=== PATIENT | female | born 1975 | race Caucasian/White ===

== ENCOUNTER 2024-09-08 06:50 | Day surgery (SDC) | payer MEDICARE, MEDICAID, SELFPAY ==
[2024-08-31 09:52] VITALS: BMI 28.6
[2024-08-31 10:37] LABS: % Basophils 0.9 % (0-2); % Eosinophils 16.9 % (0-6); % Immature Granulocytes 0.2 % (0-0.5); % Lymphocytes 24.1 % (20.5-51.1); % Neutrophils 52.9 % (42.2-75.2); Absolute Eosinophils 0.8 10^3/uL (0-0.7); Absolute Lymphocytes 1.1 10^3/uL (1.2-3.4); Absolute Monocytes 0.2 10^3/uL (0.1-0.6); Absolute Neutrophils 2.4 10^3/uL (1.4-6.5); Hemoglobin 10.2 g/dL (12.0-16.0); Mean Corpuscular Hgb 31.4 pg (27.0-31.0); Mean Corpuscular Volume 92.3 fL (81.0-99.0); Mean Platelet Volume 12.4 fL (7.4-10.4); Nucleated Red Blood Cells % 0 %; Platelet Count 168 10^3/uL (130-400); Red Blood Cell Count 3.25 10^6/uL (4.20-5.40); Red Cell Dist. Width 11.9 % (11.5-14.5); White Blood Cell Count 4.6 10^3/uL (4.8-10.8)
[2024-08-31 11:23] LABS: Blood Urea Nitrogen 45 mg/dl (7-17); Calcium 9.9 mg/dl (8.4-10.2); Carbon Dioxide 22 mmol/L (22-30); Chloride 108 mmol/L (98-107); Estimated Creatinine Clearance 49 ml/min; Glucose 85 mg/dl (70-99); Potassium 4.7 mmol/L (3.5-5.1); Sodium 141 mmol/L (135-145); eGFR 55.84
--- NOTE | 2024-09-05 10:21 | PTCARENOTE ---
Lorena in Dr. Conklin's office made aware of BUN 45, Cr 1.2, GFR 55.84.
[2024-09-08] VITALS (9 sets, daily range): BP systolic 96–126; BP diastolic 56–84; BMI 28.6
--- NOTE | 2024-09-08 21:57 | W.IMMPOSTOP ---
Surgical Immed Post Op Note
-
Primary Surgeon: Gwendolyn Conklin,
Assisting Surgeon: none
Pre-op Diagnosis: Abnormal uterine bleeding, echogenic focus on ultrasound
Post-op Diagnosis: same,endometrial polyp
Procedure Performed: diagnostic hysteroscopy D&C polypectomy, pap smear collection
Anesthesia Type: general Dr. Mc
Specimen / Cultures: 1. endocervical curettings 2. endometrial curettings and polyp
Estimated Blood Loss: 5 ml
Complications: none
Operative Findings: Uterus approx 10 cm with endometrial polyp noted. Bilateral tubal ostia seen.
Counts correct times 2.
Stable to recovery.
== END 2024-09-08 18:04 | disposition home or self-care (01) ==
LOC: SDS 06:50
PROVIDERS: ATTENDING PHYSICIAN Obstetrics & Gynecology; FAMILY PHYSICIAN Family Medicine
DX: N84.0 Polyp of corpus uteri (principal); N92.0 Excessive and frequent menstruation with regular cycle; Z12.4 Encounter for screening for malignant neoplasm of cervix
CPT/HCPCS: 58558; 88305; 36415; 80048; 85025; 86850; 86900; 86901; G0123

== ENCOUNTER 2024-12-25 21:15 | Inpatient (IN) | payer MEDICARE, MEDICAID, SELFPAY ==
[2024-12-25] VITALS (8 sets, daily range): BP systolic 89–113; BP diastolic 60–77; BMI 12.8
--- NOTE | 2024-12-25 14:14 | ED.GENMED ---
ED Provider Triage
<Oziel Pinto PA-C - Last Filed: 12/25/24 14:15>
-
Patient seen by provider in Triage?: Seen in Triage
Attestation: A medical screening examination has been initiated by a qualified medical provider. Based on the assessment performed at this time, it has been determined that an emergent medical condition may exist and the patient has been informed
that further medical evaluation and possible additional diagnostic testing may be needed.
HPI: 49-year-old female nonverbal wheelchair-bound with history of spina bifida who sees the spina bifida clinic at [facility] presents with parents who state the patient is not herself. She has a vesicostomy and parents have noted significant
amount of blood in the bag. She typically acts like this when she has a UTI. She is currently on Augmentin for the past 4 days. They feel that she is in pain. They are concerned about anemia and ongoing UTI or kidney malfunction. She has 1
kidney
Started workup at triage with urinalysis and basic labs
GENERAL: Alert , in no apparent distress
EYE: No visual abnormalities.
NECK: Trachea midline
ENT: No visible abnormalities.
LUNGS: No acute respiratory distress
NEUROLOGICAL: Alert and oriented
SKIN: Skin intact. No visible changes.
MUSCULOSKELETAL: Moving extremities normally
PSYCH: Normal and appropriate interaction.
This is a medical evaluation conducted in person to initiate diagnostic evaluation and provide initial therapeutics. Please see further documentation by the treating clinician.
History of Present Illness
<Oziel Pinto PA-C - Last Filed: 12/25/24 14:15>
General
Chief Complaint: Abnormal Lab Value
Time Seen by Provider: 12/25/24 15:03
<Lupillo Ortega MD - Last Filed: 12/25/24 21:08>
General
Source: patient
Exam Limitations: none
Nursing documentation reviewed up to this point in time: agreed with
History of Present Illness
History of Present Illness:
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
of lethargy and hematuria. Parents report that hematuria started about a week and a half ago and over the past week or so has been associated with increased lethargy, decreased appetite. Unfortunately patient is nonverbal at baseline cannot
communicate but parents have noted that she seems more uncomfortable than usual particularly when mother has to catheterize her for urine patient appears to jerk her leg and seems uncomfortable. According to family they were prescribed Augmentin 4
days ago given hematuria and lethargy but symptoms have not improved and thus presented to the ER today. They have not noticed any cough or respiratory symptoms. No vomiting or diarrhea noted. Mother does note that there was a similar
presentation related to a severe kidney infection in the past.
Past History
<Oziel Pinto PA-C - Last Filed: 12/25/24 14:15>
Past History
ED Past Medical History: Other (spina bifida)
ED Past Surgical History: Urological and Other (MACHINE MILKER shunt)
Social History
Tobacco: Non-smoker
Alcohol: None
Living: with family
Review of Systems
<Lupillo Ortega MD - Last Filed: 12/25/24 21:08>
Review of Systems
Unable to obtain full review of systems at this time due to: non-verbal
All Other Systems: Not applicable
Phy Exam
<Lupillo Ortega MD - Last Filed: 12/25/24 21:08>
Physical Exam
Physical Exam:
General: Laying in bed eyes open, chronically ill-appearing but not in acute distress
Head: Normocephalic, atraumatic
Eyes: Conjunctiva normal, sclera anicteric
Throat: Airway intact, handling secretions
Neck: Trachea midline, supple without meningismus
Lungs: Clear to auscultation bilaterally, no wheezing, rales, rhonchi
Heart: Tachycardia with regular rhythm, no murmurs, gallops, or rubs
Abd: Soft, non distended, no masses appreciated, does not necessarily appear uncomfortable with abdominal palpation
Extremities: Warm and well-perfused
Scores
<Lupillo Ortega MD - Last Filed: 12/25/24 21:08>
Heart Failure Risk
Heart Failure Risk Score: Not Applicable
Heart Score for Chest Pain Patients
STEMI patient?: Not applicable
Withdrawal Assessment of Alcohol
Withdrawal Assessment Completed?: Not applicable
Sepsis
<Lupillo Ortega MD - Last Filed: 12/25/24 21:08>
Sepsis Screening
Sepsis Assessment: Sepsis
Sepsis Screen
Sepsis Screen: Sepsis
Date: 12/25/24
Time: 21:07
Course
<Oziel Pinto PA-C - Last Filed: 12/25/24 14:15>
Orders/Labs/Results
Orders:
Orders
12/25/24 15:17
0.9% Sodium Chloride 1000 ml [Nss] 1,000 ml IV BOLUS
12/25/24 15:30
CT Abd/pel Without Iv Or Oral Urgent
Comment: h/o spina bifida, single kidney with CKD
Reason For Exam: abd pain, fever, hypotension
12/25/24 16:09
COVID-19 Antigen Urgent
Source: Nasal Swab
Urinalysis Reflex To Culture Urgent
Date Specimen was Collected: 12/25/24
Time Specimen was Collected: 16:07
Urine Microscopic Reflex Cult Urgent
Urine Culture Urgent
EMILY Source: U
Specimen Description:
Date Specimen was Collected: 12/25/24
Time Specimen was Collected: 16:07
12/25/24 16:35
Blood Culture Q30M
EMILY Source: Blood/Venous
Specimen Description:
12/25/24 17:09
Complete Blood Count/With Diff Urgent
Comprehensive Metabolic Panel Urgent
Creatine Phosphokinase Urgent
Lactate Level [Lactic Acid] Urgent
Lipase Urgent
Blood Culture Q30M
EMILY Source: Blood/Venous
Specimen Description:
12/25/24 17:10
CR Chest Portable - 1 View Urgent
Comment:
Reason For Exam: weakness/lethergy; also eval shunt
Reason Study Needs to be Portable: Unable to Transport
12/25/24 17:11
CT Head W/o Iv Contrast Urgent
Comment:
Reason For Exam: lethergy, h/o MACHINE MILKER shunt
12/25/24 19:35
Piperacillin/Tazo 3.375 Gram [Zosyn] 3.375 gram in 50 ml IV NOW
12/25/24 19:38
Electrocardiogram (*1) Urgent
Reason for Study: PreOp
EKG- Treatment ONCE
12/25/24 19:40
Dextrose 50%-Water [Dextrose 50% Syringe] 25 grams IV NOW STA
Insulin Human Regular [Novolin R] 5 units IV NOW STA
12/25/24 20:05
0.9% Sodium Chloride 500 ml [Nss] 500 ml IV BOLUS
12/25/24 20:11
UROLOGY CONSULT Urgent
Consulting Provider: Bennie Rosales
Was physician already notified: Yes
12/25/24 20:12
NEPHROLOGY CONSULT Urgent
Consulting Provider: Cain Duncan V.
Was physician already notified: Yes
12/25/24 20:14
Sodium Zirconium Cyclosilicate [Lokelma] 10 gram PO NOW STA
12/25/24 20:43
Admit/Transfer Patient As Directed
Co-Sign Provider:
Level of Care: Inpatient admission
Assign to:: Telemetry
Physician / Group: hospitalist
Diagnosis: renal failure
Reason for Telemetry: Other
Other Reason for Telemetry: hyperkalemia
Date to Stop Telemetry: 12/27/24
Time to Stop Telemetry: 11:00
Reason for Hospitalization: renal failure
Expected length of stay greater than two midnights?: Yes
ELOS- Estimated Length of Stay in days: 2
I certify the patient meets the requirements for IP care: Yes
PRN Pain Medication Management As Directed
May give lesser potent ordered pain med per pt: Yes
preference::
Protocol:: Medication orders for pain may be administered in a
manner that supports deferring to patient preference
when the pt is:
- Requesting an ordered lesser potent pain medication.
Least to most potent pain medications are defined
as: acetaminophen < NSAID < tramadol < opioids
(morphine, oxycodone, hydromorphone).
- Requesting a lesser dose of the same medication IF
ORDERED.
- Requesting a less intrusive route of administration
if both routes are prescribed by the provider (PO <
IV).
12/25/24 20:44
Code Status As Directed
Resuscitation Status: Full Code
12/25/24 20:57
BMP [Basic Metabolic Panel] Stat
12/25/24 21:05
Méndez Placement- Treatment ONCE
Reason for insertion: Acute Kidney Injury
12/27/24 11:00
DC Protocol for Telemetry ONCE
Abnormal Lab Results
12/25/24 12/25/24 12/25/24
16:09 17:09 20:01
RBC 3.40 L 10^6/uL
(4.20-5.40)
Hgb 10.4 L g/dL
(12.0-16.0)
Hct 34.6 L %
(37.0-47.0)
MCV 101.8 H fL
(81.0-99.0)
MCHC 30.1 L g/dL
(33.0-37.0)
MPV 12.6 H fL
(7.4-10.4)
Absolute Lymphs (auto) 1.1 L 10^3/uL
(1.2-3.4)
Absolute Monos (auto) 0.7 H 10^3/uL
(0.1-0.6)
Absolute Eos (auto) 0.8 H 10^3/uL
(0-0.7)
Immature Gran % 0.6 H %
(0-0.5)
Lymphocytes % 16.2 L %
(20.5-51.1)
Monocytes % 9.6 H %
(1.7-9.3)
Eosinophils % 11.8 H %
(0-6)
Sodium 154 H mmol/L
(135-145)
Potassium 6.3 H* mmol/L
(3.5-5.1)
Chloride 112 H mmol/L
(98-107)
BUN 111 H* mg/dl
(7-17)
Creatinine 2.7 H mg/dL
(0.6-1.0)
Glucose 115 H mg/dl
(70-99)
Creatine Kinase < 20 L U/L
(30-135)
Total Protein 8.6 H g/dl
(6.3-8.2)
Lipase 450 H U/L
(23-300)
Ur Occult Blood Reflex 4+ A
(Negative)
Leukocyte Esterase Rfl 3+ A
(Negative)
Urine WBC (Reflex) >100 A /HPF
(0-5)
Urine Albumin (Reflex) 4+ A
(Neg - Trace)
POC Glucose 123 H mg/dl
(70-99)
12/25/24 17:09
Vital Signs
Initial and Last Documented VS:
Initial Vital Signs
Temp Pulse Resp BP Pulse Ox
36.4 C 122 18 89/68 98
12/25/24 14:13 12/25/24 14:13 12/25/24 14:13 12/25/24 14:13 12/25/24 14:13
Last Documented Vital Signs
Temp Pulse Resp BP Pulse Ox
37.3 C 110 24 98/72 99
12/25/24 16:00 12/25/24 20:45 12/25/24 20:45 12/25/24 20:00 12/25/24 20:00
<Lupillo Ortega MD - Last Filed: 12/25/24 21:08>
Orders/Labs/Results
Orders:
Orders
12/25/24 15:17
0.9% Sodium Chloride 1000 ml [Nss] 1,000 ml IV BOLUS
12/25/24 15:30
CT Abd/pel Without Iv Or Oral Urgent
Comment: h/o spina bifida, single kidney with CKD
Reason For Exam: abd pain, fever, hypotension
12/25/24 16:09
COVID-19 Antigen Urgent
Source: Nasal Swab
Urinalysis Reflex To Culture Urgent
Date Specimen was Collected: 12/25/24
Time Specimen was Collected: 16:07
Urine Microscopic Reflex Cult Urgent
Urine Culture Urgent
EMILY Source: U
Specimen Description:
Date Specimen was Collected: 12/25/24
Time Specimen was Collected: 16:07
12/25/24 16:35
Blood Culture Q30M
EMILY Source: Blood/Venous
Specimen Description:
12/25/24 17:09
Complete Blood Count/With Diff Urgent
Comprehensive Metabolic Panel Urgent
Creatine Phosphokinase Urgent
Lactate Level [Lactic Acid] Urgent
Lipase Urgent
Blood Culture Q30M
EMILY Source: Blood/Venous
Specimen Description:
12/25/24 17:10
CR Chest Portable - 1 View Urgent
Comment:
Reason For Exam: weakness/lethergy; also eval shunt
Reason Study Needs to be Portable: Unable to Transport
12/25/24 17:11
CT Head W/o Iv Contrast Urgent
Comment:
Reason For Exam: lethergy, h/o MACHINE MILKER shunt
12/25/24 19:35
Piperacillin/Tazo 3.375 Gram [Zosyn] 3.375 gram in 50 ml IV NOW
12/25/24 19:38
Electrocardiogram (*1) Urgent
Reason for Study: PreOp
EKG- Treatment ONCE
12/25/24 19:40
Dextrose 50%-Water [Dextrose 50% Syringe] 25 grams IV NOW STA
Insulin Human Regular [Novolin R] 5 units IV NOW STA
12/25/24 20:05
0.9% Sodium Chloride 500 ml [Nss] 500 ml IV BOLUS
12/25/24 20:11
UROLOGY CONSULT Urgent
Consulting Provider: Bennie Rosales
Was physician already notified: Yes
12/25/24 20:12
NEPHROLOGY CONSULT Urgent
Consulting Provider: Cain Duncan V.
Was physician already notified: Yes
12/25/24 20:14
Sodium Zirconium Cyclosilicate [Lokelma] 10 gram PO NOW STA
12/25/24 20:43
Admit/Transfer Patient As Directed
Co-Sign Provider:
Level of Care: Inpatient admission
Assign to:: Telemetry
Physician / Group: hospitalist
Diagnosis: renal failure
Reason for Telemetry: Other
Other Reason for Telemetry: hyperkalemia
Date to Stop Telemetry: 12/27/24
Time to Stop Telemetry: 11:00
Reason for Hospitalization: renal failure
Expected length of stay greater than two midnights?: Yes
ELOS- Estimated Length of Stay in days: 2
I certify the patient meets the requirements for IP care: Yes
PRN Pain Medication Management As Directed
May give lesser potent ordered pain med per pt: Yes
preference::
Protocol:: Medication orders for pain may be administered in a
manner that supports deferring to patient preference
when the pt is:
- Requesting an ordered lesser potent pain medication.
Least to most potent pain medications are defined
as: acetaminophen < NSAID < tramadol < opioids
(morphine, oxycodone, hydromorphone).
- Requesting a lesser dose of the same medication IF
ORDERED.
- Requesting a less intrusive route of administration
if both routes are prescribed by the provider (PO <
IV).
12/25/24 20:44
Code Status As Directed
Resuscitation Status: Full Code
12/25/24 20:57
BMP [Basic Metabolic Panel] Stat
12/25/24 21:05
Méndez Placement- Treatment ONCE
Reason for insertion: Acute Kidney Injury
12/27/24 11:00
DC Protocol for Telemetry ONCE
Abnormal Lab Results
12/25/24 12/25/24 12/25/24
16:09 17:09 20:01
RBC 3.40 L 10^6/uL
(4.20-5.40)
Hgb 10.4 L g/dL
(12.0-16.0)
Hct 34.6 L %
(37.0-47.0)
MCV 101.8 H fL
(81.0-99.0)
MCHC 30.1 L g/dL
(33.0-37.0)
MPV 12.6 H fL
(7.4-10.4)
Absolute Lymphs (auto) 1.1 L 10^3/uL
(1.2-3.4)
Absolute Monos (auto) 0.7 H 10^3/uL
(0.1-0.6)
Absolute Eos (auto) 0.8 H 10^3/uL
(0-0.7)
Immature Gran % 0.6 H %
(0-0.5)
Lymphocytes % 16.2 L %
(20.5-51.1)
Monocytes % 9.6 H %
(1.7-9.3)
Eosinophils % 11.8 H %
(0-6)
Sodium 154 H mmol/L
(135-145)
Potassium 6.3 H* mmol/L
(3.5-5.1)
Chloride 112 H mmol/L
(98-107)
BUN 111 H* mg/dl
(7-17)
Creatinine 2.7 H mg/dL
(0.6-1.0)
Glucose 115 H mg/dl
(70-99)
Creatine Kinase < 20 L U/L
(30-135)
Total Protein 8.6 H g/dl
(6.3-8.2)
Lipase 450 H U/L
(23-300)
Ur Occult Blood Reflex 4+ A
(Negative)
Leukocyte Esterase Rfl 3+ A
(Negative)
Urine WBC (Reflex) >100 A /HPF
(0-5)
Urine Albumin (Reflex) 4+ A
(Neg - Trace)
POC Glucose 123 H mg/dl
(70-99)
12/25/24 17:09
Vital Signs
Initial and Last Documented VS:
Initial Vital Signs
Temp Pulse Resp BP Pulse Ox
36.4 C 122 18 89/68 98
12/25/24 14:13 12/25/24 14:13 12/25/24 14:13 12/25/24 14:13 12/25/24 14:13
Last Documented Vital Signs
Temp Pulse Resp BP Pulse Ox
37.3 C 110 24 98/72 99
12/25/24 16:00 12/25/24 20:45 12/25/24 20:45 12/25/24 20:00 12/25/24 20:00
<Lupillo Ortega MD - Last Filed: 12/25/24 21:08>
MDM/Problems Addressed
Differential Diagnosis Includes:
Infection including UTI, pneumonia, intra-abdominal infection, viral syndrome; dehydration/electrolyte derangement, anemia
MDM/Problems Addressed:
49-year-old female chronically ill with spina bifida presents to the ER for increased lethargy and hematuria; she has had 4 days of Augmentin for possible UTI. She is hypotensive 89/68, tachycardic, normal respiratory rate, normal pulse ox, no
fever. Plan to place an IV check labs including a CBC, CMP, lactate, blood cultures, urinalysis. Swab for COVID and flu. Check chest x-ray. Check CT abdomen pelvis. Will check shunt series. Monitor closely reassess after the above.
Labs reviewed: CBC shows no leukocytosis, marginal anemia. CMP shows acute kidney failure with a creatinine of 2.7 from a baseline of 1.2 in August, hyperkalemia with a potassium of 6.3. Urinalysis has numerous RBCs; there are WBCs unclear if
this is due to significant bout of hematuria or truly represents infection. Bacteria unable to count due to number of WBCs/RBCs. Will cover with antibiotics for possible infection. Reviewed CT head no acute pathology noted. CT abdomen pelvis
shows significant hydronephrosis question nonobstructive stone in the distal ureter. With concern for obstructive stone and hydronephrosis and acute renal failure case was discussed with urology for assessment. Plan possible for OR for stent.
Discussed with nephrology regarding hyperkalemia and renal failure�will temporize with insulin and dextrose for now.
Discussed with radiologist regarding CT abdomen pelvis results�while there is moderate hydronephrosis distal calcification adjacent to the ureter appears to actually represent phlebolith rather than obstructive stone. Discussed with urology
possible that the hydronephrosis is related to neurogenic bladder and is chronic rather than acute; furthermore with her hypotension and hyperkalemia anesthesia would be unsafe in this case regardless. While she may require percutaneous nephrostomy
if renal function not improving and she has persistent hydronephrosis for now will plan to continue with fluids, admit to the hospital service. Case discussed with hospitalist. Parents at bedside updated in real-time.
<Lupillo Ortega MD - Last Filed: 12/25/24 21:08>
*Critical Care Note
Total Time (30-74mins, 75-104mins- exclusive of procedures): 35
comment:
Critical care statement: A total of 35 minutes of critical care time was provided for this patient. This includes management of unstable vital signs, evaluation of the patient at bedside, frequent reassessment, discussion with
consultants/hospitalist, and review of pertinent medical records. This time was separate from time utilized to perform any aforementioned documented procedures
<Lupillo Ortega MD - Last Filed: 12/25/24 21:08>
Patient Management
Discussion with other providers: Hospitalist (Discussed with hospitalist), Business Intelligence Director (Discussed with urologist, discussed with leather roller) and Radiologist (Discussed with radiologist)
Escalation/DeEscalation of care consider admission/obs:
Admission indicated
ED Attending Note
<Oziel Pinto PA-C - Last Filed: 12/25/24 14:15>
-
Portions of this chart may have been created with voice recognition software.� Occasional wrong word or��sound alike� substitutions may have occurred due to the inherent limitations of voice recognition software.
Discharge Plan
Departure
Patient Disposition: Admit
Date of Disposition: 12/25/24
Time of Disposition: 20:06
Admit to doctor: Niall
Presentation/result/management discussed w/ accepting MD/DO: Hospitalist
Discharge Problem:
Hydronephrosis, Renal failure, UTI (urinary tract infection), Hyperkalemia
Prescriptions:
No Action
polyethylene glycol 3350 17 GRAMS powder in packet
1 dose PO DAILY
Patient Comments:
family does not know dose
Referrals:
UNKNOWN - PT DOES,NOT KNOW [Unknown Provider] -
Interventions
Interventions:
*Risk Screen - Suicide Last Done: 12/25/24 14:19
*General Assessment Last Done: 12/25/24 14:13
*Neglect/Abuse Screening Last Done: 12/25/24 14:13
ED- Fall Risk Assessment Last Done: 12/25/24 16:27
Discharge Date and Time
Print Language: NIUEAN
[2024-12-25 16:20] LABS: Urine Albumin 4+ (Neg - Trace); Urine Bilirubin Negative (Negative); Urine Character Cloudy (Clear); Urine Color Yellow; Urine Glucose Negative (Negative); Urine Ketone Negative (Negative); Urine Leukocyte 3+ (Negative); Urine Nitrite Negative (Negative); Urine Occult Blood 4+ (Negative); Urine Specific Gravity 1.015 (<1.030); Urine Urobilinogen Negative (Neg - 1+); Urine pH 6.5 (5.0-9.0)
[2024-12-25 16:32] LABS: Urine White Cell >100 /HPF (0-5)
[2024-12-25] MEDS: NSS 1000 IV (16:43)
[2024-12-25 16:46] LABS: COVID-19 Antigen Negative (Negative)
[2024-12-25 17:23] LABS: % Basophils 0.7 % (0-2); % Eosinophils 11.8 % (0-6); % Immature Granulocytes 0.6 % (0-0.5); % Lymphocytes 16.2 % (20.5-51.1); % Monocytes 9.6 % (1.7-9.3); % Neutrophils 61.1 % (42.2-75.2); Absolute Basophils 0.1 10^3/uL (0-0.2); Absolute Eosinophils 0.8 10^3/uL (0-0.7); Absolute Lymphocytes 1.1 10^3/uL (1.2-3.4); Absolute Monocytes 0.7 10^3/uL (0.1-0.6); Absolute Neutrophils 4.2 10^3/uL (1.4-6.5); Hematocrit 34.6 % (37.0-47.0); Hemoglobin 10.4 g/dL (12.0-16.0); Mean Corp Hgb Conc. 30.1 g/dL (33.0-37.0); Mean Corpuscular Hgb 30.6 pg (27.0-31.0); Mean Corpuscular Volume 101.8 fL (81.0-99.0); Mean Platelet Volume 12.6 fL (7.4-10.4); Nucleated Red Blood Cells % 0 %; Platelet Count 238 10^3/uL (130-400); Red Cell Dist. Width 12.9 % (11.5-14.5); White Blood Cell Count 6.9 10^3/uL (4.8-10.8)
[2024-12-25 17:29] LABS: Lactic Acid 1.8 mmol/L (0.7-2.0)
[2024-12-25 17:51] LABS: ALT (SGPT) 27 U/L (0-35); AST (SGOT) 31 U/L (14-36); Albumin 4.5 g/dl (3.5-5.0); Alkaline Phosphatase 109 U/L (38-126); Blood Urea Nitrogen 111 mg/dl (7-17); Calcium 9.2 mg/dl (8.4-10.2); Carbon Dioxide 29 mmol/L (22-30); Chloride 112 mmol/L (98-107); Creatine Phosphokinase < 20 U/L (30-135); Glucose 115 mg/dl (70-99); Lipase 450 U/L (23-300); Potassium 6.3 mmol/L (3.5-5.1); Sodium 154 mmol/L (135-145); Total Bilirubin 0.7 mg/dl (0.2-1.3); Total Protein 8.6 g/dl (6.3-8.2)
[2024-12-25] MEDS: DEXTROSE 50% SYRINGE 25 GRAMS IV (19:55)
[2024-12-25] MEDS: NOVOLIN R 5 UNITS IV (19:58)
[2024-12-25 20:02] LABS: Glucose - Point of Care 123 mg/dl (70-99)
[2024-12-25] MEDS: ZOSYN 50 IV (20:10)
--- NOTE | 2024-12-25 20:26 | HPS.HSE ---
Family Physician
-
Family Physician: Shannon Perez
Chief Complaint
-
Acute kidney injury
History of Present Illness
This is a 49-year-old with past medical history significant for spina bifida severe developmental delay, status post left nephrectomy with solitary right kidney, status post REMANUFACTURING TECHNICIAN shunt at 8 months old without any revisions, status post bilateral
mastectomy, no history of breast cancer, she has a cutaneous vesicostomy placed in 1993 who presents to the emergency department with MARLENE on labs.
Per family the patient has had hematuria for approximately 2 weeks now. She had a UA which was not particularly positive and was treated empirically with oral antibiotics. Despite the antibiotic she did continue to have hematuria. Initially there
was mild improvement but hematuria returned. She has had no fevers at home. She is increasing weakness. She has had decreased p.o. intake. Besides the antibiotic she is not on any medications other than laxatives.
No diarrhea nausea or vomiting noted. No respiratory symptoms.
In the emergency department the patient was afebrile with a temp of 99.2 she was at 90% on room air. Follow-up blood pressure was 98/70 and pulse was 103. CBC was essentially unremarkable with a baseline hemoglobin of 10.4 normal WBCs and
platelets. Electrolytes notable for a sodium of 154 potassium of 6.3 bicarb of 29, BUN and creatinine were elevated at 111 and 2.7.
UA is positive for blood, leukocyte Estrace.
CT of the head is unremarkable. CT AP shows a right hydronephrosis with numerous small stones in the bladder and additional nonobstructing stones in the kidney.
Medical History
Past Medical History
Past Medical History: Reports Other (Spina bifida)
Additional Past Medical History:
Severe intellectual developmental delay
Solitary kidney
Past Surgical History: Reports Other
Additional Past Surgical History:
Status post nephrectomy
Status post REMANUFACTURING TECHNICIAN shunt
Status post meningocele repair
Status post cutaneous vesicostomy
Status post bilateral mastectomy
Status post hematoma removal
Social History
Unable to obtain full social history at this time due to: Dementia
Family History
Family History: Not pertinent
Allergies / Home Medications
Allergies reflects when Allergies were last updated in [facility].
Home Medications with original date entered in [facility]
Allergy/Medication List:
Allergies
Allergy/AdvReac Type Severity Reaction Status Date / Time
latex Allergy Unknown Verified 12/25/24 16:02
Home Medications
polyethylene glycol 3350 17 gram oral powder packet 1 dose PO DAILY 04/06/12
Review of Systems
-
Unable to obtain full review of systems at this time due to: Dementia
Physical Exam
Vital Signs
Vital Signs
Temp Pulse Resp BP Pulse Ox
99.2 F 103 24 98/70 97
12/25/24 16:00 12/25/24 19:15 12/25/24 19:15 12/25/24 18:31 12/25/24 17:00
Physical Exam
General: No Appears in Distress
HEENT: NormoCephalic, Anicteric, Moist mucous membranes and Atraumatic
Respiratory: Clear
Cardiac: S1/S2 and Regular Rhythm
Breast: Deferred by me
GI: Soft, Non Tender, Non Distended and Ostomy (vesicostomy with trace bloody urine)
Rectal: Deferred by Provider
Genito-urinary: Bloody Urine
Musculoskeletal: No Clubbing and No Cyanosis
Skin: Warm
Neuro: Awake and Alert
Hematologic/Lymphatic: No Lymphadenopathy
Psych: Calm
Laboratory Results
-
12/25/24 17:09
Laboratory Results
Lactic Acid 1.8 mmol/L (0.7-2.0) 12/25/24 17:09
Total Bilirubin 0.7 mg/dl (0.2-1.3) 12/25/24 17:09
AST 31 U/L (14-36) 12/25/24 17:09
ALT 27 U/L (0-35) 12/25/24 17:09
Alkaline Phosphatase 109 U/L (38-126) 12/25/24 17:09
Lipase 450 U/L (23-300) H 12/25/24 17:09
Lipase Cancelled 12/25/24 17:09
Data Reviewed
-
CT Scan: Report Reviewed by me
Medical Tests (Nuc Med, Echo, EKG etc): Image Personally Visualized and interpreted
Lab Data: Labs Reviewed by me
Old Records: Reviewed
Impression/Plan
-
IMPRESSION:
49 F with IDD, spina bifida and solitary kidney presenting with hematuria, MARLENE and found to have hydronephrosis in the right ureter/kidney. No obvious urolithiasis but small stones in bladder and non-obstructing stones in Kidney. Possibly
extrinsic compression. MARLENE with hyperkalemia to 6.3 w/o acute ECG changes. Cr 2.7 and BUN 111.
PLAN:
1. Hyperkalemia - Likely secondary to MARLENE. No acute ECG changes
- admit to telemetry
- Insulin/dextrose in ED, repeat K in 2 hours
- will give lokelma 10 x 1
- IV hydration.
- low k diet
2. Hypernatremia - Patient with Na of 154 and likely with decreased free water intake.
- 1.1 L free water deficit.
- correct with NS and 1/2 NS
- give 1/2 NS at 50 ml/hr
- give NS at 100 ml due to hypovolemia and marlene
- repeat labs in 4 hours
3. MARLENE - dehydration and obstruction
- obstruction management below
- IV fluids for now
- renal dose medications
4. Hydronephrosis -- urology consulted, no obstructing stone. Suspect blood due to hemorrhagic cystitis from infection. Suspect patient has elevated bladder pressures due to chronic reflux in patient with spina bifida. Also high risk of
anesthesia tonight giving elevated potassium, MARLENE and borderline low pressures.
-Placement of urinary cath via the vesicostomy for decompression
- monitor MARLENE and consider repeat imaging
- if not improving, IR for perc neph, provided labs are stabilized
5. Hematuria - stones and possible superimposed infection, u/a positive
- IV abx for now
- urine cultures pending.
DVT PPX - hep s/q starting tomorrow
Code status - full code
[2024-12-25] MEDS: NSS 500 IV (21:00)
[2024-12-25] MEDS: LOKELMA 10 GRAM PO (21:08)
--- NOTE | 2024-12-25 21:22 | W.PN.URO.CBU ---
Today's Communication / Plan
-
irrigate q shift to ramon 150cc nss
Assessment / Plan
-
probable urosepsis with solitary rt kidney and hydro For now await cxs ansd place 16 fr ramno in abd stoma irrigate q shift but if no relief may need jj stent or perc tube
Diagnosis
-
Date of Service: December 25, 2024
-
Patient Diagnosis:urosepsis rt hydro and MARLENE in pt with solitary kidney and high pressure neurogenic bladder s/p Mitrofanoff nipple and open urethra no stone fver chills loss appetite x week
Post Op Day:
Subjective
-
non vrerbal but ill appearing to parents
Objective
-
Vital Signs
Temp Pulse Resp BP Pulse Ox
99.2 F 110 24 98/72 99
12/25/24 16:00 12/25/24 20:45 12/25/24 20:45 12/25/24 20:00 12/25/24 20:00
Laboratory Results
12/25/24 17:09
Review of Systems
-
Constitutional: Fever, Night Sweats and Chills
: Flank Pain and Bleeding
Physical Exam
-
General - well developed, well nourished, no acute distress
Chest - clear bilaterally
Abdomen - soft, non-tender, positive bowel sounds, no CVAT, no incisional pain or distention
Genitalia - normal
Rectal - normal
Skin - warm & dry with no rash
N
Care Review
Data Reviewed
Discussed with: Hospitalist, Nursing and Family
CT Scan: Image Pers Reviewed
[2024-12-25 21:23] LABS: Blood Urea Nitrogen 99 mg/dl (7-17); Calcium 8.1 mg/dl (8.4-10.2); Carbon Dioxide 25 mmol/L (22-30); Chloride 116 mmol/L (98-107); Glucose 287 mg/dl (70-99); Potassium 4.6 mmol/L (3.5-5.1); Sodium 151 mmol/L (135-145); eGFR 26.98
[2024-12-26] MEDS: D5/0.45%NACL 1000 IV ×2 (00:28→12:55)
[2024-12-26 03:43] VITALS: BP 93/66
--- NOTE | 2024-12-26 03:45 | PTCARENOTE ---
Received pt from ED into room 2125 around 2314. Pt nonverbal, bedbound. Mom at bedside, answered all admission questions. VSS. D5/0.45% NS @ 75ml/hr initiated into R AC. STEAMER BLOCKER at bedside to insert Méndez into vesicostomy site. Placed and irrigated per
order by STEAMER BLOCKER. Pt and mother resting comfortably, no complaints at this time.
[2024-12-26] MEDS: ZOSYN 50 IV ×3 (04:02→20:05)
[2024-12-26 05:12] VITALS: BMI 12.8
[2024-12-26 07:05] VITALS: BP 98/64
[2024-12-26 07:19] LABS: Hematocrit 25.3 % (37.0-47.0); Hemoglobin 7.8 g/dL (12.0-16.0); Mean Corp Hgb Conc. 30.8 g/dL (33.0-37.0); Mean Corpuscular Hgb 30.6 pg (27.0-31.0); Mean Corpuscular Volume 99.2 fL (81.0-99.0); Mean Platelet Volume 12.3 fL (7.4-10.4); Platelet Count 173 10^3/uL (130-400); Red Blood Cell Count 2.55 10^6/uL (4.20-5.40); Red Cell Dist. Width 12.7 % (11.5-14.5); White Blood Cell Count 4.6 10^3/uL (4.8-10.8)
[2024-12-26 07:32] LABS: Blood Urea Nitrogen 81 mg/dl (7-17); Calcium 7.8 mg/dl (8.4-10.2); Carbon Dioxide 24 mmol/L (22-30); Chloride 118 mmol/L (98-107); Estimated Creatinine Clearance 16 ml/min; Glucose 109 mg/dl (70-99); Magnesium 4.1 mg/dl (1.6-2.3); Potassium 4.4 mmol/L (3.5-5.1); Sodium 152 mmol/L (135-145); eGFR 30.25
--- NOTE | 2024-12-26 08:28 | W.PN.HOSP.TC ---
Today's Communication/Plan
-
IV fluids
Recheck CBC
Continue antibiotics
Await cultures
Assessment / Plan
Assessment / Plan
Gen-awake, alert, NAD, nonverbal
HEENT-NC, AT, anicteric, clear oral mm
Neck-supple
CV-reg, no M, +S1/S2
Lungs-clear B/L
Abd-soft, NT, ND
Ext-no edema
Musculoskeletal-no cyanosis, clubbing
Skin-warm and dry
MARLENE -likely multifactorial etiology including volume depletion, dehydration, pyelonephritis, hydronephrosis with possible obstruction, etc. Creatinine improved to 2.0. Baseline appears to be 1.2 or less. Nephrology consulted.
Sepsis due to right-sided pyelonephritis -presumed diagnosis. Afebrile but does have hypothermia, leukopenia. Abnormal urinalysis. Continue empiric antibiotics, await cultures. Currently on IV Zosyn.
Relative hypotension noted. Has received 2.5 L of IV fluid so far.
Mild right hydronephrosis/moderate hydroureter -noted on CT. Tiny bladder stones, cannot rule out recent obstruction. I spoke with urology service, suspicion is that her spina bifida is causing urine reflux and contributing to hydronephrosis. In
addition, suspect pyelonephritis and infection as contributing factors. No plans for cystoscopy currently given high risk for anesthesia in the setting of hypotension. In addition her renal function is improving. Other option is percutaneous
nephrostomy tube but can hold off for now given improvement. Discussed with Dr. Rosales.
Acute on chronic anemia -presumably acute blood loss anemia due to hematuria. In addition I suspect a component of hemodilution due to IV fluid administration. Hemoglobin 7.8 this morning, will recheck. Transfuse if hemoglobin at 7 or less.
Consent obtained by mother. Last time she was transfused was approximately 2011 according to mother. Has been on chronic iron therapy prior to admission.
Hypernatremia -due to dehydration. Continue relative hypotonic IV fluids. Sodium 152 this morning.
Hyperkalemia -resolved.
Solitary right kidney
Chronic constipation -moderate fecal impaction noted on CT. Resume bowel regimen.
History of nephrolithiasis -nonobstructing right renal stones noted on CT. Absent left kidney.
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
Spina bifida -hx RETAIL PRODUCT DEMO SPECIALIST shunt. Followed by [facility]. Last visit was 2 weeks ago as per family.
Full code
Mother updated at the bedside.
Anticipated Discharge: > 48 hours
Subjective/Interval History
-
Date of Service: December 26, 2024
Patient seen and examined. Mother at the bedside. Patient nonverbal.
Objective Data
-
Labs:
Laboratory Results
12/25/24 12/26/24 12/26/24
20:57 06:33 08:10
WBC 4.6 L Pending
Hgb 7.8 L D Pending
Hct 25.3 L Pending
Plt Count 173 D Pending
Sodium 151 H 152 H
Potassium 4.6 D 4.4
Chloride 116 H 118 H
Carbon Dioxide 25 24
BUN 99 H 81 H
Creatinine 2.2 H 2.0 H
Glucose 287 H 109 H
Calcium 8.1 L 7.8 L
Vital Signs:
Vital Signs
Temp Pulse Resp BP Pulse Ox
96.4 F L 92 17 98/64 99
12/26/24 07:05 12/26/24 07:05 12/26/24 07:05 12/26/24 07:05 12/26/24 07:05
I&O
12/25/24 12/26/24 12/27/24
06:59 06:59 06:59
Intake Total 575 / 575
Output Total 125 / 125
Balance 450 / 450
Review of Systems
-
Unable to obtain full review of systems at this time due to: Patient Non-verbal
[2024-12-26] MEDS: MIRALAX 17 GRAMS PO (09:09)
[2024-12-26 09:34] LABS: % Basophils 0.6 % (0-2); % Eosinophils 22.7 % (0-6); % Immature Granulocytes 0.8 % (0-0.5); % Lymphocytes 16.7 % (20.5-51.1); % Monocytes 11.5 % (1.7-9.3); % Neutrophils 47.7 % (42.2-75.2); Absolute Eosinophils 1.2 10^3/uL (0-0.7); Absolute Lymphocytes 0.9 10^3/uL (1.2-3.4); Absolute Monocytes 0.6 10^3/uL (0.1-0.6); Absolute Neutrophils 2.5 10^3/uL (1.4-6.5); Hematocrit 27.2 % (37.0-47.0); Hemoglobin 8.1 g/dL (12.0-16.0); Mean Corp Hgb Conc. 29.8 g/dL (33.0-37.0); Mean Corpuscular Hgb 30.3 pg (27.0-31.0); Mean Corpuscular Volume 101.9 fL (81.0-99.0); Mean Platelet Volume 12.2 fL (7.4-10.4); Nucleated Red Blood Cells % 0 %; Platelet Count 175 10^3/uL (130-400); Red Blood Cell Count 2.67 10^6/uL (4.20-5.40); Red Cell Dist. Width 12.7 % (11.5-14.5); White Blood Cell Count 5.3 10^3/uL (4.8-10.8)
--- NOTE | 2024-12-26 10:50 | W.CON.NEPH ---
Consultation
-
Date/Time Consultation Requested: 12/26/2024 7:00 AM
Date/Time Consultation Performed: 12/26/2024 11:00AM
Requesting Provider: Dr. Velez
Performing Provider: Dr. Duncan
Reason for Consultation: Acute kidney injury
Medical History
-
Chief Complaint: MARLENE
History of Present Illness:
This is a 49-year-old with past medical history significant for spina bifida severe developmental delay, status post left nephrectomy with solitary right kidney, status post ANODIZE MACHINE OPERATOR shunt at 8 months old without any revisions, status post bilateral
mastectomy. She has a cutaneous vesicostomy placed in 1993 who presents to the emergency department with MARLENE on labs. On presentation to the hospital she was hypernatremic with a serum sodium level in excess of 150 with associated hyperkalemia
(6.3) and acute renal failure BUN (111) with a creatinine of 2.7 off of her baseline of 0.9 (02/28/22). On presentation to the hospital the patient was also hypotensive and had been noting hematuria over the past 2 weeks despite being treated
empirically with oral antibiotic therapy.CT AP shows a right hydronephrosis of solitary kidney with numerous small stones in the bladder and additional nonobstructing stones in the kidney. Urology was consulted and a Ramon catheter was placed.
Nephrology was consulted for acute renal failure and hyperkalemia in the setting of obstructive uropathy.
Past Medical History
Status post nephrectomy do to urinary reflux
Status post ANODIZE MACHINE OPERATOR shunt for hydrocephalus
Status post meningocele repair
Status post Severe intellectual developmental delay
Solitary kidney with vesicostomy
Status post bilateral mastectomy due to large breast size (no CA)
Status post hematoma removal
Severe intellectual developmental delay
Solitary kidney
Spina bifida with profound kyphoscoliosis
Neurogenic bladder
Social History
Tobacco: Non-Smoker
Alcohol: None
Drug: None
Family History
Family History: Not Pertinent
Allergies / Home Medications
Allergy/AdvReac Type Severity Reaction Status Date / Time
latex Allergy Unknown Verified 12/25/24 16:02
�Medication �Instructions �Recorded �Confirmed �Type
polyethylene glycol 3350 17 gram 1 dose PO DAILY Gastrointestinal 04/06/12 09/08/24 History
oral powder packet Issue
Review of Systems
-
Unable to obtain full review of systems at this time due to: Other (severe cognitive dysfunction)
History Source: Family
All other systems: Negative unless noted
Constitutional: Fatigue
: Other (Macroscopic hematuria/neurogenic bladder, has ramon via cutaneous vesicostomy)
Musculoskeletal: Other (Spina bifida with kyphoscoliosis)
Neurological: Other (Baseline profound cognitive dysfunction)
Physical Exam
Vital Signs
Vital Signs
Temp Pulse Resp BP Pulse Ox
96.4 F L 92 17 98/64 99
12/26/24 07:05 12/26/24 07:05 12/26/24 07:05 12/26/24 07:05 12/26/24 07:05
Lab Results
12/26/24 09:25
12/26/24 06:33
WBC 5.3 10^3/uL (4.8-10.8) 12/26/24 09:25
RBC 2.67 10^6/uL (4.20-5.40) L 12/26/24 09:25
Hgb 8.1 g/dL (12.0-16.0) L 12/26/24 09:25
Hct 27.2 % (37.0-47.0) L 12/26/24 09:25
Plt Count 175 10^3/uL (130-400) 12/26/24 09:25
Sodium 152 mmol/L (135-145) H 12/26/24 06:33
Potassium 4.4 mmol/L (3.5-5.1) 12/26/24 06:33
Chloride 118 mmol/L (98-107) H 12/26/24 06:33
Carbon Dioxide 24 mmol/L (22-30) 12/26/24 06:33
BUN 81 mg/dl (7-17) H 12/26/24 06:33
Creatinine 2.0 mg/dL (0.6-1.0) H 12/26/24 06:33
eGFR 30.25 12/26/24 06:33
Glucose 109 mg/dl (70-99) H 12/26/24 06:33
Calcium 7.8 mg/dl (8.4-10.2) L 12/26/24 06:33
Albumin 4.5 g/dl (3.5-5.0) 12/25/24 17:09
Physical Exam
General: Chronically ill-appearing, contracted, nonverbal
HEENT: PERRL, EOMI, Anicteric, Conjunctivae Clear, Ear/Nose Intact, Oropharynx Clear/Moist, Dentition Intact, Facial Symmetry, Neck Supple, Neck: Trachea Midline, No JVD and No Thyromegaly, no Bruits
Respiratory: Clear to auscultation bilaterally with normal lung exersion
Cardiac: S1/S2 and Regular Rate/Rhythm
Breast: Deferred by me
Abdomen: Soft, Nontender, Nondistended, Normal Bowel Sounds and No Hepatosplenomegaly
Rectal: Deferred by Provider
Genito-urinary: No Costovertebral Tenderness:ramon via cutaneous vesicostomy
Extremities: No Clubbing, No Cyanosis and No Edema
Skin: No Rash or open lesions
Neuromuscular: Spina bifida with kyphoscoliosis contracted fore limbs
Hematologic/Lymphatic: No Cervical Lymphadenopathy, No Submandibular Lymphadenopathy and No Supraclavicular Lymphadenopathy
Psych: Withdrawn, does not speak baseline does not follow commands
Vascular: plus 1 pedal and radial pulses
Data Reviewed
-
Radiology: Image Personally Visualized and interpreted (Chest x-ray personally reviewed no evidence of congestive heart failure or pneumonic process) and Report Reviewed by me (CT of abdomen and pelvis reviewed)
Labs: Labs Reviewed by me (BMP CBC urinalysis)
Old Records: Reviewed (Reviewed previous creatinine of 1.2 from date 08/31/2024)
Assessment/Plan
-
Impression:
MARLENE
Hypernatremia
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
Hyperkalemia
UTI/pyelonephritis
Solitary right kidney with possible pyelonephritis and noted mild right hydronephrosis with moderate hydroureter/urosepsis
Nephrolithiasis
Spina bifida/history of ANODIZE MACHINE OPERATOR shunt
Neurogenic bladder
Cognitive dysfunction
Anemia
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
Plan:
MARLENE:
-Likely multifactorial which could include obstruction of solitary right kidney versus sepsis in setting of pyelonephritis with associated hemodynamic instability
-Need to support blood pressure and maintain MAP greater than 65
-Urology decided not to pursue cystoscopy due to hemodynamic instability
-Cutaneous vesicostomy with Ramon catheter and urine output of approximate 200cc overnight
-I am still not convinced that patient is not obstructed and may require percutaneous nephrostomy tube if urine output and/or acute renal failure does not improve over next 24 hours
-No acute indication for dialysis at this time
-I will provide half-normal saline for both blood pressure support and hypernatremia
-Empiric antibiotics including Zosyn, renally dosed
[2024-12-26 11:43] VITALS: BP 94/61
--- NOTE | 2024-12-26 14:27 | W.PN.URO.CBU ---
Today's Communication / Plan
-
continue present care
Assessment / Plan
-
probable urosepsis with solitary rt kidney and hydro For now await cxs ansd place 16 fr ramon in abd stoma irrigate q shift but if no relief may need jj stent or perc tube Staboilozing with foly and iv fluids still low bp
Diagnosis
-
Date of Service: December 26, 2024
-
Patient Diagnosis:
Post Op Day:
Patient Diagnosis:urosepsis rt hydro and MARLENE in pt with solitary kidney and high pressure neurogenic bladder s/p Mitrofanoff nipple and open urethra no stone but fver chills loss appetite x week
Post Op Day:
Subjective
-
nonverbal pt vcare pressurization mechanic states more responsive today
Objective
-
Vital Signs
Temp Pulse Resp BP Pulse Ox
97.0 F 78 17 94/61 100
12/26/24 11:45 12/26/24 11:43 12/26/24 11:43 12/26/24 11:43 12/26/24 11:43
Intake and Output
12/25/24 12/26/24 12/27/24
06:59 06:59 06:59
Intake Total 575 / 575
Output Total 125 / 125
Balance 450 / 450
Intake:
IV fluids (Total) 525 / 525
IV piggybacks 50 / 50
Output:
Urostomy output 125 / 125
Laboratory Results
12/26/24 09:25
12/26/24 06:33
Review of Systems
-
Unable to obtain full review of systems at this time due to: Patient Non-verbal
Physical Exam
-
General - well developed, well nourished, no acute distress
Chest - clear bilaterally
Abdomen - soft, non-tender, positive bowel sounds, no CVAT, no incisional pain or distention
Genitalia - normal
Rectal - normal
Skin - warm & dry with no rash
Neuro - AOx3, no motor deficits
Extremities - no clubbing, no cyanosis, no edema
Incision - clean, dry
Dressing - clean, dry, intact
Care Review
Data Reviewed
Discussed with: Internal Medicine and Family
CT Scan: Image Pers Reviewed
--- NOTE | 2024-12-26 15:22 | CM ---
Patient seen at bedside with mom Tammie. IA obtained by mom
Dx: renal failure
PMH: Spina Bifida (Pt of [facility]), severe developmental delay, left nephrectomy with solitary right kidney, status post BACTERIOLOGIST FOOD shunt at 8 months old without any revisions, status post bilateral mastectomy, no history of breast
cancer, she has a cutaneous vesicostomy placed in 1993.
Lives with parents in 2 story home, 1st floor set up, ramp to enter home
PLOF: bedbound
DME: wheelchair, pulmonary vest, shower chair, catheter supplies ([employer])
receives care 5hrs a day by her sister through the [facility]
Denies HH
PCP: Dr. Perez
Pharmacy: [address]
PLAN: CM to follow hospitalization progress, anticipate home health with family support
[2024-12-26 15:39] VITALS: BP 95/66
--- NOTE | 2024-12-26 18:18 | PTCARENOTE ---
Patient with Hbg 7.8 this morning. Repeat labs showed Hbg to be 8.1. Family at bedside asked throughout the shift when patient would be 'receiving blood'. Family was informed that blood was not ordered for the patient. Father of the patient was
noted to be agitated after hearing this and stated ' not good, that's not what my was told'. Family was told again by this nurse that blood was not ordered and that Hbg results were higher than communication studies professor results. Family was fixated on Hbg
numbers and patient getting blood. Information was repeated throughout shift, family noted to be frustrated and forgetful regarding information provided. Pt had no s/s of bleeding. Méndez draining yellow urine, no BM this shift, Miralax given.
Continues on IVF. Call grissom within reach.
[2024-12-26 19:51] VITALS: BP 101/66
[2024-12-26 23:38] VITALS: BP 90/59
[2024-12-27] MEDS: D5/0.45%NACL 1000 IV (02:56)
[2024-12-27 03:40] VITALS: BP 90/58
[2024-12-27] MEDS: ZOSYN 50 IV ×2 (03:46→11:24)
[2024-12-27 08:00] VITALS: BP 99/66
[2024-12-27 08:01] LABS: % Basophils 0.6 % (0-2); % Eosinophils 20.4 % (0-6); % Immature Granulocytes 0.6 % (0-0.5); % Lymphocytes 19.1 % (20.5-51.1); % Monocytes 8.4 % (1.7-9.3); % Neutrophils 50.9 % (42.2-75.2); Absolute Eosinophils 1.5 10^3/uL (0-0.7); Absolute Lymphocytes 1.4 10^3/uL (1.2-3.4); Absolute Monocytes 0.6 10^3/uL (0.1-0.6); Absolute Neutrophils 3.7 10^3/uL (1.4-6.5); Hematocrit 24.3 % (37.0-47.0); Hemoglobin 7.7 g/dL (12.0-16.0); Mean Corp Hgb Conc. 31.7 g/dL (33.0-37.0); Mean Corpuscular Hgb 30.9 pg (27.0-31.0); Mean Corpuscular Volume 97.6 fL (81.0-99.0); Nucleated Red Blood Cells % 0 %; Red Blood Cell Count 2.49 10^6/uL (4.20-5.40); Red Cell Dist. Width 12.6 % (11.5-14.5); White Blood Cell Count 7.2 10^3/uL (4.8-10.8)
--- NOTE | 2024-12-27 08:50 | PN.CDI ---
CDI
- -
CDI:
Physician Documentation Request
Admit Date: 12/25/24 21:15
Dear Doctor Agustin,
Please review the following and provide your response in the progress notes.
Clinical Indicators:
Stage Set Designer, 12/26
#...assessment due to BMI 12.7 (underweight)
#Current BW: (12/26) 65 lbs 6.4 oz BMI: 12.8 (underweight).
Please provide an associated diagnosis related to the BMI, such as:
BMI, 12.7, underweight
Other (please specify)
BMI < or = to 19
Underweight
Weight Loss
Cachectic
Anorexia
Use of terms such as suspected, likely, concern for, or probable (associated with a specific diagnosis that is being evaluated, monitored, or treated as if it exists) are acceptable and can be coded in the inpatient setting, when documented at the
time of discharge.
Thank you,
Hoa Schwartz RN BSN CCDS
CDI Specialist
please contact via tiger text
Please use your independent medical judgment in providing your response.
[2024-12-27] MEDS: MIRALAX 17 GRAMS PO (09:00)
--- NOTE | 2024-12-27 09:33 | W.PN.HOSP.TC ---
Addendum entered and electronically signed by Jose Velez DO 12/27/24 13:40:
MARLENE much improved, hypernatremia resolved.
Ok for discharge today with ramon. Discussed with Urology and Nephrology.
She has an appointment with urology at [facility] this Wednesday, 12/29.
Will need renal US and BMP to be done on Friday 12/29.
Rx for Levofloxacin sent to her pharmacy.
Above discussed with mother on the phone. All questions answered.
Addendum entered and electronically signed by Jose Velez DO 12/27/24 12:13:
BMI, 12.7, underweight
Original Note:
Today's Communication/Plan
-
Follow-up BMP
Assessment / Plan
Assessment / Plan
Gen-awake, alert, NAD, nonverbal
HEENT-NC, AT, anicteric, clear oral mm
Neck-supple
CV-reg, no M, +S1/S2
Lungs-clear B/L
Abd-soft, NT, ND
Ext-no edema
Musculoskeletal-no cyanosis, clubbing
Skin-warm and dry
MARLENE -likely multifactorial etiology including volume depletion, dehydration, pyelonephritis, hydronephrosis with possible obstruction, etc. Creatinine improved to 2.0 yesterday, pending for today. Baseline appears to be 1.2 or less. Nephrology
following.
Sepsis due to right-sided pyelonephritis -presumed diagnosis. Afebrile but does have hypothermia, leukopenia. Abnormal urinalysis. Cultures are negative likely due to antibiotic exposure prior to admission. Currently on IV Zosyn.
Would stop further IV fluids if electrolytes and renal function improved. Blood pressure relatively stable.
Mild right hydronephrosis/moderate hydroureter -noted on CT. Tiny bladder stones, cannot rule out recent obstruction. I spoke with urology service, suspicion is that her spina bifida is causing urine reflux and contributing to hydronephrosis. In
addition, suspect pyelonephritis and infection as contributing factors. No plans for cystoscopy currently given high risk for anesthesia in the setting of hypotension. In addition her renal function is improving. Other option is percutaneous
nephrostomy tube but can hold off for now given improvement. Discussed with Dr. Rosales.
Mother states that she recently had a renal ultrasound in the past 6 months, family to obtain report for us. Unclear if she had a CT scan.
Acute on chronic anemia -presumably acute blood loss anemia due to hematuria. In addition I suspect a component of hemodilution due to IV fluid administration. Hemoglobin relatively stable at 7.7 this morning. Transfuse if hemoglobin at 7 or
less. Consent obtained by mother. Last time she was transfused was approximately 2011 according to mother. Has been on chronic iron therapy prior to admission.
Hypernatremia -due to dehydration. Currently on D5 and a half normal saline IVF. Labs for today pending.
Hyperkalemia -resolved.
Solitary right kidney
Chronic constipation -moderate fecal impaction noted on CT. Resume bowel regimen. Bowel movement this morning noted.
History of nephrolithiasis -nonobstructing right renal stones noted on CT. Absent left kidney.
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
Spina bifida -hx CHIEF TECHNOLOGY OFFICER shunt. Followed by [facility]. Last visit was 2 weeks ago as per family.
Full code
Dispo -hopefully can discharge over the next 24 hours if stable. Awaiting labs.
Mother updated at the bedside.
Anticipated Discharge: Within 24 hours
Subjective/Interval History
-
Date of Service: December 27, 2024
Patient seen and examined. Nonverbal. Looks comfortable. Mother at the bedside.
Objective Data
-
Labs:
Laboratory Results
12/27/24 12/27/24
06:00 06:40
WBC 7.2
Hgb 7.7 L
Hct 24.3 L
Plt Count
Sodium Pending
Potassium Pending
Chloride Pending
Carbon Dioxide Pending
BUN Pending
Creatinine Pending
Glucose Pending
Calcium Pending
Vital Signs:
Vital Signs
Temp Pulse Resp BP Pulse Ox
98.7 F 92 16 99/66 100
12/27/24 08:00 12/27/24 08:00 12/27/24 08:00 12/27/24 08:00 12/27/24 08:00
I&O
12/26/24 12/27/24 12/28/24
06:59 06:59 06:59
Intake Total 575 / 575 1900 / 1900
Output Total 125 / 125 825 / 825
Balance 450 / 450 1075 / 1075
Review of Systems
-
Unable to obtain full review of systems at this time due to: Patient Non-verbal
--- NOTE | 2024-12-27 09:56 | W.PN.NEPH.PH ---
Today's Communication / Plan
-
adjust IVF based on labs
Assessment/Plan
-
Impression:
MARLENE
Hypernatremia
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
Hyperkalemia
UTI/pyelonephritis
Solitary right kidney with possible pyelonephritis and noted mild right hydronephrosis with moderate hydroureter/urosepsis
Nephrolithiasis
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
Neurogenic bladder
Cognitive dysfunction
Anemia
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
Plan:
MARLENE:
-Likely multifactorial which could include obstruction of solitary right kidney versus sepsis in setting of pyelonephritis with associated hemodynamic instability
-Need to support blood pressure and maintain MAP greater than 65
-Urology decided not to pursue cystoscopy due to hemodynamic instability, awaiting old records -US or CT reports in last 6m
-Cutaneous vesicostomy with Méndez catheter and urine output of approximate 825cc -improving
-I am still not convinced that patient is not obstructed and may require percutaneous nephrostomy tube if urine output and/or acute renal failure does not improve over next 24 hours, await labs- follows
-No acute indication for dialysis at this time and do not think is HD candidate-spoke with mom at bedside
coint half-normal saline for both blood pressure support and hypernatremia-once labs results likely titrate rate as needed
-Empiric antibiotics including Zosyn, renally dosed
d/w mom at bedside
-
-
Date of Service: December 27, 2024
CC / HPI / ROS
-
Chief Complaint:
MARLENE, hypernatremia
History of Present Illness:
no labs today
hb low 7.7, BP remain soft
no fever
Review of Systems:
per mom she is more awake and had drank 4 ounces of ensure
pt is non verbal baseline
Labs
-
Labs:
WBC 7.2 10^3/uL (4.8-10.8) 12/27/24 06:40
RBC 2.49 10^6/uL (4.20-5.40) L 12/27/24 06:40
Hgb 7.7 g/dL (12.0-16.0) L 12/27/24 06:40
Hct 24.3 % (37.0-47.0) L 12/27/24 06:40
Plt Count 10^3/uL (130-400) 12/27/24 06:40
eGFR 30.25 12/26/24 06:33
Albumin 4.5 g/dl (3.5-5.0) 12/25/24 17:09
Physical Exam
-
Vital Signs:
Vital Signs
Temp Pulse Resp BP Pulse Ox
98.7 F 92 16 99/66 100
12/27/24 08:00 12/27/24 08:00 12/27/24 08:00 12/27/24 08:00 12/27/24 09:00
Cardiovascular:: Regular rate and rhythm
Respiratory:: Bilateral: CTA
Lung Excursion:: Normal
Abdomen:: Nontender and Soft
Extremity Edema:: None: Bilateral:
Méndez Catheter: No
[2024-12-27 11:28] VITALS: BP 109/72
[2024-12-27 12:20] LABS: Blood Urea Nitrogen 48 mg/dl (7-17); Calcium 7.8 mg/dl (8.4-10.2); Carbon Dioxide 20 mmol/L (22-30); Chloride 115 mmol/L (98-107); Estimated Creatinine Clearance 23 ml/min; Glucose 107 mg/dl (70-99); Potassium 3.9 mmol/L (3.5-5.1); Sodium 145 mmol/L (135-145); eGFR 46.41
[2024-12-27] MEDS: DIFLUCAN 150 MG PO (12:22)
--- NOTE | 2024-12-27 12:42 | W.PN.URO.CBU ---
Today's Communication / Plan
-
ready for d/c but may nbenefot with renal u/s keep ramon
Assessment / Plan
-
probable urosepsis with solitary rt kidney creatinine down with ramon suggest renal u/s to see if hydro gone this can be done as outptioent
Diagnosis
-
Date of Service: December 27, 2024
-
Patient Diagnosis:
Post Op Day:
Patient Diagnosis:
Post Op Day:
Patient Diagnosis:urosepsis rt hydro and MARLENE in pt with solitary kidney and high pressure neurogenic bladder s/p Mitrofanoff nipple and open urethra no stone but fver chills loss appetite x week
Post Op Day:
Subjective
-
feeling better
Objective
-
Vital Signs
Temp Pulse Resp BP Pulse Ox
97.3 F 96 16 109/72 98
12/27/24 11:28 12/27/24 11:28 12/27/24 11:28 12/27/24 11:28 12/27/24 11:28
Intake and Output
12/26/24 12/27/24 12/28/24
06:59 06:59 06:59
Intake Total 575 / 575 1900 / 1900
Output Total 125 / 125 825 / 825
Balance 450 / 450 1075 / 1075
Intake:
IV fluids (Total) 525 / 525 1800 / 1800
IV piggybacks 50 / 50 100 / 100
Output:
Urine, Ramon 825 / 825
Urostomy output 125 / 125
Laboratory Results
12/27/24 06:40
12/27/24 10:54
Review of Systems
-
Unable to obtain full review of systems at this time due to: Patient Non-verbal
Physical Exam
-
General - well developed, well nourished, no acute distress
Chest - clear bilaterally
Abdomen - soft, non-tender, positive bowel sounds, no CVAT, no incisional pain or distention
Genitalia - normal
Rectal - normal
Skin - warm & dry with no rash
Neuro - AOx3, no motor deficits
Extremities - no clubbing, no cyanosis, no edema
Care Review
Data Reviewed
Discussed with: Hospitalist, Nursing and Family
[2024-12-27] MEDS: LOTRIMIN 1% CREAM 1 APPLIC TOPICAL (13:13)
--- NOTE | 2024-12-27 13:37 | W.DS.TRANS ---
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
-
Discharge Instructions:
Discharge Diagnosis/Procedures Acute kidney injury, sepsis, pyelonephritis,
anemia
Diet Other diet
Additional Diets pureed
Activity As tolerated,With assistance
Driving Restrictions No driving
Bathing Restrictions None
Blood Work BMP in 2 days
Instructions:
Stand-Alone Forms:
Changes to Home Medications: No
Discharge Medications:
DC Medications w/original date entered in [facility]
polyethylene glycol 3350 17 gram oral powder packet 1 dose PO DAILY Gastrointestinal Issue 04/06/12
levofloxacin 250 mg/10 mL oral solution 750 mg (30 mL) PO Q2D #100 mL 12/27/24
Home Medication Changes
Pending Results: No
--- NOTE | 2024-12-27 13:50 | CM ---
Patient seen at bedside with mom, dad, Sister Sabina
IMM explained & signed. In chart
Patient to be discharged today-family cares for patient
offered VN declines VN - Mom states they will be following up at [facility]
PLAN: home with care from family, no needs
family to transport
[2024-12-27 15:24] VITALS: BP 94/58
--- NOTE | 2024-12-27 15:58 | PTCARENOTE ---
Patient discharged home, transported by parents. This RN removed patient's IVs and tele pack, reviewed discharge instructions with patient's parents who verbalized understanding. Printed copies of patient's labs, BP trends, and tests given to
parents. Parents dressed patient and gathered belongings in room, wheeled patient down in home wheelchair, refused staff escort.
== END 2024-12-27 17:24 | disposition home or self-care (01) | DRG 872 ==
LOC: 2 NORTH 21:15
PROVIDERS: Physician Assistant; ADMITTING PHYSICIAN Internal Medicine; ATTENDING PHYSICIAN Hospitalist; CONSULT PHYSICIAN Specialist; EMERGENCY PHYSICIAN Emergency Medicine; FAMILY PHYSICIAN Family Medicine
DX: A41.9 Sepsis, unspecified organism (principal); N17.9 Acute kidney failure, unspecified; N13.6 Pyonephrosis; E87.0 Hyperosmolality and hypernatremia; D62 Acute posthemorrhagic anemia; Z68.1 Body mass index [BMI] 19.9 or less, adult; F72 Severe intellectual disabilities; N18.4 Chronic kidney disease, stage 4 (severe); E87.5 Hyperkalemia; N31.9 Neuromuscular dysfunction of bladder, unspecified; N21.0 Calculus in bladder; M41.9 Scoliosis, unspecified; K21.9 Gastro-esophageal reflux disease without esophagitis; D63.1 Anemia in chronic kidney disease; E86.0 Dehydration; E86.1 Hypovolemia; R68.0 Hypothermia, not associated with low environmental temperature; R63.6 Underweight; R31.0 Gross hematuria; Q05.9 Spina bifida, unspecified; Z11.52 Encounter for screening for COVID-19; Z99.3 Dependence on wheelchair; Z98.2 Presence of cerebrospinal fluid drainage device; Z91.040 Latex allergy status; Z90.5 Acquired absence of kidney; Z90.13 Acquired absence of bilateral breasts and nipples; Z93.51 Cutaneous-vesicostomy status
CPT/HCPCS: 70450; 71045; 74176; 80048; 80053; 81003; 81015; 82550; 82962; 83605; 83690; 83735; 85025; 85027; 87040; 87086; 87811; 93005; 96365; 96375; 99291

== ENCOUNTER 2025-04-29 23:46 | Emergency (ER) | payer MEDICARE, MEDICAID, SELFPAY ==
[2025-04-29 23:50] VITALS: BP 114/86
--- NOTE | 2025-04-30 00:28 | ED.GENMED ---
History of Present Illness
<LAURA Lainez - Last Filed: 04/30/25 03:28>
General
Chief Complaint: Breathing Problem
Source: family
Time Seen by Provider: 04/30/25 00:08
History of Present Illness
History of Present Illness:
This is a non verbal 50 y/o F with a PMH of spina bifida, significant cognitive impairment, zenkers diverticulum who presents with parents for coughing x few hours. Mom reports she was feeding the patient ensure and noticed she began coughing,
turning blue and was in significant distress. Home pulse ox showed sats at 84%. Denies LOC. Denies CPR. They hit the patient on her back in an attempt to dislodge any food and repositioned the patient. That seemed to help. Pulse ox showed sats up to
89 - 90% but mom reports baseline being 97%. Since then, patient has been coughing/gurgling. Mom reports patient seeming better since being in ED. A similar episode occured last week but it resolved. Since last weeks episode, patient has been waking
up with 'puddle of drool' on her. Parents deny fevers/chills, wheezing, vomiting, diarrhea, syncope.
Past History
<LAURA Lainez - Last Filed: 04/30/25 03:28>
Past History
ED Past Medical History: Other (spina bifida)
ED Past Surgical History: Urological and Other (KNOCK UP ASSEMBLER shunt)
Social History
Tobacco: Non-smoker
Alcohol: None
Living: with family
Review of Systems
<LAURA Lainez - Last Filed: 04/30/25 03:28>
Review of Systems
Unable to obtain full review of systems at this time due to: non-verbal
Other source history: family
Constitutional: Reports no symptoms
EENT: Reports no symptoms
Respiratory: Reports cough
ABD/GI: Reports no symptoms
Phy Exam
<LAURA Lainez - Last Filed: 04/30/25 03:28>
General Physical Exam
General Presentation: well appearing
General Skin: warm and dry
General Habitus: cachetic and failure to thrive
General Mental: usual mental status
Cardiovascular Exam
Cardiovascular Exam: tachycardia
Pulmonary Exam
Pulmonary Exam: no respiratory distress
Cough: productive cough
Breath Sounds: Crackles: right upper and right lower
Gastrointestinal Exam
Gastrointestinal Exam: non tender
Scores
<LAURA Lainez - Last Filed: 04/30/25 03:28>
Heart Failure Risk
Heart Failure Risk Score: Not Applicable
Course
<LAURA Lainez - Last Filed: 04/30/25 03:28>
Orders/Labs/Results
Orders:
Orders
04/30/25 00:37
Test Result ONCE
04/30/25 00:38
CR Chest - 2 Views Urgent
Comment:
Reason For Exam: cough
04/30/25 01:10
Basic Metabolic Panel Urgent
Complete Blood Count/With Diff Urgent
Hep Liver [Gubmy-Jpgy-Dawntdp] Urgent
Lactic Acid Urgent
Lipase Urgent
Potassium Urgent
Troponin I Urgent
Blood Culture Q30M
EMILY Source: Blood/Venous
Specimen Description:
04/30/25 02:39
Amoxicillin/Clavulanate Potass [Augmentin 250 mg/5 ml] 875 mg PO NOW STA
Abnormal Lab Results
04/30/25
01:10
RBC 2.95 L 10^6/uL
(4.20-5.40)
Hgb 9.7 L g/dL
(12.0-16.0)
Hct 30.3 L %
(37.0-47.0)
MCV 102.7 H fL
(81.0-99.0)
MCH 32.9 H pg
(27.0-31.0)
MCHC 32.0 L g/dL
(33.0-37.0)
MPV 12.3 H fL
(7.4-10.4)
Absolute Neuts (auto) 7.0 H 10^3/uL
(1.4-6.5)
Absolute Lymphs (auto) 0.9 L 10^3/uL
(1.2-3.4)
Neutrophils % 79.2 H %
(42.2-75.2)
Lymphocytes % 9.8 L %
(20.5-51.1)
Sodium 150 H mmol/L
(135-145)
Chloride 116 H mmol/L
(98-107)
BUN 69 H mg/dl
(7-17)
Creatinine 1.6 H mg/dL
(0.6-1.0)
Glucose 151 H mg/dl
(70-99)
04/30/25 01:10
04/30/25 01:10
Vital Signs
Initial and Last Documented VS:
Initial Vital Signs
Pulse Resp BP Pulse Ox
118 26 114/86 93
04/29/25 23:50 04/29/25 23:50 04/29/25 23:50 04/29/25 23:50
Last Documented Vital Signs
Pulse Resp BP Pulse Ox
118 26 114/86 95
04/29/25 23:50 04/29/25 23:50 04/29/25 23:50 04/30/25 03:00
Suhalt;Sher Jacobs, DO - Last Filed: 04/30/25 03:02>
Orders/Labs/Results
Orders:
Orders
04/30/25 00:37
Test Result ONCE
04/30/25 00:38
CR Chest - 2 Views Urgent
Comment:
Reason For Exam: cough
04/30/25 01:10
Basic Metabolic Panel Urgent
Complete Blood Count/With Diff Urgent
Hep Liver [Ertmp-Ljjf-Vjxicce] Urgent
Lactic Acid Urgent
Lipase Urgent
Potassium Urgent
Troponin I Urgent
Blood Culture Q30M
EMILY Source: Blood/Venous
Specimen Description:
04/30/25 02:39
Amoxicillin/Clavulanate Potass [Augmentin 250 mg/5 ml] 875 mg PO NOW STA
Abnormal Lab Results
04/30/25
01:10
RBC 2.95 L 10^6/uL
(4.20-5.40)
Hgb 9.7 L g/dL
(12.0-16.0)
Hct 30.3 L %
(37.0-47.0)
MCV 102.7 H fL
(81.0-99.0)
MCH 32.9 H pg
(27.0-31.0)
MCHC 32.0 L g/dL
(33.0-37.0)
MPV 12.3 H fL
(7.4-10.4)
Absolute Neuts (auto) 7.0 H 10^3/uL
(1.4-6.5)
Absolute Lymphs (auto) 0.9 L 10^3/uL
(1.2-3.4)
Neutrophils % 79.2 H %
(42.2-75.2)
Lymphocytes % 9.8 L %
(20.5-51.1)
Sodium 150 H mmol/L
(135-145)
Chloride 116 H mmol/L
(98-107)
BUN 69 H mg/dl
(7-17)
Creatinine 1.6 H mg/dL
(0.6-1.0)
Glucose 151 H mg/dl
(70-99)
04/30/25 01:10
04/30/25 01:10
Vital Signs
Initial and Last Documented VS:
Initial Vital Signs
Pulse Resp BP Pulse Ox
118 26 114/86 93
04/29/25 23:50 04/29/25 23:50 04/29/25 23:50 04/29/25 23:50
Last Documented Vital Signs
Pulse Resp BP Pulse Ox
118 26 114/86 95
04/29/25 23:50 04/29/25 23:50 04/29/25 23:50 04/30/25 03:00
<LAURA Lainez - Last Filed: 04/30/25 03:28>
MDM/Problems Addressed
Differential Diagnosis Includes:
Include but not limited to: pneumonia vs. foreign body vs. asthma vs. GERD vs. CHF
MDM/Problems Addressed:
This is a non verbal 50 y/o F with a PMH of spina bifida, significant cognitive impairment, zenkers diverticulum who presents with parents for coughing x few hours after possible aspiration event. Patient mildly tachycardic and coughing on exam.
Crackles heard in RUL and RLL. No leukocytosis noted. CXR revealing possible consolidation in RLL which is consistent for early signs of aspiration pneumonia. Parents have opted for outpatient therapy. Will treat with course of abx.
<Sher Jacobs DO - Last Filed: 04/30/25 03:02>
*Critical Care Note
Total Time (30-74mins, 75-104mins- exclusive of procedures): Not Applicable
ED Attending Note
<LAURA Lainez - Last Filed: 04/30/25 03:28>
-
Portions of this chart may have been created with voice recognition software.� Occasional wrong word or��sound alike� substitutions may have occurred due to the inherent limitations of voice recognition software.
<Sher Jacobs, - Last Filed: 04/30/25 03:02>
ED Attending Note
Patient seen and examined by attending physician: Yes
I performed the substantive portion of visit, reviewed & personally made and approve the management plan that is documented in note by myself or DEJA.: Yes
ED Attending Note:
Note: Patient was seen in conjunction with the PA stated. I have reviewed and agree with her history and treatment plan.
CHIEF COMPLAINT(S)
Cough and difficulty managing secretions.
HISTORY OF PRESENT ILLNESS
The patient is a 50-year-old female with a history of chronic medical issues, who presents with a cough and difficulty managing oral secretions. Earlier in the week, while drinking, she produced a new sound. After coughing, the sound temporarily
resolved. This evening, while consuming a nutritional drink, she became clammy, her face appeared pathak, with red nose, and she was both cool to touch yet felt hot. A home pulse oximeter reading dropped as low as 81%. This prompted a decision to
present for evaluation after addressing the fluctuations for about an hour and a half. No fever or chills have been noted. However, her mornings have recently included a foamy phlegm puddle, soaking her shirt more than usual. She typically drools,
but not to this extent. She has experienced a significant change in facial color and engagement, initially not responding but appearing more normal after arrival at the medical facility.
CHRONIC MEDICAL CONDITIONS SIGNIFICANTLY AFFECTING CARE
The patient has a history of anemia, kidney removal, and vesicostomy placement.
PHYSICAL EXAM
- Skin: Warm and dry.
- Heart: Regular rate and rhythm.
- Lungs: Coarse breath sounds, particularly on the right side.
- Pupils: Equal, round, and reactive to light.
- Neurological: Appears to have chronic disability, but moves all four extremities.
- No edema, no rash noted.
- Contractures present.
PLAN
Blood work and urine analysis will be performed. A chest X-ray will be conducted to evaluate for potential aspiration pneumonia and other respiratory concerns.
DIFFERENTIAL DIAGNOSIS
The differential diagnosis includes, in no particular order and is not limited to:
1. Aspiration pneumonia
2. Chronic obstructive pulmonary disease exacerbation
3. Congestive heart failure
4. Bronchitis
5. Pulmonary edema
6. Acute respiratory distress syndrome
7. Foreign body aspiration
8. Community-acquired pneumonia
9. Acute bronchospasm
10. Upper respiratory infection
CARE-UPDATE
04/30/25 - 01:24
The hemoglobin level has increased to 9.7, showing improvement from the previously recorded 7.7 on December 27, 2024. Current white blood cell count is 8.8.
CARE-UPDATE
04/30/25 - 02:35
Aspiration noted on chest x-ray; initiating Augmentin in oral suspension due to difficulty swallowing pills. Parents opted for home care and will monitor for any changes, agreeing to return to the emergency department if condition worsens.
Disposition:
DIAGNOSIS
- Aspiration pneumonia (ICD-10: J69.0).
SUMMARY OF ENCOUNTER
The 50-year-old female patient, with a history of chronic medical issues including spina bifida, arrived at the emergency department with symptoms of dyspnea and difficulty managing secretions. The patient had experienced a sudden decrease in oxygen
saturation (81%) at home and notable changes in facial coloration, prompting her parents to bring her in for evaluation. A chest x-ray revealed early signs of aspiration pneumonia. Due to difficulties in swallowing pills, she was initiated on
Augmentin in oral suspension. Her parents, experienced in managing her care, opted for outpatient therapy.
DISPOSITION
Discharge
ASSESSMENT
The patient presents with aspiration pneumonia, as evidenced by the chest x-ray findings and her clinical presentation of cough, increased drooling, and dyspnea.
PLAN
Blood work and urine analysis, along with a chest x-ray, were conducted to confirm a diagnosis of aspiration pneumonia. The patient was started on Augmentin in oral suspension due to her difficulty swallowing pills. Her parents were instructed on
monitoring her condition at home and to return if her condition worsens.
INDEPENDENT INTERPRETATION OF TESTS
- My independent interpretation of the chest x-ray indicates early signs of aspiration pneumonia.
FOLLOW-UP INSTRUCTIONS
Patient to engage in outpatient therapy with a follow-up if symptoms worsen, as agreed by her family.
MEDICATION RECONCILIATION
- Started on Augmentin oral suspension for treatment of aspiration pneumonia.
MEDICAL DECISION MAKING
Number and Complexity of Problems Addressed:
The patient presented with significant acute concern for respiratory distress, compounded by chronic issues including a history of spina bifida. The differential diagnoses considered were thorough, and the decision was made to treat for aspiration
pneumonia based on x-ray results.
Data:
Initial evaluations included blood work, urine analysis, and a chest x-ray to identify the cause of the acute symptoms. The definitive findings on the chest x-ray were central to deciding the treatment approach.
Risk:
The decision to manage the patients care on an outpatient basis was influenced by her parents competence in providing care at home and willingness to monitor for any changes.
Discharge Plan
Departure
Patient Disposition: Home (Routine Discharge)
Date of Disposition: 04/30/25
Time of Disposition: 02:57
Patient with high blood pressure during this ER visit?: No
Discharge Problem:
Aspiration pneumonia, Hypernatremia, Spina bifida
Instructions: Shortness of Breath (Dyspnea) (DC), Aspiration pneumonia - Discharge instructions
Prescriptions:
New
amoxicillin-pot clavulanate 400-57 mg/5 mL suspension for reconstitution
10 ml PO BID 10 Days Qty: 200 0RF
No Action
polyethylene glycol 3350 17 GRAMS powder in packet
1 dose PO DAILY
Patient Comments:
family does not know dose
levofloxacin 250 mg/10 mL solution
750 mg PO Q2D Qty: 100 0RF
Referrals:
[facility] [Outside]
UNKNOWN - PT DOES,NOT KNOW [Family Provider]
Activity Restrictions/Additional Instructions:
Thank You for choosing [facility].
It was a pleasure meeting you and taking part in your care. We hope for your continued healing and wellness.
Please read discharge instructions in their entirety. However, they are for general education and may not describe your exact diagnosis at discharge. Information on your ER visit and medical conditions were discussed with you along with appropriate
follow up information...
If indicated, please take your medications as instructed and indicated on discharge paperwork.
Please schedule a follow up appointment as directed. Call to schedule an appointment
Please return to the emergency department with ANY change in, persisting, or worsening of symptoms. If any of your symptoms do not improve, or persist, or become more severe within 6-12 hours, please return to the emergency department for further
care.
Please return to the emergency department if you develop a headache, neck pain/stiffness, fever greater than 100.4F, chest pain, shortness of breath, persistent nausea, vomiting, slurred speech, difficulty walking, numbness/tingling, weakness, signs
of infection or any other symptoms that are worrisome to you.
If you have any questions or concerns please do not hesitate to call the Hospital at or E-mail me directly at [email or web address]
Interventions
Interventions:
*Risk Screen - Suicide Last Done: 04/29/25 23:50
*General Assessment Last Done: 04/30/25 00:40
*Neglect/Abuse Screening Last Done: 04/29/25 23:50
*ED- Fall Risk Assessment Last Done: 04/30/25 00:40
*ED COVID-19 Vaccine History Last Done: 04/30/25 00:40
*Nursing Disposition Last Done: 04/30/25 03:14
ED- Cardiac Assessment Last Done: 04/30/25 00:40
ED- Pulmonary Assessment Last Done: 04/30/25 00:40
Discharge Date and Time
Discharge Date/Time: 04/30/25 03:17
Print Language: OCCITAN
[2025-04-30 01:20] LABS: % Basophils 0.2 % (0-2); % Eosinophils 4.3 % (0-6); % Immature Granulocytes 0.5 % (0-0.5); % Lymphocytes 9.8 % (20.5-51.1); % Neutrophils 79.2 % (42.2-75.2); Absolute Eosinophils 0.4 10^3/uL (0-0.7); Absolute Lymphocytes 0.9 10^3/uL (1.2-3.4); Absolute Monocytes 0.5 10^3/uL (0.1-0.6); Hematocrit 30.3 % (37.0-47.0); Hemoglobin 9.7 g/dL (12.0-16.0); Mean Corpuscular Hgb 32.9 pg (27.0-31.0); Mean Corpuscular Volume 102.7 fL (81.0-99.0); Mean Platelet Volume 12.3 fL (7.4-10.4); Nucleated Red Blood Cells % 0 %; Platelet Count 175 10^3/uL (130-400); Red Blood Cell Count 2.95 10^6/uL (4.20-5.40); Red Cell Dist. Width 13.9 % (11.5-14.5); White Blood Cell Count 8.8 10^3/uL (4.8-10.8)
[2025-04-30 01:37] LABS: Blood Urea Nitrogen 69 mg/dl (7-17); Carbon Dioxide 28 mmol/L (22-30); Chloride 116 mmol/L (98-107); Glucose 151 mg/dl (70-99); Lactic Acid 1.4 mmol/L (0.7-2.0); Lipase 274 U/L (23-300); Sodium 150 mmol/L (135-145); eGFR 39.29
[2025-04-30 02:06] LABS: ALT (SGPT) 18 U/L (0-35); AST (SGOT) 26 U/L (14-36); Alkaline Phosphatase 69 U/L (38-126); Direct Bilirubin 0.2 mg/dl (0.0-0.4); Potassium 4.9 mmol/L (3.5-5.1); Total Bilirubin 0.4 mg/dl (0.2-1.3); Total Protein 7.4 g/dl (6.3-8.2)
[2025-04-30] MEDS: AUGMENTIN 250 MG/5 ML 875 MG PO (02:50)
== END 2025-04-30 03:17 | disposition home or self-care (01) ==
LOC: EMR 23:46
PROVIDERS: EMERGENCY PHYSICIAN Student in an Organized Health Care Education/Training Program
DX: J69.0 Pneumonitis due to inhalation of food and vomit (principal); E87.0 Hyperosmolality and hypernatremia; Q05.9 Spina bifida, unspecified; R64 Cachexia; R00.0 Tachycardia, unspecified; R13.10 Dysphagia, unspecified; Z98.2 Presence of cerebrospinal fluid drainage device; Z91.040 Latex allergy status
CPT/HCPCS: 99283; 71046; 80048; 80076; 83605; 83690; 84132; 85025; 87040

== ENCOUNTER 2025-05-18 10:22 | Inpatient (IN) | payer MEDICARE, MEDICAID, SELFPAY ==
[2025-05-18] VITALS (16 sets, daily range): BP systolic 96–125; BP diastolic 73–91; BMI 12.7
[2025-05-18 04:15] LABS: Hematocrit 25.9 % (37.0-47.0); Hemoglobin 8.3 g/dL (12.0-16.0); Mean Corp Hgb Conc. 32.0 g/dL (33.0-37.0); Mean Corpuscular Volume 101.2 fL (81.0-99.0); Nucleated Red Blood Cells % 0 %; Platelet Count 302 10^3/uL (130-400); Red Cell Dist. Width 13.6 % (11.5-14.5)
[2025-05-18 05:30] LABS: ALT (SGPT) 49 U/L (0-35); AST (SGOT) 40 U/L (14-36); Albumin 3.0 g/dl (3.5-5.0); Alkaline Phosphatase 88 U/L (38-126); Blood Urea Nitrogen 54 mg/dl (7-17); Calcium 9.0 mg/dl (8.4-10.2); Carbon Dioxide 25 mmol/L (22-30); Chloride 112 mmol/L (98-107); Glucose 98 mg/dl (70-99); Magnesium 2.9 mg/dl (1.6-2.3); Potassium 4.6 mmol/L (3.5-5.1); Sodium 142 mmol/L (135-145); Total Protein 5.9 g/dl (6.3-8.2); eGFR 50.41
[2025-05-18] MEDS: DUONEB 3 ML INH ×3 (05:38→15:19)
[2025-05-18] MEDS: NSS 500 IV (06:39)
--- NOTE | 2025-05-18 06:58 | ED.GENMED ---
History of Present Illness
General
Chief Complaint: Breathing Problem
Source: family
Time Seen by Provider: 05/18/25 03:51
History of Present Illness
History of Present Illness:
Note:
CHIEF COMPLAINT(S)
Difficulty breathing and recent hospitalization for aspiration pneumonia.
HISTORY OF PRESENT ILLNESS
The patient is a 50-year-old female who recently presented with difficulty breathing. She was admitted to [facility] for aspiration pneumonia and experienced partial lung collapse due to atelectasis. During her hospitalization, she was
intubated for approximately two days and subsequently received a feeding tube due to difficulty achieving nutritional targets. At her previous admission, her oxygen saturation levels dropped significantly, which prompted the need for urgent care.
Her mucus production has increased, causing further distress as her levels drop with exertion; at home, she uses a suction machine as needed without a nebulizer. Despite providing adequate nutrition through the feeding tube, an increase in caloric
intake causes her discomfort. The patient has a history of unretrievable kidney loss, along with a ventriculoperitoneal shunt in place due to previous issues related to spina bifida. She has been a frequent visitor to [facility] for care
related to her chronic conditions.
ADDITIONAL HISTORY OBTAINED FROM SOURCES OTHER THAN THE PATIENT
According to the patients family, she has been experiencing increased mucus production, which is not typical for her. The family noted that her oxygen levels decreased from 95% to the low 80s and further down to 63% during a recent episode of
breathing difficulty.
SOCIAL DETERMINANTS AFFECTING HEALTH
The family is experiencing challenges in managing the patients extensive care needs at home, including nutrition management via the feeding tube and frequent healthcare visits.
PHYSICAL EXAM
- General: The patient is awake, alert, but non-verbal and of small stature.
- Respiratory: Breath sounds diminished at the bases; otherwise clear.
- Cardiovascular: Regular rhythm, tachycardic at a rate of 115 beats per minute.
- Gastrointestinal: Presence of a feeding tube in the left upper abdomen. The abdomen is soft and non-distended.
- Neurological: Body characteristics consistent with spina bifida, no lower extremity weakness or limb abnormalities noted.
PROBLEM LIST
Acute:
- Aspiration pneumonia with atelectasis.
- Increased mucus production with potential for mucus plugging.
Chronic:
- Spina bifida with ventriculoperitoneal shunt.
- Nutritional challenges due to feeding tube reliance.
- Unretrievable loss of a kidney.
- Tachycardia.
PLAN
1. Obtain a chest X-ray to evaluate for potential bronchial mucus plugging or signs of atelectasis.
2. Review previous hospital records and laboratory results.
3. Monitor oxygen saturation levels and adjust care as needed.
4. Consider further laboratory investigations to assess baseline health status.
5. Continue nutritional support and gradual goal adjustment in collaboration with dietary specialists.
DIFFERENTIAL DIAGNOSIS
The Differential Diagnosis includes, in no particular order and is not limited to:
1. Atelectasis
2. Aspiration Pneumonia
3. Mucus Plugging
4. Respiratory Infection
5. Heart Failure
6. Pulmonary Embolism
7. Bronchitis
8. Chronic Obstructive Pulmonary Disease (COPD)
9. Acute Respiratory Distress Syndrome (ARDS)
10. Esophageal Spasm or Dysfunction
Disposition:
SUMMARY OF ENCOUNTER
The patient is a 50-year-old female with a history of spina bifida, recently hospitalized for aspiration pneumonia, now presenting with difficulty breathing and hypoxia. In the emergency department, she was found to be tachycardic, tachypneic, and
slightly hypoxic. Her white blood cell count was normal. Initial suspicion included a potential mucus plug due to increased mucus production, further evidenced by a temporary improvement in symptoms after suctioning. The differential included
pulmonary embolism; however, due to her single kidney and a creatinine level of 1.3, the decision was made to hold off on IV contrast. A D-Dimer was ordered, and given her persistent hypoxia, the decision was made to admit her for further evaluation
and potential pulmonology consultation.
DISPOSITION
The patient was admitted for further evaluation and management of hypoxia and difficulty breathing.
ASSESSMENT
Differential diagnosis includes potential mucus plugging and pulmonary embolism, considering the patients presentation and risk factors.
ADDITIONAL TESTING AND IMAGING CONSIDERED
Consideration for imaging to rule out pulmonary embolism was made, but due to renal function concerns, the IV contrast was deferred temporarily.
MEDICAL DECISION MAKING
1. Number & Complexity of Problems: Chronic conditions affecting care include spina bifida and single kidney. Potential for mucus plugging with differential diagnosis considerations for pulmonary embolism.
2. Data Reviewed:
- Category 1: Reviewed white blood cell count (normal). D-Dimer was ordered.
3. Risk: Consideration of admission was made due to the complexity and risk associated with the patients hypoxia and difficulty breathing. Outpatient management was deemed inappropriate due to the severity of symptoms and need for further evaluation.
PATHOLOGIES TO CONSIDER
- Pulmonary embolism (hypoxia + potential risk factors)
- Mucus plugging (increased mucus production + hypoxia)
Past History
Past History
ED Past Medical History: Other (spina bifida)
ED Past Surgical History: Urological and Other (DEPUTY SHERIFF GENERALIST shunt)
Social History
Tobacco: Non-smoker
Alcohol: None
Living: with family
Phy Exam
Physical Exam
Physical Exam:
.
Scores
Heart Failure Risk
Heart Failure Risk Score: Not Applicable
Sepsis
Sepsis Screening
Sepsis Assessment: Sepsis Ruled Out
Sepsis Screen
Sepsis Screen: Sepsis Ruled Out
Date: 05/18/25
Time: 07:03
Course
Orders/Labs/Results
Orders:
Orders
05/18/25 03:52
CR Chest Portable - 1 View Urgent
Comment:
Reason For Exam: sob
Reason Study Needs to be Portable: Patient Unstable
05/18/25 04:03
Complete Blood Count/With Diff Urgent
05/18/25 04:49
Comprehensive Metabolic Panel Urgent
Comment: REDRAW
Magnesium Urgent
05/18/25 05:35
Ipratropium/Albuterol Sulfate [Duoneb] 3 ml INH R NOW STA
05/18/25 06:32
0.9% Sodium Chloride 500 ml [Nss] 500 ml IV BOLUS
Ipratropium/Albuterol Sulfate [Duoneb] 3 ml INH R NOW STA
05/18/25 06:37
D-Dimer Urgent
Abnormal Lab Results
05/18/25 05/18/25
04:03 04:49
RBC 2.56 L 10^6/uL
(4.20-5.40)
Hgb 8.3 L g/dL
(12.0-16.0)
Hct 25.9 L %
(37.0-47.0)
MCV 101.2 H fL
(81.0-99.0)
MCH 32.4 H pg
(27.0-31.0)
MCHC 32.0 L g/dL
(33.0-37.0)
MPV 10.5 H fL
(7.4-10.4)
Absolute Neuts (auto) 6.7 H 10^3/uL
(1.4-6.5)
Absolute Lymphs (auto) 1.0 L 10^3/uL
(1.2-3.4)
Absolute Eos (auto) 1.1 H 10^3/uL
(0-0.7)
Lymphocytes % 10.2 L %
(20.5-51.1)
Eosinophils % 11.2 H %
(0-6)
Chloride 112 H mmol/L
(98-107)
BUN 54 H mg/dl
(7-17)
Creatinine 1.3 H mg/dL
(0.6-1.0)
Magnesium 2.9 H mg/dl
(1.6-2.3)
AST 40 H U/L
(14-36)
ALT 49 H U/L
(0-35)
Total Protein 5.9 L g/dl
(6.3-8.2)
Albumin 3.0 L g/dl
(3.5-5.0)
05/18/25 04:03
05/18/25 04:49
Vital Signs
Initial and Last Documented VS:
Initial Vital Signs
Temp Pulse Resp BP Pulse Ox
98.1 F 120 30 106/90 84
05/18/25 03:43 05/18/25 03:43 05/18/25 03:43 05/18/25 03:43 05/18/25 03:43
Last Documented Vital Signs
Temp Pulse Resp BP Pulse Ox
98.3 F 114 26 113/81 93
05/18/25 05:00 05/18/25 05:45 05/18/25 05:45 05/18/25 06:00 05/18/25 06:58
*Pulse Oximetry
SaO2: 93
Nasal Cannula flow liters per minute: 1
Oxygen Mode of Delivery: Room air
Patient hypoxic: yes
*Driver Recruiter Interpretation
Rate: tachycardiac
Interpretation: abnormal
Rhythm: sinus
*Critical Care Note
Total Time (30-74mins, 75-104mins- exclusive of procedures): 30 minutes
ED Attending Note
-
Portions of this chart may have been created with voice recognition software.� Occasional wrong word or��sound alike� substitutions may have occurred due to the inherent limitations of voice recognition software.
Discharge Plan
Departure
Patient Disposition: Admit
Date of Disposition: 05/18/25
Time of Disposition: 07:02
Admit to: Telemetry
Presentation/result/management discussed w/ accepting MD/DO: Hospitalist
Discharge Problem:
Hypoxia
Prescriptions:
No Action
polyethylene glycol 3350 17 GRAMS powder in packet
1 dose PO DAILY
Patient Comments:
family does not know dose
levofloxacin 250 mg/10 mL solution
750 mg PO Q2D Qty: 100 0RF
amoxicillin-pot clavulanate 400-57 mg/5 mL suspension for reconstitution
10 ml PO BID 10 Days Qty: 200 0RF
Referrals:
Shannon Perez DO [Family Provider, Family Practice]
Interventions
Interventions:
*Risk Screen - Suicide Last Done: 05/18/25 03:43
*General Assessment Last Done: 05/18/25 04:27
*Neglect/Abuse Screening Last Done: 05/18/25 04:27
*ED- Fall Risk Assessment Last Done: 05/18/25 04:27
*ED COVID-19 Vaccine History Last Done: 05/18/25 04:27
ED- Cardiac Assessment Last Done: 05/18/25 04:27
ED- Pulmonary Assessment Last Done: 05/18/25 06:03
Discharge Date and Time
Print Language: CHADIAN
[2025-05-18 07:18] LABS: D-Dimer 3.26 ug/mlFEU (0.00-0.50)
--- NOTE | 2025-05-18 10:04 | HPS.HSE ---
Family Physician
-
Family Physician: Shannon Perez
Chief Complaint
-
hypoxemia
History of Present Illness
50-year-old female with extensive past medical history is presenting from home with hypoxemia. Of note patient was recently discharged from [facility] where patient was admitted for aspiration pneumonia/mucous plugging status post
intubation and mechanical ventilation status post extubation. Patient was treated with IV antibiotics. Patient with severe dysphagia and underwent PEG tube placement. Family has been managing patient with tube feeding at home. At baseline
patient does not use oxygenation. After discharge patient was found to have severely low oxygen level at home. Per mother at bedside patient was severely hypoxic with saturation in low 60s. No fevers or chills. Mother does self-catheterization x
2. States of black stools as patient is on iron supplementation. Family state patient has history of mucous plugging leading to severe hypoxemia. Follows at [facility] outpatient at spina bifida clinic. Per family patient has
baseline sinus tachycardia. Per family during hospitalization at [facility] patient was on DVT prophylaxis with heparin every 12 hours.
Medical History
Past Medical History
Past Medical History: Reports Other
Additional Past Medical History:
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
Solitary right kidney
Nephrolithiasis
Spina bifida/history of CATALYST UNIT OPERATOR shunt
Neurogenic bladder
Cognitive dysfunction
Nonverbal
Dysphagia status post PEG tube placement
Anemia
Chronic constipation
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
Past Surgical History: Reports Other
Additional Past Surgical History:
Status post nephrectomy
Status post CATALYST UNIT OPERATOR shunt
Status post meningocele repair
Status post cutaneous vesicostomy
Status post bilateral mastectomy
Status post hematoma removal
Social History
Unable to obtain full social history at this time due to: Patient Non-verbal
Family History
Family History: Not pertinent
Allergies / Home Medications
Allergies reflects when Allergies were last updated in [employer].
Home Medications with original date entered in [employer]
Allergy/Medication List:
Allergies
Allergy/AdvReac Type Severity Reaction Status Date / Time
latex Allergy Unknown Verified 05/18/25 03:43
Home Medications
bisacodyl 10 mg rectal suppository (Dulcolax (bisacodyl)) 10 mg NM ONCE PRN constipation 05/18/25
ferrous sulfate 220 mg (44 mg iron)/5 mL oral elixir 220 mg feeding tube BID 05/18/25
lansoprazole 30 mg feeding tube DAILY 05/18/25
polyethylene glycol 3350 17 gram oral powder packet (Miralax) 17 g feeding tube DAILY@1400 05/18/25
Review of Systems
-
History Source: Family
A 12 point ROS was completed and negative except as noted: Yes
Physical Exam
Vital Signs
Vital Signs
Temp Pulse Resp BP Pulse Ox
98.3 F 129 35 107/76 93
05/18/25 05:00 05/18/25 09:15 05/18/25 09:15 05/18/25 09:00 05/18/25 09:15
Physical Exam
General: No Apparent Distress, Appears Chronically Ill and Other (non-verbal and of small stature)
HEENT: Anicteric, Moist mucous membranes and Oxygen
Respiratory: Decreased Breath Sounds
Cardiac: S1/S2, Regular Rhythm and Tachycardia
Breast: Deferred by me
GI: Soft, Non Tender, Non Distended and Peg Tube
Rectal: Deferred by Provider
Musculoskeletal: No Clubbing, No Cyanosis and No Edema
Skin: Warm
Neuro: Awake
Psych: Calm
Laboratory Results
-
05/18/25 04:03
05/18/25 04:49
Laboratory Results
Total Bilirubin 0.3 mg/dl (0.2-1.3) 05/18/25 04:49
AST 40 U/L (14-36) H 05/18/25 04:49
ALT 49 U/L (0-35) H 05/18/25 04:49
Alkaline Phosphatase 88 U/L (38-126) 05/18/25 04:49
Data Reviewed
-
Lab Data: Labs Reviewed by me and Discussed with Family
Old Records: Reviewed
Impression/Plan
-
#Acute hypoxic respiratory failure (tachypnea, tachycardia) likely secondary to pneumonia versus atelectasis versus recurrent mucous plugging
Chest x-ray noted
Wean oxygen as tolerated
Currently on nasal cannula
Start patient on bronchodilators
May require chest PT
D-dimer noted but could be from recent infection
If worsening of hypoxemia may need to consider CT chest plus or minus pulmonary embolism study
Pulmonary consultation
#CKD stage IIIb
#Solitary right kidney
Start patient on IV fluid resuscitation
#Mild transaminitis
Unclear etiology
Continue to trend
If persistent uptrend then check abdominal ultrasound
Not on any medication currently that should explain it
#Chronic constipation
Resume bowel regimen.
#History of nephrolithiasis
nonobstructing right renal stones noted on CT. Absent left kidney.
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
#Spina bifida -hx CATALYST UNIT OPERATOR shunt.
#Dysphagia s/p PEG tube
Followed by [facility].
Catheterization twice daily
Dietary eval for tube feeding recs
#Chronic anemia
Cont with iron supplementation
Full code
DVT ppx-hep sc
Discussed with patient and family at bedside in details
I spent a total of 80 minutes with the patient or on the floor. More than 50% of this time involved counseling and coordination of care.
--- NOTE | 2025-05-18 10:46 | CM ---
Addendum entered by Ruba Cheatham 05/18/25 11:34:
Pt goes to [facility] for spina bifida care
Original Note:
CM reviewed chart and met with parents and sister bedside in ED
Lives with parents, 2 story home, has ramps, first floor BR/BA
Wheelchair bound, dependent in ADLs and personal care, sister is caregiver
Pt recently had PEG tube placed and vesicostomy for urine, mother caths
Pt has wheelchair, bath chair, suction, nebulizer, chest percussion vest, cath supplies, tube feed supplies.
Family does not remember the name of supplier for PEG tube and ostomy supplies.
Parents states they were never given meds/scripts for nebulizer machine
Pt currently on 2L NC, does not have oxygen at home.
Hx VN in past, unsure of agency
PCP: Shannon Claire
Pharmacy: [address]
Discharge plan: Home pending outcome of medical evaluation, watch for needs.
--- NOTE | 2025-05-18 12:13 | PTCARENOTE ---
Admitted to 3351 IMU monitors placed, ST on tele 120s 99% on 4L NC 112/87 RR 25. Oral care completed on arrival. Attends changed by mom- had small amt greenish black dark stool. PEG tube clamped site has crusted secretions pink- will clean up and
redress. NPO - IVF / IV antibx as ordered.
[2025-05-18 12:38] LABS: COVID-19 Antigen Negative (Negative)
[2025-05-18] MEDS: NSS 1000 IV (12:59)
[2025-05-18] MEDS: DUONEB INH (14:19)
[2025-05-18] MEDS: ZOSYN 50 IV ×2 (17:07→21:32)
--- NOTE | 2025-05-18 17:47 | PTCARENOTE ---
Mother and sister present and perform all care turning and changing. Mom straight caths her bid and has own kits- order obtained. Pt had dk black green stool earlier- mom declined Miralax at that time also request decreasing dose - does not give
her full packets - d/w provider- dose adjusted. IVF antibx infusing. pt more alert this pm. Remains tachycardic/ tachypneic- however does not appear distressed.
--- NOTE | 2025-05-18 18:16 | CON.PUL ---
Consultation
Consultation Request
Date/Time Consultation Requested: 05/18/2025
Date/Time Consultation Performed: 05/18/2025
Medical History
-
Chief Complaint: Hypoxia
History of Present Illness:
50-year-old female with extensive past medical history including Spina bifida, presented from home with low O2 saturations.
Patient was recently discharged from where patient was admitted for aspiration pneumonia/mucous plugging status post intubation and mechanical ventilation status post extubation. Patient was treated with IV antibiotics.
Also known h/o severe dysphagia, s/p PEG placement in 2024. After discharge patient was found to have severely low oxygen level at home. Per mother at bedside patient was severely hypoxic with saturation in low 60s. No fevers or chills. NO
reported cough, congestion or report of chest pain. Pulmonary consult was requested for further input.
Medical History
Past Medical History
Past Medical History: Reports Other
Additional Past Medical History:
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
Solitary right kidney
Nephrolithiasis
Spina bifida/history of VISUAL ARTS TEACHER shunt
Neurogenic bladder
Cognitive dysfunction
Nonverbal
Dysphagia status post PEG tube placement
Anemia
Chronic constipation
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
Past Surgical History: Reports Other
Additional Past Surgical History:
Status post nephrectomy
Status post VISUAL ARTS TEACHER shunt
Status post meningocele repair
Status post cutaneous vesicostomy
Status post bilateral mastectomy
Status post hematoma removal
Social History
Unable to obtain full social history at this time due to: Patient Non-verbal
Family History
Family History: Not pertinent
Allergies / Home Medications
Allergies
Allergy/AdvReac Type Severity Reaction Status Date / Time
latex Allergy Unknown Verified 05/18/25 03:43
Home Medications
�Medication �Instructions �Recorded �Confirmed �Last Taken �Type
bisacodyl 10 mg rectal suppository 10 mg HI ONCE PRN constipation 05/18/25 05/18/25 05/17/25 History
(Dulcolax (bisacodyl))
ferrous sulfate 220 mg (44 mg 220 mg feeding tube BID 05/18/25 05/18/25 05/17/25 History
iron)/5 mL oral elixir
lansoprazole 30 mg feeding tube DAILY 05/18/25 05/18/25 05/17/25 History
polyethylene glycol 3350 17 gram 17 g feeding tube DAILY@1400 05/18/25 05/18/25 05/17/25 History
oral powder packet (Miralax)
Review of Systems
-
Unable to Obtain full review of systems at this time due to: Acuity
Vitals / Labs / Diagnostic Testing
Vital Signs
Temp Pulse Resp BP Pulse Ox
98.0 F 124 26 117/80 97
05/18/25 15:10 05/18/25 17:45 05/18/25 17:45 05/18/25 16:00 05/18/25 17:45
Lab Data
05/18/25 04:03
05/18/25 04:49
Diagnostic Testing:
Physical Exam
-
HEENT: Normocephalic
Cardiovascular: S1/S2
Respiratory: Clear and Non-Labored Respirations
GI: Soft and Non Distended
Neurology: Awake and Alert
Assessment
-
#1. LLL pneumonia vs atelectasis/mucous plugging with poor cough
- Continue scheduled DuoNeb, start hypertonic saline nebulized twice a day
- Initiate vest therapy twice a day after hypertonic saline nebulization to promote airway clearance
- Switch to sport bed with percussion therapy every shift. Add guaifenesin 200 mg 4 times daily via feeding tube
- Follow-up chest x-ray in a.m.
- Patient is afebrile, has normal WBC count and not bringing up any purulent expectoration. Follow-up procalcitonin in a.m., if negative can discontinue antibiotics
- Continue Zosyn for now, patient not able to produce sputum sample
- Keep head end of the bed elevated
- Supplemental O2 as needed
#2. Acute hypoxic respiratory failure
- Due to #1. Suspect volume loss due to poor airway clearance more than active infection
- Patient has very poor cough and resultant poor airway clearance.
- Recent hospitalization with intubation and mechanical ventilation at [place], about 2 weeks ago, reportedly due to mucous plug
- Air way clearance measures as above
- Likely will need cough assist after discharge
#3. H/o Severe dysphagia, high aspiration risk
- S/sp recent PEG placement
- NPO, continue tune feeding
- Keep head end of bed raised
Other medical diagnoses:
- CKD stage IIIb
- Solitary right kidney
- Chronic constipation
- History of nephrolithiasis
- H/o Spina bifida -hx VISUAL ARTS TEACHER shunt.
DVT prophylaxis with s.c. Heparin
Data:
CHEST X Ray 04/2025: Very limited study. Questionable opacity within the left lung base which could represent pneumonia in the appropriate clinical context. No significant pleural effusi
[2025-05-18] MEDS: FERROUS SULFATE ORAL LIQUID 220 MG TUBE (19:40)
[2025-05-18] MEDS: ROBITUSSIN 200 MG TUBE ×2 (19:42→21:32)
[2025-05-18] MEDS: HEPARIN 5000 UNITS SC (19:42)
[2025-05-18] MEDS: ANTIFUNGAL CLEAR 1 APPLIC TOPICAL (19:49)
[2025-05-18] MEDS: ATROVENT NEBULES 0.5 MG INH (19:51)
[2025-05-18] MEDS: SODIUM CHLORIDE 3% FOR INHALATION 1 VIAL INH (19:51)
[2025-05-18] MEDS: VENTOLIN NEBULES 1.25 MG INH (19:51)
--- NOTE | 2025-05-18 20:50 | PTCARENOTE ---
Pt remains tachycardic, tachypneic, but does not appear in distress. Pt tolerating meds through PEG tube. Mother and sister at bedside. Mother performs hygiene care, as well as turning and repositioning, and straight cath BID. Call grissom within
reach, family educated on use. Frequent rounding in place. Care ongoing.
[2025-05-19] VITALS (15 sets, daily range): BP systolic 88–116; BP diastolic 62–89; BMI 14.5
[2025-05-19] MEDS: NSS 1000 IV (00:50)
[2025-05-19] MEDS: ZOSYN 50 IV ×4 (03:58→21:36)
[2025-05-19 04:29] LABS: Hematocrit 23.1 % (37.0-47.0); Hemoglobin 7.3 g/dL (12.0-16.0); Mean Corp Hgb Conc. 31.6 g/dL (33.0-37.0); Mean Corpuscular Volume 104.5 fL (81.0-99.0); Nucleated Red Blood Cells % 0 %; Platelet Count 250 10^3/uL (130-400); Red Cell Dist. Width 13.4 % (11.5-14.5)
[2025-05-19 05:00] LABS: Procalcitonin 0.30 ng/ml (0.0-0.25)
[2025-05-19 05:05] LABS: ALT (SGPT) 37 U/L (0-35); AST (SGOT) 34 U/L (14-36); Albumin 2.8 g/dl (3.5-5.0); Alkaline Phosphatase 69 U/L (38-126); Blood Urea Nitrogen 41 mg/dl (7-17); Calcium 8.6 mg/dl (8.4-10.2); Carbon Dioxide 21 mmol/L (22-30); Chloride 118 mmol/L (98-107); Estimated Creatinine Clearance 24 ml/min; Glucose 83 mg/dl (70-99); Magnesium 2.6 mg/dl (1.6-2.3); Potassium 4.9 mmol/L (3.5-5.1); Sodium 145 mmol/L (135-145); Total Protein 5.7 g/dl (6.3-8.2); eGFR 50.41
[2025-05-19] MEDS: SODIUM CHLORIDE 3% FOR INHALATION 1 VIAL INH ×2 (08:41→20:12)
[2025-05-19] MEDS: ATROVENT NEBULES 0.5 MG INH ×3 (08:41→20:11)
[2025-05-19] MEDS: VENTOLIN NEBULES 1.25 MG INH (08:41)
[2025-05-19] MEDS: FERROUS SULFATE ORAL LIQUID 220 MG TUBE ×2 (08:49→21:33)
[2025-05-19] MEDS: HEPARIN 5000 UNITS SC ×2 (08:49→20:16)
[2025-05-19] MEDS: ROBITUSSIN 200 MG TUBE ×4 (08:49→22:00)
[2025-05-19] MEDS: ANTIFUNGAL CLEAR 1 APPLIC TOPICAL ×2 (08:50→21:32)
[2025-05-19] MEDS: TYLENOL ORAL SOLUTION 650 MG TUBE (11:18)
--- NOTE | 2025-05-19 11:35 | PTCARENOTE ---
Assumed care of pt this am after report. Mom assisted at bedside and pt changed for large incontinence and then st cathed for 50ml Clear yellow urine. Pt is tachycardic and post neb treatment pt is restless and heart rate to 140s, RR 30s. Pulse ox
is in high 97% range on room air. Oxygen at 1 L initially but pt trashing head around to try and dislodge it. Continuous pulse ox intact. Heart rate in 130s BP is 114/64. Axillary temp assessed 98.9. Pt's Mom, Dad and sister at bedside and assisting
in positioning pt to preferred positions. EKG completed, Dr. Tomlinson updated and continued IMU level of care provided.
--- NOTE | 2025-05-19 13:34 | W.PN.HOSP.TC ---
Today's Communication/Plan
-
IV antibiotics. Start tube feedings
Assessment / Plan
Assessment / Plan
Physical Exam:
General: No Apparent Distress, Appears Chronically Ill and Other (non-verbal and of small stature)
HEENT: Anicteric, Moist mucous membranes and Oxygen
Respiratory: Decreased Breath Sounds
Cardiac: S1/S2, Regular Rhythm and Tachycardia
Breast: Deferred by me
GI: Soft, Non Tender, Non Distended and Peg Tube
Rectal: Deferred by Provider
Musculoskeletal: No Clubbing, No Cyanosis and No Edema
Skin: Warm
Neuro: Awake
Psych: Calm
A/P:
#Acute hypoxic respiratory failure (tachypnea, tachycardia) likely secondary to pneumonia versus atelectasis versus recurrent mucous plugging
Chest x-ray noted and follow-up chest x-ray similar
Wean oxygen as tolerated
Currently on nasal cannula
Start patient on bronchodilators
Started on chest PT and hypertonic saline nebulizer as well
D-dimer noted but could be from recent infection
Pulmonary consultation appreciated
Discussed with mother at bedside today at length
Discussed with RN at bedside
Aspiration pneumonia
- Procalcitonin borderline elevated and chest x-ray with left lower density.
- Continue current IV antibiotic (I would favor continued treatment)
Sinus tachycardia
- Likely multifactorial in the setting of pneumonia, beta agonist stimulation, current hospitalization
- Twelve-lead EKG
- Continue groundwater monitoring technician
- No need to treat specifically but rather treat multifactorial etiology
Dysphagia
- Will restart feeding tube in hospital and reevaluate
#CKD stage IIIb
#Solitary right kidney
Start patient on IV fluid resuscitation
#Mild transaminitis
Unclear etiology
Continue to trend
If persistent uptrend then check abdominal ultrasound
Not on any medication currently that should explain it
#Chronic constipation
Resume bowel regimen.
#History of nephrolithiasis
nonobstructing right renal stones noted on CT. Absent left kidney.
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
#Dysphagia s/p PEG tube
Followed by .
Catheterization twice daily
Dietary eval for tube feeding recs
#Chronic anemia
Cont with iron supplementation
Full code
DVT ppx-hep sc
Discussed with patient and family at bedside in details
I spent a total of 50 minutes with the patient or on the floor. More than 50% of this time involved counseling and coordination of care.
Anticipated Discharge: 24 - 48 hours
Subjective/Interval History
-
Date of Service: May 19, 2025
Patient was without oxygen and by the time of my evaluation but had to be placed back later on. Afebrile
Objective Data
-
Labs:
Laboratory Results
05/19/25
04:08
WBC 6.6
Hgb 7.3 L
Hct 23.1 L
Plt Count 250
Sodium 145
Potassium 4.9
Chloride 118 H
Carbon Dioxide 21 L
BUN 41 H
Creatinine 1.3 H
Glucose 83
Calcium 8.6
Total Bilirubin 0.4
AST 34
ALT 37 H
Alkaline Phosphatase 69
Vital Signs:
Vital Signs
Temp Pulse Resp BP Pulse Ox
98.9 F 142 19 114/64 97
05/19/25 11:07 05/19/25 11:03 05/19/25 11:03 05/19/25 11:03 05/19/25 11:03
I&O
05/18/25 05/19/25 05/20/25
06:59 06:59 06:59
Intake Total 380 / 380
Output Total 50 / 50
Balance 380 / 380 -50 / -50
[2025-05-19] MEDS: PREVACID 30 MG TUBE (13:59)
[2025-05-19] MEDS: VENTOLIN NEBULES INH (14:20)
--- NOTE | 2025-05-19 16:22 | W.PN.PUL3 ---
Today's Communication / Plan
-
Pulmonary toilet with nebulized 3% + Atrovent
Vest therapy + support
Hold off on albuterol for now given significant tachycardia
Prescription to be written for Xopenex
Elevate HOB >30-45�
Repeat CXR in 4-6 weeks to assess for resolution of LLL pneumonia
Pulmonary service will continue to follow along
Assessment
-
#1. LLL pneumonia vs atelectasis/mucous plugging with poor cough
- Continue scheduled atrovent + hypertonic saline nebulized twice a day; hold off on additional albuterol given she becomes tachycardic into the 140s
- I will write a prescription for Xopenex for the patient's mother to bring in so that we can use this to see if she can tolerate this better
- Cotninue vest therapy twice a day after hypertonic saline nebulization to promote airway clearance
- Continue sport bed with percussion therapy every shift. Add guaifenesin 200 mg 4 times daily via feeding tube
- She will need repeat CXR in 4-6 weeks to assess for resolution of her LLL PNA
- Patient is afebrile, has normal WBC count and not bringing up any purulent expectoration. Procalcitonin slightly elevated at 0.3, although her Cr is also elevated at 1.3 (unclear baseline)
- Continue Zosyn for now, patient not able to produce sputum sample
- Keep head end of the bed elevated
- Supplemental O2 and wean down as tolerated; she will need home O2 assessment prior to discharge
#2. Acute hypoxic respiratory failure
- Due to #1. Suspect volume loss due to poor airway clearance more than active infection
- Patient has very poor cough and resultant poor airway clearance.
- Recent hospitalization with intubation and mechanical ventilation at [place], about 2 weeks ago, reportedly due to mucous plug (which involved the right lung as per the mother)
- Air way clearance measures as above
- Likely will need cough assist after discharge
#3. H/o Severe dysphagia, high aspiration risk
- S/p recent PEG placement
- NPO, continue tune feeding
- Keep head of bed raised
Other medical diagnoses:
- CKD stage IIIb
- Solitary right kidney
- Chronic constipation
- History of nephrolithiasis
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
DVT prophylaxis with s.c. Heparin
Pulmonary service will continue to follow along.
Data:
CHEST X Ray 04/2025: Very limited study. Questionable opacity within the left lung base which could represent pneumonia in the appropriate clinical context. No significant pleural effusi
Total time spent today was 37 minutes for this encounter. Time includes reviewing laboratory test/imaging results, reviewing pertinent medical records, obtaining and reviewing medical history, performing an appropriate exam, ordering medications,
tests and procedures. Time also includes documentation of this encounter, coordinating patient care and communicating with other healthcare professionals. Total time does not include separately billed tests performed on this date of service.
Subjective Data
-
Date of Service:
Date of Service: May 19, 2025
Chief Complaint: Pulmonary Follow Up and Pneumonia Follow Up
Subjective:
Patient seen and evaluated this morning (late note entry). Currently on 3 L/min nasal cannula saturating 96%. Continues to have a poor cough. She becomes very tachycardic when she receives nebulized albuterol. Family members at bedside including
the mother, Tammie, and the sister, Sabina. All questions were answered.
Review of Systems
General: Other (Unobtainable given patient's clinical status (nonverbal/spina bifida))
Objective Data
Data Reviewed
Vital Signs / I&O / Oxygen:
Vital Signs
Temp Pulse Resp BP Pulse Ox
97.6 F 108 22 110/77 98
05/19/25 07:36 05/19/25 08:50 05/19/25 08:50 05/19/25 08:00 05/19/25 08:50
Intake and Output
05/18/25 05/19/25 05/20/25
06:59 06:59 06:59
Intake Total 380 / 380
Output Total 50 / 50
Balance 380 / 380 -50 / -50
SaO2 98
Nasal Cannula flow liters per 1
minute
Physical Exam
General: Respiratory Distress (negative), Comfortable, Chills (negative) and Sweats (negative)
HEENT: Normocephalic and Anicteric
Cardiovascular: S1-S2 and Peripheral Edema (negative)
Respiratory: Wheeze (negative), Rhonchi (negative), Non-Labored Respirations and Other (Coarse breath sounds heard bilaterally)
GI: Soft, Non Distended, Non Tender and Normal Bowel Sounds
Neurology: Awake and Tremors (negative)
Skin: Warm, Dry, Cyanosis (negative) and Jaundice (negative)
Labs/Micro/Reports
Lab Data
05/19/25 04:08
05/19/25 04:08
--- NOTE | 2025-05-19 19:29 | PTCARENOTE ---
Tube feed started at 1430 today after reviewing plan of care with pt's mom. Mom reports they were to do 5 bolus feeds at home but were only able to fit 3 feeds in per day. Mom agreeable to try continuous feed at this time, but there is concern for
positioning and rest as pt does throw self forward when in HOB 30 degrees. Pt family at bedside and will call staff if needed. Pt more comfortable this afternoon, no thrashing in bed, heart rate <120 and RR 20s Pt on 3L NC and pulse ox >95%
--- NOTE | 2025-05-19 20:45 | PTCARENOTE ---
Pt received from eloisa MARTÍNEZ. Pt with hx of spina bifida, Pt is nonverbal. appears to be relaxed in the bed, opens eyes to verbal stimuli. mom is at bedside. pt currently wearing 4L NC 02, tolerating wearing the 02. HR is 110-115. TF 1.5 rate for
osmolite TF at 20 ml/hr & 20 ml water flush. Pt tolerating feeds at this time. HOB at 30 degrees. Assessment as documented. safe environment maintained.
[2025-05-20] VITALS (11 sets, daily range): BP systolic 90–131; BP diastolic 53–92
[2025-05-20] MEDS: ZOSYN 50 IV ×4 (04:27→22:40)
[2025-05-20 05:08] LABS: Hematocrit 23.3 % (37.0-47.0); Hemoglobin 7.4 g/dL (12.0-16.0); Mean Corp Hgb Conc. 31.8 g/dL (33.0-37.0); Mean Corpuscular Volume 103.6 fL (81.0-99.0); Nucleated Red Blood Cells % 0 %; Platelet Count 261 10^3/uL (130-400); Red Cell Dist. Width 13.3 % (11.5-14.5)
[2025-05-20 05:38] LABS: ALT (SGPT) 42 U/L (0-35); AST (SGOT) 37 U/L (14-36); Albumin 2.9 g/dl (3.5-5.0); Alkaline Phosphatase 73 U/L (38-126); Blood Urea Nitrogen 36 mg/dl (7-17); Calcium 8.6 mg/dl (8.4-10.2); Carbon Dioxide 22 mmol/L (22-30); Chloride 117 mmol/L (98-107); Estimated Creatinine Clearance 25 ml/min; Glucose 99 mg/dl (70-99); Iron 59 ug/dl (37-170); Potassium 4.9 mmol/L (3.5-5.1); Sodium 145 mmol/L (135-145); Total Protein 5.7 g/dl (6.3-8.2); eGFR 46.12
[2025-05-20 05:47] LABS: Total Iron Binding Capacity 238 ug/dl (265-497)
[2025-05-20 06:14] LABS: Ferritin 28.0 ng/ml (6.24-137)
[2025-05-20 06:46] LABS: Folate > 20.0 ng/ml (2.76-20); Vitamin B12 > 1000 pg/ml (239-931)
[2025-05-20] MEDS: ATROVENT NEBULES 0.5 MG INH ×3 (07:58→19:33)
[2025-05-20] MEDS: SODIUM CHLORIDE 3% FOR INHALATION 1 VIAL INH ×3 (07:58→19:33)
[2025-05-20] MEDS: HEPARIN 5000 UNITS SC ×2 (08:25→21:37)
[2025-05-20] MEDS: FERROUS SULFATE ORAL LIQUID 220 MG TUBE ×2 (08:25→21:37)
[2025-05-20] MEDS: ANTIFUNGAL CLEAR 1 APPLIC TOPICAL ×2 (08:26→21:42)
[2025-05-20] MEDS: ROBITUSSIN 200 MG TUBE ×4 (08:26→21:37)
[2025-05-20] MEDS: PREVACID 30 MG TUBE (08:27)
--- NOTE | 2025-05-20 08:49 | W.PN.HOSP.TC ---
Today's Communication/Plan
-
IV antibiotics. Tube feedings.
Assessment / Plan
Assessment / Plan
Physical Exam:
General: No Apparent Distress, Appears Chronically Ill and Other (non-verbal and of small stature)
HEENT: Anicteric, Moist mucous membranes and Oxygen
Respiratory: Decreased Breath Sounds, coarse breath sounds heard on both bases more pronounced on the left base
Cardiac: S1/S2, Regular Rhythm and Tachycardia
Breast: Deferred by me
GI: Soft, Non Tender, Non Distended and Peg Tube
Rectal: Deferred by Provider
Musculoskeletal: No Clubbing, No Cyanosis and No Edema
Skin: Warm
Neuro: Awake
Psych: Calm
A/P:
#Acute hypoxic respiratory failure (tachypnea, tachycardia) likely secondary to pneumonia versus atelectasis versus recurrent mucous plugging
Chest x-ray noted and follow-up chest x-ray similar with left lower lobe density consistent with pneumonia
Wean oxygen as tolerated
Currently on nasal cannula
Start patient on bronchodilators
Started on chest PT and hypertonic saline nebulizer and vest therapy as well
D-dimer noted but could be from recent infection
Pulmonary consultation appreciated
Discussed with mother at bedside yesterday and today at length. I also discussed with father at bedside today.
Discussed with RN at bedside today
Aspiration pneumonia
- Procalcitonin borderline elevated and chest x-ray with left lower density.
- Continue current IV antibiotic (I would favor continued treatment)
Sinus tachycardia
- Likely multifactorial in the setting of pneumonia, beta agonist stimulation, current hospitalization
- Twelve-lead EKG reviewed
- Continue panel monitor
- No need to treat specifically but rather treat multifactorial etiology
- Planning on switching to Xopenex by pulmonary recommendations (family looking into another pharmacy)
Dysphagia
- Continue feeding tube in hospital and reevaluate
- Continue head of bed elevated while on feedings
#CKD stage IIIb
#Solitary right kidney
Continue on IV fluid resuscitation
Mild worsening of kidney function but continue to monitor for now
#Mild transaminitis
Unclear etiology
Continue to trend
If persistent uptrend then check abdominal ultrasound
Not on any medication currently that should explain it
We will check ultrasound of right upper quadrant in a.m. and hepatitis panel
# anemia
There is a component of iron deficiency and anemia of chronic disease
Will start her on IV iron
B12 and folate okay
#Chronic constipation
Resume bowel regimen.
#History of nephrolithiasis
nonobstructing right renal stones noted on CT. Absent left kidney.
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
#Dysphagia s/p PEG tube
Followed by [facility].
Catheterization twice daily
Dietary eval for tube feeding recs
#Chronic anemia
Cont with iron supplementation
Full code
DVT ppx-hep sc
Discussed with patient and family at bedside in details
I spent a total of 50 minutes with the patient or on the floor. More than 50% of this time involved counseling and coordination of care.
Anticipated Discharge: 24 - 48 hours
Subjective/Interval History
-
Date of Service: May 20, 2025
Patient is more alert today and looks better overall. She is tolerating diet without increased residuals. She is still tachycardic although slightly less. Afebrile
Objective Data
-
Labs:
Laboratory Results
05/20/25
04:42
WBC 5.5
Hgb 7.4 L
Hct 23.3 L
Plt Count 261
Sodium 145
Potassium 4.9
Chloride 117 H
Carbon Dioxide 22
BUN 36 H
Creatinine 1.4 H
Glucose 99
Calcium 8.6
Total Bilirubin 0.3
AST 37 H
ALT 42 H
Alkaline Phosphatase 73
Vital Signs:
Vital Signs
Temp Pulse Resp BP Pulse Ox
97.8 F 114 18 103/77 100
05/20/25 08:22 05/20/25 08:07 05/20/25 08:07 05/20/25 06:00 05/20/25 08:07
I&O
05/19/25 05/20/25 05/21/25
06:59 06:59 06:59
Intake Total 380 / 380 390 / 390
Output Total 155 / 155
Balance 380 / 380 235 / 235
--- NOTE | 2025-05-20 14:28 | W.PN.PUL3 ---
Today's Communication / Plan
-
Pulmonary toilet with nebulized 3% + Atrovent
Start xopenex (mother brought in script for us to use)
Vest therapy + support
Elevate HOB >30-45�
Repeat CXR in 4-6 weeks to assess for resolution of LLL pneumonia
Pulmonary service will continue to follow along
Assessment
-
#1. LLL pneumonia vs atelectasis/mucous plugging with poor cough
- Continue scheduled atrovent + hypertonic saline nebulized twice a day; changed nebulized albuterol to Xopenex (script written for her and mother brought this in); she was becoming tachycardic into the 140s with low dose albuterol
- Continue vest therapy twice a day after hypertonic saline nebulization to promote airway clearance
- Continue sport bed with percussion therapy every shift. Continue guaifenesin 200 mg 4 times daily via feeding tube
- She will need repeat CXR in 4-6 weeks to assess for resolution of her LLL PNA
- Patient is afebrile, has normal WBC count and not bringing up any purulent expectoration. Procalcitonin slightly elevated at 0.3, although her Cr is also elevated at 1.3-1.4 (unclear baseline)
- Continue Zosyn for now, patient not able to produce sputum sample
- Keep head end of the bed elevated
- Supplemental O2 and wean down as tolerated; she will need home O2 assessment prior to discharge
#2. Acute hypoxic respiratory failure
- Due to #1. Suspect volume loss due to poor airway clearance more than active infection
- Patient has very poor cough and resultant poor airway clearance.
- Recent hospitalization with intubation and mechanical ventilation at [place], about 2 weeks ago, reportedly due to mucous plug (which involved the right lung as per the mother)
- Airway clearance measures as above
- Likely will need cough assist after discharge
#3. H/o Severe dysphagia, high aspiration risk
- S/p recent PEG placement
- NPO, continue tune feeding
- Keep head of bed raised
Other medical diagnoses:
- CKD stage IIIb
- Solitary right kidney
- Chronic constipation
- History of nephrolithiasis
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
DVT prophylaxis with s.c. Heparin
Pulmonary service will continue to follow along.
Data:
CHEST X Ray 04/2025: Very limited study. Questionable opacity within the left lung base which could represent pneumonia in the appropriate clinical context. No significant pleural effusi
Total time spent today was 42 minutes for this encounter. Time includes reviewing laboratory test/imaging results, reviewing pertinent medical records, obtaining and reviewing medical history, performing an appropriate exam, ordering medications,
tests and procedures. Time also includes documentation of this encounter, coordinating patient care and communicating with other healthcare professionals. Total time does not include separately billed tests performed on this date of service.
Subjective Data
-
Date of Service:
Date of Service: May 20, 2025
Chief Complaint: Pulmonary Follow Up and Pneumonia Follow Up
Subjective:
Patient was seen and evaluated this morning (late note entry). Currently on room air breathing comfortably. Patient's mother is at bedside. No acute events reported overnight.
Review of Systems
General: Other (Unobtainable as patient is nonverbal)
Objective Data
Data Reviewed
Vital Signs / I&O / Oxygen:
Vital Signs
Temp Pulse Resp BP Pulse Ox
97.8 F 114 18 103/77 100
05/20/25 08:22 05/20/25 08:07 05/20/25 08:07 05/20/25 06:00 05/20/25 08:07
Intake and Output
05/19/25 05/20/25 05/21/25
06:59 06:59 06:59
Intake Total 380 / 380 390 / 390
Output Total 155 / 155
Balance 380 / 380 235 / 235
SaO2 100
Nasal Cannula flow liters per 1.5
minute
Physical Exam
General: Respiratory Distress (negative), Comfortable, Chills (negative) and Sweats (negative)
HEENT: Normocephalic and Anicteric
Cardiovascular: S1-S2 and Peripheral Edema (negative)
Respiratory: Wheeze (negative), Rhonchi (negative), Non-Labored Respirations and Other (Coarse breath sounds heard bilaterally)
GI: Soft, Non Distended, Non Tender and Normal Bowel Sounds
Neurology: Awake, Tremors (negative) and Other (Contracted limbs; kyphosis)
Skin: Warm, Dry, Cyanosis (negative) and Jaundice (negative)
Labs/Micro/Reports
Lab Data
05/20/25 04:42
05/20/25 04:42
[2025-05-20] MEDS: FERRLECIT 110 MG IV (14:32)
[2025-05-20] MEDS: NON-FORMULARY ITEM 1 VIAL NEB ×2 (14:58→19:32)
--- NOTE | 2025-05-20 19:00 | PTCARENOTE ---
VS from [id number] captured by this RN. Pt was under the care of prior shift RN during this time period, unable to verify accuracy.
--- NOTE | 2025-05-20 19:13 | PTCARENOTE ---
Awake/alert non verbal, contracted -Mom caring for her all day - assisted with bathing etc.. Transferred into sport bed today and provided percussion- RT to take over. Tolerating tube feed at goal, min residuals. Educated family on erik valve
and helpful pointers. Vesicostomy tube with clear urine noted - mom straight caths bid. Large BM today. Xopenex sent for bar code and given to RT.
--- NOTE | 2025-05-20 21:30 | PTCARENOTE ---
Report received from previous shift RN [id number]. Pt in bed with several family members at bedside. Pt is at her baseline mentation, per family. Pt's eyes are open, will oc track, no commands followed, nonverbal. Pt is contracted. Pt is tachypneic (RR
high 20-low 30's bpm), lung sounds are decreased throughout, oc cough, pox 95-97% on room air. Telemetry rhythm reveals ST, HR 110-120's, trace anasarca noted, +1-2 nonpitting edema noted LUE, palpable peripheral pulses present. +BS, abdomen
soft/flat. PEG tube in place with TF per MD order. Pt is incont bowel and bladder and has a vesicostomy that pt's mother straight caths BID. Skin intact. R FA int flushed and patent, capped. Pt in lateral rotation sport bed with percussion ordered
Q4H. RT in room at 1999 and performed vest therapy, pt's family declined percussion via sport bed at 1999.
Safe environment maintained, will monitor closely.
[2025-05-21] VITALS (12 sets, daily range): BP systolic 95–125; BP diastolic 60–94
[2025-05-21] MEDS: ZOSYN 50 IV ×4 (04:41→21:47)
[2025-05-21 05:42] LABS: Hematocrit 25.0 % (37.0-47.0); Hemoglobin 8.1 g/dL (12.0-16.0); Mean Corp Hgb Conc. 32.4 g/dL (33.0-37.0); Mean Corpuscular Volume 99.6 fL (81.0-99.0); Nucleated Red Blood Cells % 0 %; Platelet Count 266 10^3/uL (130-400); Red Cell Dist. Width 13.2 % (11.5-14.5)
[2025-05-21 05:51] LABS: INR 1.01; PT 13.7 Sec (11.4-14.6)
[2025-05-21 06:07] LABS: ALT (SGPT) 42 U/L (0-35); AST (SGOT) 37 U/L (14-36); Albumin 2.9 g/dl (3.5-5.0); Alkaline Phosphatase 75 U/L (38-126); Blood Urea Nitrogen 30 mg/dl (7-17); Calcium 8.8 mg/dl (8.4-10.2); Carbon Dioxide 19 mmol/L (22-30); Chloride 115 mmol/L (98-107); Estimated Creatinine Clearance 25 ml/min; Glucose 113 mg/dl (70-99); Potassium 4.9 mmol/L (3.5-5.1); Sodium 141 mmol/L (135-145); Total Protein 5.8 g/dl (6.3-8.2); eGFR 46.12
--- NOTE | 2025-05-21 06:26 | PTCARENOTE ---
Sport bed percussion performed ~0500. Pt's mother has been repositioning pt in bed Q2H throughout shift. No change in assessment.
--- NOTE | 2025-05-21 07:37 | W.PN.PUL3 ---
Today's Communication / Plan
-
Continue airway clearance measures
Currently on room air, likely will not require home oxygen
However, not sure how effective this will be given weak cough
Aspiration precautions
Consider stopping antibiotics after 5 days
Pulmonary follow-up instructions left in chart
We will sign off. Please call with questions
Assessment
-
#1. LLL pneumonia vs atelectasis/mucous plugging with poor cough
- Continue scheduled atrovent + hypertonic saline nebulized twice a day; changed nebulized albuterol to Xopenex (script written for her and mother brought this in); she was becoming tachycardic into the 140s with low dose albuterol
- Continue vest therapy twice a day after hypertonic saline nebulization to promote airway clearance. Not sure how helpful this will be as mother states patient does not cough posttreatment
- Continue sport bed with percussion therapy every shift. Continue guaifenesin 200 mg 4 times daily via feeding tube
- She will need repeat CXR in 4-6 weeks to assess for resolution of her LLL PNA
- Patient is afebrile, has normal WBC count and not bringing up any purulent expectoration. Procalcitonin slightly elevated at 0.3, although her Cr is also elevated at 1.3-1.4 (unclear baseline)
- Continue Zosyn for now, patient not able to produce sputum sample. Would consider short course, 5 to 7 days
- Keep head end of the bed elevated
- Supplemental O2 and wean down as tolerated; presently on room air
#2. Acute hypoxic respiratory failure
- Due to #1. Suspect volume loss due to poor airway clearance more than active infection
- Patient has very poor cough and resultant poor airway clearance.
- Recent hospitalization with intubation and mechanical ventilation at [place], about 2 weeks ago, reportedly due to mucous plug (which involved the right lung as per the mother)
- Airway clearance measures as above
- Likely will need cough assist after discharge, however unclear how beneficial this will be as mother states patient does not have good cough
#3. H/o Severe dysphagia, high aspiration risk
- S/p recent PEG placement
- NPO, continue tube feeding
- Keep head of bed raised. Discussed aspiration precautions
Other medical diagnoses:
- CKD stage IIIb
- Solitary right kidney
- Chronic constipation
- History of nephrolithiasis
- H/o Spina bifida -hx QUAD STAYER shunt.
DVT prophylaxis with s.c. Heparin
We will sign off. Please call with questions
Data:
CHEST X Ray 04/2025: Very limited study. Questionable opacity within the left lung base which could represent pneumonia in the appropriate clinical context. No significant pleural effusi
Total time spent today was 42 minutes for this encounter. Time includes reviewing laboratory test/imaging results, reviewing pertinent medical records, obtaining and reviewing medical history, performing an appropriate exam, ordering medications,
tests and procedures. Time also includes documentation of this encounter, coordinating patient care and communicating with other healthcare professionals. Total time does not include separately billed tests performed on this date of service.
Subjective Data
-
Date of Service:
Date of Service: May 21, 2025
Chief Complaint: Pulmonary Follow Up and Pneumonia Follow Up
Subjective:
Patient nonverbal but does turn head to verbal stimulation. Appears comfortable on room air. Mother at bedside. Patient does have occasional cough but this is random
Objective Data
Data Reviewed
Vital Signs / I&O / Oxygen:
Vital Signs
Temp Pulse Resp BP Pulse Ox
97.3 F 101 26 113/83 100
05/21/25 04:11 05/21/25 06:00 05/21/25 06:00 05/21/25 06:00 05/21/25 06:00
Intake and Output
05/20/25 05/21/25 05/22/25
06:59 06:59 06:59
Intake Total 390 / 390 1680 / 1680
Output Total 155 / 155 85 / 85
Balance 235 / 235 1595 / 1595
SaO2 100
Nasal Cannula flow liters per 1.5
minute
Physical Exam
General: Comfortable
HEENT: Normocephalic and Anicteric
Cardiovascular: S1-S2, Regular Rhythm, Murmur (n) and Peripheral Edema (negative, significant contractures)
Respiratory: Wheeze (negative), Crackles (n), Rhonchi (negative), Non-Labored Respirations and Other (Poor inspiratory effort)
GI: Soft, Non Distended, Non Tender, Normal Bowel Sounds and Feeding Tube
Neurology: Awake, Alert (Eyes open but does not follow commands) and Other (Contracted limbs; kyphosis)
Skin: Cyanosis (negative), Jaundice (negative) and Rash (n)
Labs/Micro/Reports
Lab Data
05/21/25 05:32
05/21/25 05:32
Laboratory Results
05/21/25
05:32
PT 13.7
INR 1.01
[2025-05-21] MEDS: NON-FORMULARY ITEM 1 VIAL NEB ×3 (08:15→19:15)
[2025-05-21] MEDS: ATROVENT NEBULES 0.5 MG INH ×3 (08:16→19:15)
[2025-05-21] MEDS: SODIUM CHLORIDE 3% FOR INHALATION 1 VIAL INH ×3 (08:16→19:15)
[2025-05-21] MEDS: FERROUS SULFATE ORAL LIQUID 220 MG TUBE ×2 (09:45→21:44)
[2025-05-21] MEDS: HEPARIN 5000 UNITS SC ×2 (09:46→20:40)
[2025-05-21] MEDS: PREVACID 30 MG TUBE (09:46)
[2025-05-21] MEDS: ANTIFUNGAL CLEAR 1 APPLIC TOPICAL ×2 (09:46→21:44)
[2025-05-21] MEDS: ROBITUSSIN 200 MG TUBE ×4 (09:46→21:47)
[2025-05-21] MEDS: FLUSH (NSS) 1 FLUSH IV ×2 (09:48→16:45)
--- NOTE | 2025-05-21 09:56 | PTCARENOTE ---
Put TF on hold for US of abdomen.
--- NOTE | 2025-05-21 12:34 | W.PN.HOSP.TC ---
Today's Communication/Plan
-
IV antibiotics. Discharge planning
Assessment / Plan
Assessment / Plan
Physical Exam:
General: No Apparent Distress, Appears Chronically Ill and Other (non-verbal and of small stature)
HEENT: Anicteric, Moist mucous membranes and Oxygen
Respiratory: Decreased Breath Sounds, coarse breath sounds heard on both bases more pronounced on the left base
Cardiac: S1/S2, Regular Rhythm and Tachycardia
Breast: Deferred by me
GI: Soft, Non Tender, Non Distended and Peg Tube
Rectal: Deferred by Provider
Musculoskeletal: No Clubbing, No Cyanosis and No Edema
Skin: Warm
Neuro: Awake
Psych: Calm
A/P:
#Acute hypoxic respiratory failure (tachypnea, tachycardia) likely secondary to pneumonia versus atelectasis versus recurrent mucous plugging
Chest x-ray noted and follow-up chest x-ray similar with left lower lobe density consistent with pneumonia
Wean oxygen as tolerated
Currently on nasal cannula
Start patient on bronchodilators
Started on chest PT and hypertonic saline nebulizer and vest therapy as well
D-dimer noted but could be from recent infection
Pulmonary consultation appreciated
Discussed with mother and father at bedside today.
Family would like to have oxygen upon discharge but not sure if she would be able to-will arrange for home oxygen assessment and will get also pulmonary input
Aspiration pneumonia
- Procalcitonin borderline elevated and chest x-ray with left lower density.
- Continue current IV antibiotic (I would favor continued treatment) and will switch to oral/through PEG over the next 24 hours
Sinus tachycardia
- Likely multifactorial in the setting of pneumonia, beta agonist stimulation, current hospitalization
- Twelve-lead EKG reviewed
- Continue pvc monitor
- No need to treat specifically but rather treat multifactorial etiology
- Planning on switching to Xopenex by pulmonary recommendations (family looking into another pharmacy)
Dysphagia
- Continue feeding tube in hospital and reevaluate
- Continue head of bed elevated while on feedings
#CKD stage IIIb
#Solitary right kidney
Father brought old medical records and labs and her kidney function is about her baseline.
No need for ultrasound of the kidneys
Stop IV fluid
#Mild transaminitis
Father brought old medical records and labs and her liver function test is about her baseline.
No need to monitor anymore
No need for ultrasound of the liver
# anemia
There is a component of iron deficiency and anemia of chronic disease
Will continue her on IV iron
B12 and folate okay
Father brought old medical records and labs and her hemoglobin test is about her baseline.
#Chronic constipation
Resume bowel regimen.
#History of nephrolithiasis
nonobstructing right renal stones noted on CT. Absent left kidney.
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
#Spina bifida -hx RESEARCH CHIEF ENGINEER shunt.
#Dysphagia s/p PEG tube
Followed by [facility].
Catheterization twice daily
Dietary eval for tube feeding recs
#Chronic anemia
Cont with iron supplementation
Full code
DVT ppx-hep sc
Discussed with patient and family at bedside in details
Time spent 35 minutes
Anticipated Discharge: Within 24 hours
Subjective/Interval History
-
Date of Service: May 21, 2025
Patient improving overall. Afebrile
Objective Data
-
Labs:
Laboratory Results
05/21/25
05:32
WBC 6.1
Hgb 8.1 L
Hct 25.0 L
Plt Count 266
PT 13.7
INR 1.01
Sodium 141
Potassium 4.9
Chloride 115 H
Carbon Dioxide 19 L
BUN 30 H
Creatinine 1.4 H
Glucose 113 H
Calcium 8.8
Total Bilirubin 0.4
AST 37 H
ALT 42 H
Alkaline Phosphatase 75
Vital Signs:
Vital Signs
Temp Pulse Resp BP Pulse Ox
97.8 F 116 18 113/83 97
05/21/25 07:20 05/21/25 08:21 05/21/25 08:21 05/21/25 06:00 05/21/25 08:21
I&O
05/20/25 05/21/25 05/22/25
06:59 06:59 06:59
Intake Total 390 / 390 1680 / 1680
Output Total 155 / 155 85 / 85
Balance 235 / 235 1595 / 1595
--- NOTE | 2025-05-21 13:21 | RESPNOTE ---
Patient cannot walk currently
--- NOTE | 2025-05-21 16:30 | PTCARENOTE ---
Patient nonverbal. Parents in room at bedside, very involved with her care. Tolerating TF, at goal. Patient INC of urine and bowel. VS stable. Patient complete in care. Turned and repositioned Q2H. ST on monitor, HR low 100's to 110's. VS
stable,afebrile. Will monitor.
[2025-05-21] MEDS: FERRLECIT IV (16:44)
--- NOTE | 2025-05-21 16:52 | CM ---
Patient with Hx spina bifida, RESEARCH AFFILIATE shunt, PEG tube feeds with Dx Acute hypoxic respiratory failure, Aspiration pneumonia. Room air. Home O2 Assessment done. Receiving IV Abx, IV Iron. Tube feedings. Per nurse; non-verbal, contracted, bedrest.
Met with patient and her parents;
mother/father confirm that they are aware of probable discharge tomorrow. IMM completed.
Offered VN and parents declined.
The patient sleeps in a recliner and parents confirm they do not want hospital bed.
Parents confirm patient has a new nebulizer provided by [facility] but no nebulizer meds were ordered, and are asking if MD will provide script for the meds---> message to Dr Tomlinson.
Father requested home O2 test and is aware of outcome/no need for home O2.
Patient has her w/c in hospital room, and parents will provide transport home tomorrow in their vehicle.
Plan home tomorrow with family.
[2025-05-21 18:43] LABS: Hepatitis B Surface Antigen Negative (Negative)
[2025-05-21 19:00] LABS: Hepatitis C Antibody Negative (Negative)
--- NOTE | 2025-05-21 23:55 | PTCARENOTE ---
Report received from eloisa MARTÍNEZ . Pt has hx of spina bifida and is nonverbal at baseline, opeing eyes to verbal stimuli and tracks. nsr on monitor, HR 95bpm. peg present, receiving Tube feeds, osmolite 1.2 @ 40 ml/hr and 20 ml water
flush.tolerating. HOB at 30 degrees. new tf bag and tubing hung. hs oral care preformed. Assessment as documented. safe environment maintained.
[2025-05-22] VITALS (7 sets, daily range): BP systolic 90–105; BP diastolic 60–79
[2025-05-22] MEDS: ZOSYN 50 IV (04:46)
[2025-05-22] MEDS: NON-FORMULARY ITEM 1 VIAL NEB (08:39)
[2025-05-22] MEDS: ATROVENT NEBULES 0.5 MG INH (08:40)
[2025-05-22] MEDS: SODIUM CHLORIDE 3% FOR INHALATION 1 VIAL INH (08:40)
--- NOTE | 2025-05-22 08:53 | W.PN.HOSP.TC ---
Addendum entered and electronically signed by Giorgi Tomlinson MD 05/22/25 12:28:
Sepsis, POA
Underweight
Original Note:
Today's Communication/Plan
-
Discharge planning today
Assessment / Plan
Assessment / Plan
Physical Exam:
General: No Apparent Distress, Appears Chronically Ill and Other (non-verbal and of small stature)
HEENT: Anicteric, Moist mucous membranes and Oxygen
Respiratory: Decreased Breath Sounds, coarse breath sounds heard on both bases more pronounced on the left base
Cardiac: S1/S2, Regular Rhythm and Tachycardia
Breast: Deferred by me
GI: Soft, Non Tender, Non Distended and Peg Tube
Rectal: Deferred by Provider
Musculoskeletal: No Clubbing, No Cyanosis and No Edema
Skin: Warm
Neuro: Awake
Psych: Calm
A/P:
#Acute hypoxic respiratory failure (tachypnea, tachycardia) likely secondary to pneumonia versus atelectasis versus recurrent mucous plugging
Chest x-ray noted and follow-up chest x-ray similar with left lower lobe density consistent with pneumonia
Remains off oxygen
Continue patient on bronchodilators
Continue on chest PT and hypertonic saline nebulizer and vest therapy as well
Pulmonary consultation appreciated
Discussed with mother and father at bedside today.
Plan to discharge today
Aspiration pneumonia
- Switch IV antibiotics to through PEG
Sinus tachycardia
-Improved
- Likely multifactorial in the setting of pneumonia, beta agonist stimulation, current hospitalization
- Twelve-lead EKG reviewed
- Continue cardiac sonographer
- No need to treat specifically but rather treat multifactorial etiology
- Planning on switching to Xopenex by pulmonary recommendations (family looking into another pharmacy)
Dysphagia
- Continue feeding tube in hospital and reevaluate
- Continue head of bed elevated while on feedings
#CKD stage IIIb
#Solitary right kidney
Father brought old medical records and labs and her kidney function is about her baseline. Remains stable and can recheck as outpatient
No need for ultrasound of the kidneys
Stop IV fluid
#Mild transaminitis
Father brought old medical records and labs and her liver function test is about her baseline. Remains stable and can recheck as outpatient
No need to monitor anymore
No need for ultrasound of the liver
# anemia
There is a component of iron deficiency and anemia of chronic disease
Will continue her on IV iron
B12 and folate okay
Father brought old medical records and labs and her hemoglobin test is about her baseline. Remains stable and can recheck as outpatient
#Chronic constipation
Resume bowel regimen.
#History of nephrolithiasis
nonobstructing right renal stones noted on CT. Absent left kidney.
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
#Spina bifida -hx CIGARETTE EXAMINER shunt.
#Dysphagia s/p PEG tube
Followed by [facility].
Catheterization twice daily
Dietary eval for tube feeding recs
#Chronic anemia
Cont with iron supplementation
Full code
DVT ppx-hep sc
Discussed with patient and family at bedside in details
Anticipated Discharge: Today
Subjective/Interval History
-
Date of Service: May 22, 2025
No new complaints or events.
Objective Data
-
Vital Signs:
Vital Signs
Temp Pulse Resp BP Pulse Ox
98.1 F 111 18 90/60 98
05/22/25 07:52 05/22/25 08:43 05/22/25 08:43 05/22/25 04:00 05/22/25 08:43
I&O
05/21/25 05/22/25 05/23/25
06:59 06:59 06:59
Intake Total 1680 / 1680 720 / 720
Output Total 85 / 85 50 / 50
Balance 1595 / 1595 670 / 670
[2025-05-22] MEDS: HEPARIN 5000 UNITS SC (09:13)
[2025-05-22] MEDS: ROBITUSSIN 200 MG TUBE (09:13)
[2025-05-22] MEDS: PREVACID 30 MG TUBE (09:13)
[2025-05-22] MEDS: FERROUS SULFATE ORAL LIQUID 220 MG TUBE (09:13)
[2025-05-22] MEDS: ANTIFUNGAL CLEAR 1 APPLIC TOPICAL (09:14)
[2025-05-22] MEDS: AUGMENTIN 250 MG/5 ML 500 MG TUBE (10:44)
--- NOTE | 2025-05-22 10:57 | PN.CDI ---
CDI
- -
CDI:
Physician Documentation Request
Admit Date: 05/18/25 10:22
Dear Doctor Bushra,
Patient admitted for pneumonia.
Selected Entries
05/18/25
03:43 05/18/25
04:30 05/18/25
06:30
Pulse 120 118 125
05/18/25
03:43 05/18/25
06:15 05/18/25
08:00
Resp Rate 30 36 42
Please clarify which of the following most accurately describes the status of the patient's infection:
Sepsis, POA
- Systemic manifestations of infection, with 2 or more SIRS criteria which include:
- Fever >100.9 degrees F or hypothermia < 96.8 degrees F
- Leukocytosis - WBC > 12,000 or leukopenia - WBC < 4,000 or > 10% bands
- Tachycardia > 90 beats per minute
- Tachypnea - RR > 20 breaths per minute or PaCO2 , 32mmHg
Source: Merck Manual 2013
- Indicate the known or suspected organism
- Indicate the known or suspected underlying infection, such as UTI, pneumonia or cellulitis
- Indicate if a suspected bacterial infection of unknown source
- Indicate if associated with an implanted device such as a F/C, PICC line, orthopedic hardware, etc.
Localized Infection Only, Without Systemic Illness
- indicate the site/source, such as UTI, pneumonia etc.
Other
Use of terms such as suspected, likely, concern for, or probable (associated with a specific diagnosis that is being evaluated, monitored, or treated as if it exists) are acceptable and can be coded in the inpatient setting, when documented at the
time of discharge.
Thank you,
Zohreh Yoo RN, BSN
CDI Specialist
Available via [place] text
Please use your independent medical judgment in providing your response.
--- NOTE | 2025-05-22 11:17 | PN.CDI ---
CDI
- -
CDI:
Physician Documentation Request
Admit Date: 05/18/25 10:22
Dear Doctor Bushra,
Patient admitted for pneumonia.
05/21 Hospitalist PN: 'Appears Chronically Ill and Other (non-verbal and of small stature)'
Please review the following and provide your response in the progress notes.
Clinical Indicators:
Height: 4' 11'
Weight: 71 lbs
BMI: 14.5
If possible, please provide an associated diagnosis related to the abnormal BMI, such as:
Cachectic
Underweight
BMI is not significant
Other
BMI < or = to 19.9
Underweight
Weight Loss
Cachectic
Anorexia
Use of terms such as suspected, likely, concern for, or probable (associated with a specific diagnosis that is being evaluated, monitored, or treated as if it exists) are acceptable and can be coded in the inpatient setting, when documented at the
time of discharge.
Thank you,
Zohreh Yoo RN, BSN
CDI Specialist
Available via [place] text
Please use your independent medical judgment in providing your response.
--- NOTE | 2025-05-22 11:28 | W.DCSUMMARY ---
Discharge Summary
Discharge Data
Date of Admission: 05/18/25
Date of Discharge: 05/22/25
Total time spent discharging patient (in min): 35
-
Pending Results: No
Hospital Course
Patient 50 years old female with history of spina bifida, CKD, anemia, solitary right kidney, history of COTTAGE SUPERVISOR shunt, cognitive dysfunction, nonverbal, dysphagia status post PEG placement, chronic superior dislocation of right hip, nephrolithiasis,
neurogenic bladder, chronic constipation, came into the hospital with acute hypoxic respiratory failure. Patient had a recent hospitalization at [facility] with mechanical ventilation. She came in with severe low oxygen levels at home.
Patient was found to have left lower lobe aspiration pneumonia and issues with increased secretions and mucous plugging. Pulmonary consulted. She was treated with bronchodilators, IV antibiotics, chest physiotherapy. Patient had some sinus
tachycardia but she improved after bronchodilators switched from albuterol to Xopenex and continued on Atrovent. Patient improved overall throughout this hospital stay. We restarted her tube feedings and she did not have any problems while
hospitalized. We recommended to continue elevation of head of bed more than 30 to 45 degrees while receiving feeding. Pulmonary cleared her for discharge and signed off day prior. She will have a follow-up chest x-ray in 4 to 6 weeks and
follow-up with pulmonary as outpatient. Patient has remained hemodynamically stable and afebrile and oxygenating well on room air. She will be discharged in relatively stable condition today.
Discharge duration: 35 minutes
Discharge Plan
-
Patient Disposition: Home with Home Care
Discharge Diagnosis/Procedures: Acute hypoxic respiratory failure. Sepsis due to aspiration pneumonia. Sinus tachycardia. Underweight. Dysphagia. Anemia. Chronic kidney disease stage III. Elevated liver function tests.
Diet: Other diet
Additional Diets: Continue feeding tube diet as prior to admission.
Activity: As tolerated
Blood Work: Please PCP to order CBC, CMP within 1 to 2 weeks.
Referrals:
Adama Vega MD [Active, Pulmonary Medicine] - in one to two months
Referral Note: 1-2 mo
cxr in 2 mo
Shannon Perez DO [Family Provider, [facility]] - in less than 1 week
Prescriptions:
New
amoxicillin-pot clavulanate 250-62.5 mg/5 mL Suspension For Reconstitution
10 ml feeding tube Q12 5 Days Qty: 100 0RF
ipratropium bromide 0.02 % Solution
0.5 mg inhalation R TID 14 Days Qty: 105 0RF
lansoprazole [Prevacid SoluTab] 30 mg tablet,disintegrat, delay rel
30 mg feeding tube DAILY Qty: 30 0RF
Levalbuterol 0.
1 vial continuous nebulization R TID 14 Days Qty: 0 0RF
Continued
polyethylene glycol 3350 [Miralax] 17 gram Powder In Packet
17 g feeding tube DAILY@1400
bisacodyl [Dulcolax (bisacodyl)] 10 mg Suppository
10 mg SD ONCE PRN (Reason: constipation)
ferrous sulfate 220 mg (44 mg iron)/5 mL Elixir
220 mg feeding tube BID
Discontinued
lansoprazole liquid
30 mg feeding tube DAILY
Patient Comments:
05/18/2025, pt. got this med. specially compounded for her at [facility] per family. Filled [address] strength [address] [facility].
Discharge Orders:
Discharge Patient (As Directed); Ordered 05/22/25
Ordered By: Giorgi Tomlinson
Discharge Date and Time
Discharge Date/Time: 05/22/25 13:31
Print Language: BULGARIAN
--- NOTE | 2025-05-22 12:34 | RESPNOTE ---
remainder [place] [facility] [place].
== END 2025-05-22 13:31 | disposition home or self-care (01) | DRG 871 ==
LOC: IMU 10:22
PROVIDERS: ADMITTING PHYSICIAN Hospitalist; ATTENDING PHYSICIAN Hospitalist; CONSULT PHYSICIAN Internal Medicine; EMERGENCY PHYSICIAN Emergency Medicine; FAMILY PHYSICIAN Family Medicine
DX: A41.9 Sepsis, unspecified organism (principal); J18.9 Pneumonia, unspecified organism; J96.01 Acute respiratory failure with hypoxia; J69.0 Pneumonitis due to inhalation of food and vomit; T17.890A Other foreign object in other parts of respiratory tract causing asphyxiation, initial encounter; Z68.1 Body mass index [BMI] 19.9 or less, adult; R63.6 Underweight; N18.32 Chronic kidney disease, stage 3b; D63.1 Anemia in chronic kidney disease; R13.10 Dysphagia, unspecified; Z93.1 Gastrostomy status; Z98.2 Presence of cerebrospinal fluid drainage device; K59.09 Other constipation; Z87.442 Personal history of urinary calculi; N31.9 Neuromuscular dysfunction of bladder, unspecified; Z90.5 Acquired absence of kidney; Z90.13 Acquired absence of bilateral breasts and nipples; Z91.040 Latex allergy status; Z11.52 Encounter for screening for COVID-19
CPT/HCPCS: 71045; 80053; 82248; 82607; 82728; 82746; 83540; 83550; 83735; 84145; 85025; 85379; 85610; 86705; 86706; 86709; 86803; 87340; 87811; 93005; 93971; 94640; 94669; 96360; 99291; J2916

== ENCOUNTER 2025-06-26 21:39 | Inpatient (IN) | payer MEDICARE, MEDICAID, SELFPAY ==
[2025-06-26] VITALS (7 sets, daily range): BP systolic 91–124; BP diastolic 65–80; BMI 15.1
[2025-06-26 17:19] LABS: Hematocrit 29.6 % (37.0-47.0); Hemoglobin 10.2 g/dL (12.0-16.0); Mean Corp Hgb Conc. 34.5 g/dL (33.0-37.0); Mean Corpuscular Volume 90.5 fL (81.0-99.0); Nucleated Red Blood Cells % 0 %; Platelet Count 450 10^3/uL (130-400); Red Cell Dist. Width 11.6 % (11.5-14.5)
[2025-06-26 18:25] LABS: Urine Character Cloudy (Clear)
[2025-06-26 18:33] LABS: ALT (SGPT) 15 U/L (0-35); AST (SGOT) 22 U/L (14-36); Albumin 3.3 g/dl (3.5-5.0); Alkaline Phosphatase 80 U/L (38-126); Blood Urea Nitrogen 58 mg/dl (7-17); Calcium 8.9 mg/dl (8.4-10.2); Carbon Dioxide 28 mmol/L (22-30); Chloride 95 mmol/L (98-107); Glucose 104 mg/dl (70-99); Potassium 4.1 mmol/L (3.5-5.1); Sodium 132 mmol/L (135-145); Total Protein 6.5 g/dl (6.3-8.2); eGFR 36.53
[2025-06-26 18:33] LABS: Urine Red Blood Cell 0-2 /HPF (0-2); Urine Squamous Cell 0-2 /LPF (Few); Urine White Cell 90-100 /HPF (0-5)
[2025-06-26] MEDS: TYLENOL/FEVERALL 325 MG RECTAL (18:49)
--- NOTE | 2025-06-26 19:43 | ED.GENMED ---
History of Present Illness
General
Chief Complaint: Abdominal Symptoms
Source: family (Parents)
Exam Limitations: none
Time Seen by Provider: 06/26/25 16:41
Nursing documentation reviewed up to this point in time: agreed with
History of Present Illness
History of Present Illness:
Patient to ED for eval of abdominal pain and distention. She has a historyof spina bifida, severe cognative imparement. Parents are primary caregivers. SHe had a feeding tube placed at [facility] this past srping for feeding issues, zenker
diverticulum. Parents feel that she has not tolerated the feedings very well. They report chronic loose stools - told by their GI that this was due to be expected. They feel that her abd. becmoes distended, hot and uncomfortable after feedings.
For the past few days abdominal distention has remained. Parents also report low grade temp. Brought to ED for eval
Past History
Past History
ED Past Medical History: Other (spina bifida)
ED Past Surgical History: Urological and Other (UNDERWRITER SOLICITATION DIRECTOR shunt)
Social History
Tobacco: Non-smoker
Alcohol: None
Living: with family
Review of Systems
Review of Systems
Allergies reviewed?: Yes
All Other Systems: ROS reviewed and negative except as documented in HPI and ROS
Constitutional: Reports fever (low grade temp 100.2)
EENT: Reports no symptoms
Respiratory: Reports no symptoms
Cardiac: Reports no symptoms
ABD/GI: Reports abdominal pain and diarrhea
: Reports no symptoms
Musculoskeletal: Reports no symptoms
Skin: Reports no symptoms
Neurological: Reports no symptoms
Psychiatric: Reports no symptoms
Phy Exam
General Physical Exam
General Presentation: mild distress
General age: appears older than age
General Skin: warm and dry
General Habitus: normal
General Mental: alert
Cardiovascular Exam
Cardiovascular Exam: tachycardia
Pulmonary Exam
Pulmonary Exam: chest non tender and decreased breath sounds
Gastrointestinal Exam
Gastrointestinal Exam: normal bowel sounds and distended
Palpation: generalized: Mild tenderness
Musculoskeletal Exam
Musculoskeletal Exam: neuro vasc intact
Skin Exam
Skin Exam: normal color, warm/dry and no rash
Psychiatric Exam
Psychiatric Exam: normal mood/affect
Course
Orders/Labs/Results
Orders:
Orders
06/26/25 16:59
CT Abd/pel Without Iv Or Oral Urgent
Comment:
Reason For Exam: diffuse pain, bloating
06/26/25 17:15
Complete Blood Count/With Diff Urgent
06/26/25 18:06
Comprehensive Metabolic Panel Urgent
Ferritin Urgent
Comment: ADD ON
Iron Urgent
Serum Osmolality Urgent
Comment: ADD ON
Total Iron Binding Urgent
Vitamin B12 Urgent
Comment: ADD ON
06/26/25 18:09
CR Chest Single View Urgent
Reason For Exam: cough
06/26/25 18:14
Osmolality, Random Urine Urgent
Date Specimen was Collected: 06/26/25
Time Specimen was Collected: 18:12
Comment: ADD ON
Urinalysis Reflex To Culture Urgent
Date Specimen was Collected: 06/26/25
Time Specimen was Collected: 18:12
Urine Microscopic Reflex Cult Urgent
Urine Sodium Urgent
Date Specimen was Collected: 06/26/25
Time Specimen was Collected: 18:12
Comment: ADD ON
Urine Culture Urgent
EMILY Source: U
Specimen Description:
Date Specimen was Collected: 06/26/25
Time Specimen was Collected: 18:12
06/26/25 18:40
Acetaminophen [Tylenol/Feverall] 650 mg .ROUTE .STK-MED ONE
06/26/25 18:44
Acetaminophen [Tylenol/Feverall] 325 mg RECTAL NOW STA
06/26/25 19:38
Azithromycin 500 mg/250 ml [Zithromax Infusion] 500 mg in 250 ml IV NOW
CefTRIAXone [Rocephin] 1,000 mg IV NOW STA
06/26/25 20:18
0.9% Sodium Chloride 500 ml [Nss] 500 ml IV BOLUS
06/26/25 20:24
Sterile Water [Sterile Water For Injection] 10 ml .ROUTE .STK-MED ONE
06/26/25 20:[address] Non Medication Order As Directed
Physician Order: please complete the med rec. thanks
06/26/25 20:46
Add On- LAB Routine
Tests Added?: iron,tibc,ferritin,b12
06/26/25 20:49
Add On- LAB Routine
Tests Added?: serum osm
Add On- LAB Routine
Tests Added?: urine osm,urine sodium
06/26/25 21:10
Admit/Transfer Patient As Directed
Co-Sign Provider:
Level of Care: Inpatient admission
Assign to:: Medical/Surgical
Physician / Group: Hospitalist
Diagnosis: Ascites, UTI
Reason for Hospitalization: Ascites, UTI
Expected length of stay greater than two midnights?: Yes
ELOS- Estimated Length of Stay in days: 2
I certify the patient meets the requirements for IP care: Yes
PRN Pain Medication Management As Directed
May give lesser potent ordered pain med per pt: Yes
preference::
Protocol:: Medication orders for pain may be administered in a
manner that supports deferring to patient preference
when the pt is:
- Requesting an ordered lesser potent pain medication.
Least to most potent pain medications are defined
as: acetaminophen < NSAID < tramadol < opioids
(morphine, oxycodone, hydromorphone).
- Requesting a lesser dose of the same medication IF
ORDERED.
- Requesting a less intrusive route of administration
if both routes are prescribed by the provider (PO <
IV).
06/26/25 21:13
Code Status As Directed
Resuscitation Status: Full Code
Abnormal Lab Results
06/26/25 06/26/25 06/26/25
17:15 18:06 18:14
RBC 3.27 L 10^6/uL
(4.20-5.40)
Hgb 10.2 L g/dL
(12.0-16.0)
Hct 29.6 L %
(37.0-47.0)
MCH 31.2 H pg
(27.0-31.0)
Plt Count 450 H 10^3/uL
(130-400)
MPV 10.7 H fL
(7.4-10.4)
Absolute Lymphs (auto) 0.9 L 10^3/uL
(1.2-3.4)
Absolute Monos (auto) 1.0 H 10^3/uL
(0.1-0.6)
Lymphocytes % 11.0 L %
(20.5-51.1)
Monocytes % 11.8 H %
(1.7-9.3)
Sodium 132 L mmol/L
(135-145)
Chloride 95 L mmol/L
(98-107)
BUN 58 H mg/dl
(7-17)
Creatinine 1.7 H mg/dL
(0.6-1.0)
Glucose 104 H mg/dl
(70-99)
Iron 29 L ug/dl
(37-170)
TIBC 261 L ug/dl
(265-497)
% Saturation 11 L %
(20-50)
Albumin 3.3 L g/dl
(3.5-5.0)
Ur Occult Blood Reflex 4+ A
(Negative)
Leukocyte Esterase Rfl 3+ A
(Negative)
Urine WBC (Reflex) 90-100 A /HPF
(0-5)
Urine Bacteria (Reflex) Many A
(Negative)
Urine Sodium 29 L mmol/L
(30-90)
Urine Albumin (Reflex) 2+ A
(Neg - Trace)
06/26/25 17:15
06/26/25 18:06
Vital Signs
Initial and Last Documented VS:
Initial Vital Signs
Pulse Resp BP Pulse Ox
131 18 109/80 96
06/26/25 14:37 06/26/25 14:37 06/26/25 14:37 06/26/25 14:37
Last Documented Vital Signs
Temp Pulse Resp BP Pulse Ox
98.5 F 109 20 99/75 98
06/26/25 20:30 06/26/25 21:30 06/26/25 21:15 06/26/25 21:00 06/26/25 21:30
*Radiology
Radiology exam reviewed: radiology read reviewed
*Pulse Oximetry
SaO2: 96
Oxygen Mode of Delivery: Room air
Patient hypoxic: no
*Critical Care Note
Total Time (30-74mins, 75-104mins- exclusive of procedures): Not Applicable
Update Note
Update Note:
Patient to ED for eval of abdominal pain, abdominal distention. Temp 100.2 in ED, rectal tyelenol given. Labs reveiwed. WBC normal. CMP stable. UA concerning for UTI although mother reports that she consistently has bacteria in urine. CT
report reviewed: moderate - large amt of abdominal ascites (new). Moderated left pleural effusion with atelectasis (small pleural effusion noted in April). Diffuse bladder wall thickening possibly representing cystitis. Discussed case with
[facility]. Will admit to hospitalist for new ascitis, progressing left pleural effusion, UTI. Parents are agreeable to plan.
ED Attending Note
-
Portions of this chart may have been created with voice recognition software.� Occasional wrong word or��sound alike� substitutions may have occurred due to the inherent limitations of voice recognition software.
Discharge Plan
Departure
Patient Disposition: Admit
Date of Disposition: 06/26/25
Time of Disposition: 19:57
Presentation/result/management discussed w/ accepting MD/DO: Hospitalist
Patient with high blood pressure during this ER visit?: No
Condition: Fair
Discharge Problem:
Ascites, UTI (urinary tract infection), Pleural effusion
Interventions
Interventions:
*Risk Screen - Suicide Last Done: 06/26/25 14:37
*General Assessment Last Done: 06/26/25 14:37
*Neglect/Abuse Screening Last Done: 06/26/25 14:37
*ED COVID-19 Vaccine History Last Done: 06/26/25 18:22
HQ-Mnxxqe-Mjytotbitr Assessment Last Done: 06/26/25 17:50
[2025-06-26] MEDS: NSS 500 IV (20:35)
[2025-06-26] MEDS: ROCEPHIN 1000 MG IV (20:36)
--- NOTE | 2025-06-26 20:39 | HPS.HSE ---
Addendum entered and electronically signed by Ady Carlson MD 06/26/25 21:24:
I saw and examined the patient.
The CLINICAL RESEARCH SPEC or PA's note was reviewed and I agree with the note.
Comment: See my documentation for changes
50-year-old female with abdominal pain and distention patient has a history of spina bifida and cognitive impairment. She had a PEG tube placed at [place] for feeding and also Zenker's diverticulum. She has not tolerated feedings really well since
then. She has chronic diarrhea abdomen is more distended now. Also had low-grade fevers
Chest [id number], loculated left pleural effusion with adjacent left basilar opacity likely atelectasis however pneumonia could appear similar.
CT abdomen pelvis-moderate/large volume ascites. Moderate left pleural effusion with associated passive atelectasis. PEG tube in the stomach. Diffuse urinary bladder wall thickening which extends to the umbilicus may represent cystitis.
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
Patient is awake not able to communicate
Cardiovascular system S1-S2 appreciated
Chest decreased breath sounds bilateral bases
Abdomen slightly distended
Vesicostomy noted with mild purulence around
Mild anasarca in the legs
# Ascites-unclear reason. Will have IR do paracentesis tomorrow with fluid studies including cytology
Also has pleural effusion
Check echo
Blood pressure borderline
May need Lasix tomorrow
Stop IV fluids
# Abnormal urinalysis-treat as UTI
Likely catheter associated UTI secondary to catheterizations
Ceftriaxone to be continued while waiting for cultures
Neurogenic bladder-patient has a cutaneous vesicostomy (1983) and catheterized twice a day by mom
# Pleural effusion with possible pneumonia versus atelectasis
Aspiration precautions
Treat with ceftriaxone
If pleural effusion does not get better may need thoracentesis
# Hyponatremia-likely part of total fluid overload. Follow with Lasix.
Check serum and urine osmolality and urine sodium
# Dysphagia with recent PEG tube placement at [facility] 05/15/2025
# Chronic anemia- check iron studies
# MARLENE on CKD stage III
Solitary right kidney, left nephrectomy for vesicoureteral reflux
# Spina bifida, hydrocephalus with CLAM DREDGE BOAT CAPTAIN shunt , history of meningocele repair
# History of intubation April 2025 at [facility]
# History of nephrolithiasis
# Bilateral hip dysplasia
# History of bilateral mastectomy for Macromastia
# Nodular appearance of the uterus possibly secondary to fibroids-outpatient [employer] follow-up should be recommended at discharge
# Developmental delay/cognitive impairment/nonverbal state
# History of Zenker's diverticulum
# Underweight
# Ambulatory boyzbvcvcgf-nunoqvmhxb-htjmy/bedridden-history of decubitus ulcer healed 2011
# Hypoalbuminemia
# DVT prophylaxis-TEDDY
# CODE STATUS-full code. One of the parents will be with the patient all the time and they would like to make a decision according to the situation
Most of patient's care and doctors are at [facility] where there is a clinic for patients with spina bifida
Discussed with both parents at bedside
Time spent over 75 min
Part of this note was created using voice recognition system. Occasional wrong word or��sound alike� substitutions may have inadvertently occurred due to the inherent limitations of voice recognition software. If noted kindly bring it to my
attention for correction.
Original Note:
Family Physician
-
Family Physician: Shannon Perez
Chief Complaint
-
abdominal distention
History of Present Illness
50 year old with PMH for spina bifida, severe developmental delay, recurrent pneumonia, chronic iron deficiency anemia presented to us with abdominal pain and distention for past few days. SHe had a feeding tube placed at [place] 6 weeks ago for
zenker diverticulum an aspiration. Parents feel that she has not tolerated the feedings very well. They report chronic loose stools - told by their GI that this was due to be expected. They feel that her abdomen is distended, hot and uncomfortable
for past few days. she is having wet burping. Parents also report low grade temp. Brought to ED for eval.
ceftriaxone and zithro in ER. admitting for further management.
Medical History
Past Medical History
Past Medical History: Reports Other
Additional Past Medical History:
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
Solitary right kidney
Nephrolithiasis
Spina bifida/history of CLAM DREDGE BOAT CAPTAIN shunt
Neurogenic bladder
Cognitive dysfunction
Nonverbal
Dysphagia status post PEG tube placement
Anemia
Chronic constipation
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
Past Surgical History: Reports Other
Additional Past Surgical History:
Status post nephrectomy
Status post CLAM DREDGE BOAT CAPTAIN shunt
Status post meningocele repair
Status post cutaneous vesicostomy
Status post bilateral mastectomy
Status post hematoma removal
Social History
Tobacco: Non-smoker
Alcohol: None
Drug: None
Living: With Family
Family History
Family History: Not pertinent
Allergies / Home Medications
Allergies reflects when Allergies were last updated in [facility].
Home Medications with original date entered in [facility]
Allergy/Medication List:
Allergies
Allergy/AdvReac Type Severity Reaction Status Date / Time
iron dextran complex Allergy Severe hypotension Verified 06/26/25 20:45
latex Allergy Unknown Verified 06/26/25 20:45
potassium chloride Allergy Unknown Verified 06/26/25 20:45
Home Medications
ferrous sulfate 220 mg (44 mg iron)/5 mL oral elixir 220 mg feeding tube BID Supplement 05/18/25
polyethylene glycol 3350 17 gram oral powder packet (Miralax) 17 g feeding tube DAILY@1400 Gastrointestinal Issue 05/18/25
lansoprazole 30 mg delayed release,disintegrating tablet (Prevacid SoluTab) 30 mg feeding tube DAILY #30 tabs 05/22/25
Levalbuterol 0.63 Mg/3 Ml (3 Ml) 1 vial continuous nebulization R TID PRN shortness of breath 06/26/25
ipratropium bromide 0.02 % solution for inhalation 0.5 mg inhalation R TID PRN shortness of breath 06/26/25
simethicone 20 mg/0.3 mL oral syringe (ORAL USE) mg feeding tube BID 06/26/25
Review of Systems
-
Constitutional: Reports No Symptoms
EENT: Reports No Symptoms
Respiratory: Reports No Symptoms
Cardiac: Reports No Symptoms
Abdomen/GI: Reports Abdominal Pain and Other (distention)
: Reports No Symptoms
Musculoskeletal: Reports No Symptoms
Skin: Reports No Symptoms
Neurological: Reports No Symptoms
Endocrine: Reports No Symptoms
Hematologic/Lymphatic: Reports No Symptoms
Psych: Reports No Symptoms
Physical Exam
Vital Signs
Vital Signs
Temp Pulse Resp BP Pulse Ox
98.5 F 112 26 92/73 98
06/26/25 20:30 06/26/25 20:30 06/26/25 20:30 06/26/25 20:30 06/26/25 20:30
Physical Exam
General: Well Developed, Well Nourished and No Apparent Distress
HEENT: NormoCephalic, Moist mucous membranes and Atraumatic
Respiratory: Clear
Cardiac: S1/S2 and Regular Rhythm; No Murmur or Rub
GI: Soft, Non Tender, Normal Bowel Sounds and Distended; No Organomegaly
Rectal: Deferred by Provider
Musculoskeletal: No Clubbing, No Cyanosis and Other (generalized edema)
Skin: No Rash
Neuro: AO x 3 and Nonfocal/grossly intact
Psych: Calm
Laboratory Results
-
06/26/25 17:15
06/26/25 18:06
Laboratory Results
Total Bilirubin 0.4 mg/dl (0.2-1.3) 06/26/25 18:06
AST 22 U/L (14-36) 06/26/25 18:06
ALT 15 U/L (0-35) 06/26/25 18:06
Alkaline Phosphatase 80 U/L (38-126) 06/26/25 18:06
Data Reviewed
-
Diagnostic Radiology: Report Reviewed by me
CT Scan: Report Reviewed by me
Lab Data: Labs Reviewed by me
Impression/Plan
-
# Ascites/moderate left pleural effusion
- IR consulted for apparent thoracentesis
- Chest x-ray with impression There is a moderate, loculated left pleural effusion with adjacent left basilar opacity, likely atelectasis however pneumonia could appear similar.
- CT abdomen pelvis with impression Moderate/large volume ascites. Moderate left pleural effusion with associated passive atelectasis.Percutaneous gastrostomy tube with tip terminating in the stomach.There is diffuse urinary bladder wall thickening
which extends to the umbilicus. Findings may represent cystitis. Consider correlation with urinalysis. 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
to uterine fibroids. Consider further evaluation with dedicated pelvic ultrasound.
-ECHO in am
# Urinary tract infection
-iv ceftriaxone continued
# Anemia of chronic disease
- Hemoglobin stable at 10.2, no active bleeding
- Continue to monitor
-iron panel pending
# MARLENE on CKD stage IIIb/ hyponatremia likely from fluid overload
-solitary right kidney
-Sodium 132, creatinine 1.7
- Continue to monitor
#Sinus tachycardia
#Dysphagia/TF dependant
-[facility] [employer]ers[employer] HN-3 feeds/per day
-dietary consulted
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
#Spina bifida -hx CLAM DREDGE BOAT CAPTAIN shunt.
#Catheterization twice daily
Full code
DVT ppx-hep sc
[2025-06-26] MEDS: ZITHROMAX INFUSION 250 IV (20:47)
--- NOTE | 2025-06-26 21:15 | EDRN ---
Per admitting hospitalist Dr Carlson verbal order, pts infusion of 500ml NSS IVFs STOPPED at this time. Total NSS IVF Volume infused - 150ml
[2025-06-26 21:25] LABS: Iron 29 ug/dl (37-170)
[2025-06-26 21:35] LABS: Total Iron Binding Capacity 261 ug/dl (265-497)
[2025-06-26 23:27] LABS: Ferritin 69.6 ng/ml (6.24-137)
--- NOTE | 2025-06-26 23:41 | PTCARENOTE ---
2245: Patient arrived into room 3341 w/ PET HANDLER. Pt is Med-surg status. Patient is nonverbal, does not follow commands. Incont of loose BM. Parents at bedside, assisting with care. CHG and incont bridget care provided. Barrier cream applied generously.
NPO w/ aspiration precautions. Abd appears bloated. Oral care done. Mom is staying overnight with patient. Call grissom within reach.
[2025-06-26 23:42] LABS: Vitamin B12 > 1000 pg/ml (239-931)
[2025-06-27] VITALS (7 sets, daily range): BP systolic 102–124; BP diastolic 72–91; BMI 15.1
--- NOTE | 2025-06-27 09:34 | PTCARENOTE ---
Patient to and from IR. Pt's mother accompanied her down IR and were updated by IR following paracentesis.
[2025-06-27] MEDS: MYLICON DROPS 20 MG TUBE ×2 (09:47→19:49)
[2025-06-27] MEDS: FERROUS SULFATE ORAL LIQUID 220 MG TUBE ×2 (09:48→19:48)
[2025-06-27] MEDS: PREVACID 30 MG TUBE (09:48)
[2025-06-27] MEDS: HEPARIN 2500 UNITS SC ×2 (09:48→19:48)
[2025-06-27 10:29] LABS: Hematocrit 30.1 % (37.0-47.0); Hemoglobin 10.2 g/dL (12.0-16.0); Mean Corp Hgb Conc. 33.9 g/dL (33.0-37.0); Mean Corpuscular Volume 92.6 fL (81.0-99.0); Platelet Count 416 10^3/uL (130-400); Red Cell Dist. Width 11.6 % (11.5-14.5)
[2025-06-27 10:58] LABS: Blood Urea Nitrogen 54 mg/dl (7-17); Calcium 9.0 mg/dl (8.4-10.2); Carbon Dioxide 28 mmol/L (22-30); Chloride 97 mmol/L (98-107); Estimated Creatinine Clearance 21 ml/min; Glucose 87 mg/dl (70-99); LDH 159 U/L (120-246); Magnesium 3.1 mg/dl (1.6-2.3); Potassium 4.1 mmol/L (3.5-5.1); Sodium 136 mmol/L (135-145); Total Protein 6.4 g/dl (6.3-8.2); eGFR 36.53
[2025-06-27 11:02] LABS: TSH 2.97 uIU/ml (0.47-4.68)
[2025-06-27 11:57] LABS: Body Fluid Second Tech SS
--- NOTE | 2025-06-27 12:56 | PTCARENOTE ---
Patient's mother performed patient's mouth care and partial bath.
--- NOTE | 2025-06-27 14:54 | W.PN.HOSP.TC ---
Addendum entered and electronically signed by Vaibhav Perez DO 06/27/25 16:33:
ERROR: Please ignore the addendum below. It is in regards to a different patient.
Addendum entered and electronically signed by Vaibhav Perez DO 06/27/25 15:01:
CDI: CKD 2, severe protein calorie malnutrition
Addendum: Prior to discharge patient developed slight dizziness and nausea, SBP near 90 mmHg. Has been on CLD due to aspiration risk, not taking in much. Will provide 250 mL IV fluid bolus, judiciously with severe HFrEF history, and reassess blood
pressure. If BP and symptoms improved will still plan to discharge with daughter transferring patient to ED at [facility] for OMF intervention
Original Note:
Today's Communication/Plan
-
IR tube check
Follow-up echo
Liver ultrasound
IV ceftriaxone for UTI
Assessment / Plan
Assessment / Plan
#Ascites
-Question for PEG tube malfunction and leakage; cannot rule out cardiogenic, cirrhotic, lymphatic causes
-Presented with abdomen distention that started following PEG tube placement at [place]
-Family states she has not tolerated feedings well since then, noted distention shortly after starting
-Underwent paracentesis today, SAAG 1.2 though no signs of cirrhotic morphology on CT scan
-Ascites protein 4.3 not consistent with portal hypertensive cause; noted to have chylous appearance
-Fluid studies do have elevated PMN, no fevers or tenderness, cirrhosis unlikely; hold off on antibiotics
-Echocardiogram ordered admission, follow-up results for signs of heart failure
-Will discuss PEG tube check, for signs of malfunction, with interventional radiology
-Order RUQ US to reassess for fluid reaccumulation, reevaluate liver morphology
-Follow-up cytology from ascitic fluid
-Monitor abdomen exams
#Moderate loculated left pleural effusion
-Unclear etiology, likely related to process causing ascites, as above
-Chest x-ray showed moderate-sized effusion with loculation and underlying atelectasis
-Currently stable from respiratory status, on room air with SpO2 mid to high 90s
-Continue to monitor clinically, consider dose of Lasix if respiratory status worsens
-Will consider IR thoracentesis
#Urinary tract infection
#Neurogenic bladder s/p vesicostomy
-Abnormal UA, CT showing signs of cystitis; difficult to ascertain history due to mental status
-Was started on IV ceftriaxone empirically after urine culture; remains afebrile without leukocytosis
-Continue antibiotics and follow cultures, trend CBC and temperature curve
#Spina bifida
#Cognitive impairment
#Chronic dysphagia s/p PEG tube
-Recent procedures at [facility]
-Concerns of PEG tube malfunction causing ascites
#CKD stage IV
-Creatinine baseline near 1.3-1.7, GFR in 30s with creatinine clearance in the 20s
-Unclear etiology, possibly obstructive with spina bifida, neurogenic bladder and chronic straight catheterizing
-Was on IV fluids upon arrival which were stopped with concerns for hypervolemia
-Continue to trend BMP, avoid nephrotoxins
Diet: Tube feeds with vital 1.2 AF, goal rate to 35 mL/h
DVT prophylaxis: SQ heparin every 12 hours
CODE STATUS: Full code
Anticipated Discharge: > 48 hours
Subjective/Interval History
-
Date of Service: June 27, 2025
Seen and examined at the bedside. No acute events reported overnight. AFVSS this morning.
Underwent paracentesis with fluid studies showing SAAG 1.2, chylous appearance. Mother and sister at bedside, states they first noticed abdomen distention shortly after PEG tube was placed in [place]. States that abdomen following her paracentesis
looks more normal though still not baseline prior to PEG tube
ROS limited due to patient's cognitive impairment
Objective Data
-
Labs:
Laboratory Results
06/27/25
09:55
WBC 7.9
Hgb 10.2 L
Hct 30.1 L
Plt Count 416 H
Sodium 136
Potassium 4.1
Chloride 97 L
Carbon Dioxide 28
BUN 54 H
Creatinine 1.7 H
Glucose 87
Calcium 9.0
Vital Signs:
Vital Signs
Temp Pulse Resp BP Pulse Ox
98.1 F 121 16 102/72 98
06/27/25 11:30 06/27/25 09:20 06/27/25 09:20 06/27/25 09:20 06/27/25 08:43
Review of Systems
-
Unable to obtain full review of systems at this time due to: Patient Non-verbal
Physical Exam
-
General: No Apparent Distress, Appears Chronically Ill and Cachectic
HEENT: Normocephalic, Atraumatic, Moist Mucous Membranes, Anicteric and PERRLA
Respiratory: Non Labored Respirations and Decreased Breath Sounds (Left base); Negative Wheezes, Rales, Rhonchi or Accessory Resp Muscle Use
Cardiac: Regular Rhythm and S1/S2; Negative Murmur, Rub or Gallop
GI: Soft, Nontender, Nondistended, Normal Bowel Sounds, Peg Tube and Other (Vesicostomy)
Musculoskeletal: No Clubbing, No Cyanosis and No Edema
Skin: Warm and Dry; Negative Rash
Neuro: Awake, Alert and Other (No focal deficits, chronic contracture); Negative Oriented or Tremors
Psych: Calm
Data Reviewed
-
Labs: Labs Reviewed by me, Discussed with Physician (Interventional radiologist) and Discussed with Patient
[2025-06-27] MEDS: MIRALAX TUBE (15:00)
[2025-06-27] MEDS: STERILE WATER FOR INJECTION 10 ML IV (19:48)
[2025-06-27] MEDS: ROCEPHIN 1000 MG IV (19:48)
--- NOTE | 2025-06-27 22:14 | PTCARENOTE ---
called report to RN on . Transferred patient with all belongings.
[2025-06-28 07:00] VITALS: BP 108/71
[2025-06-28 07:27] LABS: Hematocrit 26.8 % (37.0-47.0); Hemoglobin 9.1 g/dL (12.0-16.0); Mean Corp Hgb Conc. 34.0 g/dL (33.0-37.0); Mean Corpuscular Volume 91.8 fL (81.0-99.0); Nucleated Red Blood Cells % 0 %; Platelet Count 392 10^3/uL (130-400); Red Cell Dist. Width 11.8 % (11.5-14.5)
[2025-06-28 07:47] LABS: ALT (SGPT) 11 U/L (0-35); AST (SGOT) 15 U/L (14-36); Albumin 2.8 g/dl (3.5-5.0); Alkaline Phosphatase 74 U/L (38-126); Blood Urea Nitrogen 51 mg/dl (7-17); Calcium 9.0 mg/dl (8.4-10.2); Carbon Dioxide 30 mmol/L (22-30); Chloride 97 mmol/L (98-107); Estimated Creatinine Clearance 24 ml/min; Glucose 125 mg/dl (70-99); Potassium 3.6 mmol/L (3.5-5.1); Sodium 134 mmol/L (135-145); Total Protein 5.8 g/dl (6.3-8.2); eGFR 42.45
[2025-06-28] MEDS: HEPARIN 2500 UNITS SC ×2 (09:15→20:48)
[2025-06-28] MEDS: MYLICON DROPS 20 MG TUBE ×2 (09:16→20:51)
[2025-06-28] MEDS: FERROUS SULFATE ORAL LIQUID 220 MG TUBE ×2 (09:16→20:43)
[2025-06-28] MEDS: PREVACID 30 MG TUBE (09:16)
--- NOTE | 2025-06-28 11:29 | CM ---
CM following re' discharge planning.
Reviewed pt's chart, met with pt. Pt's parents and pt's sister who is pt's caregiver at bedside.
Pt is a 50 year old female, admitted with primary dx of abdominal distention
Pt lives with parents, 2 story home, has ramps, first floor BR/BA Pt is wheelchair bound, dependent in ADLs and personal care, sister is a paid caregiver, 6 hours M-F. Pt has PEG tube placed and vesicostomy for urine, mother caths
Pt has wheelchair, bath chair, suction, nebulizer, chest percussion vest, cath supplies, tube feed supplies.
PEG tube supplies by [facility] and ostomy supplies. Pt's father stated he has been experiencing challenges getting someone to talk from [facility] and pt still does not have feeding tube pump. CM spoke to [employer] main office career representative
Tiago and he confirmed he will get back to pt';s father to address issues.
PCP: Shannon Claire
Pharmacy: [address]
Discharge plan: Home with resumptions of caregiver services and family support. Family to transport at discharge.
CM will follow with discharge plan updates as hospitalization progresses.
--- NOTE | 2025-06-28 13:23 | W.PN.HOSP.TC ---
Today's Communication/Plan
-
IR consult for diagnostic thoracentesis
Plan for PEG tube check
GI consult
Consideration of liver biopsy
Assessment / Plan
Assessment / Plan
#Ascites
-Main diagnoses include liver cirrhosis versus lymphatic/PEG malfunction; less likely cardiac
-Paracentesis here with SAAG 1.2, CT caudate lobe enlargement and umbilical vein recanalization consistent with cirrhosis
-Ascites protein 4.3 not consistent with portal hypertensive cause; PMN significantly elevated though no fevers
-PMN percentage >250 on paracentesis, currently on ceftriaxone as below for UTI which would cover SBP as well
-Echocardiogram without signs of heart failure, US with Doppler without signs of portal thrombi or Budd-Chiari
-Had hepatitis panel that was unremarkable, showed hep B surface antigen positivity correlating with immunity
-Will discuss PEG tube check, for signs of malfunction or leakage, with radiology
-Follow-up cytology and cultures from ascitic fluid
-Monitor abdomen exams and perform paracentesis as needed
-GI consult for consideration of liver biopsy
#Moderate loculated left pleural effusion
-Unclear etiology, likely related to process causing ascites, possibly hepatic hydrothorax
-Chest x-ray showed moderate-sized effusion with loculation and underlying atelectasis
-Currently stable from respiratory status, on room air with SpO2 mid to high 90s
-Continue to monitor clinically, consider dose of Lasix if respiratory status worsens
-Consult IR for diagnostic thoracentesis, fluid studies ordered as is serum LDH and protein
#Urinary tract infection
#Neurogenic bladder s/p vesicostomy
-Abnormal UA, CT showing signs of cystitis; difficult to ascertain history due to mental status
-Was started on IV ceftriaxone empirically after urine culture; remains afebrile without leukocytosis
-Continue antibiotics and follow cultures, trend CBC and temperature curve
#Spina bifida
#Cognitive impairment
#Chronic dysphagia s/p PEG tube
-Recent procedures at [facility] [place]
-Concerns of PEG tube malfunction causing ascites
#CKD stage IV
-Creatinine baseline near 1.3-1.7, GFR in 30s with creatinine clearance in the 20s
-Unclear etiology, possibly obstructive with spina bifida, neurogenic bladder and chronic straight catheterizing
-Was on IV fluids upon arrival which were stopped with concerns for hypervolemia
-Continue to trend BMP, avoid nephrotoxins
Diet: Tube feeds with vital 1.2 AF, goal rate to 35 mL/h
DVT prophylaxis: SQ heparin every 12 hours
CODE STATUS: Full code
Anticipated Discharge: > 48 hours
Subjective/Interval History
-
Date of Service: June 28, 2025
Seen and examined at the bedside. No acute events reported overnight. AFVSS this morning
Repeat abdomen US this morning without signs of liver cirrhosis, showed moderate ascites. TTE yesterday with out signs of heart failure
ROS limited by patient's baseline mental status
Objective Data
-
Labs:
Laboratory Results
06/28/25
07:03
WBC 6.2
Hgb 9.1 L
Hct 26.8 L
Plt Count 392
Sodium 134 L
Potassium 3.6
Chloride 97 L
Carbon Dioxide 30
BUN 51 H
Creatinine 1.5 H
Glucose 125 H
Calcium 9.0
Total Bilirubin 0.3
AST 15
ALT 11
Alkaline Phosphatase 74
Vital Signs:
Vital Signs
Temp Pulse Resp BP Pulse Ox
97.8 F 116 16 108/71 97
06/28/25 07:00 06/28/25 07:00 06/28/25 07:00 06/28/25 07:00 06/28/25 07:00
I&O
06/27/25 06/28/25 06/29/25
06:59 06:59 06:59
Intake Total 250 / 250
Output Total 80 / 80
Balance 170 / 170
Review of Systems
-
Unable to obtain full review of systems at this time due to: Patient Non-verbal
Physical Exam
-
General: Well Developed, No Apparent Distress and Comfortable
HEENT: Normocephalic, Atraumatic, Moist Mucous Membranes and Anicteric
Respiratory: Clear to Auscultation and Non Labored Respirations; Negative Accessory Resp Muscle Use
Cardiac: Regular Rhythm and S1/S2; Negative Murmur, Rub or Gallop
GI: Soft, Nontender, Nondistended and Normal Bowel Sounds
Musculoskeletal: No Clubbing, No Cyanosis and No Edema; Negative Normal Gait & Station
Skin: Warm and Dry; Negative Rash
Neuro: Awake, Alert, Nonfocal/Grossly Intact, Central Nerve's Intact and Other (Chronic contracture and deficits); Negative Oriented
Psych: Calm
Data Reviewed
-
Labs: Labs Reviewed by me, Discussed with Physician (IR) and Discussed with Patient
[2025-06-28 13:54] LABS: LDH 113 U/L (120-246)
[2025-06-28] MEDS: MIRALAX 17 GRAMS TUBE (14:13)
[2025-06-28 15:00] VITALS: BP 112/7
[2025-06-28] MEDS: ROCEPHIN 1000 MG IV (20:44)
[2025-06-28] MEDS: STERILE WATER FOR INJECTION 10 ML IV (20:44)
[2025-06-28 23:00] VITALS: BP 95/65
[2025-06-29 07:00] VITALS: BP 102/66
[2025-06-29 07:30] LABS: Hematocrit 29.0 % (37.0-47.0); Hemoglobin 9.6 g/dL (12.0-16.0); Mean Corp Hgb Conc. 33.1 g/dL (33.0-37.0); Mean Corpuscular Volume 91.8 fL (81.0-99.0); Nucleated Red Blood Cells % 0.3 %; Platelet Count 422 10^3/uL (130-400); Red Cell Dist. Width 11.7 % (11.5-14.5)
[2025-06-29] MEDS: HEPARIN 2500 UNITS SC ×2 (07:51→21:13)
[2025-06-29] MEDS: MYLICON DROPS 20 MG TUBE ×2 (07:51→21:16)
[2025-06-29] MEDS: PREVACID 30 MG TUBE (07:51)
[2025-06-29] MEDS: FERROUS SULFATE ORAL LIQUID 220 MG TUBE (07:52)
[2025-06-29 07:54] LABS: ALT (SGPT) < 10 U/L (0-35); AST (SGOT) 14 U/L (14-36); Albumin 2.9 g/dl (3.5-5.0); Alkaline Phosphatase 85 U/L (38-126); Blood Urea Nitrogen 54 mg/dl (7-17); Calcium 8.8 mg/dl (8.4-10.2); Carbon Dioxide 32 mmol/L (22-30); Chloride 96 mmol/L (98-107); Estimated Creatinine Clearance 24 ml/min; Glucose 117 mg/dl (70-99); LDH 111 U/L (120-246); Potassium 3.7 mmol/L (3.5-5.1); Sodium 133 mmol/L (135-145); Total Protein 5.9 g/dl (6.3-8.2); eGFR 42.45
--- NOTE | 2025-06-29 11:50 | W.PN.HOSP.TC ---
Addendum entered and electronically signed by Vaibhav Perez DO 06/29/25 15:49:
CDI: Functional quadriplegia, CAUTI is a valid diagnosis
Original Note:
Today's Communication/Plan
-
Follow-up x-ray series and fluoroscopic PEG study
Neurosurgery consulted
Change TF to Peptamen at family request
Serial abdomen exams
PEG tube education
Assessment / Plan
Assessment / Plan
#Ascites
-Main diagnoses include PEG tube malfunction, SOLAR ENERGY SALES SPECIALIST shunt malfunction, improper PEG feeds; less likely cardiac or cirrhotic
-Paracentesis here with SAAG 1.2, spoke with GI and low concerns for cirrhosis based off of liver morphology
-Echocardiogram without signs of heart failure, US with Doppler without signs of portal thrombi or Budd-Chiari
-Had hepatitis panel that was unremarkable, showed hep B surface antigen positivity correlating with immunity
-Patient's family states they did not receive education for PEG tube after it was placed, she frequently would lie flat
-Ordered PEG tube with fluoroscopic study to assess for leakage
-Ordered SOLAR ENERGY SALES SPECIALIST shunt series to assess for dysfunction/misplacement
-Follow-up cytology and cultures from ascitic fluid
-Monitor abdomen exams and perform paracentesis as needed
-Neurosurgery consult
-Obtain records from [place]
#Moderate loculated left pleural effusion
-Unclear etiology, likely related to process causing ascites, possibly hepatic hydrothorax
-Chest x-ray showed moderate-sized effusion with loculation and underlying atelectasis
-Currently stable from respiratory status, on room air with SpO2 mid to high 90s
-IR consulted, performed US without enough fluid for thoracentesis
-Continue to monitor respiratory status
#Urinary tract infection
#Neurogenic bladder s/p vesicostomy
-Abnormal UA, CT showing signs of cystitis; difficult to ascertain history due to mental status
-Was started on IV ceftriaxone empirically after urine culture; remains afebrile without leukocytosis
-Continue antibiotics and follow cultures, trend CBC and temperature curve
#Spina bifida C/B hydrocephalus s/p SOLAR ENERGY SALES SPECIALIST shunt
#Cognitive impairment
#Chronic dysphagia s/p PEG tube
-Recent procedures at [facility]ina bif[facility]
-Concerns of PEG tube malfunction causing ascites versus misaligned SOLAR ENERGY SALES SPECIALIST shunt
#CKD stage IV
-Creatinine baseline near 1.3-1.7, GFR in 30s with creatinine clearance in the 20s
-Unclear etiology, possibly obstructive with spina bifida, neurogenic bladder and chronic straight catheterizing
-Was on IV fluids upon arrival which were stopped with concerns for hypervolemia
-Continue to trend BMP, avoid nephrotoxins
Diet: Peptamen 1.5 via PEG at current rate
DVT prophylaxis: SQ heparin every 12 hours
CODE STATUS: Full code
Anticipated Discharge: 24 - 48 hours
Subjective/Interval History
-
Date of Service: June 29, 2025
Seen and examined at the bedside. No acute events reported overnight. AFVSS this morning
Labs stable. Pending SOLAR ENERGY SALES SPECIALIST shunt radiographic series and PEG tube fluoroscopic study
ROS limited by mental status
Objective Data
-
Labs:
Laboratory Results
06/29/25
07:03
WBC 7.3
Hgb 9.6 L
Hct 29.0 L
Plt Count 422 H
Sodium 133 L
Potassium 3.7
Chloride 96 L
Carbon Dioxide 32 H
BUN 54 H
Creatinine 1.5 H
Glucose 117 H
Calcium 8.8
Total Bilirubin 0.2
AST 14
ALT < 10
Alkaline Phosphatase 85
Vital Signs:
Vital Signs
Temp Pulse Resp BP Pulse Ox
99.7 F 123 16 102/66 98
06/29/25 07:00 06/29/25 07:00 06/29/25 07:00 06/29/25 07:00 06/29/25 07:00
I&O
06/28/25 06/29/25 06/30/25
06:59 06:59 06:59
Intake Total 250 / 250 720 / 720
Output Total 80 / 80
Balance 170 / 170 720 / 720
Review of Systems
-
Unable to obtain full review of systems at this time due to: Patient Non-verbal
Physical Exam
-
General: No Apparent Distress, Appears Chronically Ill and Cachectic
HEENT: Normocephalic, Atraumatic, Moist Mucous Membranes and Anicteric
Respiratory: Clear to Auscultation and Non Labored Respirations; Negative Accessory Resp Muscle Use
Cardiac: Regular Rhythm and S1/S2; Negative Murmur, Rub or Gallop
GI: Soft, Nontender, Nondistended and Normal Bowel Sounds
Musculoskeletal: No Clubbing, No Cyanosis and No Edema
Skin: Warm and Dry; Negative Rash
Neuro: Awake, Alert and Other (Chronic contracture neurologic deficits; no obvious new FND); Negative Oriented
Psych: Calm
Data Reviewed
-
Diagnostic Radiology: Report Reviewed by me and Discussed with Physician (Neurosurgery)
Labs: Labs Reviewed by me and Discussed with Patient
Old Records: Requested
--- NOTE | 2025-06-29 13:05 | CM ---
CM following re' discharge planning.
Reviewed pt's chart, met with pt. Pt's mother at bedside.
Pt lives with parents, 2 story home, has ramps, first floor BR/BA Pt is wheelchair bound, dependent in ADLs and personal care, sister is a paid caregiver, 6 hours M-F. Pt has PEG tube placed and vesicostomy for urine, mother caths
Pt has wheelchair, bath chair, suction, nebulizer, chest percussion vest, cath supplies, tube feed supplies.
PEG tube supplies by [employer] and ostomy supplies.
Pt's mother stated ta [employer] liability claims representative spoke to pt's father and feeding pump is delivered to pt's home.
Discharge plan: Home with resumptions of caregiver services and family support. Family to transport at discharge.
CM will follow with discharge plan updates as hospitalization progresses.
[2025-06-29] MEDS: MIRALAX TUBE (13:13)
--- NOTE | 2025-06-29 13:19 | PTCARENOTE ---
Addendum entered by Heather Sullivan RN 06/29/25 18:44:
pt own tube feeds running through kangaroo pump at 35ml/hr with 25ml/hr flush. family educated at bedside about feeds.
Original Note:
parents at bedside. pt is nonverbal female with parents as primary care givers. pt with new G tube placement 5 weeks ago. pt's caregivers educated and given day to day education on how to care for, use and medicate through a G tube. pt's parents
requesting recommendation for OP GI to follow up with through [facility] since her primary team for hx spina bifida is through [place] [facility].
caregivers refusing miralax this afternoon due to pt having large inc diarrhea this morning.
Maintenance And Utilities Supervisor consulted for tube feed recommendations.
pt's OP infusion center calling to see if pt can get IV iron while hospitalized so that patient does not have to go up to [place] after this admission. made aware.
--- NOTE | 2025-06-29 14:30 | PN.CDI ---
CDI
- -
CDI:
Physician Documentation Request
Admit Date: 06/26/25 21:39
Dear Doctor Chris,
Please review the following and provide your response in the progress notes.
Clinical Indicators:
Pt admitted with ascites, left pleural effusion and UTI.
06/26 H&P: ' Abnormal urinalysis-treat as UTI
Likely catheter associated UTI secondary to catheterizations...Neurogenic bladder-patient has a cutaneous vesicostomy (1983) and catheterized twice a day by mom.'
Please update the status of the CAUTI documented in the H&P:
CAUTI is a valid diagnoses
CAUTI is not a valid diagnoses
Other
Use of terms such as suspected, likely, concern for, or probable (associated with a specific diagnosis that is being evaluated, monitored, or treated as if it exists) are acceptable and can be coded in the inpatient setting, when documented at the
time of discharge.
Thank you,
Chantel Street RN, BSN
CDI Specialist
[place] [facility]
Please use your independent medical judgment in providing your response.
[2025-06-29] MEDS: FERRLECIT 110 MG IV (14:37)
--- NOTE | 2025-06-29 14:54 | PN.CDI ---
CDI
- -
CDI:
Physician Documentation Request
Admit Date: 06/26/25 21:39
Dear Doctor Chris,
Please review the following and provide your response in the progress notes.
Clinical Indicators:
Pt admitted with ascites, left pleural effusion and UTI.
PMHX includes: Spina bifida/history of PROCESS STEWARD shunt
Neurogenic bladder
Cognitive dysfunction
Nonverbal
Dysphagia status post PEG tube placement
06/29 laboratory monitor note Maximum assist, Lift device/Transfer device, non-weight bearing. right and left wrist contracture
06/29 Case Management: ' Pt lives with parents, 2 story home, has ramps, first floor BR/BA Pt is wheelchair bound, dependent in ADLs and personal care, sister is a paid caregiver, 6 hours M-F. Pt has PEG tube placed and vesicostomy for urine, mother
caths Pt has wheelchair, bath chair, suction, nebulizer, chest percussion vest,...'
Please provide further specificity as noted below:
Functional quadriplegia-complete immobility due severe physical disability or frailty
Weakness only
Other
Use of terms such as suspected, likely, concern for, or probable (associated with a specific diagnosis that is being evaluated, monitored, or treated as if it exists) are acceptable and can be coded in the inpatient setting, when documented at the
time of discharge.
Thank you,
Chantel Street RN, BSN
CDI Specialist
[place] [facility]
Please use your independent medical judgment in providing your response.
[2025-06-29 15:22] VITALS: BP 113/66
[2025-06-29] MEDS: FERROUS SULFATE ORAL LIQUID TUBE (17:39)
--- NOTE | 2025-06-29 18:44 | PTCARENOTE ---
per MD hold PO iron for night and morning doses. follow up tomorrow for further instruction
[2025-06-29] MEDS: STERILE WATER FOR INJECTION 10 ML IV (21:15)
[2025-06-29] MEDS: ROCEPHIN 1000 MG IV (21:15)
[2025-06-29 23:03] VITALS: BP 113/64
[2025-06-30 06:21] LABS: Hematocrit 26.0 % (37.0-47.0); Hemoglobin 9.0 g/dL (12.0-16.0); Mean Corp Hgb Conc. 34.6 g/dL (33.0-37.0); Mean Corpuscular Volume 90.6 fL (81.0-99.0); Nucleated Red Blood Cells % 0 %; Platelet Count 383 10^3/uL (130-400); Red Cell Dist. Width 11.7 % (11.5-14.5)
[2025-06-30 06:50] LABS: Blood Urea Nitrogen 54 mg/dl (7-17); Calcium 8.9 mg/dl (8.4-10.2); Carbon Dioxide 29 mmol/L (22-30); Chloride 97 mmol/L (98-107); Estimated Creatinine Clearance 24 ml/min; Glucose 119 mg/dl (70-99); Potassium 4.0 mmol/L (3.5-5.1); Sodium 134 mmol/L (135-145); eGFR 42.45
[2025-06-30 07:10] VITALS: BP 111/73
[2025-06-30] MEDS: FERROUS SULFATE ORAL LIQUID TUBE ×2 (08:03→21:39)
[2025-06-30] MEDS: MYLICON DROPS 20 MG TUBE ×2 (08:04→21:59)
[2025-06-30] MEDS: HEPARIN 2500 UNITS SC ×2 (08:05→21:45)
[2025-06-30] MEDS: PREVACID 30 MG TUBE (08:06)
--- NOTE | 2025-06-30 11:07 | W.PN.HOSP.TC ---
Today's Communication/Plan
-
Transition to cefdinir via PEG tube
Monitor for recurrence of ascites
Continue Peptamen tube feeds
Resume oral iron
Discharge planning
Assessment / Plan
Assessment / Plan
#Ascites
-Unclear etiology, appears cryptogenic; imaging without signs of TELECOMMUNICATIONS OPERATOR or PEG dysfunction, low suspicion for cardiac or hepatic cause
-Paracentesis here with SAAG 1.2, spoke with GI and low concerns for cirrhosis based off of liver morphology and lack of risk factors
-Echocardiogram without signs of heart failure, US with Doppler without signs of portal thrombi or Budd-Chiari
-Had hepatitis panel that was unremarkable, showed hep B surface antigen positivity correlating with immunity
-Patient's family states they did not receive education for PEG tube after it was placed, she frequently would lie flat
-Ascites fluid cytology negative for malignancy, cultures also negative
-Monitor abdomen exams
-F/U records from [facility]
#Small loculated left pleural effusion
-Unclear etiology, likely related to process causing ascites, possibly hepatic hydrothorax
-Chest x-ray showed moderate-sized effusion with loculation and underlying atelectasis
-Currently stable from respiratory status, on room air with SpO2 mid to high 90s
-IR consulted, performed US without enough fluid for thoracentesis
-Continue to monitor respiratory status
#Catheter associated urinary tract infection
#Neurogenic bladder s/p vesicostomy
-Abnormal UA, CT showing signs of cystitis; difficult to ascertain history due to mental status
-Was started on IV ceftriaxone empirically after urine culture; remains afebrile without leukocytosis
-Urine cultures returned positive for Enterobacter with resistance to ampicillin/Unasyn/Augmentin/cefazolin
-Transition IV ceftriaxone to cefdinir every 12 hours to complete 7-10 days of antibiotic
-Trend CBC and temperature curve
#Spina bifida C/B hydrocephalus s/p TELECOMMUNICATIONS OPERATOR shunt
#Cognitive impairment
#Chronic dysphagia s/p PEG tube
-Recent procedures at [facility]
-Concerns of PEG tube malfunction causing ascites versus misaligned TELECOMMUNICATIONS OPERATOR shunt
#CKD stage IV
-Creatinine baseline near 1.3-1.7, GFR in 30s with creatinine clearance in the 20s
-Unclear etiology, possibly obstructive with spina bifida, neurogenic bladder and chronic straight catheterizing
-Was on IV fluids upon arrival which were stopped with concerns for hypervolemia
-Continue to trend BMP, avoid nephrotoxins
Diet: Peptamen 1.5 via PEG at current rate
DVT prophylaxis: SQ heparin every 12 hours
CODE STATUS: Full code
Anticipated Discharge: 24 - 48 hours
Subjective/Interval History
-
Date of Service: June 30, 2025
Seen and examined at the bedside. No acute events overnight. AFVSS this morning
Patient underwent PEG tube fluoroscopic study, no signs of PEG tube leakage and proper placement was confirmed
Family believes patient appears better today, appears more alert and less fatigued today on my eval. ROS limited by her cognitive deficits
Objective Data
-
Labs:
Laboratory Results
06/30/25
05:36
WBC 6.1
Hgb 9.0 L
Hct 26.0 L
Plt Count 383
Sodium 134 L
Potassium 4.0
Chloride 97 L
Carbon Dioxide 29
BUN 54 H
Creatinine 1.5 H
Glucose 119 H
Calcium 8.9
Vital Signs:
Vital Signs
Temp Pulse Resp BP Pulse Ox
99.3 F 133 18 111/73 96
06/30/25 07:10 06/30/25 07:10 06/30/25 07:10 06/30/25 07:10 06/30/25 07:10
I&O
06/29/25 06/30/25 07/01/25
06:59 06:59 06:59
Intake Total 720 / 720 830 / 830
Balance 720 / 720 830 / 830
Review of Systems
-
Unable to obtain full review of systems at this time due to: Patient Non-verbal
Physical Exam
-
General: No Apparent Distress, Appears Chronically Ill and Cachectic
HEENT: Normocephalic, Atraumatic, Moist Mucous Membranes and Anicteric
Respiratory: Clear to Auscultation and Non Labored Respirations; Negative Accessory Resp Muscle Use
Cardiac: Regular Rhythm, S1/S2 and Tachycardic; Negative Murmur, Rub or Gallop
GI: Soft, Nontender, Nondistended, Normal Bowel Sounds and Peg Tube
Musculoskeletal: No Clubbing, No Cyanosis and No Edema
Skin: Warm and Dry; Negative Rash
Neuro: Awake, Alert and Other (Chronic contracture, functional quadriplegia and neurologic deficits from spina bifida/hydrocephalus; no new FND); Negative Oriented
Data Reviewed
-
Diagnostic Radiology: Report Reviewed by me and Discussed with Family
Labs: Labs Reviewed by me and Discussed with Family
[2025-06-30] MEDS: MIRALAX 17 GRAMS TUBE (14:13)
[2025-06-30 15:05] VITALS: BP 103/71
[2025-06-30] MEDS: OMNICEF 300 MG TUBE (21:45)
[2025-06-30 23:47] VITALS: BP 103/64
[2025-07-01 08:26] VITALS: BP 131/89
[2025-07-01] MEDS: FERROUS SULFATE ORAL LIQUID TUBE ×2 (08:38→20:48)
[2025-07-01] MEDS: HEPARIN 2500 UNITS SC ×2 (08:38→21:32)
[2025-07-01] MEDS: MYLICON DROPS 20 MG TUBE ×2 (08:39→21:33)
[2025-07-01] MEDS: MIRALAX TUBE (08:40)
[2025-07-01] MEDS: PREVACID 30 MG TUBE (08:49)
--- NOTE | 2025-07-01 10:36 | W.PN.HOSP.TC ---
Today's Communication/Plan
-
see A/P
Assessment / Plan
Assessment / Plan
# Ascites with SBP
unclear cause of ascites, possibly related to recent PEG placement. Imaging without signs of FARM PRODUCT PURCHASER or PEG dysfunction, low suspicion for cardiac cause (Echocardiogram without signs of heart failure), US with Doppler without signs of portal thrombi or
Budd-Chiari
GI CS to eval hepatic cause for ascites.
s/p Paracentesis 06/27, noted SBP based on ascites WBC, pt has been on cephalosporin for UTI
Change current cefdinir to Ceftriaxone and add Flagyl for SBP coverage
High SAAG at 1.2 likely due to SBP
Ascites fluid cytology negative for malignancy, cultures also negative
Will need repeat paracentesis to eval SBP (ascitic WBC level), IR reconsulted
GI CS for ascites work up
Noted hepatitis panel is unremarkable, showed hep B surface antigen positivity correlating with immunity
# Small loculated left pleural effusion
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
Chest x-ray showed moderate-sized effusion with loculation and underlying atelectasis
Currently stable from respiratory status, on room air with SpO2 mid to high 90s
IR consulted, performed US without enough fluid for thoracentesis
Continue to monitor respiratory status
# Catheter associated urinary tract infection
# Neurogenic bladder s/p vesicostomy
Abnormal UA, CT showing signs of cystitis; difficult to ascertain history due to mental status
Was started on IV ceftriaxone empirically after urine culture; remains afebrile without leukocytosis
Urine cultures returned positive for Enterobacter with resistance to ampicillin/Unasyn/Augmentin/cefazolin
Cont IV ceftriaxone for now
Trend CBC and temperature curve
# Spina bifida C/B hydrocephalus s/p FARM PRODUCT PURCHASER shunt
# Cognitive impairment
# Chronic dysphagia s/p PEG tube
Recent procedures at [facility] spina bif[facility]
Dietitian CS tmr for correct feeding pump
# CKD stage IV
Creatinine baseline near 1.3-1.7, GFR in 30s with creatinine clearance in the 20s
Unclear etiology, possibly obstructive with spina bifida, neurogenic bladder and chronic straight catheterizing
Was on IV fluids upon arrival which were stopped with concerns for hypervolemia
Continue to trend BMP, avoid nephrotoxins
Diet: Peptamen 1.5 via PEG at current rate
DVT prophylaxis: SQ heparin every 12 hours
CODE STATUS: Full code
DW father and mother at bedside
total time 51 min
Anticipated Discharge: > 48 hours
Subjective/Interval History
-
Date of Service: July 01, 2025
Objective Data
-
Vital Signs:
Vital Signs
Temp Pulse Resp BP Pulse Ox
36.8 C 126 24 131/89 97
07/01/25 08:26 07/01/25 08:26 07/01/25 08:26 07/01/25 08:26 07/01/25 08:26
I&O
06/30/25 07/01/25 07/02/25
06:59 06:59 06:59
Intake Total 830 / 830 1440 / 1440
Output Total 40 / 40
Balance 830 / 830 1400 / 1400
Review of Systems
-
Unable to obtain full review of systems at this time due to: Patient Non-verbal
Physical Exam
-
General: No Apparent Distress, Appears Chronically Ill and Cachectic
HEENT: Normocephalic, Atraumatic and Moist Mucous Membranes
Respiratory: Clear to Auscultation and Non Labored Respirations; Negative Accessory Resp Muscle Use
Cardiac: Regular Rhythm, S1/S2 and Tachycardic; Negative Murmur, Rub or Gallop
GI: Soft, Nontender, Nondistended, Normal Bowel Sounds and Peg Tube
Musculoskeletal: No Clubbing, No Cyanosis and No Edema
Skin: Warm and Dry; Negative Rash
Neuro: Awake and Other (Chronic contracture, functional quadriplegia and neurologic deficits from spina bifida/hydrocephalus; no new FND); Negative Oriented
Psych: Calm
Data Reviewed
-
Labs: Labs Reviewed by me
[2025-07-01] MEDS: FLAGYL 500 MG 100 IV ×2 (12:30→21:32)
[2025-07-01] MEDS: STERILE WATER FOR INJECTION 10 ML IV (12:30)
[2025-07-01] MEDS: ROCEPHIN 1000 MG IV (12:33)
[2025-07-01 15:06] VITALS: BP 98/68
[2025-07-01 23:08] VITALS: BP 105/69
[2025-07-02] MEDS: FLAGYL 500 MG 100 IV ×3 (04:54→20:56)
[2025-07-02 07:32] LABS: Hematocrit 25.1 % (37.0-47.0); Hemoglobin 8.4 g/dL (12.0-16.0); Mean Corp Hgb Conc. 33.5 g/dL (33.0-37.0); Mean Corpuscular Volume 92.3 fL (81.0-99.0); Platelet Count 397 10^3/uL (130-400); Red Cell Dist. Width 11.9 % (11.5-14.5)
[2025-07-02] MEDS: MIRALAX TUBE (07:33)
[2025-07-02] MEDS: FERROUS SULFATE ORAL LIQUID TUBE (07:33)
[2025-07-02 07:53] VITALS: BP 122/83
[2025-07-02 07:54] LABS: Blood Urea Nitrogen 63 mg/dl (7-17); Calcium 9.4 mg/dl (8.4-10.2); Carbon Dioxide 29 mmol/L (22-30); Chloride 98 mmol/L (98-107); Estimated Creatinine Clearance 24 ml/min; Glucose 116 mg/dl (70-99); Magnesium 3.1 mg/dl (1.6-2.3); Potassium 4.6 mmol/L (3.5-5.1); Sodium 134 mmol/L (135-145); eGFR 42.45
[2025-07-02] MEDS: PREVACID 30 MG TUBE (08:45)
[2025-07-02] MEDS: MYLICON DROPS 20 MG TUBE ×2 (08:46→21:01)
[2025-07-02] MEDS: HEPARIN 2500 UNITS SC ×2 (08:46→20:58)
[2025-07-02 09:20] VITALS: BP 114/79; BP_SYST 118
[2025-07-02 09:50] VITALS: BP 105/73; BP_SYST 108
[2025-07-02 10:54] LABS: Body Fluid Second Tech BP
[2025-07-02] MEDS: ROCEPHIN 1000 MG IV (11:56)
[2025-07-02] MEDS: STERILE WATER FOR INJECTION 10 ML IV (11:56)
--- NOTE | 2025-07-02 13:12 | CON.GI ---
Addendum entered and electronically signed by Arvin Riley MD 07/02/25 14:44:
I saw and examined the patient.
The REFRIGERATION REPAIR SUPERVISOR's note was reviewed and I agree with the note.
50-year-old female past medical history of spina bifida (followed at [facility]), severe developmental delay, recurrent pneumonia, aspiration pneumonia, chronic iron deficiency anemia, solitary right kidney, chronic kidney disease stage
III/stage IV, nephrolithiasis, neurogenic bladder, chronic constipation, hydrocephalus status post EXCHANGE FLOOR MANAGER shunt, recent PEG tube placement approximately 6 weeks ago (05/15/2025) after malnutrition, esophageal stenosis and Zenker's diverticulum at [facility] presents to the emergency room with abdominal pain, distention with chronic diarrhea. Patient was found to have ascites on imaging. We are asked to evaluate for possible cirrhosis.
Impression:
Ascites- Reported chylous fluid. Etiology not very clear. Relatively high SAG with high protein. Initial fluid suggestive of SBP. (no obvious signs of cirrhosis, platelets within normal limits, INR within normal limits, LFTs within normal limits.
Ultrasound with smooth contour and normal-sized liver. CT noncontrast with normal-appearing liver) .fluid cytology - negative for malignancy . ECHO normal . secondary to EXCHANGE FLOOR MANAGER shunt ? no prior imaging to compare
plan
discussed with medical team/ family. since patient can not undergo MRI without sedation will recommend fibroscan at [facility] as outpatient
will recommend adding AFB stain/culture with next paracentesis
will recommend continue follow up with [facility] for ascites- unknown etiology
no further recommendations. will s/o
Original Note:
Consultation
-
Date/Time Consultation Requested: 07/02/25 1043
Date/Time Consultation Performed: 07/02/25 1245
Requesting Provider: Dr. Chandler
Performing Provider: Dr. Riley/JAXON Scott
Reason for Consultation: ascites, r/o cirrhosis
Medical History
Chief Complaint / HPI
Chief Complaint: abd distention
History of Present Illness:
50-year-old female past medical history of spina bifida (followed at [facility]), severe developmental delay, recurrent pneumonia, aspiration pneumonia, chronic iron deficiency anemia, solitary right kidney, chronic kidney disease stage
III/stage IV, nephrolithiasis, neurogenic bladder, chronic constipation, hydrocephalus status post EXCHANGE FLOOR MANAGER shunt, recent PEG tube placement approximately 6 weeks ago (05/15/2025) after malnutrition, esophageal stenosis and Zenker's diverticulum at [facility] presents to the emergency room with abdominal pain, distention with chronic diarrhea. Patient was found to have ascites on imaging. We are asked to evaluate for possible cirrhosis. The patient had a paracentesis performed on
06/27/2025 1600 cc pink chylous ascitic fluid was evacuated. SAAG 1.2. Protein 4.3. Imaging was obtained that showed no cracks within EXCHANGE FLOOR MANAGER shunt. PEG tube empties within the stomach. Ultrasound with liver contour smooth. CT of the abdomen and
pelvis without contrast, unenhanced liver unremarkable. Platelets are preserved, 397. INR 1.01, LFTs have always been within normal limits, total bilirubin 0.2, direct bilirubin 0.2, AST 14, ALT less than 10, alk phos 85. Viral hepatitis studies
negative. Immune for hepatitis B.
Past Medical History
Past Medical History: Other (Spina bifida, developmental delay, pneumonia, chronic iron deficiency anemia, solitary right kidney, chronic kidney disease, nephrolithiasis, neurogenic bladder, chronic constipation, hydrocephalus, EXCHANGE FLOOR MANAGER shunt, PEG tube,
malnutrition, esophageal stenosis, Zenker's diverticulum,)
Past Surgical History: Other (EXCHANGE FLOOR MANAGER shunt, PEG tube, nephrectomy, meningocele repair, cutaneous vesicostomy, bilateral mastectomy, hematoma removal)
Social History
Tobacco: Non-Smoker
Alcohol: None
Drug: None
Personal: Single
Living: With Family
Employment: Disabled
Family History
Family History: Other (No family history of gastrointestinal malignancy or IBD)
Allergies / Home Medications
Allergy/AdvReac Type Severity Reaction Status Date / Time
iron dextran complex Allergy Hypotension, Verified 06/26/25 22:42
skin
flushing
latex Allergy Unknown Verified 06/26/25 20:45
potassium chloride Allergy Unknown Verified 06/26/25 20:45
�Medication �Instructions �Recorded
ferrous sulfate 220 mg (44 mg 220 mg feeding tube BID Supplement 05/18/25
iron)/5 mL oral elixir
polyethylene glycol 3350 17 gram 17 g feeding tube DAILY@1400 05/18/25
oral powder packet (Miralax) Gastrointestinal Issue
lansoprazole 30 mg delayed 30 mg feeding tube DAILY #30 tabs 05/22/25
release,disintegrating tablet
(Prevacid SoluTab)
Levalbuterol 0.63 Mg/3 Ml (3 Ml) 1 vial continuous nebulization R 06/26/25
TID PRN shortness of breath
ipratropium bromide 0.02 % 0.5 mg inhalation R TID PRN 06/26/25
solution for inhalation shortness of breath
simethicone 20 mg/0.3 mL oral mg feeding tube BID 06/26/25
syringe (ORAL USE) Gastrointestinal Issue
Review of Systems
Vital Signs
Temp Pulse Resp BP Pulse Ox
97 F 108 18 105/73 100
07/02/25 09:20 07/02/25 09:50 07/02/25 09:50 07/02/25 09:50 07/02/25 09:50
Physical Exam
Exam
General: No Apparent Distress and Comfortable
HEENT: Anicteric
Respiratory: Clear (Anterior)
Cardiac: Regular Rhythm
GI: Soft, Non Tender, Non Distended, Normal Bowel Sounds and Other (PEG tube left upper quadrant)
Skin: Warm and Dry
Psych: Calm
Results
WBC 6.7 10^3/uL (4.8-10.8) 07/02/25 06:53
Hgb 8.4 g/dL (12.0-16.0) L 07/02/25 06:53
Hct 25.1 % (37.0-47.0) L 07/02/25 06:53
MCV 92.3 fL (81.0-99.0) 07/02/25 06:53
Plt Count 397 10^3/uL (130-400) 07/02/25 06:53
Absolute Neuts (auto) 4.2 10^3/uL (1.4-6.5) 06/30/25 05:36
Sodium 134 mmol/L (135-145) L 07/02/25 06:53
Potassium 4.6 mmol/L (3.5-5.1) 07/02/25 06:53
Chloride 98 mmol/L (98-107) 07/02/25 06:53
Carbon Dioxide 29 mmol/L (22-30) 07/02/25 06:53
BUN 63 mg/dl (7-17) H 07/02/25 06:53
Creatinine 1.5 mg/dL (0.6-1.0) H 07/02/25 06:53
Calcium 9.4 mg/dl (8.4-10.2) 07/02/25 06:53
Total Bilirubin 0.2 mg/dl (0.2-1.3) 06/29/25 07:03
AST 14 U/L (14-36) 06/29/25 07:03
ALT < 10 U/L (0-35) 06/29/25 07:03
Alkaline Phosphatase 85 U/L (38-126) 06/29/25 07:03
Diagnostic Image Results:
CT abdomen and pelvis without contrast 06/26/2025:
IMPRESSION:
Moderate/large volume ascites. Moderate left pleural effusion with associated passive atelectasis.
Percutaneous gastrostomy tube with tip terminating in the stomach.
There is diffuse urinary bladder wall thickening which extends to the umbilicus. Findings may represent cystitis. Consider correlation with urinalysis.
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
The uterus is mildly prominent and nodular in appearance, possibly secondary to uterine fibroids. Consider further evaluation with dedicated pelvic ultrasound.
Electronically signed by Ferdinand Garcia MD, 06/26/2025 5:54 PM
Ultrasound abdomen 06/28/2025:
FINDINGS and IMPRESSION: Ultrasound evaluation of the 4 quadrants of the abdomen was obtained.
There is overall moderate volume ascites.
Liver contour appears smooth.
PEG tube check 06/30/2025:
Contrast instilled through the patient's indwelling PEG tube outlines the stomach, confirming placement.
Paracentesis 06/27/2025:A 5-[place] Islander Yueh centesis catheter was advanced into the peritoneal cavity under ultrasound guidance at the marked site with direct visualization. There was free return of fluid. Catheter was connected to suction drainage. After
drainage, the catheter was removed.
The patient tolerated the procedure well with no immediate complication. A permanent image was stored.
FINDINGS: 1600 cc of pink chylous ascitic fluid was evacuated. Samples sent for analysis as requested.
Paracentesis 07/02/2025:
A 5-[place] Island[place] Yueh centesis catheter was advanced into the peritoneal cavity under ultrasound guidance at the marked site with direct visualization. There was free return of fluid. Catheter was connected to suction drainage. After drainage, the
catheter was removed.
The patient tolerated the procedure well with no immediate complication. A permanent image was stored.
FINDINGS: 1350 cc of pink chylous ascitic fluid was evacuated. Samples sent for analysis as requested.
Prior GI Procedures:
PEG tube placement [facility] April 2025 records unavailable to us
Colonoscopy: Never
Assessment / Plan
-
50-year-old female past medical history of spina bifida (followed at [facility]), severe developmental delay, recurrent pneumonia, aspiration pneumonia, chronic iron deficiency anemia, solitary right kidney, chronic kidney disease stage
III/stage IV, nephrolithiasis, neurogenic bladder, chronic constipation, hydrocephalus status post EXCHANGE FLOOR MANAGER shunt, recent PEG tube placement approximately 6 weeks ago (05/15/2025) after malnutrition, esophageal stenosis and Zenker's diverticulum at [facility] "[facility] presents to the emergency room with abdominal pain, distention with chronic diarrhea. Patient was found to have ascites on imaging. We are asked to evaluate for possible cirrhosis.
Impression:
Ascites
--> no obvious signs of cirrhosis, platelets within normal limits, INR within normal limits, LFTs within normal limits. Ultrasound with smooth contour and normal-sized liver. CT noncontrast with normal-appearing liver.
--> Patient's family does not wish to sedate for MRI imaging
--> Patient cannot have CT imaging with IV contrast given solitary kidney and CKD
--> Other option would be liver biopsy, family does not wish to pursue
Unclear cause of ascites, can follow-up with primary team at [facility].
-
-
Thank you for consultation and allowing me to participate in the patient's care. Please call the [facility] specialist GI physician during the after hours with any questions or concerns.
--- NOTE | 2025-07-02 13:13 | W.PN.HOSP.TC ---
Today's Communication/Plan
-
see A/P
Assessment / Plan
Assessment / Plan
# Ascites with SBP
unclear cause of ascites, possibly related to recent PEG placement. Imaging without signs of LICENSED JOURNEYMAN ELECTRICIAN or PEG dysfunction, low suspicion for cardiac cause (Echocardiogram without signs of heart failure), US with Doppler without signs of portal thrombi or
Budd-Chiari
GI CS to eval hepatic cause for ascites.
s/p Paracentesis 06/27, noted SBP based on ascites WBC, pt has been on cephalosporin for UTI
Changed cefdinir to Ceftriaxone and added Flagyl for SBP coverage.
High SAAG at 1.2 likely due to SBP
Ascites fluid cytology negative for malignancy, cultures also negative
repeat paracentesis 07/02, ascitic WBC improved, no further SBP
appreciate GI input
Noted hepatitis panel is unremarkable, showed hep B surface antigen positivity correlating with immunity
# Small loculated left pleural effusion
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
Chest x-ray showed moderate-sized effusion with loculation and underlying atelectasis
Currently stable from respiratory status, on room air with SpO2 mid to high 90s
IR consulted, performed US without enough fluid for thoracentesis
Continue to monitor respiratory status
# Catheter associated urinary tract infection
# Neurogenic bladder s/p vesicostomy
Abnormal UA, CT showing signs of cystitis; difficult to ascertain history due to mental status
Was started on IV ceftriaxone empirically after urine culture; remains afebrile without leukocytosis
Urine cultures returned positive for Enterobacter with resistance to ampicillin/Unasyn/Augmentin/cefazolin
Cont IV ceftriaxone for now , can DC with Cefdinir to complete total 14 days course
Trend CBC and temperature curve
# Spina bifida C/B hydrocephalus s/p LICENSED JOURNEYMAN ELECTRICIAN shunt
# Cognitive impairment
# Chronic dysphagia s/p PEG tube
She follow up at [place] sp[facility] bif[facility] [place]
family requesting new feeding pump , CM to facilitate
# CKD stage IV
Creatinine baseline near 1.3-1.7, GFR in 30s with creatinine clearance in the 20s
Unclear etiology, possibly obstructive with spina bifida, neurogenic bladder and chronic straight catheterizing
Was on IV fluids upon arrival which were stopped with concerns for hypervolemia
Continue to trend BMP, avoid nephrotoxins
Diet: Peptamen 1.5 via PEG at current rate
DVT prophylaxis: SQ heparin every 12 hours
CODE STATUS: Full code
DW father and mother at bedside
total time 51 min
Anticipated Discharge: Within 24 hours
Subjective/Interval History
-
Date of Service: July 02, 2025
Objective Data
-
Labs:
Laboratory Results
07/02/25
06:53
WBC 6.7
Hgb 8.4 L
Hct 25.1 L
Plt Count 397
Sodium 134 L
Potassium 4.6
Chloride 98
Carbon Dioxide 29
BUN 63 H
Creatinine 1.5 H
Glucose 116 H
Calcium 9.4
Vital Signs:
Vital Signs
Temp Pulse Resp BP Pulse Ox
36.1 C 108 18 105/73 100
07/02/25 09:20 07/02/25 09:50 07/02/25 09:50 07/02/25 09:50 07/02/25 09:50
I&O
07/01/25 07/02/25 07/03/25
06:59 06:59 06:59
Intake Total 1440 / 1440 0 / 0
Output Total 40 / 40
Balance 1400 / 1400 0 / 0
Review of Systems
-
Unable to obtain full review of systems at this time due to: Patient Non-verbal
Physical Exam
-
General: No Apparent Distress, Appears Chronically Ill and Cachectic
HEENT: Normocephalic, Atraumatic and Moist Mucous Membranes
Respiratory: Clear to Auscultation and Non Labored Respirations; Negative Accessory Resp Muscle Use
Cardiac: Regular Rhythm, S1/S2 and Tachycardic; Negative Murmur, Rub or Gallop
GI: Soft, Nontender, Nondistended, Normal Bowel Sounds and Peg Tube
Musculoskeletal: No Clubbing, No Cyanosis and No Edema
Skin: Warm and Dry; Negative Rash
Neuro: Awake and Other (Chronic contracture, functional quadriplegia and neurologic deficits from spina bifida/hydrocephalus; no new FND); Negative Oriented
Psych: Calm; Negative Intact Judgement/Insight
Data Reviewed
-
Labs: Labs Reviewed by me
--- NOTE | 2025-07-02 14:45 | CM ---
CM reviewed chart, patient seen bedside with sister, mother and father. Family requesting new feeding pump, E-Kangaroo. Family reports patient is currently working with [facility], [facility] has delivered the [employer] Infinity and that is not what
family wanted/asked for. Call to [facility], left requesting return call regarding obtaining new feeding pump. CM will continue to follow for all discharge planning needs.
Plan; home with family support, family requesting new feeding pump through [facility]
[2025-07-02 15:40] VITALS: BP 130/91
[2025-07-02] MEDS: FERRLECIT 110 MG IV (16:39)
[2025-07-02 23:31] VITALS: BP 105/83
[2025-07-03] MEDS: FLAGYL 500 MG 100 IV ×3 (05:30→20:45)
[2025-07-03 06:40] LABS: Hematocrit 26.6 % (37.0-47.0); Hemoglobin 8.8 g/dL (12.0-16.0); Mean Corp Hgb Conc. 33.1 g/dL (33.0-37.0); Mean Corpuscular Volume 92.4 fL (81.0-99.0); Platelet Count 390 10^3/uL (130-400); Red Cell Dist. Width 11.9 % (11.5-14.5)
[2025-07-03 07:06] LABS: Blood Urea Nitrogen 62 mg/dl (7-17); Calcium 9.0 mg/dl (8.4-10.2); Carbon Dioxide 26 mmol/L (22-30); Chloride 100 mmol/L (98-107); Estimated Creatinine Clearance 26 ml/min; Glucose 149 mg/dl (70-99); Potassium 4.5 mmol/L (3.5-5.1); Sodium 134 mmol/L (135-145); eGFR 46.12
[2025-07-03 07:20] VITALS: BP 110/74
[2025-07-03] MEDS: HEPARIN 2500 UNITS SC ×2 (08:19→20:45)
[2025-07-03] MEDS: PREVACID 30 MG TUBE (08:20)
[2025-07-03] MEDS: MYLICON DROPS 20 MG TUBE ×2 (08:21→20:46)
--- NOTE | 2025-07-03 10:58 | CM ---
Addendum entered by Rebecca Craft 07/03/25 13:31:
field reimbursement manager spoke with Helen at [facility] and patient had gravity feeds in home not pump, plan will be to order pump today, and physician to document 'resume enteral feeds at home per prior orders', referral sent to [facility] nurses to
follow with patient after discharge.
Original Note:
field reimbursement manager reviewed patient's chart and met with patient and parents at bedside, per parents, patient was approved for E-kangaroo pump in home, through [place] [facility], and [facility] were contacted to update pump but wrong pump was
delivered, manager rn case reached out to Helen at [facility] and she will contact patient's family regarding pump, manager rn case faxed clinical notes to [facility] for review to see if there are any changes in tube feeds.
Patient will need orders to resume tube feeds at discharge.
Plan; Home with parents, needs new pump, family need to follow up with [facility].
--- NOTE | 2025-07-03 12:05 | W.PN.HOSP.TC ---
Today's Communication/Plan
-
awaiting feeding pump
Assessment / Plan
Assessment / Plan
# Ascites with SBP
unclear cause of ascites, possibly related to recent PEG placement. Imaging without signs of PHARMACIST IN CHARGE or PEG dysfunction, low suspicion for cardiac cause (Echocardiogram without signs of heart failure), US with Doppler without signs of portal thrombi or
Budd-Chiari
GI CS to eval hepatic cause for ascites.
s/p Paracentesis 06/27, noted SBP based on ascites WBC, pt has been on cephalosporin for UTI
Changed cefdinir to Ceftriaxone and added Flagyl for SBP coverage.
High SAAG at 1.2 likely due to SBP
Ascites fluid cytology negative for malignancy, cultures also negative
repeat paracentesis 07/02, ascitic WBC improved, no further SBP
appreciate GI input
Noted hepatitis panel is unremarkable, showed hep B surface antigen positivity correlating with immunity
# Small loculated left pleural effusion
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
Chest x-ray showed moderate-sized effusion with loculation and underlying atelectasis
Currently stable from respiratory status, on room air with SpO2 mid to high 90s
IR consulted, performed US without enough fluid for thoracentesis
Continue to monitor respiratory status
# Catheter associated urinary tract infection
# Neurogenic bladder s/p vesicostomy
Abnormal UA, CT showing signs of cystitis; difficult to ascertain history due to mental status
Was started on IV ceftriaxone empirically after urine culture; remains afebrile without leukocytosis
Urine cultures returned positive for Enterobacter with resistance to ampicillin/Unasyn/Augmentin/cefazolin
Cont IV ceftriaxone for now , can DC with Cefdinir to complete total 14 days course
Trend CBC and temperature curve
# Spina bifida C/B hydrocephalus s/p PHARMACIST IN CHARGE shunt
# Cognitive impairment
# Chronic dysphagia s/p PEG tube
She follow up at [place] sp[facility] bif[facility] [place]
family requesting new feeding pump , CM to facilitate
# CKD stage IV
Creatinine baseline near 1.3-1.7, GFR in 30s with creatinine clearance in the 20s
Unclear etiology, possibly obstructive with spina bifida, neurogenic bladder and chronic straight catheterizing
Was on IV fluids upon arrival which were stopped with concerns for hypervolemia
Continue to trend BMP, avoid nephrotoxins
Diet: Peptamen 1.5 via PEG at current rate
DVT prophylaxis: SQ heparin every 12 hours
CODE STATUS: Full code
DW father, mother and sister at bedside
DW CM
total time 51 min
Anticipated Discharge: Within 24 hours
Subjective/Interval History
-
Date of Service: July 03, 2025
Objective Data
-
Labs:
Laboratory Results
07/03/25
05:35
WBC 6.8
Hgb 8.8 L
Hct 26.6 L
Plt Count 390
Sodium 134 L
Potassium 4.5
Chloride 100
Carbon Dioxide 26
BUN 62 H
Creatinine 1.4 H
Glucose 149 H
Calcium 9.0
Vital Signs:
Vital Signs
Temp Pulse Resp BP Pulse Ox
36.4 C 117 12 110/74 99
07/03/25 07:20 07/03/25 07:20 07/03/25 07:20 07/03/25 07:20 07/03/25 07:20
I&O
07/02/25 07/03/25 07/04/25
06:59 06:59 06:59
Intake Total 0 / 0 1040 / 1040
Balance 0 / 0 1040 / 1040
Review of Systems
-
Unable to obtain full review of systems at this time due to: Patient Non-verbal
Physical Exam
-
General: No Apparent Distress, Appears Chronically Ill and Cachectic
HEENT: Normocephalic, Atraumatic and Moist Mucous Membranes
Respiratory: Clear to Auscultation and Non Labored Respirations; Negative Accessory Resp Muscle Use
Cardiac: Regular Rhythm, S1/S2 and Tachycardic; Negative Murmur, Rub or Gallop
GI: Soft, Nontender, Nondistended, Normal Bowel Sounds and Peg Tube
Musculoskeletal: No Clubbing, No Cyanosis and No Edema
Skin: Warm and Dry; Negative Rash
Neuro: Awake and Other (Chronic contracture, functional quadriplegia and neurologic deficits from spina bifida/hydrocephalus; no new FND); Negative Oriented
Psych: Calm; Negative Intact Judgement/Insight
Data Reviewed
-
Labs: Labs Reviewed by me
[2025-07-03] MEDS: STERILE WATER FOR INJECTION 10 ML IV (13:38)
[2025-07-03] MEDS: FERRLECIT 110 MG IV (13:38)
[2025-07-03] MEDS: ROCEPHIN 1000 MG IV (13:38)
[2025-07-03] MEDS: MIRALAX TUBE (14:57)
[2025-07-03 15:10] VITALS: BP 105/72
[2025-07-03 23:06] VITALS: BP 114/84
[2025-07-04] MEDS: FLAGYL 500 MG 100 IV ×2 (03:05→11:53)
[2025-07-04 07:24] LABS: Hematocrit 28.4 % (37.0-47.0); Hemoglobin 9.3 g/dL (12.0-16.0); Mean Corp Hgb Conc. 32.7 g/dL (33.0-37.0); Mean Corpuscular Volume 93.4 fL (81.0-99.0); Platelet Count 408 10^3/uL (130-400); Red Cell Dist. Width 12.0 % (11.5-14.5)
[2025-07-04] MEDS: PREVACID 30 MG TUBE (07:48)
[2025-07-04] MEDS: HEPARIN 2500 UNITS SC (07:48)
[2025-07-04] MEDS: OMNICEF 300 MG TUBE (07:50)
[2025-07-04] MEDS: MYLICON DROPS 20 MG TUBE (07:50)
[2025-07-04 07:58] LABS: Blood Urea Nitrogen 63 mg/dl (7-17); Calcium 9.6 mg/dl (8.4-10.2); Carbon Dioxide 26 mmol/L (22-30); Chloride 102 mmol/L (98-107); Estimated Creatinine Clearance 26 ml/min; Glucose 103 mg/dl (70-99); Potassium 4.8 mmol/L (3.5-5.1); Sodium 134 mmol/L (135-145); eGFR 46.12
[2025-07-04 08:30] VITALS: BP 94/71; BP_SYST 108
[2025-07-04 09:21] VITALS: BP 100/65
[2025-07-04 11:22] LABS: Body Fluid Second Tech CMB
--- NOTE | 2025-07-04 11:53 | W.PN.HOSP.TC ---
Today's Communication/Plan
-
discharge today
Assessment / Plan
Assessment / Plan
# Ascites with SBP
unclear cause of ascites, possibly related to recent PEG placement. Imaging without signs of HOISTING PILE DRIVING ENGINEER or PEG dysfunction, low suspicion for cardiac cause (Echocardiogram without signs of heart failure), US with Doppler without signs of portal thrombi or
Budd-Chiari
GI CS to eval hepatic cause for ascites.
s/p Paracentesis 06/27, noted SBP based on ascites WBC, pt has been on cephalosporin for UTI
Changed cefdinir to Ceftriaxone and added Flagyl for SBP coverage.
High SAAG at 1.2 likely due to SBP
Ascites fluid cytology negative for malignancy, cultures also negative
repeat paracentesis 07/02 and 07/04, ascitic WBC improved, no further SBP
appreciate GI input
Noted hepatitis panel is unremarkable, showed hep B surface antigen positivity correlating with immunity
# Small loculated left pleural effusion
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
Chest x-ray showed moderate-sized effusion with loculation and underlying atelectasis
Currently stable from respiratory status, on room air with SpO2 mid to high 90s
IR consulted, performed US without enough fluid for thoracentesis
Continue to monitor respiratory status
# Catheter associated urinary tract infection
# Neurogenic bladder s/p vesicostomy
Abnormal UA, CT showing signs of cystitis; difficult to ascertain history due to mental status
Was started on IV ceftriaxone empirically after urine culture; remains afebrile without leukocytosis
Urine cultures returned positive for Enterobacter with resistance to ampicillin/Unasyn/Augmentin/cefazolin
Cont IV ceftriaxone for now , DC with Cefdinir to complete total 14 days course
Trend CBC and temperature curve
# Spina bifida C/B hydrocephalus s/p HOISTING PILE DRIVING ENGINEER shunt
# Cognitive impairment
# Chronic dysphagia s/p PEG tube
She follow up at [place] sp[facility] bif[facility] [place]
family requesting new feeding pump , organized by CM
# CKD stage IV
Creatinine baseline near 1.3-1.7, GFR in 30s with creatinine clearance in the 20s
Unclear etiology, possibly obstructive with spina bifida, neurogenic bladder and chronic straight catheterizing
Was on IV fluids upon arrival which were stopped with concerns for hypervolemia
Continue to trend BMP, avoid nephrotoxins
Diet: Peptamen 1.5 via PEG at current rate
DVT prophylaxis: SQ heparin every 12 hours
CODE STATUS: Full code
DW father, mother and sister at bedside
DW CM
DW RN
Anticipated Discharge: Today
Subjective/Interval History
-
Date of Service: July 04, 2025
Objective Data
-
Labs:
Laboratory Results
07/04/25
06:58
WBC 6.6
Hgb 9.3 L
Hct 28.4 L
Plt Count 408 H
Sodium 134 L
Potassium 4.8
Chloride 102
Carbon Dioxide 26
BUN 63 H
Creatinine 1.4 H
Glucose 103 H
Calcium 9.6
Vital Signs:
Vital Signs
Temp Pulse Resp BP Pulse Ox
36.7 C 105 16 100/65 99
07/04/25 08:30 07/04/25 09:21 07/04/25 09:21 07/04/25 09:21 07/04/25 09:21
I&O
07/03/25 07/04/25 07/05/25
06:59 06:59 06:59
Intake Total 1040 / 1040 1150 / 1150
Balance 1040 / 1040 1150 / 1150
Review of Systems
-
Unable to obtain full review of systems at this time due to: Patient Non-verbal
Physical Exam
-
General: No Apparent Distress, Appears Chronically Ill and Cachectic
HEENT: Normocephalic, Atraumatic and Moist Mucous Membranes
Respiratory: Clear to Auscultation and Non Labored Respirations; Negative Accessory Resp Muscle Use
Cardiac: Regular Rhythm, S1/S2 and Tachycardic; Negative Murmur, Rub or Gallop
GI: Soft, Nontender, Nondistended, Normal Bowel Sounds and Peg Tube
Musculoskeletal: No Clubbing, No Cyanosis and No Edema
Skin: Warm and Dry; Negative Rash
Neuro: Awake and Other (Chronic contracture, functional quadriplegia and neurologic deficits from spina bifida/hydrocephalus; no new FND); Negative Oriented
Psych: Calm; Negative Intact Judgement/Insight
Data Reviewed
-
Labs: Labs Reviewed by me
--- NOTE | 2025-07-04 12:04 | CM ---
manager payment continues to follow with patient progress and plan is to home with family when stable, ed case manager reached out to [facility] who spoke directly with family to set up continuous feeds at home, referral also sent to [facility] visiting
nurses.
Angella
[phone]
[2025-07-04 13:05] VITALS: BP 97/59
--- NOTE | 2025-07-04 14:12 | W.DCSUMMARY ---
Discharge Summary
Discharge Data
Date of Admission: 06/26/25
Date of Discharge: 07/04/25
Total time spent discharging patient (in min): 40
-
Pending Results: No
Hospital Course
Principal Diagnosis:
New onset ascites, could be due to recent PEG tube placement,
Spontaneous bacterial peritonitis (SBP)
Chronic Diagnoses:�
Spina bifida c/b hydrocephalus s/p GROUND SUPPORT EQUIPMENT MECHANIC shunt
Cognitive impairment
Chronic dysphagia s/p PEG tube, continue tube feed
CKD stage IV, creatinine baseline 1.3-1.7
Neurogenic bladder s/p vesicostomy
Consultations:�
Gastroenterology
Interventional radiology
Procedures:�
Paracentesis x3 times during hospital stay
Clinical course:�
This is a 50-year-old female, chronically ill due to spina bifida, nonverbal and bedbound state at baseline, who presented with abdominal pain and new onset paracentesis.
Problem 1:
New onset ascites, this could be due to recent PEG tube placement; associated with SBP.
Her imaging did not show any sign of GROUND SUPPORT EQUIPMENT MECHANIC or PEG dysfunction.
Her Echocardiogram obtained was without signs of heart failure, and abdominal US with Doppler was without signs of portal thrombi or Budd-Chiari syndrome.
She underwent Paracentesis on 06/27, which showed SBP.
She received IV ceftriaxone and Flagyl while in the hospital.
Her ascites fluid cytology was negative for malignancy, and cultures were also negative.
She underwent repeat paracentesis 07/02 and 07/04, which showed ascitic WBC improvement without further SBP.
She can follow-up with outpatient GI to evaluate for the need of repeat paracentesis.
Problem 2:
Small loculated left pleural effusion, possibly related to ascites.
Her Chest x-ray showed moderate-sized effusion with loculation and underlying atelectasis.
However, according to IR, based on the chest ultrasound, there was not enough fluid for thoracentesis.
Of note, her respiratory status has been stable with good saturation in the high 90s during her hospital stay.
Problem 3:
Catheter associated urinary tract infection.
Her urine culture grew Enterobacter with resistance to ampicillin/Unasyn/Augmentin/cefazolin.
While in the hospital, she received IV ceftriaxone, and she was discharged with cefdinir through PEG tube going forward, total antibiotic course for 14 days.
As for the rest of her medical problems, they were stable during her hospital stay.
A new feeding pump was arranged for the patient per her family's request. This new feeding pump has feature for continuous water flush
Discharge Plan
-
Patient Disposition: Home with Home Care
Discharge Diagnosis/Procedures: Ascites of unclear etiology (possible due to recent PEG placement);
Spontaneous Bacterial Peritonitis (treated and resolved);
Catheter associated urinary tract infection;
Spina bifida C/B hydrocephalus s/p GROUND SUPPORT EQUIPMENT MECHANIC shunt;
Cognitive impairment;
Chronic dysphagia s/p PEG tube
Condition: Fair
Additional Diets: tube feed with Pentamen 1.5 at 35 cc/hr; water flush 25 cc/hr
Activity: As tolerated
Driving Restrictions: No driving
Bathing Restrictions: None
Referrals:
Shannon Perez DO [Family Provider, Family Practice] - in less than 1 week
Petty Elizalde DO [Active, Gastroenterology] - in one to two weeks
Additional Discharge Medication Instructions: Continue Cefdinir 300 mg daily through PEG tube for 6 more days
Prescriptions:
New
cefdinir 250 mg/5 mL suspension for reconstitution
300 mg feeding tube DAILY 6 Days Qty: 36 0RF
Continued
polyethylene glycol 3350 [Miralax] 17 gram Powder In Packet
17 g feeding tube DAILY@1400
ferrous sulfate 220 mg (44 mg iron)/5 mL Elixir
220 mg feeding tube BID
lansoprazole [Prevacid SoluTab] 30 mg tablet,disintegrat, delay rel
30 mg feeding tube DAILY Qty: 30 0RF
simethicone 20 mg/0.3 mL Syringe
FEEDING TUBE BID
Patient Comments:
unknown exact dose
ipratropium bromide 0.02 % solution
0.5 mg inhalation R TID PRN (Reason: shortness of breath)
Levalbuterol 0.63 Mg/3 Ml (3 Ml)
1 vial continuous nebulization R TID PRN (Reason: shortness of breath)
Discharge Orders:
Discharge Patient (As Directed); Ordered 07/04/25
Ordered By: Rosemary Chandler
Discharge Date and Time
Discharge Date/Time: 07/04/25 13:46
Print Language: ROMANIAN
== END 2025-07-04 13:46 | disposition home health service (06) | DRG 371 ==
LOC: 2 NORTH 21:39
PROVIDERS: Internal Medicine; Nurse Practitioner; Radiology Diagnostic Radiology; Radiology Vascular & Interventional Radiology; Registered Nurse; ADMITTING PHYSICIAN Hospitalist; ATTENDING PHYSICIAN Internal Medicine; CONSULT PHYSICIAN Internal Medicine Gastroenterology; EMERGENCY PHYSICIAN Emergency Medicine; FAMILY PHYSICIAN Family Medicine
PROC: 0W9G3ZZ Drainage of Peritoneal Cavity, Percutaneous Approach (ICD-10-PCS; 2025-06-27)
DX: K65.2 Spontaneous bacterial peritonitis (principal); E43 Unspecified severe protein-calorie malnutrition; R53.2 Functional quadriplegia; T83.518A Infection and inflammatory reaction due to other urinary catheter, initial encounter; R18.8 Other ascites; N39.0 Urinary tract infection, site not specified; Q05.4 Unspecified spina bifida with hydrocephalus; Z16.11 Resistance to penicillins; E87.1 Hypo-osmolality and hyponatremia; N17.9 Acute kidney failure, unspecified; I50.22 Chronic systolic (congestive) heart failure; J90 Pleural effusion, not elsewhere classified; J98.11 Atelectasis; Z68.1 Body mass index [BMI] 19.9 or less, adult; R64 Cachexia; K94.29 Other complications of gastrostomy; B96.89 Other specified bacterial agents as the cause of diseases classified elsewhere; Q65.89 Other specified congenital deformities of hip; N31.9 Neuromuscular dysfunction of bladder, unspecified; D50.9 Iron deficiency anemia, unspecified; D63.1 Anemia in chronic kidney disease; E87.70 Fluid overload, unspecified; E88.09 Other disorders of plasma-protein metabolism, not elsewhere classified; Y84.6 Urinary catheterization as the cause of abnormal reaction of the patient, or of later complication, without mention of misadventure at the time of the procedure; R62.50 Unspecified lack of expected normal physiological development in childhood; N18.2 Chronic kidney disease, stage 2 (mild); G31.84 Mild cognitive impairment of uncertain or unknown etiology; R13.19 Other dysphagia; Y83.8 Other surgical procedures as the cause of abnormal reaction of the patient, or of later complication, without mention of misadventure at the time of the procedure; K59.09 Other constipation; K22.5 Diverticulum of esophagus, acquired; Z74.01 Bed confinement status; Z87.01 Personal history of pneumonia (recurrent); Z99.3 Dependence on wheelchair; Z98.2 Presence of cerebrospinal fluid drainage device; Z91.040 Latex allergy status; Z90.5 Acquired absence of kidney; Z79.899 Other long term (current) drug therapy
CPT/HCPCS: 49083; 49465; 70250; 71045; 71046; 72040; 74019; 74176; 76604; 76705; 80048; 80053; 81003; 81015; 82042; 82248; 82607; 82728; 83540; 83550; 83615; 83735; 83930; 83935; 84155; 84157; 84300; 84443; 85025; 85027; 87015; 87045; 87046; 87070; 87077; 87086; 87186; 87205; 87324; 87427; 87449; 87798; 88112; 88305; 89051; 93005; 93306; 96361; 96365; 96375; 99285; J2916

== ENCOUNTER 2025-07-26 21:02 | Inpatient (IN) | payer MEDICARE, MEDICAID, SELFPAY ==
[2025-07-26 14:40] VITALS: BP 108/73
[2025-07-26 15:25] VITALS: BP 102/84
--- NOTE | 2025-07-26 15:52 | ED.GENMED ---
History of Present Illness
<Janell Yung PA-C - Last Filed: 07/26/25 22:09>
General
Chief Complaint: Blood Pressure Problem
Source: family
Exam Limitations: non verbal-adult and developmental stage
Time Seen by Provider: 07/26/25 15:31
History of Present Illness
History of Present Illness:
50yoF with history of spina bifida, hydrocephalus s/p LAWYER PROBATE shunt, prior nephrectomy, neurogenic bladder with vesicostomy, dysphagia with PEG tube, and CKD presenting with her parents for evaluation of low blood pressure. Patient was recently
hospitalized from 06/26-07/04/25 for ascites and SBP. Parents are primary caregivers and are providing history. Patient has seemed more fatigued than normal over the past week or so. Her heart rate typically is in the 110s and has been in the
120-130 range over the past week. Mother also reports that patient is drooling excessively and is making a grunting noise which is unusual. Her skin also seems clammy although parents have not noticed a fever. She has had similar symptoms in the
past with aspiration pneumonia. Patient was seen by her PCP today and blood pressure was 86/48 and parents were advised to bring her to the ED for evaluation.
Past History
<Janell Yung PA-C - Last Filed: 07/26/25 22:09>
Past History
ED Past Medical History: Other (spina bifida)
ED Past Surgical History: Urological and Other (LAWYER PROBATE shunt)
Social History
Tobacco: Non-smoker
Alcohol: None
Living: with family
Phy Exam
<Janell Yung PA-C - Last Filed: 07/26/25 22:09>
General Physical Exam
General Presentation: no apparent distress
General Skin: warm and dry
General Mental: alert
ENT Exam
ENT Exam: normocephalic
Eye Exam
Eye Exam: conjunctiva normal
Cardiovascular Exam
Cardiovascular Exam: tachycardia
Pulmonary Exam
Pulmonary Exam: other (Tachypnea noted. Lung sounds decreased at bases but otherwise clear. Oxygen saturation 90% on room air.)
Gastrointestinal Exam
Gastrointestinal Exam: other (Abdomen minimally distended. No obvious tenderness present. PEG tube in place.)
Neurological Exam
Neurological Exam: alert and other (Nonverbal at baseline)
Skin Exam
Skin Exam: normal color and warm/dry
Course
<Janell Yung PA-C - Last Filed: 07/26/25 22:09>
Orders/Labs/Results
Orders:
Orders
07/26/25 15:01
Electrocardiogram (*1) Urgent
Reason for Study: Tachycardia
EKG- Treatment ONCE
07/26/25 15:50
CR Chest - 2 Views Urgent
Comment:
Reason For Exam: cough
07/26/25 15:51
Cardiac Monitoring- Treatment ONCE
0.9% Sodium Chloride 500 ml [Nss] 500 ml IV BOLUS
07/26/25 15:58
COVID-19 Antigen Urgent
Source: Nasal Swab
Influenza A+B Rapid Molecular Urgent
EMILY Source: Nasal Swab
Specimen Description:
07/26/25 16:35
Blood Culture Q30M
EMILY Source: Blood/Venous
Specimen Description:
07/26/25 16:36
Complete Blood Count/With Diff Urgent
Lactic Acid Urgent
Troponin I Urgent
07/26/25 17:00
0.9% Sodium Chloride 500 ml [Nss] 500 ml IV BOLUS
07/26/25 17:41
Comprehensive Metabolic Panel Urgent
TSH Reflex To Free T4 Urgent
Blood Culture Q30M
EMILY Source: Blood/Venous
Specimen Description:
07/26/25 19:19
US Abdomen Complete/Upper Urgent
Comment:
Reason For Exam: new onset manuel failure, hx of ascites
07/26/25 19:22
Dextrose 50%-Water [Dextrose 50% Syringe] 12.5 grams IV [id number] PRN
Dextrose 50%-Water [Dextrose 50% Syringe] 25 grams IV NOW STA
Furosemide [Lasix] 20 mg IV NOW STA
Insulin Human Regular [Novolin R] 10 units IV NOW STA
Sodium Bicarbonate 50 meq IV NOW STA
07/26/25 19:23
Bedside Glucose PRE IV Insulin- HyperK+ NOW
07/26/25 20:00
Dextrose 5%/Water 1000 ml [D5w] 1,000 ml Sodium Bicarbonate 150 meq IV 50 mls/hr
07/26/25 20:38
Admit/Transfer Patient As Directed
Co-Sign Provider:
Level of Care: Inpatient admission
Assign to:: IMU- Intermediate Care
Physician / Group: Tavo
Diagnosis: MARLENE, Ascites
Reason for Hospitalization: MARLENE, Ascites
Expected length of stay greater than two midnights?: Yes
ELOS- Estimated Length of Stay in days: 4
I certify the patient meets the requirements for IP care: Yes
PRN Pain Medication Management As Directed
May give lesser potent ordered pain med per pt: Yes
preference::
Protocol:: Medication orders for pain may be administered in a
manner that supports deferring to patient preference
when the pt is:
- Requesting an ordered lesser potent pain medication.
Least to most potent pain medications are defined
as: acetaminophen < NSAID < tramadol < opioids
(morphine, oxycodone, hydromorphone).
- Requesting a lesser dose of the same medication IF
ORDERED.
- Requesting a less intrusive route of administration
if both routes are prescribed by the provider (PO <
IV).
07/26/25 20:41
Code Status As Directed
Resuscitation Status: Full Code
07/26/25 20:53
Bedside Glucose POST IV Insulin- HyperK+ Q1HX2,Q2HX2
07/26/25 21:53
Potassium Urgent
Comment: draw 2 hours after regular insulin IV administration
07/26/25 23:55
Potassium Urgent
Comment: draw 4 hours after furosemide administered
07/27/25 06:00
Sodium Zirconium Cyclosilicate [Lokelma] 10 gram PO TID@0600,1400,1800
Abnormal Lab Results
07/26/25 07/26/25 07/26/25
16:36 17:41 20:19
RBC 3.21 L 10^6/uL
(4.20-5.40)
Hgb 9.5 L g/dL
(12.0-16.0)
Hct 29.7 L %
(37.0-47.0)
MCHC 32.0 L g/dL
(33.0-37.0)
Plt Count 658 H 10^3/uL
(130-400)
Abs Immat Gran (auto) 0.1 H 10^3/uL
(0-0.05)
Absolute Neuts (auto) 8.0 H 10^3/uL
(1.4-6.5)
Absolute Lymphs (auto) 0.9 L 10^3/uL
(1.2-3.4)
Absolute Monos (auto) 1.0 H 10^3/uL
(0.1-0.6)
Immature Gran % 0.7 H %
(0-0.5)
Neutrophils % 77.9 H %
(42.2-75.2)
Lymphocytes % 9.0 L %
(20.5-51.1)
Monocytes % 9.6 H %
(1.7-9.3)
Potassium 6.4 H* mmol/L
(3.5-5.1)
Chloride 113 H mmol/L
(98-107)
Carbon Dioxide 16 L mmol/L
(22-30)
BUN 155 H* mg/dl
(7-17)
Creatinine 2.6 H mg/dL
(0.6-1.0)
Glucose 100 H mg/dl
(70-99)
Lactic Acid < 0.5 L mmol/L
(0.7-2.0)
AST 51 H U/L
(14-36)
ALT 106 H U/L
(0-35)
Alkaline Phosphatase 215 H U/L
(38-126)
Albumin 3.2 L g/dl
(3.5-5.0)
POC Glucose 104 H mg/dl
(70-99)
07/26/25 16:36
07/26/25 17:41
Vital Signs
Initial and Last Documented VS:
Initial Vital Signs
Temp Pulse Resp BP Pulse Ox
98.1 F 136 16 108/73 98
07/26/25 14:40 07/26/25 14:40 07/26/25 14:40 07/26/25 14:40 07/26/25 14:40
Last Documented Vital Signs
Temp Pulse Resp BP Pulse Ox
98.1 F 121 19 98/72 98
07/26/25 14:40 07/26/25 18:39 07/26/25 18:39 07/26/25 17:00 07/26/25 18:40
<Shannon Méndez MD - Last Filed: 07/26/25 20:07>
Orders/Labs/Results
Orders:
Orders
07/26/25 15:01
Electrocardiogram (*1) Urgent
Reason for Study: Tachycardia
EKG- Treatment ONCE
07/26/25 15:50
CR Chest - 2 Views Urgent
Comment:
Reason For Exam: cough
07/26/25 15:51
Cardiac Monitoring- Treatment ONCE
0.9% Sodium Chloride 500 ml [Nss] 500 ml IV BOLUS
07/26/25 15:58
COVID-19 Antigen Urgent
Source: Nasal Swab
Influenza A+B Rapid Molecular Urgent
EMILY Source: Nasal Swab
Specimen Description:
07/26/25 16:35
Blood Culture Q30M
EMILY Source: Blood/Venous
Specimen Description:
07/26/25 16:36
Complete Blood Count/With Diff Urgent
Lactic Acid Urgent
Troponin I Urgent
07/26/25 17:00
0.9% Sodium Chloride 500 ml [Nss] 500 ml IV BOLUS
07/26/25 17:41
Comprehensive Metabolic Panel Urgent
TSH Reflex To Free T4 Urgent
Blood Culture Q30M
EMILY Source: Blood/Venous
Specimen Description:
07/26/25 19:19
US Abdomen Complete/Upper Urgent
Comment:
Reason For Exam: new onset manuel failure, hx of ascites
07/26/25 19:22
Dextrose 50%-Water [Dextrose 50% Syringe] 12.5 grams IV [id number] PRN
Dextrose 50%-Water [Dextrose 50% Syringe] 25 grams IV NOW STA
Furosemide [Lasix] 20 mg IV NOW STA
Insulin Human Regular [Novolin R] 10 units IV NOW STA
Sodium Bicarbonate 50 meq IV NOW STA
07/26/25 19:23
Bedside Glucose PRE IV Insulin- HyperK+ NOW
07/26/25 20:00
Dextrose 5%/Water 1000 ml [D5w] 1,000 ml Sodium Bicarbonate 150 meq IV 50 mls/hr
07/26/25 20:38
Admit/Transfer Patient As Directed
Co-Sign Provider:
Level of Care: Inpatient admission
Assign to:: IMU- Intermediate Care
Physician / Group: Tavo
Diagnosis: MARLENE, Ascites
Reason for Hospitalization: MARLENE, Ascites
Expected length of stay greater than two midnights?: Yes
ELOS- Estimated Length of Stay in days: 4
I certify the patient meets the requirements for IP care: Yes
PRN Pain Medication Management As Directed
May give lesser potent ordered pain med per pt: Yes
preference::
Protocol:: Medication orders for pain may be administered in a
manner that supports deferring to patient preference
when the pt is:
- Requesting an ordered lesser potent pain medication.
Least to most potent pain medications are defined
as: acetaminophen < NSAID < tramadol < opioids
(morphine, oxycodone, hydromorphone).
- Requesting a lesser dose of the same medication IF
ORDERED.
- Requesting a less intrusive route of administration
if both routes are prescribed by the provider (PO <
IV).
07/26/25 20:41
Code Status As Directed
Resuscitation Status: Full Code
07/26/25 20:53
Bedside Glucose POST IV Insulin- HyperK+ Q1HX2,Q2HX2
07/26/25 21:53
Potassium Urgent
Comment: draw 2 hours after regular insulin IV administration
07/26/25 23:55
Potassium Urgent
Comment: draw 4 hours after furosemide administered
07/27/25 06:00
Sodium Zirconium Cyclosilicate [Lokelma] 10 gram PO TID@0600,1400,1800
Abnormal Lab Results
07/26/25 07/26/25 07/26/25
16:36 17:41 20:19
RBC 3.21 L 10^6/uL
(4.20-5.40)
Hgb 9.5 L g/dL
(12.0-16.0)
Hct 29.7 L %
(37.0-47.0)
MCHC 32.0 L g/dL
(33.0-37.0)
Plt Count 658 H 10^3/uL
(130-400)
Abs Immat Gran (auto) 0.1 H 10^3/uL
(0-0.05)
Absolute Neuts (auto) 8.0 H 10^3/uL
(1.4-6.5)
Absolute Lymphs (auto) 0.9 L 10^3/uL
(1.2-3.4)
Absolute Monos (auto) 1.0 H 10^3/uL
(0.1-0.6)
Immature Gran % 0.7 H %
(0-0.5)
Neutrophils % 77.9 H %
(42.2-75.2)
Lymphocytes % 9.0 L %
(20.5-51.1)
Monocytes % 9.6 H %
(1.7-9.3)
Potassium 6.4 H* mmol/L
(3.5-5.1)
Chloride 113 H mmol/L
(98-107)
Carbon Dioxide 16 L mmol/L
(22-30)
BUN 155 H* mg/dl
(7-17)
Creatinine 2.6 H mg/dL
(0.6-1.0)
Glucose 100 H mg/dl
(70-99)
Lactic Acid < 0.5 L mmol/L
(0.7-2.0)
AST 51 H U/L
(14-36)
ALT 106 H U/L
(0-35)
Alkaline Phosphatase 215 H U/L
(38-126)
Albumin 3.2 L g/dl
(3.5-5.0)
POC Glucose 104 H mg/dl
(70-99)
07/26/25 16:36
07/26/25 17:41
Vital Signs
Initial and Last Documented VS:
Initial Vital Signs
Temp Pulse Resp BP Pulse Ox
98.1 F 136 16 108/73 98
07/26/25 14:40 07/26/25 14:40 07/26/25 14:40 07/26/25 14:40 07/26/25 14:40
Last Documented Vital Signs
Temp Pulse Resp BP Pulse Ox
98.1 F 121 19 98/72 98
07/26/25 14:40 07/26/25 18:39 07/26/25 18:39 07/26/25 17:00 07/26/25 18:40
<Janell Yung PA-C - Last Filed: 07/26/25 22:09>
MDM/Problems Addressed
Differential Diagnosis Includes:
50yoF here with fatigue, increased drooling, and tachycardia. History of spina bifida and nonverbal at baseline. Sent in by PCP for low blood pressure although BP 108/73 on arrival. Heart rate 136. Temp normal. Differential diagnosis includes
but is not limited to: Sepsis/infectious etiology, dehydration, pneumonia, consider PE although less likely given normal oxygen saturation
Initial ED plan: Check septic workup including lactate, blood cultures, COVID/swab, and chest x-ray. IV fluid bolus.
<Janell Yung PA-C - Last Filed: 07/26/25 22:09>
*Pulse Oximetry
SaO2: 98
Oxygen Mode of Delivery: Room air
Patient hypoxic: no (98%)
*EKG
Interpreted by ED Provider?: Yes
EKG Intrepretation Date: 07/26/25
Heart Rate: 130
Rate: tachycardiac
Rhythm: sinus
[place]: normal axis
Interval: normal interval
QRS Pattern: normal QRS
Ischemia: no ischemia
*Critical Care Note
Total Time (30-74mins, 75-104mins- exclusive of procedures): 35
<Janell Yung PA-C - Last Filed: 07/26/25 22:09>
Update Note
Update Note:
Labs reveal acute kidney injury with a creatinine of 2.6, baseline appears to be around 1.5. BUN markedly elevated at 155. Bicarb 16 and potassium elevated at 6.4. No obvious EKG changes noted. White count and lactate normal. Chest x-ray shows
bilateral effusions without any obvious evidence of pneumonia. Lokelma, insulin/dextrose, bicarb, and Lasix ordered for hyperkalemia. Case discussed with nephrology and bicarb infusion ordered at 50 cc/hr per nephrology recommendations. Patient
hospitalized for further evaluation and management.
ED Attending Note
<Janell Yung PA-C - Last Filed: 07/26/25 22:09>
-
Portions of this chart may have been created with voice recognition software.� Occasional wrong word or��sound alike� substitutions may have occurred due to the inherent limitations of voice recognition software.
<Shannon Méndez MD - Last Filed: 07/26/25 20:07>
ED Attending Note
Patient seen and examined by attending physician: Yes
I performed the substantive portion of visit, reviewed & personally made and approve the management plan that is documented in note by myself or DEJA.: Yes
ED Attending Note:
50-year-old female with a history of spina bifida, LAWYER PROBATE shunt, feeding tube, etc. etc. presents emergency department with a history of just not being herself ever since she was discharged in the hospital. They do report that the PEG tube feedings
have been going well since they changed the formula. However, they note that she is sleeping more than usual, less verbal, and drooling more than usual. Her heart rate has been higher than normal all week long. They brought her to the doctor
today and she was noted to be slightly hypotensive and tachycardic and was referred to the emergency department with the concern of possible aspiration pneumonia. History is obviously limited from patient. They state the patient is only taking a
PPI, otherwise no meds. Discharge summary from hospitalization June 2025 reviewed at that time patient had new onset ascites thought to be related to her recent PEG tube placement, no LAWYER PROBATE or PEG dysfunction noted and her echo did not show signs of
heart failure. Abdominal ultrasound did not show signs of portal thrombi or Budd-Chiari syndrome. Here on exam, abdomen soft, nontender, lungs CTA, heart regular rate and. Patient is sleeping but arousable. Labs noted new renal failure, unclear
etiology at this time, abdominal ultrasound ordered. Will treat hyperkalemia. PA d/w nephro, aware one kidney, labs, etc. Agrees with management thus far, only other rec is bicarb gtt which has been ordered. Mom updated.
Discharge Plan
Departure
Patient Disposition: Admit
Date of Disposition: 07/26/25
Time of Disposition: 19:59
Presentation/result/management discussed w/ accepting MD/DO: Hospitalist
Discharge Problem:
Acute kidney injury, Hyperkalemia
Interventions
Interventions:
*Risk Screen - Suicide Last Done: 07/26/25 14:42
*General Assessment Last Done: 07/26/25 16:47
*Neglect/Abuse Screening Last Done: 07/26/25 14:42
*ED- Fall Risk Assessment Last Done: 07/26/25 16:47
*ED COVID-19 Vaccine History Last Done: 07/26/25 16:47
ED- Cardiac Assessment Last Done: 07/26/25 16:49
ED- Neurological Assessment Last Done: 07/26/25 16:50
ED- Pulmonary Assessment Last Done: 07/26/25 16:52
[2025-07-26 15:53] VITALS: BMI 14.1
[2025-07-26 16:21] LABS: COVID-19 Antigen Negative (Negative)
[2025-07-26] MEDS: NSS 500 IV ×2 (16:45→17:46)
[2025-07-26 16:47] LABS: Hematocrit 29.7 % (37.0-47.0); Hemoglobin 9.5 g/dL (12.0-16.0); Mean Corp Hgb Conc. 32.0 g/dL (33.0-37.0); Mean Corpuscular Volume 92.5 fL (81.0-99.0); Nucleated Red Blood Cells % 0 %; Platelet Count 658 10^3/uL (130-400); Red Cell Dist. Width 13.5 % (11.5-14.5)
[2025-07-26 16:58] VITALS: BP 103/73
[2025-07-26 17:00] VITALS: BP 98/72
[2025-07-26 17:08] LABS: Troponin I < 0.012 ng/ml
[2025-07-26 18:20] LABS: ALT (SGPT) 106 U/L (0-35); AST (SGOT) 51 U/L (14-36); Albumin 3.2 g/dl (3.5-5.0); Alkaline Phosphatase 215 U/L (38-126); Calcium 9.2 mg/dl (8.4-10.2); Carbon Dioxide 16 mmol/L (22-30); Chloride 113 mmol/L (98-107); Estimated Creatinine Clearance 13 ml/min; Glucose 100 mg/dl (70-99); Potassium 6.4 mmol/L (3.5-5.1); Sodium 141 mmol/L (135-145); Total Protein 6.4 g/dl (6.3-8.2); eGFR 21.94
[2025-07-26 18:31] LABS: Blood Urea Nitrogen 155 mg/dl (7-17)
[2025-07-26 20:20] LABS: Glucose - Point of Care 104 mg/dl (70-99)
[2025-07-26] MEDS: DEXTROSE 50% SYRINGE 25 GRAMS IV (20:32)
[2025-07-26] MEDS: LASIX 20 MG IV (20:33)
[2025-07-26] MEDS: SODIUM BICARBONATE 50 MEQ IV (20:33)
[2025-07-26] MEDS: NOVOLIN R 10 UNITS IV (20:34)
--- NOTE | 2025-07-26 20:48 | HPS.HSE ---
Family Physician
-
Family Physician: Shannon Perez
Chief Complaint
-
Altered Mental Status
History of Present Illness
Patient is a 50y F with PMH significant for spina bifida with hydrocephalus who presents to ED for evaluation of change in behavior at home. History obtained from mother at the bedside. Patient was recently admitted 06/26 - 07/04 and found to have
new ascites. She had paracentesis x3 during that stay and was initially on abx for suspected SBP. Cultures were ultimately negative. Cytology was unremarkable. GI recommended further follow-up at [facility] for ascites of unclear
etiology.
Since return home, mother has been measuring the patient's abdomen and has not appreciated any significant increase in size. Patient continues to produce normal amount of urine (Diapers are saturated. Straight cath via vesicostomy for small amount
of urine - as is typical per mother).
Mother notes that the patient has been drooling and making grunting noises as she does when uncomfortable. They were seen by the PCP today and it was noted that patient's BP was in the 80s. She was sent to the ED for further evaluation.
On initial evaluation in the ED, patient was noted to be tachycardic and labs show marked MARLENE / electrolyte abnormalities.
Medical History
Past Medical History
Past Medical History: Reports Other
Additional Past Medical History:
CKD stage IV
Solitary right kidney
Ascites
Nephrolithiasis
Spina bifida/history of WET AND DRY SUGAR BIN OPERATOR shunt
Neurogenic bladder
Cognitive dysfunction
Nonverbal
Dysphagia status post PEG tube placement
Anemia
Chronic constipation
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
Past Surgical History: Reports Other
Additional Past Surgical History:
Status post nephrectomy
Status post WET AND DRY SUGAR BIN OPERATOR shunt
Status post meningocele repair
Status post cutaneous vesicostomy
Status post bilateral mastectomy
Status post hematoma removal
Social History
Tobacco: Non-smoker
Alcohol: None
Drug: None
Living: With Family
Family History
Family History: Not pertinent
Allergies / Home Medications
Allergies reflects when Allergies were last updated in [employer].
Home Medications with original date entered in [employer]
Allergy/Medication List:
Allergies
Allergy/AdvReac Type Severity Reaction Status Date / Time
iron dextran complex Allergy Hypotension, Verified 06/26/25 22:42
skin
flushing
latex Allergy Unknown Verified 06/26/25 20:45
potassium chloride Allergy Unknown Verified 06/26/25 20:45
Home Medications
ferrous sulfate 220 mg (44 mg iron)/5 mL oral elixir 220 mg feeding tube BID Supplement 05/18/25
polyethylene glycol 3350 17 gram oral powder packet (Miralax) 17 g feeding tube DAILY@1400 Gastrointestinal Issue 05/18/25
lansoprazole 30 mg delayed release,disintegrating tablet (Prevacid SoluTab) 30 mg feeding tube DAILY #30 tabs 05/22/25
Review of Systems
-
Unable to obtain full review of systems at this time due to: Patient Non-verbal
History Source: Family
Constitutional: Denies Fever
EENT: Reports Other (drooling)
Respiratory: Denies Cough
Abdomen/GI: Denies Nausea, Vomiting or Diarrhea
Physical Exam
Vital Signs
Vital Signs
Temp Pulse Resp BP Pulse Ox
98.1 F 121 19 98/72 98
07/26/25 14:40 07/26/25 18:39 07/26/25 18:39 07/26/25 17:00 07/26/25 18:40
Physical Exam
General: Other (chronically ill-appearing 50y F in no apparent distress.)
HEENT: Moist mucous membranes
Respiratory: Other (Decreased BS at bases - otherwise clear.)
Cardiac: S1/S2 and Tachycardia; No Murmur
GI: Other (Abdomen is softly distended / tympanic.)
Musculoskeletal: Other (Chronic limb deformities. Trace - 1+ edema.)
Laboratory Results
-
07/26/25 16:36
Laboratory Results
Lactic Acid < 0.5 mmol/L (0.7-2.0) L 07/26/25 16:36
Total Bilirubin 0.2 mg/dl (0.2-1.3) 07/26/25 17:41
AST 51 U/L (14-36) H 07/26/25 17:41
ALT 106 U/L (0-35) H 07/26/25 17:41
Alkaline Phosphatase 215 U/L (38-126) H 07/26/25 17:41
Troponin I < 0.012 ng/ml 07/26/25 16:36
Impression/Plan
-
A/P: Patient is a 50y F with PMH significant for spina bifida, hydrocephalus s/p WET AND DRY SUGAR BIN OPERATOR shunt and recent / new ascites who presents to ED for evaluation of hypotension and altered behaviors at home.
MARLENE on CKD IV
Hyperkalemia
Uremia
Metabolic Acidosis
- Admit for further evaluation and treatment.
- SCr = 2.6 compared to known baseline of 1.5.
- Patient has solitary kidney s/p nephrectomy (for recurrent infection / reflux).
- No change in urine output according to mother. US is pending to evaluate for obstruction.
- Hyperkalemia temporizing measures administered in the ED.
- IVFs with bicarb ordered.
- Follow labs / lytes for changes.
- Nephrology evaluation for additional recommendations.
- Hold PPI for now.
- Patient appears total volume overloaded with ascites, pleural effusions, edema, etc - may ultimately benefit from diuresis if renal function will tolerate.
Ascites
- Unclear etiology.
- Will resume ceftriaxone for now for SBP prophylaxis.
- GI re-evaluation for additional recommendations / work-up.
- Consider IR eval / repeat paracentesis in AM depending on results of US.
Spina Bifida with Hydrocephalus s/p WET AND DRY SUGAR BIN OPERATOR Shunt
- Stable. Recently had PEG placed (April 2025) - prior to that was fed with supplemental feeds via bottle.
- Continue supportive care / repositioning / etc.
- Recent DIRECTOR SOCIAL imaging last admission was unremarkable.
DVT Prophylaxis: Subcut Heparin
Code Status: Full
[2025-07-26 22:09] LABS: Glucose - Point of Care 148 mg/dl (70-99)
[2025-07-26] MEDS: SODIUM BICARBONATE 1150 MEQ IV (22:52)
[2025-07-26 23:00] VITALS: BP 85/72
[2025-07-27] VITALS (27 sets, daily range): BP systolic 82–137; BP diastolic 52–85; BMI 13.9
[2025-07-27] MEDS: ROCEPHIN 1000 MG IV (00:12)
[2025-07-27] MEDS: STERILE WATER FOR INJECTION 10 ML IV (00:12)
[2025-07-27 00:24] LABS: Glucose - Point of Care 97 mg/dl (70-99)
[2025-07-27 00:30] LABS: Urine Character Cloudy (Clear)
[2025-07-27 00:38] LABS: Urine Red Blood Cell 0-2 /HPF (0-2); Urine White Cell >100 /HPF (0-5)
[2025-07-27 00:45] LABS: Potassium 5.6 mmol/L (3.5-5.1)
[2025-07-27 05:11] LABS: Glucose - Point of Care 131 mg/dl (70-99)
[2025-07-27 05:53] LABS: Hematocrit 28.4 % (37.0-47.0); Hemoglobin 9.5 g/dL (12.0-16.0); Mean Corp Hgb Conc. 33.5 g/dL (33.0-37.0); Mean Corpuscular Volume 91.0 fL (81.0-99.0); Platelet Count 602 10^3/uL (130-400); Red Cell Dist. Width 13.6 % (11.5-14.5)
[2025-07-27 06:02] LABS: ALT (SGPT) 90 U/L (0-35); AST (SGOT) 40 U/L (14-36); Albumin 3.0 g/dl (3.5-5.0); Alkaline Phosphatase 187 U/L (38-126); Calcium 8.9 mg/dl (8.4-10.2); Carbon Dioxide 22 mmol/L (22-30); Chloride 113 mmol/L (98-107); Estimated Creatinine Clearance 13 ml/min; Glucose 116 mg/dl (70-99); Potassium 5.6 mmol/L (3.5-5.1); Sodium 146 mmol/L (135-145); Total Protein 6.1 g/dl (6.3-8.2); eGFR 21.94
[2025-07-27 06:17] LABS: Blood Urea Nitrogen 156 mg/dl (7-17)
[2025-07-27] MEDS: HEPARIN 5000 UNITS SC ×2 (08:05→20:30)
--- NOTE | 2025-07-27 09:42 | CON.GI ---
Addendum entered and electronically signed by Petty Elizalde DO 07/27/25 18:58:
Petra is a 50-year-old female with history of spina bifida with severe developmental delay, prior left nephrectomy with CKD 4, SENIOR SHIPPING CLERK shunt at 8 months old without any revisions, prior cutaneous vesicostomy placed in 1993 comes to the emergency room
with her mother and family for change in behavior. She was recently here from June 26 through July 04 with new chylous ascites. She had 3 paracentesis at that time and the first was suspected with SBP. Cultures were negative but she did
complete a course of cefdinir. Cytology was negative and showed mesothelial cells. Her mother says she has gained about 7 pounds since discharge and noticed some diarrhea with change in feeding fluid. She was making grunting and drooling which
are signs that she is uncomfortable. Her blood pressure was lower than normal systolic in the 80s in the emergency room and mom says she is always tachycardic.
She is normally followed at [facility]. Patient had a PEG tube placed in April 2025 at [place]. According to the sister she states her abdominal distention started after that discharge in April 2025 and her first paracentesis was here in
June 2025 where she had chylous ascites. According to the records and the mother she had esophageal stenosis and a Zenker's diverticulum that made it somewhat difficult but they were able to place it. She had the PEG tube placed because of
recent pneumonias and aspirations at [place]. Since the PEG tube was placed they had noticed some slight increase symptoms abdominal distention. She had never had ascites before. Her first paracentesis was in June. Her hemoglobin 9.4, sodium
hyponatremic, BUN 155, creatinine 2.6.
The prior ascitic fluid had negative cytology but does have mesothelial cells.
Review of CT scan from 06/26/2025 abdomen and pelvis without IV or oral contrast shows an unremarkable unenhanced liver, moderate to large volume ascites with no free air, ventricular peritoneal shunt catheter present with tip terminating in the lower
abdomen similar to prior. No evidence of bowel obstruction, percutaneous gastrostomy present. No sidewall mass or lymphadenopathy. Nodular mildly prominent uterus
She underwent paracentesis this morning 2.5 L that was greenish chylous appearing with elevated triglycerides of over 200. WBC 1021, PMNs 75% consistent with SBP - . Total protein 4.5.
#chylous ascites
--Chylous ascites can be caused by infection, trauma, malignancy or potentially a complication after abdominal surgery. No signs of cirrhosis on labs or imaging
-- Triglycerides are consistent with chylous ascites including color described by IR
-- I have sent fluid for flow cytometry to look for lymphoma, adenosine deaminase to look for TB
-- Gram stain pending but it was negative last month
-- I did review her imaging from last admission early June that was done without IV contrast that did not show any overt malignancy.
-- No known cirrhosis, echocardiogram did not show any right-sided heart failure
-- There is potential that it could be traumatic after PEG tube placement -sister and family did notice that the abdominal distention occurred just after discharge from [place] in April
-- treatment may need IR intranodal lymphangiography with lymphatic embolization (which she would have to be transferred to [place]) but other option is to decrease tube feeds to very low fat to see if that helps
# SBP -chylous ascites does not typically cause an elevated white blood cell count in the ascitic fluid it is usually lymphocyte predominant rather than neutrophil predominant
-- Ascitic fluid shows: PMN count is over 700, consistent with SBP, total protein 4.5, total albumin 2.1, triglycerides 222, serum albumin 3.0; with a SAG of 0.9 showing nonportal hypertension related ascites which is consistent with chylous ascites
versus peritonitis. Her amylase is not significantly elevated and therefore highly unlikely any type of ruptured viscus. This could be TB and therefore this EVMS was sent. It is not pancreatitis as her amylase is low. Consistent with chylous
-- Treat SBP with antibiotics getting ceftriaxone 2 g once daily, getting 1.5 g/kg of albumin today then on day 3 will need 25 g
-- Consider retapping her in a few days to ensure the white count is coming down
--So far no growth in the Gram stain
-- Patients with SBP are high risk for hepatorenal syndrome
--Generally SBP secondary prophylaxis is not recommended in noncirrhotic's
# Acute on chronic renal failure, appears baseline renal function is around 1.4 but her father will get me outpatient numbers. On admission 2.6 and today 2.3
--Hopefully the albumin will help
Discussed everything with the family, reviewed multiple notes and prior admissions and objective data. Spoke to IR and general surgery. Spent over 90 minutes
Addendum entered and electronically signed by JAXON Morgan 07/27/25 13:48:
fluid cell + SBP - will need total of 1.5 gram/kg -- 50gram today then 1 gr/kg 25 gram on day 3 07/29. reviewed with Dr. Ojeda for antibiotics.
Addendum entered and electronically signed by JAXON Morgan 07/27/25 12:44:
para was 2500ml --will give albumin 12.5grm post tap
Original Note:
Consultation
-
Date/Time Consultation Requested: 07/26/25 2330
Date/Time Consultation Performed: 07/27/25 0940
Requesting Provider: Doug Vo DO
Performing Provider: JAXON Joiner, Petty Elizalde DO
Reason for Consultation: ascites
Medical History
Chief Complaint / HPI
Chief Complaint: abd distention
History of Present Illness:
50-year-old female past medical history of spina bifida (followed at [facility]), severe developmental delay, recurrent pneumonia, aspiration pneumonia, chronic iron deficiency anemia, solitary right kidney, chronic kidney disease stage
III/stage IV, nephrolithiasis, neurogenic bladder, chronic constipation, hydrocephalus status post SENIOR SHIPPING CLERK shunt, recent PEG tube placement (05/15/2025) with recent PNA and aspiration and 2 week admission in [place], esophageal stenosis and Zenker's
diverticulum at [facility]. In review with family pt was noted with increased abdominal distention after tube feed was placed in April. She had recent admission with abdominal pain and ascites. She completed para 8 with + SBP. She
was treated with antibiotics and discharged on oral Cefdinir and repeat tap with improved cell counts but noted with chylous ascites. She as also noted with UTI -enterobacter cloacae and loculated left pleural effusion with questioned related to
ascites. She now returns with hypotension and fatigue with worsening tachycardia and recurrent distention. On admission noted with hbg 9.5, platelets 602, Na up to 146 after admit, K 6,4, cl 113, CO2 16, BUN 155, creat 2.6, bili 0.2, AST 51, ALT,
106, alk phos 215. albumin 3.2.
In review with family as pt non verbal she has history of constipation with miralax use and manual disimpaction but noted with diarrhea since tube feeds. Stool have improved but still pudding like. No nausea, vomiting, abdominal pain but
noted distention, blood or black in stools. EGD completed with peg but no colonoscopy in past.
06/27 para 1600m pink Chylous + SBP WBC 947 ,poly 73.5 protein 4.3 albumin 2.1 SAAG 1.2 cx neg
07/02 para [address] [place] Chylous WBC 465 , poly 40.4, protein 3.7, albumin 1.7 cx neg
07/04- para 750 pink Chylous WBC 351, poly 19.7, protein 3.4, albumin 1.4 cx neg
06/27 TSH normal
07/26/25 US abdomen
Liver length is 12.4 cm, with top normal considered 18.0 cm. Liver echogenicity appears normal with no evidence of a focal hepatic lesion.
No sonographic evidence of cholelithiasis, acute cholecystitis or biliary duct dilation.
The right kidney appears echogenic which can be seen with medical renal disease. No hydronephrosis.
Moderate/large volume intra-abdominal ascites.
06/30/25 tube check
Contrast instilled through the patient's indwelling PEG tube outlines the stomach, confirming placement.
06/26/25 CT Abd/pel Without Iv Or Oral
Moderate/large volume ascites. Moderate left pleural effusion with associated passive atelectasis.
Percutaneous gastrostomy tube with tip terminating in the stomach.
There is diffuse urinary bladder wall thickening which extends to the umbilicus. Findings may represent cystitis. Consider correlation with urinalysis.
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
The uterus is mildly prominent and nodular in appearance, possibly secondary to uterine fibroids. Consider further evaluation with dedicated pelvic ultrasound.
Past Medical History
Past Medical History: Other (Spina bifida, developmental delay, pneumonia, chronic iron deficiency anemia, solitary right kidney, chronic kidney disease, nephrolithiasis, neurogenic bladder, chronic constipation, hydrocephalus, SENIOR SHIPPING CLERK shunt, PEG tube,
malnutrition, esophageal stenosis, Zenker's diverticulum,)
Past Surgical History: Other (SENIOR SHIPPING CLERK shunt, PEG tube, nephrectomy, meningocele repair, cutaneous vesicostomy, bilateral mastectomy, hematoma removal)
Social History
Tobacco: Non-Smoker
Alcohol: None
Drug: None
Personal: Single
Living: With Family
Employment: Disabled
Family History
Family History: Other (No family history of gastrointestinal malignancy or IBD, sister with gastroparesis )
Allergies / Home Medications
Allergy/AdvReac Type Severity Reaction Status Date / Time
iron dextran complex Allergy Hypotension, Verified 06/26/25 22:42
skin
flushing
latex Allergy Unknown Verified 06/26/25 20:45
potassium chloride Allergy Unknown Verified 06/26/25 20:45
�Medication �Instructions �Recorded
ferrous sulfate 220 mg (44 mg 220 mg feeding tube BID Supplement 05/18/25
iron)/5 mL oral elixir
polyethylene glycol 3350 17 gram 17 g feeding tube DAILY@1400 05/18/25
oral powder packet (Miralax) Gastrointestinal Issue
lansoprazole 30 mg delayed 30 mg feeding tube DAILY #30 tabs 05/22/25
release,disintegrating tablet
(Prevacid SoluTab)
Review of Systems
-
History Source: Patient and Family
Constitutional: Reports Weight Gain (with fluid few lbs up and down )
EENT: Reports No Symptoms
Respiratory: Reports No Symptoms
Cardiac: Reports No Symptoms
Abdomen/GI: Reports Diarrhea, Constipated (prior to tube feeds ) and Other (distention)
: Reports Other
Musculoskeletal: Reports No Symptoms
Skin: Reports No Symptoms
Neurological: Reports Weakness
Endocrine: Reports No Symptoms
Hematologic/Lymphatic: Reports No Symptoms
Vital Signs
Temp Pulse Resp BP Pulse Ox
98.0 F 117 19 98/69 97
07/27/25 05:10 07/27/25 06:00 07/27/25 05:00 07/27/25 06:00 07/27/25 01:39
Physical Exam
Exam
General: Other (chronic illness with developemental delay but awake, non verbal and moving responsive to stimuli )
HEENT: Normocephalic and Anicteric
Respiratory: Clear
Cardiac: Other (tachy )
GI: Soft, Non Tender (limited ith mentation ) and Distended
Musculoskeletal: No Clubbing and No Cyanosis
Skin: Warm and Dry
Neuro: Awake and Other (non verbal , contacted, paraplegia )
Psych: Calm
Results
WBC 7.7 10^3/uL (4.8-10.8) 07/27/25 05:20
Hgb 9.5 g/dL (12.0-16.0) L 07/27/25 05:20
Hct 28.4 % (37.0-47.0) L 07/27/25 05:20
MCV 91.0 fL (81.0-99.0) 07/27/25 05:20
Plt Count 602 10^3/uL (130-400) H 07/27/25 05:20
Absolute Neuts (auto) 8.0 10^3/uL (1.4-6.5) H 07/26/25 16:36
Sodium 146 mmol/L (135-145) H 07/27/25 05:20
Potassium 5.6 mmol/L (3.5-5.1) H 07/27/25 05:20
Chloride 113 mmol/L (98-107) H 07/27/25 05:20
Carbon Dioxide 22 mmol/L (22-30) 07/27/25 05:20
BUN 156 mg/dl (7-17) H* 07/27/25 05:20
Creatinine 2.6 mg/dL (0.6-1.0) H 07/27/25 05:20
Calcium 8.9 mg/dl (8.4-10.2) 07/27/25 05:20
Total Bilirubin 0.2 mg/dl (0.2-1.3) 07/27/25 05:20
AST 40 U/L (14-36) H 07/27/25 05:20
ALT 90 U/L (0-35) H 07/27/25 05:20
Alkaline Phosphatase 187 U/L (38-126) H 07/27/25 05:20
Diagnostic Image Results:
06/27 para 1600m pink Chylous + SBP WBC 947 ,poly 73.5 protein 4.3 albumin 2.1 SAAG 1.2 cx neg
07/02 para [address] [place] Chylous WBC 465 , poly 40.4, protein 3.7, albumin 1.7 cx neg
07/04- para 750 pink Chylous WBC 351, poly 19.7, protein 3.4, albumin 1.4 cx neg
06/27 TSH normal
07/26/25 US abdomen
Liver length is 12.4 cm, with top normal considered 18.0 cm. Liver echogenicity appears normal with no evidence of a focal hepatic lesion.
No sonographic evidence of cholelithiasis, acute cholecystitis or biliary duct dilation.
The right kidney appears echogenic which can be seen with medical renal disease. No hydronephrosis.
Moderate/large volume intra-abdominal ascites.
06.27.25 Echo
1. Normal left ventricular size myocardial thickness and systolic function. Ejection fraction 65-70%.
2. No significant valvular disease.
3. No prior echo for comparison.
4. Fair quality study.
06/30/25 tube check
Contrast instilled through the patient's indwelling PEG tube outlines the stomach, confirming placement.
06/26/25 CT Abd/pel Without Iv Or Oral
Moderate/large volume ascites. Moderate left pleural effusion with associated passive atelectasis.
Percutaneous gastrostomy tube with tip terminating in the stomach.
There is diffuse urinary bladder wall thickening which extends to the umbilicus. Findings may represent cystitis. Consider correlation with urinalysis.
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
The uterus is mildly prominent and nodular in appearance, possibly secondary to uterine fibroids. Consider further evaluation with dedicated pelvic ultrasound.
Prior GI Procedures:
EGD: with recent peg
Colonoscopy: none
Assessment / Plan
-
50-year-old female past medical history of spina bifida (followed at [facility]), severe developmental delay, recurrent pneumonia, aspiration pneumonia, chronic iron deficiency anemia, solitary right kidney, chronic kidney disease stage
III/stage IV, nephrolithiasis, neurogenic bladder, chronic constipation, hydrocephalus status post SENIOR SHIPPING CLERK shunt, recent PEG tube placement (05/15/2025) with recent PNA and aspiration and 2 week admission in [place], esophageal stenosis and Zenker's
diverticulum at [facility]. In review with family pt was noted with increased abdominal distention after tube feed was placed in April. She had recent admission with abdominal pain and ascites. She completed para 8/6 with + SBP. She
was treated with antibiotics and discharged on oral Cefdinir and repeat tap with improved cell counts but noted with chylous ascites. She as also noted with UTI -enterobacter cloacae and loculated left pleural effusion with questioned related to
ascites. She now returns with hypotension and fatigue with worsening tachycardia and recurrent distention. On admission noted with hbg 9.5, platelets 602, Na up to 146 after admit, K 6,4, cl 113, CO2 16, BUN 155, creat 2.6, bili 0.2, AST 51, ALT,
106, alk phos 215. albumin 3.2. She is also noted with constipation then diarrhea with tube feeds. EGD completed with peg but no colonoscopy in past.
06/27 para 1600m pink Chylous + SBP WBC 947 ,poly 73.5 protein 4.3 albumin 2.1 SAAG 1.2 cx neg
07/02 para [address] [place] Chylous WBC 465 , poly 40.4, protein 3.7, albumin 1.7 cx neg
07/04- para 750 pink Chylous WBC 351, poly 19.7, protein 3.4, albumin 1.4 cx neg
06/27 TSH normal
07/26/25 US abdomen normal liver, no lesion, no cholelithiasis, acute cholecystitis, or biliary dilation, right kidney echogenic with med renal disease, mod to large ascites
06/30/25 tube check Contrast instilled through the patient's indwelling PEG tube outlines the stomach, confirming placement.
06/26/25 CT Abd/pel Without Iv Or Oral
Moderate/large volume ascites. Moderate left pleural effusion with associated passive atelectasis Percutaneous gastrostomy tube with tip terminating in the stomach.
There is diffuse urinary bladder wall thickening which extends to the umbilicus. Findings may represent cystitis. Consider correlation with urinalysis.
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
The uterus is mildly prominent and nodular in appearance, possibly secondary to uterine fibroids. Consider further evaluation with dedicated pelvic ultrasound.
-recurrent ascites -with prior chylous ascites on in June
-abdominal distention after peg placement
-recent SBP
-recent PNA with peg placement in April
-prior constipation now diarrhea
-tachycardia
-electrolyte imbalance -hyperkalemia,hypernatremia
-metabolic acidosis
-acute on chronic CKD solitary right kidney, chronic kidney disease stage III/stage IV/nephrolithiasis
-uterus possible fibroid per CT
-recent loculated effusion
-recent UTI
other med problems:
-spina bifida (followed at [facility]), severe developmental delay
-hx chronic iron deficiency anemia
-neurogenic bladder
-hydrocephalus status post SENIOR SHIPPING CLERK shunt- no recent change in shunt
PLAN:
etiology of recurrent Chylous ascites unclear ---related to lymph leak with recent peg, check flow cytometry to eval for lymphoma, cardiac but stable echo in June , TSH normal to exclude thyroid process, liver related but normal imaging with
normal INR,high platelets and low albumin less likely liver issue, check amylase to assess for panc dysfunction, vs other
check adenosine deaminase
will repeat para today with albumin replacement and rule out recurrent SBP with additional fluid studies
review with renal ok for albumin and tap
peg in good placement with out any redness, swelling or signs of buried bumper
resume tube feeds after tap with home regiment
cont to correct electrolytes
updated family
-
-
Thank you for consultation and allowing me to participate in the patient's care. Please call the business continuity global director GI physician during the after hours with any questions or concerns.
--- NOTE | 2025-07-27 10:32 | W.CON.NEPH ---
Consultation
-
Date/Time Consultation Requested: 0.07/26/25 2313
Date/Time Consultation Performed: 07/27/25 0930
Requesting Provider: Doug Christine
Performing Provider: Asha Weaver
Reason for Consultation: MARLENE with CKD
Medical History
-
Chief Complaint: MARLENE
History of Present Illness:
This is a 50-year-old F with past medical history significant for spina bifida severe developmental delay, status post left nephrectomy with solitary right kidney CKD stage 4 baseline cr 1.3-1.7, status post CLUB ATTENDANT shunt at 8 months old without any
revisions, status post bilateral mastectomy. She has a cutaneous vesicostomy placed in 1993 presents to ED for evaluation of change in behavior at home. History obtained from mother at the bedside. Patient was recently admitted 06/26 - 07/04 and
found to have new ascites. She had paracentesis x3 during that stay and was initially on abx for suspected SBP. Cultures were ultimately negative, she completed Cefdinir course after d/c. Cytology was unremarkable. GI recommended further
follow-up at [facility] for ascites of unclear etiology.
Since return home, mother has been measuring the patient's abdomen and has not appreciated any significant increase in size. Patient continues to produce normal amount of urine (Diapers are saturated. Straight cath via vesicostomy for small amount
of urine - as is typical per mother). However she gained 7lbs from last d/c. MOther also noted with diarrhea with change in feeding fluid. NO reported fever or chills.
Mother notes that the patient has been drooling and making grunting noises as she does when uncomfortable. They were seen by the PCP on 07/26 and it was noted that patient's BP was in the 80s. She was sent to the ED for further evaluation. Mom
reports pt always is tachycardic.
Labs in ER noted cr 2.6, BUN 155, K 6.4, bicarb 16. She is currently getting D5 bicarb IVF, this morning labs shows cr 2.6, BUN 158, k 5.6, na 146, bicarb 22. Nephrology consulted for for possible uremia and MARLENE. MOst of the history is obtained
through chart and family at bedside. Pt is non verbal baseline.
Past Medical History
CKD stage IV
Solitary right kidney
Ascites
Nephrolithiasis
Spina bifida/history of CLUB ATTENDANT shunt
Neurogenic bladder
Cognitive dysfunction
Nonverbal
Dysphagia status post PEG tube placement
Anemia
Chronic constipation
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
Past Surgical History: Other (Status post nephrectomy Status post CLUB ATTENDANT shunt Status post meningocele repair Status post cutaneous vesicostomy Status post bilateral mastectomy Status post hematoma removal)
Social History
Tobacco: Non-Smoker
Alcohol: None
Drug: None
Living: With Family
Family History
Family History: Not Pertinent
Allergies / Home Medications
Allergy/AdvReac Type Severity Reaction Status Date / Time
iron dextran complex Allergy Hypotension, Verified 06/26/25 22:42
skin
flushing
latex Allergy Unknown Verified 06/26/25 20:45
potassium chloride Allergy Unknown Verified 06/26/25 20:45
�Medication �Instructions �Recorded �Confirmed �Type
ferrous sulfate 220 mg (44 mg 220 mg feeding tube BID Supplement 05/18/25 07/26/25 History
iron)/5 mL oral elixir
polyethylene glycol 3350 17 gram 17 g feeding tube DAILY@1400 05/18/25 07/26/25 History
oral powder packet (Miralax) Gastrointestinal Issue
lansoprazole 30 mg delayed 30 mg feeding tube DAILY #30 tabs 05/22/25 07/26/25 Rx
release,disintegrating tablet
(Prevacid SoluTab)
Review of Systems
-
Unable to obtain full review of systems at this time due to: Patient Non Verbal
Physical Exam
Vital Signs
Vital Signs
Temp Pulse Resp BP Pulse Ox
98.0 F 117 19 98/69 97
07/27/25 05:10 07/27/25 06:00 07/27/25 05:00 07/27/25 06:00 07/27/25 01:39
Lab Results
WBC 7.7 10^3/uL (4.8-10.8) 07/27/25 05:20
RBC 3.12 10^6/uL (4.20-5.40) L 07/27/25 05:20
Hgb 9.5 g/dL (12.0-16.0) L 07/27/25 05:20
Hct 28.4 % (37.0-47.0) L 07/27/25 05:20
Plt Count 602 10^3/uL (130-400) H 07/27/25 05:20
Sodium 146 mmol/L (135-145) H 07/27/25 05:20
Potassium 5.6 mmol/L (3.5-5.1) H 07/27/25 05:20
Chloride 113 mmol/L (98-107) H 07/27/25 05:20
Carbon Dioxide 22 mmol/L (22-30) 07/27/25 05:20
BUN 156 mg/dl (7-17) H* 07/27/25 05:20
Creatinine 2.6 mg/dL (0.6-1.0) H 07/27/25 05:20
eGFR 21.94 07/27/25 05:20
Glucose 116 mg/dl (70-99) H 07/27/25 05:20
Calcium 8.9 mg/dl (8.4-10.2) 07/27/25 05:20
Albumin 3.0 g/dl (3.5-5.0) L 07/27/25 05:20
Physical Exam
General: Awake, No Distress and Nontoxic
HEENT: Conjunctivae Clear and Neck Supple
Respiratory: Normal Excursion, Nonlabored Respirations and Other (clear anteriorly)
Cardiac: S1/S2 and Other (tachycardia)
Breast: Deferred by me
Abdomen: Soft, Nontender and Other (distended)
Musculoskeletal: No Cyanosis and No Edema
Skin: No Rash
Neuro: Other (awake, known CP)
Psych: Other (unable to assess with pt condition of CP)
Data Reviewed
-
Labs: Labs Reviewed by me, Discussed with Physician and Discussed with Family
Assessment/Plan
-
Impression:
MARLENE
Hyperkalemia
Possible uremia
Non gap met acidosis
mild Hypernatremia
Anemia
Ascites
s/p PEG
CKD 4 with baseline creatinine of 1.3-1.7
Solitary right kidney
h/o Nephrolithiasis
Spina bifida/history of CLUB ATTENDANT shunt
Neurogenic bladder
Cognitive dysfunction
Plan:
MARLENE: no clear etiology possible could be prerenal based on clinical history
diarrhea, hypotension, chr tachycardia
UA with ?UTI, cystostomy sample , await for cx, check FEna and U eosinophils
US abd no hydro noted, hard to measure UOP
hyperkalemia and met acidosis is improving with bicarb IVF
not dialysis candidate with underlying CP and multiple comorbidities which family also agrees
we would cont supportive care and follow labs closely
likely to change IVF based on next lab
if no diarrhea, can try LOkelam for hyperkalemia
if no improvement in renal function or worsening hyperkalemia or uremia may chose comfort care per family
abx per primary, dose renally
BP improving slightly with IVF, remains tachy -chronic per family
suspect she may need paracentesis -d/w GI
will give albumin too
no clear etiology of ascites so far, felt to be chylous
follow hb-chr anemia, check fe panel
long d/w family at bedside -Mom, Father and sister
d/w primary and GI
CC time spent 45min
--- NOTE | 2025-07-27 11:31 | W.PN.HOSP.TC ---
Today's Communication/Plan
-
see plan
Assessment / Plan
Assessment / Plan
Ms. Petra Bond is a 50 yo woman with hx spina bifida with hydrocephalus, severe developmental delay, PEG tube placement (05/15/25), recurrent aspiration pneumonia, CKD III/IV,recent admission 06/26-07/04 for new ascites and SBP (chylous ascites,
followed at [facility]) brought to the ER for change in mentation, concern for discomfort. She was found to have MARLENE.
Abdominal US 07/26/25
IMPRESSION:
No sonographic evidence of cholelithiasis, acute cholecystitis or biliary duct dilation.
The right kidney appears echogenic which can be seen with medical renal disease. No hydronephrosis.
Moderate/large volume intra-abdominal ascites.
Recurrent Chylous ascites
SBP
-appreciate GI
-s/p paracentesis today; with albumin repletion
-check flow cytometry to evaluate for lymphoma
-continue IV Ceftriaxone
-follow up ascitic fluid cultures
-concern possible damage post PEG resulting in chylous ascites? appreciate GI
MARLENE on CKD IV
Hyperkalemia
Uremia
Metabolic Acidosis
- Admit for further evaluation and treatment.
- Cr 2.6 compared to known baseline of 1.5.
- Patient has solitary kidney s/p nephrectomy (for recurrent infection / reflux).
- no hydronephrosis noted in right kidney on US
- s/p insulin in ER, fluids and lasix
- IVFs with bicarb ordered.
- Nephrology consult appreciated
- Hold PPI for now.
- Appreciate Renal. Long GOC discussions had with family at bedside. they understand patient is not a dialysis candidate and with progressive kidney decline she may qualify for hospice. We will see how kidneys respond to fluids and albumin.
Spina Bifida with Hydrocephalus s/p MULE DRIVER Shunt
- Stable. Recently had PEG placed (April 2025) - prior to that was fed with supplemental feeds via bottle.
- Continue supportive care / repositioning / etc.
- Recent TRAFFIC MAINTENANCE SUPERVISOR imaging last admission was unremarkable.
DVT Prophylaxis: Subcut Heparin
Code Status: Full
51 minutes spent on patient care
Anticipated Discharge: > 48 hours
Subjective/Interval History
-
Date of Service: July 27, 2025
per family, patient stopped grimacing once fluid drained
Objective Data
-
Labs:
Laboratory Results
07/26/25 07/26/25 07/27/25
21:53 23:57 05:20
WBC 7.7
Hgb 9.5 L
Hct 28.4 L
Plt Count 602 H
Sodium 146 H
Potassium Cancelled 5.6 H 5.6 H
Chloride 113 H
Carbon Dioxide 22
BUN 156 H*
Creatinine 2.6 H
Glucose 116 H
Calcium 8.9
Total Bilirubin 0.2
AST 40 H
ALT 90 H
Alkaline Phosphatase 187 H
07/27/25
12:00
WBC
Hgb
Hct
Plt Count
Sodium Pending
Potassium Pending
Chloride Pending
Carbon Dioxide Pending
BUN Pending
Creatinine Pending
Glucose Pending
Calcium Pending
Total Bilirubin
AST
ALT
Alkaline Phosphatase
Vital Signs:
Vital Signs
Temp Pulse Resp BP Pulse Ox
99.7 F 137 14 111/85 96
07/27/25 11:25 07/27/25 11:25 07/27/25 11:25 07/27/25 11:25 07/27/25 11:25
Review of Systems
-
History Source: Patient
All other systems: Reviewed and negative
Physical Exam
-
General: No Apparent Distress and Appears Chronically Ill
HEENT: PERRLA and Other
Respiratory: Clear to Auscultation
Cardiac: Regular Rhythm and S1/S2
GI: Soft, Nontender and Other (PEG Tube)
Musculoskeletal: No Edema and Other (contractures )
Skin: Warm and Dry; Negative Rash
Neuro: Awake
Psych: Calm
Data Reviewed
-
Diagnostic Radiology: Report Reviewed by me
Labs: Labs Reviewed by me
[2025-07-27] MEDS: FLEXBUMIN 50 IV ×2 (13:37→15:23)
[2025-07-27 13:53] LABS: Body Fluid Second Tech CF
--- NOTE | 2025-07-27 14:55 | CM ---
CM received consult and reviewed chart. I met with pt's parents and sister bedside in ED.
Lives with parents, 2 story home, has ramps, first floor BR/full BA. She sleeps in a recliner, family has declined hospital bed in past.
Dependent in ADLs, personal care. Wheelchair bound. Has PEG with feedings and Vesicostomy, mother caths her. Tube feeding and ostomy supplies come from [facility]. Pt also has suction machine, nebulizer and chest percussion vest.
Her sister is paid caregiver, 6 hours a day Wednesday through Wednesday
Family interested in discussing hospice, I gave them a brief overview of hospice. They had concerns about people telling them what they can and cannot do and were no comfortable with discussing stopping tube feeds. Hospice referral sent via [facility] and I reached out to C[facility] to speak with family.
PCP: Shannon Freed
Pharmacy: [address]
CM will continue to follow for discharge planning needs.
[2025-07-27] MEDS: STERILE WATER FOR INJECTION 20 ML IV (15:20)
[2025-07-27] MEDS: ROCEPHIN 2000 MG IV (15:20)
[2025-07-27 15:53] LABS: Calcium 9.1 mg/dl (8.4-10.2); Carbon Dioxide 25 mmol/L (22-30); Chloride 110 mmol/L (98-107); Estimated Creatinine Clearance 15 ml/min; Glucose 96 mg/dl (70-99); Potassium 5.5 mmol/L (3.5-5.1); Sodium 145 mmol/L (135-145); eGFR 25.42
[2025-07-27 16:14] LABS: Blood Urea Nitrogen 156 mg/dl (7-17)
[2025-07-27] MEDS: FLEXBUMIN 100 IV (17:08)
--- NOTE | 2025-07-27 17:33 | PTCARENOTE ---
Pt. rec'd from ED approx [id number].
Plan of care explained to parents/sister bedside, questions answered agreed w. care plan.
See assessment notes for further details.
[2025-07-27] MEDS: LOKELMA 5 GRAM TUBE (18:29)
[2025-07-27] MEDS: 0.45%NACL 1000 IV (18:29)
--- NOTE | 2025-07-27 18:52 | W.PN.UPDATE ---
Update Note
Progress Note Update
Was alerted by nursing that patient's family reconsidered CODE STATUS and would prefer limited DNR with order to avoid CPR though okay to intubate. CODE STATUS changed in the system to reflect these wishes
--- NOTE | 2025-07-27 19:28 | PTCARENOTE ---
Family inquired to meaning of Purple DNR wrist band. Reiterated meaning and interventions that would not be performed with DNR status per families wishes previously discussed with attending. Pts family unsure at this time if they would not want
mechanical ventilation and expressed concerns. They expressed that they would not want CPR performed, but would be ok with Intubation.
[facility] hospitalist (Chris) notified of families confusion and concern over code status. Relayed to Dr. Perez that family would not want CPR but would accept intubation. See providers note for further details.
--- NOTE | 2025-07-27 20:00 | PTCARENOTE ---
Received pt from previous shift. Systems reviewed, see flowsheets. Pt is nonverbal. Pt's Mom and Dad at bedside providing support and care. Pt SaO2 99% on RA. ST on heart monitor. 0.45% NSS infusing at 50mL/hr. TFs running at 10mL/hr. Residuals
noted to be 35mL. Rate will be increased at 22:00 (q8h) until goal of 35mL/hr is reached. Pt's Mom to straight cath pt via vesicostomy and change diaper before going to sleep, per their home routine. Will continue to monitor.
[2025-07-28] VITALS (23 sets, daily range): BP systolic 86–102; BP diastolic 54–74; BMI 13.5
[2025-07-28 04:09] LABS: Hematocrit 25.4 % (37.0-47.0); Hemoglobin 8.2 g/dL (12.0-16.0); Mean Corp Hgb Conc. 32.3 g/dL (33.0-37.0); Mean Corpuscular Volume 92.7 fL (81.0-99.0); Nucleated Red Blood Cells % 0 %; Platelet Count 508 10^3/uL (130-400); Red Cell Dist. Width 13.8 % (11.5-14.5)
[2025-07-28 04:49] LABS: Blood Urea Nitrogen 132 mg/dl (7-17); Calcium 9.5 mg/dl (8.4-10.2); Carbon Dioxide 29 mmol/L (22-30); Chloride 110 mmol/L (98-107); Estimated Creatinine Clearance 12 ml/min; Glucose 122 mg/dl (70-99); Iron 57 ug/dl (37-170); Potassium 4.7 mmol/L (3.5-5.1); Sodium 149 mmol/L (135-145); Total Iron Binding Capacity 155 ug/dl (265-497); eGFR 20.97
[2025-07-28 05:02] LABS: Ferritin 190.0 ng/ml (6.24-137)
[2025-07-28] MEDS: HEPARIN 5000 UNITS SC ×2 (07:42→20:20)
--- NOTE | 2025-07-28 08:38 | W.PN.HOSP.TC ---
Today's Communication/Plan
-
continue IV Ceftriaxone, awaiting cultures
IV Albumin
Fluids per renal
increase FWF in TF
on hold with [facility] to work on transfer
Assessment / Plan
Assessment / Plan
Ms. Petra Bond is a 50 yo woman with hx spina bifida with hydrocephalus, severe developmental delay, PEG tube placement (05/15/25), recurrent aspiration pneumonia, CKD III/IV,recent admission 06/26-07/04 for new ascites and SBP (chylous ascites,
followed at [facility]) brought to the ER for change in mentation, concern for discomfort. She was found to have MARLENE and recurrent asites with finding of SBP
Abdominal US 07/26/25
IMPRESSION:
No sonographic evidence of cholelithiasis, acute cholecystitis or biliary duct dilation.
The right kidney appears echogenic which can be seen with medical renal disease. No hydronephrosis.
Moderate/large volume intra-abdominal ascites.
Recurrent Chylous ascites
SBP
-appreciate GI
-s/p paracentesis 07/27/25; with albumin repletion
-check flow cytometry to evaluate for lymphoma
-continue IV Ceftriaxone at 2G q 24 hours
-follow up ascitic fluid cultures
-concern possible damage post PEG resulting in chylous ascites? Appreciate GI - treatment may need IR intranodal lymphangiography with lymphatic embolization. This can be done at [facility] (per mother looked it up) versus [place] -
discussed with specialists and I will work on arranging transfer
-IV Albumin
MARLENE on CKD IV
Hyperkalemia
Uremia
Metabolic Acidosis
- Cr 2.6 compared to known baseline of 1.5.
- Patient has solitary kidney s/p nephrectomy (for recurrent infection / reflux).
- no hydronephrosis noted in right kidney on US
- s/p insulin in ER, fluids and lasix
- continue IVF per renal, K normalized
- Nephrology consult appreciated
- Hold PPI for now.
- Appreciate Renal.
- IV Albumin as above
Hypernatremia
-1/2 NS
-increase FWF per TF
GOC Discussions
-family understands that her renal decline may be life threatening and she is not a dialysis candidate. They want to speak to pole framer today but are not ready to sign on to hospice and want to look into treatment options first
Spina Bifida with Hydrocephalus s/p WASTE DUSTER Shunt
- Recently had PEG placed (April 2025) - prior to that was fed with supplemental feeds via bottle.
- Continue supportive care / repositioning / etc.
- Recent INTERNET SALES ASSOCIATE imaging last admission was unremarkable.
- TF resumed per dietary
DVT Prophylaxis: Subcut Heparin
Code Status: Full
51 minutes spent on patient care
Anticipated Discharge: > 48 hours
Subjective/Interval History
-
Date of Service: July 28, 2025
per patient's mom, she is more alert today
patient appears comfortable
Objective Data
-
Labs:
Laboratory Results
07/28/25
03:48
WBC 7.2
Hgb 8.2 L
Hct 25.4 L
Plt Count 508 H
Sodium 149 H
Potassium 4.7
Chloride 110 H
Carbon Dioxide 29
BUN 132 H*
Creatinine 2.7 H
Glucose 122 H
Calcium 9.5
Vital Signs:
Vital Signs
Temp Pulse Resp BP Pulse Ox
97.9 F 111 22 93/74 97
07/28/25 03:30 07/28/25 06:00 07/28/25 06:00 07/28/25 06:00 07/28/25 06:00
I&O
07/27/25 07/28/25 07/29/25
06:59 06:59 06:59
Intake Total 1135 / 1135
Output Total 50 / 50
Balance 1085 / 1085
Review of Systems
-
Unable to obtain full review of systems at this time due to: Patient Non-verbal
History Source: Patient
Physical Exam
-
General: No Apparent Distress and Appears Chronically Ill
HEENT: PERRLA and Other
Respiratory: Clear to Auscultation
Cardiac: Regular Rhythm and S1/S2
GI: Soft, Nontender and Other (PEG Tube)
Musculoskeletal: No Edema and Other (contractures )
Skin: Warm and Dry; Negative Rash
Neuro: Awake
Psych: Calm
Data Reviewed
-
Diagnostic Radiology: Report Reviewed by me
Labs: Labs Reviewed by me
--- NOTE | 2025-07-28 09:23 | PTCARENOTE ---
recd 0715 handoff with previous shift bedside. mother in room, updated on plan. Seen by Drs. Elizalde and Lynette, reviewing plan with family, considering transfer to [place] see MD notes. TF aspirated 50 ml, increased per MD orders to 30 ml/hr,
tolerating. pts mother straight cathed and pt incont mod/large amount urine. skin intact, home attends in place. IV infusing. oral care performed.
--- NOTE | 2025-07-28 10:40 | W.PN.UPDATE ---
Update Note
Progress Note Update
I spoke to Dr. Reeder, Hospitalist at [facility] and IR physician. Per IR, Dr. Eliel Addison does perform intranodal lymphangiography with embolization. This would not be done over the weekend, earlier transfer would be Wednesday. I am going to call [facility]
Transfer center again tomorrow to confirm that Dr. Addison is available to do this procedure this week. If he is then we will finalize transfer acceptance.
In meantime over weekend, we markel continue antibiotics, fluids, albumin and monitoring of renal function. Family updated.
[2025-07-28] MEDS: PREVACID 30 MG TUBE (10:52)
--- NOTE | 2025-07-28 11:09 | W.PN.NEPH.PH ---
Today's Communication / Plan
-
see plan
Assessment/Plan
-
Impression:
MARLENE
Hyperkalemia
Possible uremia
Non gap met acidosis
mild Hypernatremia
Anemia
Ascites
s/p PEG
CKD 4 with baseline creatinine of 1.3-1.7
Solitary right kidney
h/o Nephrolithiasis
Spina bifida/history of AEROSPACE MANAGER shunt
Neurogenic bladder
Cognitive dysfunction
Plan:
MARLENE likely prerenal from SBP, diarrhea GLOBAL CLINICAL LEADER
cr no sig change at 2.7, azotemia is improving to 132
U cx GN, await full report, pending U eosinophils
US abd no hydro noted, hard to measure UOP
hyperkalemia and met acidosis resolved
not dialysis candidate with underlying CP and multiple comorbidities which family also agrees
we would cont supportive care and follow labs closely
evolving hypernatremia-increase FWF to 50cc/hr, repeat labs later today, d/c 0.45NS
BP soft, remains tachy -chronic per family
s/p paracentesis-felt to be chyle and SBP, awaiting transfer to [place]
abx per primary, dose renally
will give albumin too
follow hb-chr anemia, adequate fe studies
d/w family at bedside -Mom, Father and sister
d/w primary and GI
d/w nursing
-
-
Date of Service: July 28, 2025
CC / HPI / ROS
-
Chief Complaint:
MARLENE, hypernatremia
History of Present Illness:
cr no csig change at 2.7, k normal 4.7
BP soft, tachy remains is chronic
hb low 8.2,
paracentesis 2.5lit-07/27
Review of Systems:
pt is non verbal baseline
no fever
toleratign TF
Labs
-
Labs:
WBC 7.2 10^3/uL (4.8-10.8) 07/28/25 03:48
RBC 2.74 10^6/uL (4.20-5.40) L 07/28/25 03:48
Hgb 8.2 g/dL (12.0-16.0) L 07/28/25 03:48
Hct 25.4 % (37.0-47.0) L 07/28/25 03:48
Plt Count 508 10^3/uL (130-400) H 07/28/25 03:48
Sodium 149 mmol/L (135-145) H 07/28/25 03:48
Potassium 4.7 mmol/L (3.5-5.1) 07/28/25 03:48
Chloride 110 mmol/L (98-107) H 07/28/25 03:48
Carbon Dioxide 29 mmol/L (22-30) 07/28/25 03:48
BUN 132 mg/dl (7-17) H* 07/28/25 03:48
Creatinine 2.7 mg/dL (0.6-1.0) H 07/28/25 03:48
eGFR 20.97 07/28/25 03:48
Glucose 122 mg/dl (70-99) H 07/28/25 03:48
Calcium 9.5 mg/dl (8.4-10.2) 07/28/25 03:48
Albumin 3.0 g/dl (3.5-5.0) L 07/27/25 05:20
Physical Exam
-
Vital Signs:
Vital Signs
Temp Pulse Resp BP Pulse Ox
97.9 F 110 18 97/68 97
07/28/25 08:00 07/28/25 09:00 07/28/25 09:00 07/28/25 09:00 07/28/25 09:00
Cardiovascular:: Regular rate and rhythm (tachy)
Respiratory:: Bilateral: CTA (anteriorly)
Lung Excursion:: Normal
Abdomen:: Nontender and Soft
Extremity Edema:: None: Bilateral:
Méndez Catheter: No
[2025-07-28] MEDS: FLEXBUMIN 50 IV ×2 (11:42→20:19)
--- NOTE | 2025-07-28 12:30 | W.PN.GI.CBS2 ---
Today's Communication / Plan
-
-- Albumin today
-- Transfer discussion
Assessment / Plan
-
50-year-old female past medical history of spina bifida (followed at [facility]), severe developmental delay, recurrent pneumonia, aspiration pneumonia, chronic iron deficiency anemia, solitary right kidney, chronic kidney disease stage
III/stage IV, nephrolithiasis, neurogenic bladder, chronic constipation, hydrocephalus status post HOT PIPE GAUGER shunt, recent PEG tube placement (05/15/2025) with recent PNA and aspiration and 2 week admission in [place], esophageal stenosis and Zenker's
diverticulum at [facility]. In review with family pt was noted with increased abdominal distention after tube feed was placed in April. She had recent admission with abdominal pain and ascites. She completed para 8 with + SBP. She
was treated with antibiotics and discharged on oral Cefdinir and repeat tap with improved cell counts but noted with chylous ascites. She as also noted with UTI -enterobacter cloacae and loculated left pleural effusion with questioned related to
ascites. She now returns with hypotension and fatigue with worsening tachycardia and recurrent distention. On admission noted with hbg 9.5, platelets 602, Na up to 146 after admit, K 6,4, cl 113, CO2 16, BUN 155, creat 2.6, bili 0.2, AST 51, ALT,
106, alk phos 215. albumin 3.2. She is also noted with constipation then diarrhea with tube feeds. EGD completed with peg but no colonoscopy in past.
06/27 para 1600m pink Chylous + SBP WBC 947 ,poly 73.5 protein 4.3 albumin 2.1 SAAG 1.2 cx neg
07/02 para 1350 [place] Chylous WBC 465 , poly 40.4, protein 3.7, albumin 1.7 cx neg
07/04- para 750 pink Chylous WBC 351, poly 19.7, protein 3.4, albumin 1.4 cx neg
06/27 TSH normal
07/26/25 US abdomen normal liver, no lesion, no cholelithiasis, acute cholecystitis, or biliary dilation, right kidney echogenic with med renal disease, mod to large ascites
06/30/25 tube check Contrast instilled through the patient's indwelling PEG tube outlines the stomach, confirming placement.
06/26/25 CT Abd/pel Without Iv Or Oral
Moderate/large volume ascites. Moderate left pleural effusion with associated passive atelectasis Percutaneous gastrostomy tube with tip terminating in the stomach.
There is diffuse urinary bladder wall thickening which extends to the umbilicus. Findings may represent cystitis. Consider correlation with urinalysis.
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
The uterus is mildly prominent and nodular in appearance, possibly secondary to uterine fibroids. Consider further evaluation with dedicated pelvic ultrasound.
-recurrent ascites -with prior chylous ascites on in June
-abdominal distention after peg placement
-recent SBP
-recent PNA with peg placement in April
-prior constipation now diarrhea
-tachycardia
-electrolyte imbalance -hyperkalemia,hypernatremia
-metabolic acidosis
-acute on chronic CKD solitary right kidney, chronic kidney disease stage III/stage IV/nephrolithiasis
-uterus possible fibroid per CT
-recent loculated effusion
-recent UTI
other med problems:
-spina bifida (followed at [facility]), severe developmental delay
-hx chronic iron deficiency anemia
-neurogenic bladder
-hydrocephalus status post HOT PIPE GAUGER shunt- no recent change in shunt
PLAN:
#chylous ascites
--Chylous ascites can be caused by infection, trauma, malignancy or potentially a complication after abdominal surgery. No signs of cirrhosis on labs or imaging
-- Triglycerides are consistent with chylous ascites including color described by IR
-- I have sent fluid for flow cytometry to look for lymphoma, adenosine deaminase to look for TB -this is pending
-- Gram stain pending but it was negative last month currently no growth
--Patient's urine culture shows gram-negative bacilli
-- I did review her imaging from last admission early June that was done without IV contrast that did not show any overt malignancy.
-- No known cirrhosis, echocardiogram did not show any right-sided heart failure
-- There is potential that it could be traumatic after PEG tube placement -sister and family did notice that the abdominal distention occurred just after discharge from [place] in April
-- treatment may need IR intranodal lymphangiography with lymphatic embolization (which she would have to be transferred to [place]) but other option is to decrease tube feeds to very low fat to see if that helps
-- Currently no significant reaccumulation on today's physical exam
-- I also discussed this with hepatology down at [place] who agree that she should be transferred
-- Dr. Ojeda called [place] earlier today and transfer would not occur until Wednesday. We also need to make sure the specific doctor and interventional radiology is available, Dr. Benitez Romero
# SBP -chylous ascites does not typically cause an elevated white blood cell count in the ascitic fluid it is usually lymphocyte predominant rather than neutrophil predominant
-- Ascitic fluid shows: PMN count is over 700, consistent with SBP, total protein 4.5, total albumin 2.1, triglycerides 222, serum albumin 3.0; with a SAG of 0.9 showing nonportal hypertension related ascites which is consistent with chylous ascites
versus peritonitis. Her amylase is not significantly elevated and therefore highly unlikely any type of ruptured viscus. This could be TB and therefore this EVMS was sent. It is not pancreatitis as her amylase is low. Consistent with chylous
-- Treat SBP with antibiotics getting ceftriaxone 2 g once daily, getting 1.5 g/kg of albumin today then on day 3 will need 25 g
-- Consider retapping her in a few days to ensure the white count is coming down -if she is still here on Wednesday would re tap on Wednesday
--So far no growth in the Gram stain
-- Patients with SBP are high risk for hepatorenal syndrome
--Generally SBP secondary prophylaxis is not recommended in noncirrhotic's
# Acute on chronic renal failure, appears baseline renal function is around 1.4 but her father will get me outpatient numbers. On admission 2.6 and today 2.3 --> 2.7
--Hopefully the albumin will help
-- Discussed with renal. Will give her higher doses of albumin and treat like HRS
Discussed everything with the family, RN, primary team and hepatology at [place] spent over 60 minutes
Subjective
Subjective
Date of Service: July 28, 2025
Discussion with family, patient is more awake and alert today
Objective
Data Reviewed
Laboratory Data:
Laboratory Results
07/28/25 03:48
Laboratory Results
Total Bilirubin 0.2 mg/dl (0.2-1.3) 07/27/25 05:20
AST 40 U/L (14-36) H 07/27/25 05:20
ALT 90 U/L (0-35) H 07/27/25 05:20
Alkaline Phosphatase 187 U/L (38-126) H 07/27/25 05:20
Vital Signs and I&O:
Vital Signs
Temp Pulse Resp BP Pulse Ox
97.8 F 110 18 97/68 97
07/28/25 11:15 07/28/25 09:00 07/28/25 09:00 07/28/25 09:00 07/28/25 09:00
I&O
07/27/25 07/28/25 07/29/25
06:59 06:59 06:59
Intake Total 1135 / 1135 190 / 190
Output Total 50 / 50
Balance 1085 / 1085 190 / 190
Physical Exam
Physical Exam
HEENT: Anicteric
GI: Soft, Non Distended and Other (PEG tube in place, cutaneous vesicostomy)
[2025-07-28] MEDS: STERILE WATER FOR INJECTION 20 ML IV (14:14)
[2025-07-28] MEDS: ROCEPHIN 2000 MG IV (14:15)
--- NOTE | 2025-07-28 14:26 | HOSPNOTE ---
Met with patients mother and father at bedside and provided Hospice Intro. Discussed hospice philosophy and hospice services and support provide; GIP vs Home hospice. All questions and concerns addressed. Family has decided to continue to seek
treatment but will notify Hospice when they are ready. Contact information provided.
--- NOTE | 2025-07-28 14:33 | PTCARENOTE ---
family bedside, updated throughout shift. Hospice in for conversation. Tube feeds continue, IV fluids capped.
[2025-07-28] MEDS: 0.45%NACL IV (15:47)
[2025-07-28 18:11] LABS: Blood Urea Nitrogen 132 mg/dl (7-17); Calcium 9.6 mg/dl (8.4-10.2); Carbon Dioxide 28 mmol/L (22-30); Chloride 111 mmol/L (98-107); Estimated Creatinine Clearance 12 ml/min; Glucose 117 mg/dl (70-99); Potassium 4.8 mmol/L (3.5-5.1); Sodium 148 mmol/L (135-145); eGFR 20.97
--- NOTE | 2025-07-28 18:24 | PTCARENOTE ---
labs obtained (warm blankets, family assistance, tough stick) and resulted. Dr. Brownlee updated.
--- NOTE | 2025-07-28 19:05 | PTCARENOTE ---
TF continues, FWF increased to 60 ml/hr as per Dr. Brownlee. aspirate volume 30 ml plus air prior to making the increase.
[2025-07-28] MEDS: TYLENOL ORAL SOLUTION 650 MG TUBE (20:28)
--- NOTE | 2025-07-28 22:19 | PTCARENOTE ---
Received pt resting in bed. Nonverbal at baseline. Mother and sister at bedside. Mother provides most of care for pt. but assistance provided as needed from staff. ST on tele, HR 100-120. BP 90-100/60s. Trace anasarca. Afebrile. On RA, spo2 96%.
Lungs dim. Hypoactive bowel sounds. PEG tube with osmo @ 20ml/hr with 60ml/hr h20 flush per orders. Tolerating well. Vesicostomy present - mother straight caths BID. Otherwise, incontinence from vesicostomy and diapers from home changed as needed.
Clear yellow urine. R FA IV infiltrated. New R UA #20 inserted by ultrasound. Pt. moaning at times, which mother reports usually happens around when pt. starts menstruating- tylenol given.
[2025-07-29] VITALS (12 sets, daily range): BP systolic 94–118; BP diastolic 63–88; BMI 14.3
[2025-07-29] MEDS: FLEXBUMIN 50 IV (04:11)
[2025-07-29 04:49] LABS: Hematocrit 28.5 % (37.0-47.0); Hemoglobin 9.3 g/dL (12.0-16.0); Mean Corp Hgb Conc. 32.6 g/dL (33.0-37.0); Mean Corpuscular Volume 94.1 fL (81.0-99.0); Platelet Count 449 10^3/uL (130-400); Red Cell Dist. Width 13.6 % (11.5-14.5)
[2025-07-29 05:22] LABS: Blood Urea Nitrogen 124 mg/dl (7-17); Calcium 9.6 mg/dl (8.4-10.2); Carbon Dioxide 26 mmol/L (22-30); Chloride 109 mmol/L (98-107); Estimated Creatinine Clearance 13 ml/min; Glucose 109 mg/dl (70-99); Magnesium 3.0 mg/dl (1.6-2.3); Potassium 4.7 mmol/L (3.5-5.1); Sodium 146 mmol/L (135-145); eGFR 21.94
--- NOTE | 2025-07-29 08:00 | PTCARENOTE ---
recd 0730 sleeping, assessment performed. decreased breath sounds but clear. restless at times, less moaning than yesterday. mother (bedside) Tammie notes pt slept fairly well. skin care, attends changed. PEG tube maintained, tube feeds infusing
as ordered, residuals noted, see intervention.
[2025-07-29] MEDS: PREVACID 30 MG TUBE (08:13)
[2025-07-29] MEDS: HEPARIN 5000 UNITS SC ×2 (08:13→19:54)
--- NOTE | 2025-07-29 08:37 | W.PN.HOSP.TC ---
Addendum entered and electronically signed by Lisa Ojeda MD 07/29/25 09:38:
Enterobacter growing in urine sample. Given hx vesicostomy, patient with colonization. I will continue Ceftriaxone for treatment of possible SBP. No need to change antibiotics.
Addendum entered and electronically signed by Lisa Ojeda MD 07/29/25 09:12:
PICC ordered as patient has very poor IV access and needs frequent lab draws and IV administration
Original Note:
Today's Communication/Plan
-
awaiting transfer to [place] --> transfer forms are signed and given to community support associate including buy back agreement
continue fluids, albumin
appreciate Nephrology and Gastroenterology
Assessment / Plan
Assessment / Plan
Ms. Petra Bond is a 50 yo woman with hx spina bifida with hydrocephalus, severe developmental delay, PEG tube placement (05/15/25), recurrent aspiration pneumonia, CKD III/IV,recent admission 06/26-07/04 for new ascites and SBP (chylous ascites,
followed at [facility]) brought to the ER for change in mentation, concern for discomfort. She was found to have acute on chronic kidney disease and recurrent ascites with fluid analysis suggestive of SBP.
Abdominal US 07/26/25
IMPRESSION:
No sonographic evidence of cholelithiasis, acute cholecystitis or biliary duct dilation.
The right kidney appears echogenic which can be seen with medical renal disease. No hydronephrosis.
Moderate/large volume intra-abdominal ascites.
Recurrent Chylous ascites
SBP with PMN 768
-appreciate GI, ascites classified as chylous. She has no e/o cirrhosis. Elevated TG level in ascitic fluid and color described by IR consistent. Given abdominal distention started post PEG placement, concern raised for injury/trauma during
procedure. Other work up for etiology on-going with flow cytometry (on ascites fluid) ordered to evaluate for lymphoma and adenosine deaminase to look for TB
-s/p paracentesis 07/27/25; with albumin repletion
-PMN> 250 - continue IV Ceftriaxone at 2G q 24 hours; gram stain neg and culture without growth
-follow up ascitic fluid cultures
-Per discussion with GI - treatment for chylous ascites may need IR intranodal lymphangiography with lymphatic embolization. This can be done at [facility] by Dr. Eliel Addison. Accepted by hospitalist service, Dr. Reeder, and plan is for transfer to [facility]
tomorrow
MARLENE on CKD IV
Hyperkalemia
Uremia
Metabolic Acidosis
- Cr 2.6 compared to known baseline of 1.5.
- Patient has solitary kidney s/p nephrectomy (for recurrent infection / reflux).
- no hydronephrosis noted in right kidney on US
- s/p insulin in ER, fluids and lasix, s/p 1 dose Lokelma, K now normalized
- continue IVF per renal
- Nephrology consult appreciated
- continue IV albumin
Hypernatremia
-1/2 NS
-increase FWF per TF
GOC Discussions
-family understands that her renal decline may be life threatening and she is not a dialysis candidate. Hospice talks were initiated at beginning of admission, but they want to try all options including procedure to help ascites. They may be
interested in palliative care. Patient is limited DNR (no CPR)
Spina Bifida with Hydrocephalus s/p ANIMAL ASSISTANT Shunt
- Recently had PEG placed (April 2025) - prior to that was fed with supplemental feeds via bottle.
- Continue supportive care / repositioning / etc.
- Recent POLE TRUCK DRIVER imaging last admission was unremarkable.
- TF resumed per dietary
DVT Prophylaxis: Subcut Heparin
Code Status: Full
51 minutes spent on patient care
Anticipated Discharge: 24 - 48 hours
Subjective/Interval History
-
Date of Service: July 29, 2025
no new issues overnight except difficulty with IV access
Objective Data
-
Labs:
Laboratory Results
07/29/25
04:25
WBC 6.7
Hgb 9.3 L
Hct 28.5 L
Plt Count 449 H
Sodium 146 H
Potassium 4.7
Chloride 109 H
Carbon Dioxide 26
BUN 124 H*
Creatinine 2.6 H
Glucose 109 H
Calcium 9.6
Vital Signs:
Vital Signs
Temp Pulse Resp BP Pulse Ox
97.8 F 98 23 110/78 99
07/29/25 08:06 07/29/25 06:16 07/29/25 06:16 07/29/25 06:16 07/29/25 06:16
I&O
07/28/25 07/29/25 07/30/25
06:59 06:59 06:59
Intake Total 1135 / 1135 1964
Output Total 50 / 50
Balance 1085 / 1085 1964
Review of Systems
-
History Source: Patient
All other systems: Reviewed and negative
Physical Exam
-
General: No Apparent Distress and Appears Chronically Ill
HEENT: PERRLA and Other
Respiratory: Clear to Auscultation
Cardiac: Regular Rhythm and S1/S2
GI: Soft, Nontender and Other (PEG Tube)
Musculoskeletal: No Edema and Other (contractures )
Skin: Warm and Dry; Negative Rash
Neuro: Awake
Psych: Calm
Data Reviewed
-
Diagnostic Radiology: Report Reviewed by me
Labs: Labs Reviewed by me
[2025-07-29] MEDS: 0.45%NACL IV (11:19)
--- NOTE | 2025-07-29 11:20 | W.PN.NEPH.PH ---
Today's Communication / Plan
-
adjust FWF based on repeat labs
Assessment/Plan
-
Impression:
MARLENE
Hyperkalemia
Possible uremia
Non gap met acidosis
mild Hypernatremia
Anemia
Ascites
s/p PEG
CKD 4 with baseline creatinine of 1.3-1.7
Solitary right kidney
h/o Nephrolithiasis
Spina bifida/history of SPEEDBOAT OPERATOR shunt
Neurogenic bladder
Cognitive dysfunction
Plan:
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
cr no sig change at 2.6, azotemia is improving to 124
U cx Enterobacter, U eosinophils-need to collect
US abd no hydro noted, hard to measure UOP
hyperkalemia and met acidosis resolved
not dialysis candidate with underlying CP and multiple comorbidities which family also agrees
we would cont supportive care and follow labs closely
improving hypernatremia-increase FWF to 60cc/hr, remain off IVF as wt increasing
BP stable, remains tachy -chronic per family
s/p paracentesis-felt to be chyle and SBP, awaiting transfer to [place] tomorrow
abx per primary, dose renally
completed albumin too
follow hb-chr anemia, adequate fe stores
d/w family at bedside -Mom, Father
d/w nursing
-
-
Date of Service: July 29, 2025
CC / HPI / ROS
-
Chief Complaint:
MARLENE, hypernatremia
History of Present Illness:
cr no csig change at 2.6.
BP stable, tachy remains is chronic
hb better at 9.3
paracentesis 2.5lit-07/27
U form cystostomy-not measured but soaking depends noramlly
Review of Systems:
pt is non verbal baseline
no fever
toleratign TF
moaning frequently-family reports it is about the time of her menstrual cycle
Labs
-
Labs:
WBC 6.7 10^3/uL (4.8-10.8) 07/29/25 04:25
RBC 3.03 10^6/uL (4.20-5.40) L 07/29/25 04:25
Hgb 9.3 g/dL (12.0-16.0) L 07/29/25 04:25
Hct 28.5 % (37.0-47.0) L 07/29/25 04:25
Plt Count 449 10^3/uL (130-400) H 07/29/25 04:25
Sodium 146 mmol/L (135-145) H 07/29/25 04:25
Potassium 4.7 mmol/L (3.5-5.1) 07/29/25 04:25
Chloride 109 mmol/L (98-107) H 07/29/25 04:25
Carbon Dioxide 26 mmol/L (22-30) 07/29/25 04:25
BUN 124 mg/dl (7-17) H* 07/29/25 04:25
Creatinine 2.6 mg/dL (0.6-1.0) H 07/29/25 04:25
eGFR 21.94 07/29/25 04:25
Glucose 109 mg/dl (70-99) H 07/29/25 04:25
Calcium 9.6 mg/dl (8.4-10.2) 07/29/25 04:25
Albumin 3.0 g/dl (3.5-5.0) L 07/27/25 05:20
Physical Exam
-
Vital Signs:
Vital Signs
Temp Pulse Resp BP Pulse Ox
97.8 F 109 24 118/88 99
07/29/25 08:06 07/29/25 08:00 07/29/25 08:00 07/29/25 08:00 07/29/25 08:00
Cardiovascular:: Regular rate and rhythm (tachy)
Respiratory:: Bilateral: CTA (anteriorly)
Lung Excursion:: Normal
Abdomen:: Nontender and Soft
Extremity Edema:: None: Bilateral:
Méndez Catheter: No
--- NOTE | 2025-07-29 11:58 | PTCARENOTE ---
urine obtained cath via vesicostomy by pts mother, sent to lab as ordered. VS remain stable. repositioned, oral care ongoing.
--- NOTE | 2025-07-29 12:37 | W.PN.GI.CBS2 ---
Today's Communication / Plan
-
-- Transfer to [place] tomorrow
-- If patient is still here repeat paracentesis on Wednesday to ensure cell count is improving
-- Discussed with family at bedside
Assessment / Plan
-
50-year-old female past medical history of spina bifida (followed at [facility]), severe developmental delay, recurrent pneumonia, aspiration pneumonia, chronic iron deficiency anemia, solitary right kidney, chronic kidney disease stage
III/stage IV, nephrolithiasis, neurogenic bladder, chronic constipation, hydrocephalus status post FIELD ADMINISTRATOR shunt, recent PEG tube placement (05/15/2025) with recent PNA and aspiration and 2 week admission in [place], esophageal stenosis and Zenker's
diverticulum at [facility]. In review with family pt was noted with increased abdominal distention after tube feed was placed in April. She had recent admission with abdominal pain and ascites. She completed para 06/27 with + SBP. She
was treated with antibiotics and discharged on oral Cefdinir and repeat tap with improved cell counts but noted with chylous ascites. She as also noted with UTI -enterobacter cloacae and loculated left pleural effusion with questioned related to
ascites. She now returns with hypotension and fatigue with worsening tachycardia and recurrent distention. On admission noted with hbg 9.5, platelets 602, Na up to 146 after admit, K 6,4, cl 113, CO2 16, BUN 155, creat 2.6, bili 0.2, AST 51, ALT,
106, alk phos 215. albumin 3.2. She is also noted with constipation then diarrhea with tube feeds. EGD completed with peg but no colonoscopy in past.
06/27 para 1600m pink Chylous + SBP WBC 947 ,poly 73.5 protein 4.3 albumin 2.1 SAAG 1.2 cx neg
07/02 para 1350 [place] Chylous WBC 465 , poly 40.4, protein 3.7, albumin 1.7 cx neg
07/04- para 750 pink Chylous WBC 351, poly 19.7, protein 3.4, albumin 1.4 cx neg
06/27 TSH normal
07/26/25 US abdomen normal liver, no lesion, no cholelithiasis, acute cholecystitis, or biliary dilation, right kidney echogenic with med renal disease, mod to large ascites
06/30/25 tube check Contrast instilled through the patient's indwelling PEG tube outlines the stomach, confirming placement.
06/26/25 CT Abd/pel Without Iv Or Oral
Moderate/large volume ascites. Moderate left pleural effusion with associated passive atelectasis Percutaneous gastrostomy tube with tip terminating in the stomach.
There is diffuse urinary bladder wall thickening which extends to the umbilicus. Findings may represent cystitis. Consider correlation with urinalysis.
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
The uterus is mildly prominent and nodular in appearance, possibly secondary to uterine fibroids. Consider further evaluation with dedicated pelvic ultrasound.
-recurrent ascites -with prior chylous ascites on in June
-abdominal distention after peg placement
-recent SBP
-recent PNA with peg placement in April
-prior constipation now diarrhea
-tachycardia
-electrolyte imbalance -hyperkalemia,hypernatremia
-metabolic acidosis
-acute on chronic CKD solitary right kidney, chronic kidney disease stage III/stage IV/nephrolithiasis
-uterus possible fibroid per CT
-recent loculated effusion
-recent UTI
other med problems:
-spina bifida (followed at [facility]), severe developmental delay
-hx chronic iron deficiency anemia
-neurogenic bladder
-hydrocephalus status post FIELD ADMINISTRATOR shunt- no recent change in shunt
PLAN:
#chylous ascites
--Chylous ascites can be caused by infection, trauma, malignancy or potentially a complication after abdominal surgery. No signs of cirrhosis on labs or imaging
-- Triglycerides are consistent with chylous ascites including color described by IR
-- I have sent fluid for flow cytometry to look for lymphoma, adenosine deaminase to look for TB -this is pending
-- Gram stain pending but it was negative last month currently no growth
--Patient's urine culture shows gram-negative bacilli, but she is likely colonized chronically
-- I did review her imaging from last admission early June that was done without IV contrast that did not show any overt malignancy.
-- No known cirrhosis, echocardiogram did not show any right-sided heart failure
-- There is potential that it could be traumatic after PEG tube placement -sister and family did notice that the abdominal distention occurred just after discharge from [place] in April
-- treatment may need IR intranodal lymphangiography with lymphatic embolization (which she would have to be transferred to [place]) but other option is to decrease tube feeds to very low fat to see if that helps
--Appreciate nutrition helping with lower fat tube feeds
-- Currently no significant reaccumulation on today's physical exam
-- I also discussed this with hepatology down at [place] who agree that she should be transferred on 07/28/25 (Mary)
-- Dr. Ojeda called [place] -awaiting transfer Wednesday. We also need to make sure the specific doctor and interventional radiology is available, Dr. Benitez Romero
# SBP -chylous ascites does not typically cause an elevated white blood cell count in the ascitic fluid it is usually lymphocyte predominant rather than neutrophil predominant
-- Ascitic fluid shows: PMN count is over 700, consistent with SBP, total protein 4.5, total albumin 2.1, triglycerides 222, serum albumin 3.0; with a SAG of 0.9 showing non-portal hypertension related ascites which is consistent with chylous
ascites versus peritonitis. Her amylase is not significantly elevated and therefore highly unlikely any type of ruptured viscus. This could be TB and therefore adenosine deaminase was sent. It is not pancreatitis as her amylase is low.
Consistent with chylous
-- Treat SBP with antibiotics getting ceftriaxone 2 g once daily, getting 1.5 g/kg of albumin today then on day 3 will need 25 g -we are giving her higher doses of albumin daily
-- Will put her in for a paracentesis tomorrow to ensure WBCs are improving
--So far no growth in the Gram stain
-- Patients with SBP are high risk for hepatorenal syndrome
--Generally SBP secondary prophylaxis is not recommended in noncirrhotic's
# Acute on chronic renal failure, appears baseline renal function is around 1.4 but her father will get me outpatient numbers. On admission 2.6 and 2.3 --> 2.7 --> 2.6
--Hopefully the albumin will help
-- Discussed with renal. Will give her higher doses of albumin and treat like HRS
Discussed everything with the family, RN
Subjective
Subjective
Date of Service: July 29, 2025
No significant changes overnight
Objective
Data Reviewed
Laboratory Data:
Laboratory Results
07/29/25 04:25
Laboratory Results
Magnesium 3.0 mg/dl (1.6-2.3) H 07/29/25 04:25
Total Bilirubin 0.2 mg/dl (0.2-1.3) 07/27/25 05:20
AST 40 U/L (14-36) H 07/27/25 05:20
ALT 90 U/L (0-35) H 07/27/25 05:20
Alkaline Phosphatase 187 U/L (38-126) H 07/27/25 05:20
Vital Signs and I&O:
Vital Signs
Temp Pulse Resp BP Pulse Ox
98.5 F 109 24 118/88 99
07/29/25 11:00 07/29/25 08:00 07/29/25 08:00 07/29/25 08:00 07/29/25 08:00
I&O
07/28/25 07/29/25 07/30/25
06:59 06:59 06:59
Intake Total 1135 / 1135 1964 80 / 80
Output Total 50 / 50
Balance 1085 / 1085 1964 80 / 80
Physical Exam
Physical Exam
HEENT: Anicteric
Cardiology: Other (Mildly tachycardic)
GI: Soft and Other (No significant fluid wave, PEG in place, cutaneous vesicostomy present)
[2025-07-29 12:51] LABS: Body Fluid for Eosinophils No Eosinophils seen
[2025-07-29] MEDS: ROCEPHIN 2000 MG IV (13:13)
[2025-07-29] MEDS: STERILE WATER FOR INJECTION 20 ML IV (13:13)
[2025-07-29] MEDS: TYLENOL ORAL SOLUTION 650 MG TUBE ×3 (13:13→21:22)
--- NOTE | 2025-07-29 14:56 | W.PN.UPDATE ---
Update Note
Progress Note Update
Ms. Petra Bond is a 50 yo woman with hx spina bifida with hydrocephalus, severe developmental delay (nonverbal at baseline), PEG tube placement (05/15/25), recurrent aspiration pneumonia, solitary kidney, CKD III/IV,recent admission 06/26-07/04 for
new ascites and SBP (chylous ascites, followed at [facility]) brought to the ER for change in mentation, concern for discomfort.
Triage VS with tachycardia, stable blood pressure. Labs with progressive renal failure with BUN 155, Cr 2.6 (baseline 1.4) and K+ 6.4. Exam notable for ascites. CXR with bilateral pleural effusion and likely atelectasis. Abdomen US without
hydronephrosis of right kidney and moderate/large volume ascites.
Patient was admitted to medicine with Nephrology consulting for progressive renal failure and GI consulting for ascites. IR was consulted and she is s/p paracentesis HD 1 with improvement in heart rate following procedure. Ascitic fluid with
elevated PMN raising concern for SBP and she was continued on IV Ceftriaxone at SBP dosing (2G q 24 hours); gram stain remains negative and culture without growth.
Per GI Evaluation, given timing of ascites post PEG and ascitic fluid characteristics, concern raised for chylous ascites and treatment option could include IR intranodal lymphangiography with lymphatic embolization. Patient is accepted at [facility] for
this procedure. Per transfer center, plan is to confirm on Wednesday morning that physician who performs this procedure can do so this week.
Regarding renal failure, family aware that patient is not a dialysis candidate. She is receiving gentle fluids, albumin with mild improvement in BUN. She is continuing to produce urine. Family aware that despite these interventions, her renal
function may continue to decline which would be life threatening. Patient's code status changed from Full code to DNR, with intubation OK.
IMAGING:
CXR 07/26/25
IMPRESSION:
Low lung volumes with mild interstitial opacification which may be secondary to hypoventilatory change, mild interstitial edema or atypical infection.
Moderate left-sided pleural effusion with a small right-sided pleural effusion and associated bibasilar airspace opacities could represent atelectasis, less likely pneumonia.
Likely intra-abdominal ascites.
Abdomen US 07/26/25
IMPRESSION:
No sonographic evidence of cholelithiasis, acute cholecystitis or biliary duct dilation.
The right kidney appears echogenic which can be seen with medical renal disease. No hydronephrosis.
Moderate/large volume intra-abdominal ascites.
--- NOTE | 2025-07-29 16:52 | PTCARENOTE ---
PICC inserted, CXR results noted. pt restless, family attending her, positioned for comfort.
[2025-07-29 17:33] LABS: Calcium 9.5 mg/dl (8.4-10.2); Carbon Dioxide 25 mmol/L (22-30); Chloride 105 mmol/L (98-107); Estimated Creatinine Clearance 13 ml/min; Glucose 128 mg/dl (70-99); Potassium 4.4 mmol/L (3.5-5.1); Sodium 142 mmol/L (135-145); eGFR 21.94
[2025-07-29 17:44] LABS: Blood Urea Nitrogen 115 mg/dl (7-17)
--- NOTE | 2025-07-29 18:41 | PTCARENOTE ---
vomited small amount tube feeds, approx 100 ml. Will pause tf 30 minutes, parents/family bedside, explained plan, HOB up, turned slightly to side, some reverse trendelenberg to facilitate GI drainage. Oral care. not wretching or otherwise
appearing in distress.
--- NOTE | 2025-07-29 20:27 | PTCARENOTE ---
Received pt resting in bed. Nonverbal at baseline. Mother and sister at bedside. Mother provides most of care for pt. but assistance provided as needed from staff. ST on tele, HR 100s. BP 100s/60s. Trace anasarca. Afebrile. On RA, spo2 96%. Lungs
dim. Hypoactive bowel sounds. PEG tube with osmo @ 20ml/hr with 60ml/hr h20 flush per orders. Vomited on dayshift small amt - no vomit on this shift. Vesicostomy present - mother straight caths BID. Otherwise, incontinence from vesicostomy and
diapers from home changed as needed. Clear yellow urine. R DL PICC and L FA #22 present. Pt. moaning at times, which mother reports usually happens around when pt. starts menstruating. Will given tylenol when able. Warm blankets applied.
Cannot verify vitals captured prior to 1900.
[2025-07-30] VITALS (15 sets, daily range): BP systolic 84–108; BP diastolic 56–87; BMI 15.1
[2025-07-30] MEDS: TYLENOL ORAL SOLUTION 650 MG TUBE (01:23)
[2025-07-30 04:26] LABS: Hematocrit 24.7 % (37.0-47.0); Hemoglobin 8.0 g/dL (12.0-16.0); Mean Corp Hgb Conc. 32.4 g/dL (33.0-37.0); Mean Corpuscular Volume 94.3 fL (81.0-99.0); Nucleated Red Blood Cells % 0 %; Platelet Count 434 10^3/uL (130-400); Red Cell Dist. Width 13.4 % (11.5-14.5)
[2025-07-30 04:48] LABS: Calcium 9.6 mg/dl (8.4-10.2); Carbon Dioxide 22 mmol/L (22-30); Chloride 103 mmol/L (98-107); Estimated Creatinine Clearance 13 ml/min; Glucose 160 mg/dl (70-99); Potassium 3.9 mmol/L (3.5-5.1); Sodium 138 mmol/L (135-145); eGFR 21.94
[2025-07-30 05:00] LABS: Blood Urea Nitrogen 116 mg/dl (7-17)
--- NOTE | 2025-07-30 07:30 | PTCARENOTE ---
Received patient awake and nonverbal at baseline, on RA, ST, BP WNL, PEG in place, Osmolite feeding infusing @20mL/hr with Water Flush, GI/ incontinent, Mom at bedside providing direct patient care, potential transfer to [facility] for HLOC today.
[2025-07-30] MEDS: PREVACID 30 MG TUBE (09:13)
[2025-07-30] MEDS: HEPARIN 5000 UNITS SC ×2 (09:14→20:21)
[2025-07-30] MEDS: FLEXBUMIN 50 IV (09:26)
[2025-07-30 10:38] LABS: Urine Character Clear (Clear)
[2025-07-30 11:06] LABS: Body Fluid Second Tech HB
[2025-07-30 11:13] LABS: Urine Squamous Cell 26-30 /LPF (Few)
[2025-07-30 11:14] LABS: Urine White Cell 40-50 /HPF (0-5)
[2025-07-30] MEDS: FLEXBUMIN 100 IV ×2 (12:13→20:16)
--- NOTE | 2025-07-30 12:30 | PTCARENOTE ---
Patient vomited right after Prosource given, notified GI Dr. Elizalde and Dietitian, discontinued supplement.
--- NOTE | 2025-07-30 12:51 | CON.ID ---
Consultation
-
Date/Time Consultation Requested: 07/30/25 12:37
Date/Time Consultation Performed: 07/30/25 12:54
Requesting Provider: Dr Kirby
Performing Provider: Dr Cuello
Reason for Consultation: chylous ascites, possible SBP
Chief Complaint / Past History
Chief Complaint
AMS
History of Present Illness
Ms Bond is a 50 year old female with history of spina bifida and hydrocephalus, vesicostomy with DIRECTOR OF RECRUITMENT shunt, CKD III/IV, chronic constipation who presented here on 07/26 for behavioral change. Note that she recently developed ascites last month
after placement of a G-tube at [place]. She was admitted here 06/26-07/04 and underwent paracentesis x3, SBP was suspected and she was treated with ceftriaxone and flagyl; he WBC count improved from 662 to 70, antibiotics were discontinued and she was
discharged. Cultures were negative and cytology was unremarkable. GI recommended follow-up at [facility] for ascites of unclear etiology.
Since she returned home, mother has been measuring the patient's abdomen and has not appreciated any significant increase in size. Patient continues to produce normal amount of urine (Diapers are saturated. Mother notes that the patient has been
drooling and making grunting noises as she does when uncomfortable. She was described to have chronic diarrhea. They were seen by the PCP on the day of admission and it was noted that patient's BP was in the 80s. She was sent to the ED for
further evaluation.
In the ER and since she has been afebrile, bp initially hypotensive and she was admitted to the ICU. Her course has been notable for MARLENE. She is currently planned for transfer to [facility] for possible IR intranodal lymphangiography with lymphatic
embolization. The cause of her ascites is unclear at this time though it appears to be acute. 06/26/25 CT scan without oral or IV contrast did not show pelvic or retroperitoneal lymphadenopathy; liver was unremarkable at that time
Past History
Additional Past Medical History:
CKD stage IV
Solitary right kidney
Ascites of unclear origin
Nephrolithiasis
Spina bifida/history of DIRECTOR OF RECRUITMENT shunt
Neurogenic bladder
Cognitive dysfunction
Nonverbal
Dysphagia status post PEG tube placement
Anemia
Chronic constipation
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
Additional Past Surgical History:
Status post nephrectomy
Status post DIRECTOR OF RECRUITMENT shunt
Status post meningocele repair
Status post cutaneous vesicostomy
Status post bilateral mastectomy
Status post hematoma removal
Allergy History:
iron dextran complex Allergy (Verified 06/26/25 22:42)
Hypotension, skin flushing
latex Allergy (Verified 06/26/25 20:45)
Unknown
potassium chloride Allergy (Verified 06/26/25 20:45)
Unknown
Medications Reviewed: Yes
Social History
Tobacco: Non-Smoker
Alcohol: None
Drug: None
Living: With Family
Family History
Family History: Not Pertinent
Review of Systems
Review of Systems
Unable to obtain due to the condition of the patient
Vital Signs
Temp Pulse Resp BP Pulse Ox
97.8 F 99 15 101/65 100
07/30/25 12:47 07/30/25 10:00 07/30/25 10:00 07/30/25 10:00 07/30/25 10:00
Physical Exam
Physical Exam
Constitutional: No Acute Distress, Chronically Ill (groaning periodically) and Cachetic
Head: Other (neck supple, no photophobia)
Cardiovascular: Regular Rate and S1/S2; Negative Murmur or Rub
Pulmonary: Clear and Symmetric; Negative Wheezes, Rales or Rhonchi
Gastrointestinal: Soft, Non Tender, Non Distended, Normal Bowel Sounds and Other (PEG tube no surrounding erythema or fluctuance)
Genito-Urinary: Other (vesicostomy not catheterized chronically)
Skin: Warm and Dry; Negative Rash or Jaundice
Neurological: Awake and Alert
Psychological: Calm
Lab / Diagnostic Study Results
07/30/25 04:03
07/30/25 04:03
Abs Immat Gran (auto) 0.0 10^3/uL (0-0.05) 07/30/25 04:03
Absolute Neuts (auto) 6.1 10^3/uL (1.4-6.5) 07/30/25 04:03
Absolute Lymphs (auto) 0.6 10^3/uL (1.2-3.4) L 07/30/25 04:03
Absolute Monos (auto) 0.8 10^3/uL (0.1-0.6) H 07/30/25 04:03
Absolute Basos (auto) 0.0 10^3/uL (0-0.2) 07/30/25 04:03
Immature Gran % 0.5 % (0-0.5) 07/30/25 04:03
Neutrophils % 76.9 % (42.2-75.2) H 07/30/25 04:03
Lymphocytes % 8.0 % (20.5-51.1) L 07/30/25 04:03
Monocytes % 9.4 % (1.7-9.3) H 07/30/25 04:03
Eosinophils % 4.9 % (0-6) 07/30/25 04:03
Basophils % 0.3 % (0-2) 07/30/25 04:03
Lactic Acid < 0.5 mmol/L (0.7-2.0) L 07/26/25 16:36
Urine WBC 40-50 /HPF (0-5) A 07/30/25 10:18
Ur Squamous Epith Cells 26-30 /LPF (Few) 07/30/25 10:18
Microbiology Results
Micro:
07/30/25 08:38 Body Fluid Culture - Pending
Peritoneal Fluid Gram Stain - Pending
07/27/25 12:10 Body Fluid Culture - Final
Peritoneal Fluid No Growth After 72 Hours
Gram Stain - Final
07/26/25 17:41 Blood Culture - Preliminary
Blood/Venous No Growth in 72 hours- Final report to follow
07/26/25 16:35 Blood Culture - Preliminary
Blood/Venous No Growth in 72 hours- Final report to follow
07/26/25 23:57 Urine Culture - Final
Urine Enterobacter cloacae
07/27/25 15:08 MRSA Screen - Final
Nose No Methicillin Resistant Staphylococcus aureus isolated.
07/26/25 15:58 Influenza Types A & B ([facility]) - Final
Nasal Swab Negative for Influenza A & B, NAAT
Negative results must be combined with clinical observations
and patient history.
Nucleic Acid Amplification test (NAAT)performed on the
[employer] platform.
Urine Culture Final 07/29/25-929
CC: Greater than 100,000 CFU/ML Enterobacter cloacae
Organism 1 Enterobacter cloacae
1. Enterobacter cloacae
M.I.C. RX
--------- ---
Amoxicillin/Potas. Clavulanate >16/8 R
Ampicillin >16 R
Ampicillin/Sulbactam >16/8 R
Aztreonam <=4 S
Cefazolin >16 R
Cefepime <=2 S
Ceftazidime 4 S
Ceftriaxone >2 R
Ertapenem <=0.5 S
Ciprofloxacin <=0.25 S
Gentamicin <=2 S
Meropenem <=1 S
Nitrofurantoin-Urine Only 64 I
Piperacillin/Tazobactam <=8 S
Tetracycline <=4 S
Tobramycin <=2 S
Trimethoprim/Sulfamethoxazole <=2/38 S
Assessment / Plan
SBP
Colonization with MDRO Enterobacter
Chylous Ascites
DIRECTOR OF RECRUITMENT shunt
Vesicostomy
FTT/cachexia
AMS
- etiology of chylous ascites is not clear to me and may impact disposition/management; ID causes would include TB (no known contacts, FRANK in the setting of AIDS (unlikely, family report they are with her constantly), Whipple disease (unlikely given
previous dx of chronic constipation); filariasis not found in the [place]. Would pursue workup of noninfectious possible causes which might be best done at a tertiary care center. When last assessed the cranial portion of the DIRECTOR OF RECRUITMENT shunt appeared
functional; will follow up any new imaging of the abdomen done for shunt placement.
- consider injection of contrast through the G-tube along with CT A/P; she is planned for low fat tube feeds and IR intranodal lymphangiography with lymphatic embolization at [facility]
- send [facility] in the AM, ADA is pending on the ascites- my clinical concern for TB is low
- broaden therapy to meropenem, will cover previously seen MDRO Enterobacter in the urine which is a possible cause of SBP, note sensitivity to ciprofloxacin for possible eventual deescalation
- agree with current dosing
- note plans for transfer to [facility] in the AM
Care Review
Plan reviewed with: Physician (Dr Kirby)
--- NOTE | 2025-07-30 13:01 | W.PN.NEPH.PH ---
Today's Communication / Plan
-
IV albumin
Assessment/Plan
-
Impression:
MARLENE
Hyperkalemia
Possible uremia
Non gap met acidosis
mild Hypernatremia
Anemia
Ascites
s/p PEG
CKD 4 with baseline creatinine of 1.3-1.7
Solitary right kidney
h/o Nephrolithiasis
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
Neurogenic bladder
Cognitive dysfunction
Plan:
BP stable, no midodrine needed
albumin course
follow BMP
Na better with [facility] 50
for [facility] transfer today
not a dialysis candidate, previously discussed with family
critical care time 31 minutes
-
-
Date of Service: July 30, 2025
CC / HPI / ROS
-
Chief Complaint:
MARLENE, hypernatremia
History of Present Illness:
MARLENE/Cr stable 2.6
BUN high stable 116
BP stable overall
paracentesis 2.5lit-07/27
Urine form cystostomy'
critically ill
Review of Systems:
pt is non verbal baseline
no fever
Labs
-
Labs:
WBC 8.0 10^3/uL (4.8-10.8) 07/30/25 04:03
RBC 2.62 10^6/uL (4.20-5.40) L 07/30/25 04:03
Hgb 8.0 g/dL (12.0-16.0) L 07/30/25 04:03
Hct 24.7 % (37.0-47.0) L 07/30/25 04:03
Plt Count 434 10^3/uL (130-400) H 07/30/25 04:03
Sodium 138 mmol/L (135-145) 07/30/25 04:03
Potassium 3.9 mmol/L (3.5-5.1) 07/30/25 04:03
Chloride 103 mmol/L (98-107) 07/30/25 04:03
Carbon Dioxide 22 mmol/L (22-30) 07/30/25 04:03
BUN 116 mg/dl (7-17) H* 07/30/25 04:03
Creatinine 2.6 mg/dL (0.6-1.0) H 07/30/25 04:03
eGFR 21.94 07/30/25 04:03
Glucose 160 mg/dl (70-99) H 07/30/25 04:03
Calcium 9.6 mg/dl (8.4-10.2) 07/30/25 04:03
Albumin 3.0 g/dl (3.5-5.0) L 07/27/25 05:20
Physical Exam
-
Vital Signs:
Vital Signs
Temp Pulse Resp BP Pulse Ox
97.8 F 99 15 101/65 100
07/30/25 12:47 07/30/25 10:00 07/30/25 10:00 07/30/25 10:00 07/30/25 10:00
Cardiovascular:: Regular rate and rhythm
Respiratory:: Bilateral: Coarse
Lung Excursion:: Normal
Abdomen:: Nontender and Soft
Bowel Sounds:: Normal
Extremity Edema:: +1: Bilateral:
[2025-07-30] MEDS: LR 1000 IV (13:18)
--- NOTE | 2025-07-30 14:15 | CM ---
Chart reviewed and patient is for possible [place] [facility] transfer, will follow with patient progress.
Plan; Transfer to [facility], physician to physician review.
--- NOTE | 2025-07-30 14:49 | CM ---
LEEROY received from Sherrill at [facility] making us aware that no Buy Back needed for this patient since we are part of the [facility] now. She stated she classified her as 'ready to transfer', when a bed is available. Update to
[2025-07-30] MEDS: OMNIPAQUE 50 ML PO (14:53)
--- NOTE | 2025-07-30 15:28 | W.PN.HOSP.TC ---
Today's Communication/Plan
-
-switch to meropenem
-ID consulted
-CT imaging along with contrast in PEG to assess for leak
-Per discussion with GI - not candidate for IR intranodal lymphangiography with lymphatic embolization. Spoke to Dr. Eliel Addison at [facility].
-f/u cultures from 07/30 paracentesis
-IVF PRN
Assessment / Plan
Assessment / Plan
Ms. Petra Bond is a 50 yo woman with hx spina bifida with hydrocephalus, severe developmental delay, PEG tube placement (05/15/25), recurrent aspiration pneumonia, CKD III/IV,recent admission 06/26-07/04 for new ascites and SBP (chylous ascites,
followed at [facility]) brought to the ER for change in mentation, concern for discomfort. She was found to have acute on chronic kidney disease and recurrent ascites with fluid analysis suggestive of SBP.
Abdominal US 07/26/25
IMPRESSION:
No sonographic evidence of cholelithiasis, acute cholecystitis or biliary duct dilation.
The right kidney appears echogenic which can be seen with medical renal disease. No hydronephrosis.
Moderate/large volume intra-abdominal ascites.
Recurrent ascites
SBP, worsening
-Not clear evidence of Chylous Ascites as per [facility] - Triglycerides should be appx 400 if PO intake - and patient has Triglycerides of 222
-Paracentesis today s/p 900cc drained fluid - worsening WBC
- She has no e/o cirrhosis.
- Given abdominal distention started post PEG placement, concern raised for injury/trauma during procedure. Other work up for etiology on-going with flow cytometry (on ascites fluid) ordered to evaluate for lymphoma and adenosine deaminase to look
for TB
-albumin repletion
--s/p paracentesis 07/27/25 as well; with albumin repletion
-switch to meropenem
-ID consulted
-CT imaging along with contrast in PEG to assess for leak
-Per discussion with GI - not candidate for IR intranodal lymphangiography with lymphatic embolization. Spoke to Dr. Eliel Addison at [facility].
-f/u cultures from 07/30 paracentesis
MARLENE on CKD IV
Hyperkalemia
Uremia
Metabolic Acidosis
- Cr 2.6 compared to known baseline of 1.5.
- Patient has solitary kidney s/p nephrectomy (for recurrent infection / reflux).
- no hydronephrosis noted in right kidney on US
- s/p insulin in ER, fluids and lasix, s/p 1 dose Lokelma, K now normalized
- continue IVF; IVF PRN - given 1L LR bolus today
- Nephrology consult appreciated
- continue IV albumin
#?UTI
-Enterobacteria clocae
-resistent to ceftriaxone
-now on meropenem
Hypernatremia
-treat as needed
-improved
GOC Discussions
-family understands that her renal decline may be life threatening and she is not a dialysis candidate. Hospice talks were initiated at beginning of admission, but they want to try all options including procedure to help ascites. They may be
interested in palliative care. Patient is limited DNR (no CPR)
Spina Bifida with Hydrocephalus s/p CLINICAL OPERATIONS SPECIALIST Shunt
- Recently had PEG placed (April 2025) - prior to that was fed with supplemental feeds via bottle.
- Continue supportive care / repositioning / etc.
- Recent RESOURCE CONSERVATION MANAGER imaging last admission was unremarkable.
- TF resumed per dietary
DVT Prophylaxis: Subcut Heparin
Code Status: Full
52 minutes spent on patient care
Anticipated Discharge: > 48 hours
Subjective/Interval History
-
Date of Service: July 30, 2025
As per pain, unlikely Chylous Ascites; Drained 1L ascitic fluid today - WBC trending up
Objective Data
-
Labs:
Laboratory Results
07/30/25
04:03
WBC 8.0
Hgb 8.0 L
Hct 24.7 L
Plt Count 434 H
Sodium 138
Potassium 3.9
Chloride 103
Carbon Dioxide 22
BUN 116 H*
Creatinine 2.6 H
Glucose 160 H
Calcium 9.6
Vital Signs:
Vital Signs
Temp Pulse Resp BP Pulse Ox
97.8 F 108 20 94/69 100
07/30/25 12:47 07/30/25 14:00 07/30/25 14:00 07/30/25 14:00 07/30/25 14:00
I&O
07/29/25 07/30/25 07/31/25
06:59 06:59 06:59
Intake Total 1964 / 1964 1879 / 1879 600 / 600
Output Total 100 / 100 30 / 30
Balance 1964 570 / 570
Review of Systems
-
History Source: Patient
All other systems: Reviewed and negative
Data Reviewed
-
Diagnostic Radiology: Report Reviewed by me
Labs: Labs Reviewed by me
--- NOTE | 2025-07-30 16:00 | PTCARENOTE ---
Made Dr. De Dios aware PICC Right Arm getting more swollen after ordered LR bolus, MD ordered US to r/o DVT and elevated patient's arm with pillow.
[2025-07-30] MEDS: STERILE WATER FOR INJECTION 20 ML IV (16:43)
[2025-07-30] MEDS: MERREM 1000 MG IV (16:43)
--- NOTE | 2025-07-30 17:50 | W.PN.GI.CBS2 ---
Today's Communication / Plan
-
-- Appreciate ID consult. Awaiting CT scan unfortunately cannot use IV contrast
Assessment / Plan
-
50-year-old female past medical history of spina bifida (followed at [facility]), severe developmental delay, recurrent pneumonia, aspiration pneumonia, chronic iron deficiency anemia, solitary right kidney, chronic kidney disease stage
III/stage IV, nephrolithiasis, neurogenic bladder, chronic constipation, hydrocephalus status post ATTORNEY RECRUITER shunt, recent PEG tube placement (05/15/2025) with recent PNA and aspiration and 2 week admission in [place], esophageal stenosis and Zenker's
diverticulum at [facility]. In review with family pt was noted with increased abdominal distention after tube feed was placed in April. She had recent admission with abdominal pain and ascites. She completed para 8 with + SBP. She
was treated with antibiotics and discharged on oral Cefdinir and repeat tap with improved cell counts but noted with chylous ascites. She as also noted with UTI -enterobacter cloacae and loculated left pleural effusion with questioned related to
ascites. She now returns with hypotension and fatigue with worsening tachycardia and recurrent distention. On admission noted with hbg 9.5, platelets 602, Na up to 146 after admit, K 6,4, cl 113, CO2 16, BUN 155, creat 2.6, bili 0.2, AST 51, ALT,
106, alk phos 215. albumin 3.2. She is also noted with constipation then diarrhea with tube feeds. EGD completed with peg but no colonoscopy in past.
06/27 para 1600m pink Chylous + SBP WBC 947 ,poly 73.5 protein 4.3 albumin 2.1 SAAG 1.2 cx neg
07/02 para [address] [place] Chylous WBC 465 , poly 40.4, protein 3.7, albumin 1.7 cx neg
07/04- para 750 pink Chylous WBC 351, poly 19.7, protein 3.4, albumin 1.4 cx neg
06/27 TSH normal
07/26/25 US abdomen normal liver, no lesion, no cholelithiasis, acute cholecystitis, or biliary dilation, right kidney echogenic with med renal disease, mod to large ascites
06/30/25 tube check Contrast instilled through the patient's indwelling PEG tube outlines the stomach, confirming placement.
06/26/25 CT Abd/pel Without Iv Or Oral
Moderate/large volume ascites. Moderate left pleural effusion with associated passive atelectasis Percutaneous gastrostomy tube with tip terminating in the stomach.
There is diffuse urinary bladder wall thickening which extends to the umbilicus. Findings may represent cystitis. Consider correlation with urinalysis.
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
The uterus is mildly prominent and nodular in appearance, possibly secondary to uterine fibroids. Consider further evaluation with dedicated pelvic ultrasound.
-recurrent ascites -with prior chylous ascites on in June
-abdominal distention after peg placement
-recent SBP
-recent PNA with peg placement in April
-prior constipation now diarrhea
-tachycardia
-electrolyte imbalance -hyperkalemia,hypernatremia
-metabolic acidosis
-acute on chronic CKD solitary right kidney, chronic kidney disease stage III/stage IV/nephrolithiasis
-uterus possible fibroid per CT
-recent loculated effusion
-recent UTI
other med problems:
-spina bifida (followed at [facility]), severe developmental delay
-hx chronic iron deficiency anemia
-neurogenic bladder
-hydrocephalus status post ATTORNEY RECRUITER shunt- no recent change in shunt
PLAN:
#chylous ascites
--Chylous ascites can be caused by infection, trauma, malignancy or potentially a complication after abdominal surgery. No signs of cirrhosis on labs or imaging
-- Triglycerides are consistent with chylous ascites including color described by IR -however IR at [facility] says the triglycerides should be above 400
-- I have sent fluid for flow cytometry to look for lymphoma, adenosine deaminase to look for TB -this is pending
-- Gram stain currently no growth
--Patient's paracentesis from this morning shows many more PMNs over 3000.
--Patient needs CT scan to look for other causes of peritonitis. Will use oral contrast but no IV contrast due to her renal failure
--Patient's urine culture shows gram-negative bacilli, but she is likely colonized chronically
--ID called
-- I did review her imaging from last admission early June that was done without IV contrast that did not show any overt malignancy.
-- No known cirrhosis, echocardiogram did not show any right-sided heart failure
-- There is potential that it could be traumatic after PEG tube placement -sister and family did notice that the abdominal distention occurred just after discharge from [place] in April
-- I also discussed this with hepatology down at [place] who agree that she should be transferred on 07/28/25 (Mary)
-- Our plan was to send down to [place] for the IR procedure however Dr. Romero stated that since the triglycerides were under 400 it was less likely going to be successful and not consistent with chylous
# SBP -chylous ascites does not typically cause an elevated white blood cell count in the ascitic fluid it is usually lymphocyte predominant rather than neutrophil predominant
-- Ascitic fluid shows: 07/30/2025 PMN count is over 3400, on admission it was over 700, consistent with SBP, total protein 4.5, total albumin 2.1, triglycerides 222, serum albumin 3.0; with a SAG of 0.9 showing non-portal hypertension related ascites
which is consistent with chylous ascites versus peritonitis. Her amylase is not significantly elevated and therefore highly unlikely any type of ruptured viscus. This could be TB and therefore adenosine deaminase was sent. It is not pancreatitis
as her amylase is low.
-- Patient has culture-negative neutrocytic ascites
-- Treating SBP with antibiotics was on ceftriaxone 2 g but now the PMN count is now over already 400 and antibiotics have been broadened. Patient did receive 3 days of high-dose albumin.
--Usually with secondary peritonitis is polymicrobial. Her glucose was over 50 and her LDH was less than 200. These also are evidence against secondary peritonitis.
--So far no growth in the Gram stain
-- Patients with SBP are high risk for hepatorenal syndrome
--Generally SBP secondary prophylaxis is not recommended in noncirrhotic's
# Acute on chronic renal failure, appears baseline renal function is around 1.4 but her father will get me outpatient numbers. On admission 2.6 and 2.3 --> 2.7 --> 2.6
--Hopefully the albumin will help
-- Discussed with renal. Patient was given high doses of albumin but not improving
Patient is discussing palliative versus hospice options
Discussed everything with the family, RN
Total Time Spent with Patient (in minutes): 60
Subjective
Subjective
Date of Service: July 30, 2025
Patient had a 900 cc paracentesis this morning still yellow cloudy fluid. PMNs much worse. No improvement in renal function
Objective
Data Reviewed
Laboratory Data:
Laboratory Results
07/30/25 04:03
07/30/25 04:03
Laboratory Results
Magnesium 3.0 mg/dl (1.6-2.3) H 07/29/25 04:25
Total Bilirubin 0.2 mg/dl (0.2-1.3) 07/27/25 05:20
AST 40 U/L (14-36) H 07/27/25 05:20
ALT 90 U/L (0-35) H 07/27/25 05:20
Alkaline Phosphatase 187 U/L (38-126) H 07/27/25 05:20
Vital Signs and I&O:
Vital Signs
Temp Pulse Resp BP Pulse Ox
97.8 F 108 20 94/69 100
07/30/25 16:00 07/30/25 14:00 07/30/25 14:00 07/30/25 14:00 07/30/25 14:00
I&O
07/29/25 07/30/25 07/31/25
06:59 06:59 06:59
Intake Total 1964 / 1964 1880 / 1880 600 / 600
Output Total 100 / 100 30 / 30
Balance 1965 / 1965 1780 / 1780 570 / 570
Physical Exam
Physical Exam
HEENT: Anicteric
GI: Soft, Non Distended and Other (PEG tube in place, cutaneous vesicostomy in place)
[2025-07-31] VITALS (16 sets, daily range): BP systolic 68–109; BP diastolic 53–73
[2025-07-31] MEDS: FLEXBUMIN 100 IV ×3 (05:14→20:14)
[2025-07-31] MEDS: MERREM 1000 MG IV ×2 (05:15→15:24)
[2025-07-31] MEDS: STERILE WATER FOR INJECTION 20 ML IV ×2 (05:15→15:23)
[2025-07-31 05:24] LABS: ALT (SGPT) 20 U/L (0-35); AST (SGOT) 16 U/L (14-36); Albumin 3.3 g/dl (3.5-5.0); Alkaline Phosphatase 55 U/L (38-126); Blood Urea Nitrogen 99 mg/dl (7-17); Calcium 8.3 mg/dl (8.4-10.2); Carbon Dioxide 18 mmol/L (22-30); Chloride 105 mmol/L (98-107); Estimated Creatinine Clearance 18 ml/min; Glucose 87 mg/dl (70-99); Potassium 4.0 mmol/L (3.5-5.1); Sodium 135 mmol/L (135-145); Total Protein 5.0 g/dl (6.3-8.2); eGFR 30.06
--- NOTE | 2025-07-31 08:02 | PN.CDI ---
CDI
- -
CDI:
Physician Documentation Request
Admit Date: 07/26/25 21:02
Dear Doctor Kofi,
Please review the following and provide your response in the progress notes.
Clinical Indicators:
Height: 4'11
Weight: 74lbs
BMI: 15.1
Other Clinical Notes: Deskidding Machine Operator note indicates underweight
If possible, please provide an associated diagnosis related to the abnormal BMI, such as:
Underweight
Cachectic
Other (please specify)
Use of terms such as suspected, likely, concern for, or probable (associated with a specific diagnosis that is being evaluated, monitored, or treated as if it exists) are acceptable and can be coded in the inpatient setting, when documented at the
time of discharge.
Thank you,
Patricio Bradley RN
CDI Specialist
Please use your independent medical judgment in providing your response.
[2025-07-31] MEDS: HEPARIN 5000 UNITS SC ×2 (08:10→20:15)
[2025-07-31] MEDS: PREVACID 30 MG TUBE (08:11)
--- NOTE | 2025-07-31 08:16 | W.PN.ID1 ---
Date of Service
Date of Service: July 31, 2025
Today's Communication
- await T spot, ADA on ascites WNL - my clinical concern for TB is low
- blood cultures in progress
- c/w meropenem, will cover previously seen MDRO Enterobacter in the urine which is a possible colonizer of the gut and thus cause of SBP via translocation, note recent ceftriaxone/metronidazole course which could have selected for MDROs, note
sensitivity to ciprofloxacin for possible eventual deescalation
- has an ongoing vaginal yeast infection, treat with fluconazole 100 mg PO
Assessment / Plan
SBP - suspect MDRO
Colonization with MDRO Enterobacter
Chylous Ascites
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
Vesicostomy
CKD IV, Single Kidney - improving
FTT/cachexia
AMS
- GI comments ascites are not considered chylous at current level of triglycerides; I asked radiology to comment if abdominal portion of shunt can be assessed.
- she is planned for low fat tube feeds
- PICC appears functional
- await T spot, ADA on ascites WNL - my clinical concern for TB is low
- blood cultures in progress
- c/w meropenem, will cover previously seen MDRO Enterobacter in the urine which is a possible colonizer of the gut and thus cause of SBP via translocation, note recent ceftriaxone/metronidazole course which could have selected for MDROs, note
sensitivity to ciprofloxacin for possible eventual deescalation
- agree with current dosing; Note improved Cr today.
- has an ongoing vaginal yeast infection, treat with fluconazole 100 mg PO
Chief Complaint
-: Other (SBP, colonization with MDRO)
Subjective / Review of Systems
afebrile
running mildly hypotensive this AM
mom reports ongoing vaginal yeast infection since last admission; she has been treating topically with tea tree oil and terbinafine as well as zinc oxide with some success
reports labia minora was swollen prior to paracentesis, possibly as consequence of yeast infection or less likely due to spina bifida
Vital Signs / Physical Exam
Vital Signs
Vital Signs
Temp Pulse Resp BP Pulse Ox
98.2 F 108 12 82/54 99
07/31/25 07:42 07/31/25 06:00 07/31/25 06:00 07/31/25 06:00 07/31/25 06:00
Physical Exam
Constitutional: No Acute Distress
Cardiovascular: Regular Rate and S1/S2; Negative Murmur or Rub
Pulmonary: Clear and Symmetric; Negative Wheezes or Rales
Gastrointestinal: Soft, Non Tender, Non Distended and Normal Bowel Sounds
Genito-Urinary: Other (mild erythema and swelling of the labia minora and perineum )
Skin: Warm and Dry; Negative Rash or Jaundice
Lines: PICC
Objective Data
Lab Data
Lab Results
07/30/25 04:03
07/31/25 04:39
Estimated Creat Clear 18 ml/min 07/31/25 04:39
Lactic Acid < 0.5 mmol/L (0.7-2.0) L 07/26/25 16:36
Total Bilirubin 0.3 mg/dl (0.2-1.3) 07/31/25 04:39
AST 16 U/L (14-36) 07/31/25 04:39
ALT 20 U/L (0-35) 07/31/25 04:39
Alkaline Phosphatase 55 U/L (38-126) 07/31/25 04:39
Most recent labs reviewed.
Micro Results:
07/31/25 01:33 Blood Culture - Pending
Blood/Venous
07/31/25 01:33 Blood Culture - Pending
Blood/Venous
07/26/25 17:41 Blood Culture - Preliminary
Blood/Venous No Growth in 4 days- Final report to follow
07/26/25 16:35 Blood Culture - Preliminary
Blood/Venous No Growth in 4 days- Final report to follow
07/30/25 08:38 Body Fluid Culture - Pending
Peritoneal Fluid Gram Stain - Preliminary
07/27/25 12:10 Body Fluid Culture - Final
Peritoneal Fluid No Growth After 72 Hours
Gram Stain - Final
07/26/25 23:57 Urine Culture - Final
Urine Enterobacter cloacae
07/27/25 15:08 MRSA Screen - Final
Nose No Methicillin Resistant Staphylococcus aureus isolated.
07/26/25 15:58 Influenza Types A & B ([facility]URDES) - Final
Nasal Swab Negative for Influenza A & B, NAAT
Negative results must be combined with clinical observations
and patient history.
Nucleic Acid Amplification test (NAAT)performed on the
[employer] platform.
CT Scan: Image Reviewed and Report Reviewed (no contrast leak, LLL opacification likely atelectasis)
Care Review
Plan reviewed with: Physician (GI team - suppression)
--- NOTE | 2025-07-31 09:23 | W.PN.NEPH.PH ---
Today's Communication / Plan
-
albumin
Assessment/Plan
-
Impression:
MARLENE
Hyperkalemia
Possible uremia
Non gap met acidosis
mild Hypernatremia
Anemia
Ascites
s/p PEG
CKD 4 with baseline creatinine of 1.3-1.7
Solitary right kidney
h/o Nephrolithiasis
Spina bifida/history of FARMWORKER VEGETABLE shunt
Neurogenic bladder
Cognitive dysfunction
Plan:
BP stable, no midodrine needed
albumin course one more time today to help maintain ECV for kidney
follow BMP
reduce FWF with improving Na
CT 07/31 suggesting right effusion, LLL consolidation, but not fever or leukocytosis
not a dialysis candidate, previously discussed with family
d/w mother at bedside
critical care time 31 minutes
-
-
Date of Service: July 31, 2025
CC / HPI / ROS
-
Chief Complaint:
MARLENE, hypernatremia
History of Present Illness:
MARLENE/Cr down to 2.0
BUN down to 99
BP stable low
paracentesis 2.5lit-07/27
Urine from cystostomy, nonoliguric
critically ill
Review of Systems:
pt is non verbal baseline
no fever
Labs
-
Labs:
WBC 8.0 10^3/uL (4.8-10.8) 07/30/25 04:03
RBC 2.62 10^6/uL (4.20-5.40) L 07/30/25 04:03
Hgb 8.0 g/dL (12.0-16.0) L 07/30/25 04:03
Hct 24.7 % (37.0-47.0) L 07/30/25 04:03
Plt Count 434 10^3/uL (130-400) H 07/30/25 04:03
Sodium 135 mmol/L (135-145) 07/31/25 04:39
Potassium 4.0 mmol/L (3.5-5.1) 07/31/25 04:39
Chloride 105 mmol/L (98-107) 07/31/25 04:39
Carbon Dioxide 18 mmol/L (22-30) L 07/31/25 04:39
BUN 99 mg/dl (7-17) H 07/31/25 04:39
Creatinine 2.0 mg/dL (0.6-1.0) H 07/31/25 04:39
eGFR 30.06 07/31/25 04:39
Glucose 87 mg/dl (70-99) 07/31/25 04:39
Calcium 8.3 mg/dl (8.4-10.2) L 07/31/25 04:39
Albumin 3.3 g/dl (3.5-5.0) L 07/31/25 04:39
Physical Exam
-
Vital Signs:
Vital Signs
Temp Pulse Resp BP Pulse Ox
98.2 F 108 12 82/54 99
07/31/25 07:42 07/31/25 06:00 07/31/25 06:00 07/31/25 06:00 07/31/25 06:00
Cardiovascular:: Regular rate and rhythm
Respiratory:: Bilateral: Coarse
Lung Excursion:: Normal
Abdomen:: Nontender and Soft
Bowel Sounds:: Normal
Extremity Edema:: +1: Bilateral:
--- NOTE | 2025-07-31 11:00 | PTCARENOTE ---
pt awake , pt is mother in room and is usual self as per mother , ST on monitor , tolerating tub feeding , labs noted , hemoglobin down to 8.0 , Hospitalist aware and will follow in am , brown stool from rectum
[2025-07-31] MEDS: DIFLUCAN 100 MG TUBE (11:08)
[2025-07-31] MEDS: FLEXBUMIN IV (11:20)
--- NOTE | 2025-07-31 14:20 | W.PN.HOSP.TC ---
Today's Communication/Plan
-
cont abx
albumin prn
monitor renal function and abdomen
iron labs
Assessment / Plan
Assessment / Plan
Ms. Petra Bond is a 50 yo woman with hx spina bifida with hydrocephalus, severe developmental delay, PEG tube placement (05/15/25), recurrent aspiration pneumonia, CKD III/IV,recent admission 06/26-07/04 for new ascites and SBP (chylous ascites,
followed at [facility]) brought to the ER for change in mentation, concern for discomfort. She was found to have acute on chronic kidney disease and recurrent ascites with fluid analysis suggestive of SBP.
Abdominal US 07/26/25
IMPRESSION:
No sonographic evidence of cholelithiasis, acute cholecystitis or biliary duct dilation.
The right kidney appears echogenic which can be seen with medical renal disease. No hydronephrosis.
Moderate/large volume intra-abdominal ascites.
Recurrent ascites
SBP, worsening - etiology may be related to translocation from Urine - -Enterobacteria clocae
-Not clear evidence of Chylous Ascites as per [facility] - Triglycerides should be appx 400 if PO intake - and patient has Triglycerides of 222
-Paracentesis today s/p 900cc drained fluid - worsening WBC
- She has no e/o cirrhosis.
- Given abdominal distention started post PEG placement, concern raised for injury/trauma during procedure. Other work up for etiology on-going with flow cytometry (on ascites fluid) ordered to evaluate for lymphoma and adenosine deaminase to look
for TB
-albumin repletion
--s/p paracentesis 07/27/25 as well; with albumin repletion
- meropenem
-ID consulted
-CT imaging along with contrast in PEG - no evidence of leak atthis time;
-Per discussion with GI - not candidate for IR intranodal lymphangiography with lymphatic embolization. Spoke to Dr. Eliel Addison at [facility].
-f/u cultures from 07/30 paracentesis; add on ADA, TB although doubt etology
MARLENE on CKD IV
Hyperkalemia
Uremia
Metabolic Acidosis
- Cr 2.6 compared to known baseline of 1.5.
- Patient has solitary kidney s/p nephrectomy (for recurrent infection / reflux).
- no hydronephrosis noted in right kidney on US
- s/p insulin in ER, fluids and lasix, s/p 1 dose Lokelma, K now normalized
- continue IVF; IVF PRN - given 1L LR bolus 07/30
- Nephrology consult appreciated
- continue IV albumin PRN
- Monitor renal function
#?UTI
-Enterobacteria clocae
-resistant to ceftriaxone
-now on meropenem
Vaginal yeast infection
-treat with fluconazole 100 mg PO
Hypernatremia
-treat as needed
-improved
GOC Discussions
-family understands that her renal decline may be life threatening and she is not a dialysis candidate. Hospice talks were initiated at beginning of admission, but they want to try all options including procedure to help ascites. They may be
interested in palliative care. Patient is limited DNR (no CPR)
Spina Bifida with Hydrocephalus s/p VENEREAL DISEASE INVESTIGATOR Shunt
- Recently had PEG placed (April 2025) - prior to that was fed with supplemental feeds via bottle.
- Continue supportive care / repositioning / etc.
- Recent STORE SALES CONSULTANT imaging last admission was unremarkable.
- TF resumed per dietary
DVT Prophylaxis: Subcut Heparin
Code Status: Full
Total time spent on today's encounter was 56 minutes which included time spent in counseling the patient/family regarding diagnosis and treatment plan as listed above, goals of care, and symptom management. Case was discussed with nursing staff,
specialists, and care coordinators/case management. All labs and imaging personally reviewed by me. Remainder the time spent in detailed review of previous records, lab data, imaging, and other medical provider documentation.
Anticipated Discharge: > 48 hours
Subjective/Interval History
-
Date of Service: July 31, 2025
marlene improving
Objective Data
-
Labs:
Laboratory Results
07/31/25
04:39
Sodium 135
Potassium 4.0
Chloride 105
Carbon Dioxide 18 L
BUN 99 H
Creatinine 2.0 H
Glucose 87
Calcium 8.3 L
Total Bilirubin 0.3
AST 16
ALT 20
Alkaline Phosphatase 55
Vital Signs:
Vital Signs
Temp Pulse Resp BP Pulse Ox
98.4 F 109 26 99/71 100
07/31/25 11:17 07/31/25 10:00 07/31/25 10:00 07/31/25 10:00 07/31/25 10:00
I&O
07/30/25 07/31/25 08/01/25
06:59 06:59 06:59
Intake Total 1880 / 1880 2630 / 2630 200 / 200
Output Total 100 / 100 30 / 30
Balance 1780 / 1780 2600 / 2600 200 / 200
Review of Systems
-
History Source: Patient
All other systems: Not reviewed unless documented
Data Reviewed
-
Diagnostic Radiology: Report Reviewed by me
Labs: Labs Reviewed by me
--- NOTE | 2025-07-31 15:12 | W.PN.GI.CBS2 ---
Today's Communication / Plan
-
Continue antibiotics as per ID
Monitor renal function
GOC discussion per medical team
Assessment / Plan
-
50-year-old female past medical history of spina bifida (followed at [facility]), severe developmental delay, recurrent pneumonia, aspiration pneumonia, chronic iron deficiency anemia, solitary right kidney, chronic kidney disease stage
III/stage IV, nephrolithiasis, neurogenic bladder, chronic constipation, hydrocephalus status post ENGRAVED ROLLER INSPECTOR shunt, recent PEG tube placement (05/15/2025) with recent PNA and aspiration and 2 week admission in [place], esophageal stenosis and Zenker's
diverticulum at [facility]. In review with family pt was noted with increased abdominal distention after tube feed was placed in April. She had recent admission with abdominal pain and ascites. She completed para 8 with + SBP. She
was treated with antibiotics and discharged on oral Cefdinir and repeat tap with improved cell counts but noted with chylous ascites. She as also noted with UTI -enterobacter cloacae and loculated left pleural effusion with questioned related to
ascites. She now returns with hypotension and fatigue with worsening tachycardia and recurrent distention. On admission noted with hbg 9.5, platelets 602, Na up to 146 after admit, K 6,4, cl 113, CO2 16, BUN 155, creat 2.6, bili 0.2, AST 51, ALT,
106, alk phos 215. albumin 3.2. She is also noted with constipation then diarrhea with tube feeds. EGD completed with peg but no colonoscopy in past.
06/27 para 1600m pink Chylous + SBP WBC 947 ,poly 73.5 protein 4.3 albumin 2.1 SAAG 1.2 cx neg
07/02 para 1350 [place] Chylous WBC 465 , poly 40.4, protein 3.7, albumin 1.7 cx neg
07/04- para 750 pink Chylous WBC 351, poly 19.7, protein 3.4, albumin 1.4 cx neg
06/27 TSH normal
07/26/25 US abdomen normal liver, no lesion, no cholelithiasis, acute cholecystitis, or biliary dilation, right kidney echogenic with med renal disease, mod to large ascites
06/30/25 tube check Contrast instilled through the patient's indwelling PEG tube outlines the stomach, confirming placement.
06/26/25 CT Abd/pel Without Iv Or Oral
Moderate/large volume ascites. Moderate left pleural effusion with associated passive atelectasis Percutaneous gastrostomy tube with tip terminating in the stomach.
There is diffuse urinary bladder wall thickening which extends to the umbilicus. Findings may represent cystitis. Consider correlation with urinalysis.
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
The uterus is mildly prominent and nodular in appearance, possibly secondary to uterine fibroids. Consider further evaluation with dedicated pelvic ultrasound.
-recurrent ascites -with prior chylous ascites on in June
-abdominal distention after peg placement
-recent SBP
-recent PNA with peg placement in April
-prior constipation now diarrhea
-tachycardia
-electrolyte imbalance -hyperkalemia,hypernatremia
-metabolic acidosis
-acute on chronic CKD solitary right kidney, chronic kidney disease stage III/stage IV/nephrolithiasis
-uterus possible fibroid per CT
-recent loculated effusion
-recent UTI
other med problems:
-spina bifida (followed at [facility]), severe developmental delay
-hx chronic iron deficiency anemia
-neurogenic bladder
-hydrocephalus status post ENGRAVED ROLLER INSPECTOR shunt- no recent change in shunt
PLAN:
#chylous ascites
--Chylous ascites can be caused by infection, trauma, malignancy or potentially a complication after abdominal surgery. No signs of cirrhosis on labs or imaging
-- Triglycerides are consistent with chylous ascites including color described by IR -however IR at [facility] says the triglycerides should be above 400
-- I have sent fluid for flow cytometry to look for lymphoma, adenosine deaminase to look for TB -this is pending
-- Gram stain currently no growth
--Patient's paracentesis from this morning shows many more PMNs over 3000.
--Patient needs CT scan to look for other causes of peritonitis. Will use oral contrast but no IV contrast due to her renal failure
--Patient's urine culture shows gram-negative bacilli, but she is likely colonized chronically
--ID called
-- I did review her imaging from last admission early June that was done without IV contrast that did not show any overt malignancy.
-- No known cirrhosis, echocardiogram did not show any right-sided heart failure
-- There is potential that it could be traumatic after PEG tube placement -sister and family did notice that the abdominal distention occurred just after discharge from [place] in April
-- also discussed this with hepatology down at [place] who agree that she should be transferred on 07/28/25 (Mary)
-- Our plan was to send down to [place] for the IR procedure however Dr. Romero stated that since the triglycerides were under 400 it was less likely going to be successful and not consistent with chylous
-- Dr. Hernandez agreed to follow-up as outpatient
# SBP -chylous ascites does not typically cause an elevated white blood cell count in the ascitic fluid it is usually lymphocyte predominant rather than neutrophil predominant
-- Ascitic fluid shows: 07/30/2025 PMN count is over 3400, on admission it was over 700, consistent with SBP, total protein 4.5, total albumin 2.1, triglycerides 222, serum albumin 3.0; with a SAG of 0.9 showing non-portal hypertension related ascites
which is consistent with chylous ascites versus peritonitis. Her amylase is not significantly elevated and therefore highly unlikely any type of ruptured viscus. This could be TB and therefore adenosine deaminase was sent. It is not pancreatitis
as her amylase is low.
-- Patient has culture-negative neutrocytic ascites
-- Treating SBP with antibiotics was on ceftriaxone 2 g but now the PMN count is now over already 400 and antibiotics have been broadened. Patient did receive 3 days of high-dose albumin.
--Usually with secondary peritonitis is polymicrobial. Her glucose was over 50 and her LDH was less than 200. These also are evidence against secondary peritonitis.
--So far no growth in the Gram stain
-CT imaging along with contrast in PEG - no evidence of leak
- -Evaluated by ID. ID notes reviewed. Meropenem was started. awaiting ADA on ascitic fluid
# Acute on chronic renal failure - follow up
Medical team - discussing palliative versus hospice options
Discussed everything with the family, RN
Total Time Spent with Patient (in minutes): 35
Subjective
Subjective
Date of Service: July 31, 2025
patient was sleeping comfortably
Objective
Data Reviewed
Laboratory Data:
Laboratory Results
07/30/25 04:03
07/31/25 04:39
Laboratory Results
Magnesium 3.0 mg/dl (1.6-2.3) H 07/29/25 04:25
Total Bilirubin 0.3 mg/dl (0.2-1.3) 07/31/25 04:39
AST 16 U/L (14-36) 07/31/25 04:39
ALT 20 U/L (0-35) 07/31/25 04:39
Alkaline Phosphatase 55 U/L (38-126) 07/31/25 04:39
Vital Signs and I&O:
Vital Signs
Temp Pulse Resp BP Pulse Ox
98.4 F 109 26 99/71 100
07/31/25 11:17 07/31/25 10:00 07/31/25 10:00 07/31/25 10:00 07/31/25 10:00
I&O
07/30/25 07/31/25 08/01/25
06:59 06:59 06:59
Intake Total 1880 / 1880 2630 / 2630 400 / 400
Output Total 100 / 100 30 / 30
Balance 1780 / 1780 2600 / 2600 400 / 400
Physical Exam
Physical Exam
GI: Soft, Distended (mildly distended ) and Non Tender
--- NOTE | 2025-07-31 15:13 | CM ---
Chart reviewed and pillowcase turner will follow with patient progress, patient has [facility] nursing services.
Plan; To follow with patient progress.
[2025-07-31] MEDS: TYLENOL ORAL SOLUTION 650 MG TUBE (16:55)
--- NOTE | 2025-07-31 16:59 | PTCARENOTE ---
no change in assessments
[2025-07-31 18:06] LABS: Iron 24 ug/dl (37-170)
[2025-07-31 18:15] LABS: Total Iron Binding Capacity 101 ug/dl (265-497)
[2025-07-31 18:56] LABS: Ferritin 181.0 ng/ml (6.24-137)
[2025-08-01] VITALS (20 sets, daily range): BP systolic 72–108; BP diastolic 53–75
[2025-08-01] MEDS: MERREM 1000 MG IV ×2 (04:05→17:05)
[2025-08-01] MEDS: STERILE WATER FOR INJECTION 20 ML IV ×2 (04:05→17:05)
[2025-08-01] MEDS: FLEXBUMIN 100 IV (04:06)
[2025-08-01] MEDS: TYLENOL ORAL SOLUTION 650 MG TUBE ×4 (04:15→22:27)
[2025-08-01 04:33] LABS: Hematocrit 20.9 % (37.0-47.0); Hemoglobin 7.0 g/dL (12.0-16.0); Mean Corp Hgb Conc. 33.5 g/dL (33.0-37.0); Mean Corpuscular Volume 88.9 fL (81.0-99.0); Platelet Count 341 10^3/uL (130-400); Red Cell Dist. Width 13.8 % (11.5-14.5)
[2025-08-01 04:47] LABS: Blood Urea Nitrogen 110 mg/dl (7-17); Calcium 10.1 mg/dl (8.4-10.2); Carbon Dioxide 20 mmol/L (22-30); Chloride 95 mmol/L (98-107); Estimated Creatinine Clearance 14 ml/min; Glucose 100 mg/dl (70-99); Potassium 4.5 mmol/L (3.5-5.1); Sodium 129 mmol/L (135-145); eGFR 21.94
--- NOTE | 2025-08-01 08:05 | W.PN.ID1 ---
Date of Service
Date of Service: August 01, 2025
Today's Communication
- c/w meropenem (day 3), possible eventual deescalation
-vaginal yeast infection treated with fluconazole 100 mg PO 07/31
- long discussion with family re possible next steps, possibility of relapsing infection. If she has another relapse of SBP then I would be concerned for possible shunt infection and recommend hospice
Assessment / Plan
SBP - suspect MDRO
Colonization with MDRO Enterobacter
Chylous Ascites
MACHINE EDGE BANDER shunt
Vesicostomy
CKD IV, Single Kidney
FTT/cachexia
AMS
- PICC removal before dc
- await T spot, ADA on ascites WNL - my clinical concern for TB is low
- blood cultures in progress
- c/w meropenem (day 3), possible eventual deescalation
- vaginal yeast infection treated with fluconazole 100 mg PO 07/31
- long discussion with family re possible next steps, possibility of relapsing infection. If she has another relapse of SBP then I would be concerned for possible shunt infection and recommend hospice
Chief Complaint
-: Other (SBP, colonization with MDRO)
Subjective / Review of Systems
afebrile
mildly hypotensive
mildly tachycardic
US for possible DVT assc with PICC done, no thrombus seen
vomited overnight
Vital Signs / Physical Exam
Vital Signs
Vital Signs
Temp Pulse Resp BP Pulse Ox
98.6 F 114 30 81/65 97
08/01/25 07:13 08/01/25 08:00 08/01/25 08:00 08/01/25 08:00 08/01/25 08:00
Physical Exam
Constitutional: No Acute Distress, Chronically Ill and Cachetic
Cardiovascular: Regular Rate and S1/S2; Negative Murmur or Rub
Pulmonary: Clear and Symmetric; Negative Wheezes or Rales
Gastrointestinal: Soft, Non Tender, Non Distended and Normal Bowel Sounds
Skin: Warm and Dry; Negative Rash or Jaundice
Objective Data
Lab Data
Lab Results
08/01/25 04:00
Estimated Creat Clear 14 ml/min 08/01/25 04:00
Lactic Acid < 0.5 mmol/L (0.7-2.0) L 07/26/25 16:36
Total Bilirubin 0.3 mg/dl (0.2-1.3) 07/31/25 04:39
AST 16 U/L (14-36) 07/31/25 04:39
ALT 20 U/L (0-35) 07/31/25 04:39
Alkaline Phosphatase 55 U/L (38-126) 07/31/25 04:39
Most recent labs reviewed.
Micro Results:
07/31/25 01:33 Blood Culture - Preliminary
Blood/Venous No Growth in 24 hours- Final report to follow
07/31/25 01:33 Blood Culture - Preliminary
Blood/Venous No Growth in 24 hours- Final report to follow
07/26/25 17:41 Blood Culture - Final
Blood/Venous No Growth - Final Report
07/26/25 16:35 Blood Culture - Final
Blood/Venous No Growth - Final Report
07/30/25 08:38 Body Fluid Culture - Preliminary
Peritoneal Fluid Gram Stain - Preliminary
07/27/25 12:10 Body Fluid Culture - Final
Peritoneal Fluid No Growth After 72 Hours
Gram Stain - Final
07/26/25 23:57 Urine Culture - Final
Urine Enterobacter cloacae
07/27/25 15:08 MRSA Screen - Final
Nose No Methicillin Resistant Staphylococcus aureus isolated.
07/26/25 15:58 Influenza Types A & B (LURDES) - Final
Nasal Swab Negative for Influenza A & B, NAAT
Negative results must be combined with clinical observations
and patient history.
Nucleic Acid Amplification test (NAAT)performed on the
[employer] ID NOW platform.
[2025-08-01] MEDS: PREVACID 30 MG TUBE (08:23)
[2025-08-01] MEDS: HEPARIN 5000 UNITS SC ×2 (08:23→19:28)
--- NOTE | 2025-08-01 10:06 | PTCARENOTE ---
BP 75/56,72/53.Dr Kirby made aware.
[2025-08-01 10:54] LABS: Hematocrit 20.4 % (37.0-47.0); Hemoglobin 6.9 g/dL (12.0-16.0)
--- NOTE | 2025-08-01 11:06 | W.PN.NEPH.PH ---
Today's Communication / Plan
-
follow labs
hold FWF
ok for NS and midodrine
Assessment/Plan
-
Impression:
MARLENE
Hyperkalemia
Possible uremia
Non gap met acidosis
mild Hypernatremia
Anemia
Ascites
s/p PEG
CKD 4 with baseline creatinine of 1.3-1.7
Solitary right kidney
h/o Nephrolithiasis
Spina bifida/history of [employer] shunt
Neurogenic bladder
Cognitive dysfunction
Plan:
cr and BUN up again today and more hypotensive this am
repeat labs to trend closely
worsening hyponatremia hence FEF are stopped
ok for NS for hypotension, start midodrine
abx per ID, we can cont IV alb
albumin course one more time today to help maintain ECV for kidney
follow BMP
CT 07/31 suggesting right effusion, LLL consolidation, but not fever or leukocytosis
not a dialysis candidate, previously discussed with family
d/w mother and father at bedside
d/w nursing
critical care time 31 minutes
if no clinical improvement may need to consider GOC discussion
-
-
Date of Service: August 01, 2025
CC / HPI / ROS
-
Chief Complaint:
MARLENE, hypernatremia
History of Present Illness:
MARLENE/Cr up at 2.6, BUN up at 110
BP low this am, sodium low 129 off FWF this am as well
paracentesis 2.5lit-07/27, 900cc on 07/30
Urine from cystostomy, nonoliguric
critically ill
Review of Systems:
pt is non verbal baseline
no fever
family thinks she is uncomfortable from pain
Labs
-
Labs:
WBC 6.2 10^3/uL (4.8-10.8) 08/01/25 04:00
RBC 2.35 10^6/uL (4.20-5.40) L 08/01/25 04:00
Hgb 6.9 g/dL (12.0-16.0) L* 08/01/25 10:22
Hct 20.4 % (37.0-47.0) L* 08/01/25 10:22
Plt Count 341 10^3/uL (130-400) D 08/01/25 04:00
eGFR 21.94 08/01/25 04:00
Albumin 3.3 g/dl (3.5-5.0) L 07/31/25 04:39
Physical Exam
-
Vital Signs:
Vital Signs
Temp Pulse Resp BP Pulse Ox
98.6 F 100 32 72/53 96
08/01/25 07:13 08/01/25 10:02 08/01/25 10:02 08/01/25 10:02 08/01/25 10:02
Cardiovascular:: Regular rate and rhythm
Respiratory:: Bilateral: Coarse (decreased)
Lung Excursion:: Normal
Abdomen:: Soft and Tender (mild TTP left abd )
Bowel Sounds:: Normal
Extremity Edema:: None: Bilateral:
Méndez Catheter: No
[2025-08-01 11:15] LABS: Blood Urea Nitrogen 105 mg/dl (7-17); Calcium 9.9 mg/dl (8.4-10.2); Carbon Dioxide 18 mmol/L (22-30); Chloride 94 mmol/L (98-107); Estimated Creatinine Clearance 13 ml/min; Glucose 81 mg/dl (70-99); Potassium 4.3 mmol/L (3.5-5.1); Sodium 130 mmol/L (135-145); eGFR 20.97
[2025-08-01] MEDS: NSS 1000 IV (11:49)
--- NOTE | 2025-08-01 12:25 | PTCARENOTE ---
NSS IVF discontinued as per Dr Kirby.
[2025-08-01] MEDS: LR 500 IV (12:26)
--- NOTE | 2025-08-01 12:30 | PTCARENOTE ---
Pt assessed.No change in assessment noted.Midodrine and LR bolus given as ordered.
--- NOTE | 2025-08-01 14:44 | W.PN.HOSP.TC ---
Today's Communication/Plan
-
LR bolus
NSS IVF
Albumin
Meropenem
monitor abdomen
midodrine prn
transfuse 1u prbc- monitor hgb
Assessment / Plan
Assessment / Plan
Ms. Petra Bond is a 50 yo woman with hx spina bifida with hydrocephalus, severe developmental delay, PEG tube placement (05/15/25), recurrent aspiration pneumonia, CKD III/IV,recent admission 06/26-07/04 for new ascites and SBP (chylous ascites,
followed at [facility]) brought to the ER for change in mentation, concern for discomfort. She was found to have acute on chronic kidney disease and recurrent ascites with fluid analysis suggestive of SBP.
Abdominal US 07/26/25
IMPRESSION:
No sonographic evidence of cholelithiasis, acute cholecystitis or biliary duct dilation.
The right kidney appears echogenic which can be seen with medical renal disease. No hydronephrosis.
Moderate/large volume intra-abdominal ascites.
Recurrent ascites
SBP, worsening - etiology may be related to translocation from Urine - -Enterobacteria clocae
-Not clear evidence of Chylous Ascites as per [place] - Triglycerides should be appx 400 if PO intake - and patient has Triglycerides of 222
-Paracentesis 07/30 s/p 900cc drained fluid - worsening WBC
- She has no e/o cirrhosis.
- Given abdominal distention started post PEG placement, concern raised for injury/trauma during procedure. Other work up for etiology on-going with flow cytometry (on ascites fluid) ordered to evaluate for lymphoma and adenosine deaminase to look
for TB
-albumin repletion
--s/p paracentesis 07/27/25 as well; with albumin repletion
- meropenem
-ID consulted
-CT imaging along with contrast in PEG - no evidence of leak atthis time;
-Per discussion with GI - not candidate for IR intranodal lymphangiography with lymphatic embolization. Spoke to Dr. Eliel Addison at [place].
-f/u cultures from 07/30 paracentesis; add on ADA, TB although doubt etology
-midodrine
MARLENE on CKD IV
Hyperkalemia
Uremia
Metabolic Acidosis
- Cr 2.6 compared to known baseline of 1.5.
- Patient has solitary kidney s/p nephrectomy (for recurrent infection / reflux).
- no hydronephrosis noted in right kidney on US
- s/p insulin in ER, fluids and lasix, s/p 1 dose Lokelma, K now normalized
- continue IVF; IVF PRN - given 1L LR bolus 07/30 and now 08/01
- Nephrology consult appreciated
- continue IV albumin PRN
- Monitor renal function
#Acute Anemia
-probable due to chronic disease and MARLENE/CKD
-transfuse 1 u prbc
-monitor hgb
#Hypotension
-midodrine as needed
-IVF
-albumin
#?UTI
-Enterobacteria clocae
-resistant to ceftriaxone
-now on meropenem
Vaginal yeast infection
-treat with fluconazole 100 mg PO 07/31
Hypernatremia
-treat as needed
-improved
GOC Discussions
-family understands that her renal decline may be life threatening and she is not a dialysis candidate. Hospice talks were initiated at beginning of admission, but they want to try all options including procedure to help ascites. They may be
interested in palliative care. Patient is limited DNR (no CPR)
Spina Bifida with Hydrocephalus s/p MICROFILM EQUIPMENT INSPECTOR Shunt
- Recently had PEG placed (April 2025) - prior to that was fed with supplemental feeds via bottle.
- Continue supportive care / repositioning / etc.
- Recent LOG DATA TECHNICIAN imaging last admission was unremarkable.
- TF resumed per dietary
DVT Prophylaxis: Subcut Heparin
Code Status: Full
Total time spent on today's encounter was 54 minutes which included time spent in counseling the patient/family regarding diagnosis and treatment plan as listed above, goals of care, and symptom management. Case was discussed with nursing staff,
specialists, and care coordinators/case management. All labs and imaging personally reviewed by me. Remainder the time spent in detailed review of previous records, lab data, imaging, and other medical provider documentation.
Anticipated Discharge: > 48 hours
Subjective/Interval History
-
Date of Service: August 01, 2025
no acute events
Objective Data
-
Labs:
Laboratory Results
08/01/25 08/01/25 08/01/25
04:00 10:22 12:19
WBC 6.2 Pending
Hgb 7.0 L 6.9 L* Pending
Hct 20.9 L* 20.4 L* Pending
Plt Count 341 D Pending
Sodium 129 L 130 L Pending
Potassium 4.5 4.3 Pending
Chloride 95 L 94 L Pending
Carbon Dioxide 20 L 18 L Pending
BUN 110 H* 105 H* Pending
Creatinine 2.6 H 2.7 H Pending
Glucose 100 H 81 Pending
Calcium 10.1 D 9.9 Pending
Vital Signs:
Vital Signs
Temp Pulse Resp BP Pulse Ox
99.9 F 115 39 108/57 95
08/01/25 14:00 08/01/25 14:05 08/01/25 14:05 08/01/25 14:05 08/01/25 14:05
I&O
07/31/25 08/01/25 08/02/25
06:59 06:59 06:59
Intake Total 2630 / 2630 980 / 1000 680 / 680
Output Total
Balance 2600 / 2600 980 / 1000 660 / 660
Review of Systems
-
History Source: Patient
All other systems: Not reviewed unless documented
Physical Exam
-
General: No Apparent Distress and Appears Chronically Ill
HEENT: PERRLA and Other
Respiratory: Clear to Auscultation
Cardiac: Regular Rhythm and S1/S2
GI: Soft, Nontender and Other (PEG Tube)
Musculoskeletal: No Edema and Other (contractures )
Skin: Warm and Dry; Negative Rash
Neuro: Awake
Psych: Calm
Data Reviewed
-
Diagnostic Radiology: Report Reviewed by me
Labs: Labs Reviewed by me
--- NOTE | 2025-08-01 15:40 | CM ---
Chart reviewed patient lives with parents and sister as caregivers, patient was provided with a new E-kangaroo pump last admission, through [facility], patient was also set up with [facility] visiting nurses.
Plan; To follow with progress and resume home services if paint is not transferred to [place].
--- NOTE | 2025-08-01 16:00 | PTCARENOTE ---
Pt assessed.No change in assessment noted.PRBC transfusing as ordered.
--- NOTE | 2025-08-01 17:30 | PTCARENOTE ---
Addendum entered by Abigail James RN 08/01/25 17:38:
This note is indicative of 0800 assessment
Original Note:
Received pt with eyes open.Pt is non verbal at baseline.BL upper and lower extremities are contracted.Pt does make eye contact.ST noted.Right DL PICC intact.POX 97% on RA.Decreased breath sounds throughout.PEG intact with tube feeds as ordered.Pt's
mother straight cath pt for 20 ml.Vesicotomy stoma intact.Skin integrity as documented.Pt's mother at bedside.Plan of care discussed.
--- NOTE | 2025-08-01 20:58 | W.PN.GI.CBS2 ---
Today's Communication / Plan
-
continue current rx
Assessment / Plan
-
50-year-old female past medical history of spina bifida (followed at [facility]), severe developmental delay, recurrent pneumonia, aspiration pneumonia, chronic iron deficiency anemia, solitary right kidney, chronic kidney disease stage
III/stage IV, nephrolithiasis, neurogenic bladder, chronic constipation, hydrocephalus status post YOGA INSTRUCTOR shunt, recent PEG tube placement (05/15/2025) with recent PNA and aspiration and 2 week admission in [place], esophageal stenosis and Zenker's
diverticulum at [facility]. In review with family pt was noted with increased abdominal distention after tube feed was placed in April. She had recent admission with abdominal pain and ascites. She completed para 06/27 with + SBP. She
was treated with antibiotics and discharged on oral Cefdinir and repeat tap with improved cell counts but noted with chylous ascites. She as also noted with UTI -enterobacter cloacae and loculated left pleural effusion with questioned related to
ascites. She now returns with hypotension and fatigue with worsening tachycardia and recurrent distention. On admission noted with hbg 9.5, platelets 602, Na up to 146 after admit, K 6,4, cl 113, CO2 16, BUN 155, creat 2.6, bili 0.2, AST 51, ALT,
106, alk phos 215. albumin 3.2. She is also noted with constipation then diarrhea with tube feeds. EGD completed with peg but no colonoscopy in past.
06/27 para 1600m pink Chylous + SBP WBC 947 ,poly 73.5 protein 4.3 albumin 2.1 SAAG 1.2 cx neg
07/02 para 1350 [place] Chylous WBC 465 , poly 40.4, protein 3.7, albumin 1.7 cx neg
07/04- para 750 pink Chylous WBC 351, poly 19.7, protein 3.4, albumin 1.4 cx neg
06/27 TSH normal
07/26/25 US abdomen normal liver, no lesion, no cholelithiasis, acute cholecystitis, or biliary dilation, right kidney echogenic with med renal disease, mod to large ascites
06/30/25 tube check Contrast instilled through the patient's indwelling PEG tube outlines the stomach, confirming placement.
06/26/25 CT Abd/pel Without Iv Or Oral
Moderate/large volume ascites. Moderate left pleural effusion with associated passive atelectasis Percutaneous gastrostomy tube with tip terminating in the stomach.
There is diffuse urinary bladder wall thickening which extends to the umbilicus. Findings may represent cystitis. Consider correlation with urinalysis.
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
The uterus is mildly prominent and nodular in appearance, possibly secondary to uterine fibroids. Consider further evaluation with dedicated pelvic ultrasound.
-recurrent ascites -with prior chylous ascites on in June
-abdominal distention after peg placement
-recent SBP
-recent PNA with peg placement in April
-prior constipation now diarrhea
-tachycardia
-electrolyte imbalance -hyperkalemia,hypernatremia
-metabolic acidosis
-acute on chronic CKD solitary right kidney, chronic kidney disease stage III/stage IV/nephrolithiasis
-uterus possible fibroid per CT
-recent loculated effusion
-recent UTI
other med problems:
-spina bifida (followed at [facility]), severe developmental delay
-hx chronic iron deficiency anemia
-neurogenic bladder
-hydrocephalus status post YOGA INSTRUCTOR shunt- no recent change in shunt
PLAN:
#chylous ascites
--Chylous ascites can be caused by infection, trauma, malignancy or potentially a complication after abdominal surgery. No signs of cirrhosis on labs or imaging
-- Triglycerides are consistent with chylous ascites including color described by IR -however IR at [facility] says the triglycerides should be above 400
-- I have sent fluid for flow cytometry to look for lymphoma, adenosine deaminase to look for TB -this is pending
-- Gram stain currently no growth
--Patient's paracentesis from this morning shows many more PMNs over 3000.
--Patient needs CT scan to look for other causes of peritonitis. Will use oral contrast but no IV contrast due to her renal failure
--Patient's urine culture shows gram-negative bacilli, but she is likely colonized chronically
--ID called
-- I did review her imaging from last admission early June that was done without IV contrast that did not show any overt malignancy.
-- No known cirrhosis, echocardiogram did not show any right-sided heart failure
-- There is potential that it could be traumatic after PEG tube placement -sister and family did notice that the abdominal distention occurred just after discharge from [place] in April
-- also discussed this with hepatology down at [place] who agree that she should be transferred on 07/28/25 (Mary)
-- Our plan was to send down to [place] for the IR procedure however Dr. Romero stated that since the triglycerides were under 400 it was less likely going to be successful and not consistent with chylous
-- Dr. Hernandez agreed to follow-up as outpatient
# SBP -chylous ascites does not typically cause an elevated white blood cell count in the ascitic fluid it is usually lymphocyte predominant rather than neutrophil predominant
-- Ascitic fluid shows: 07/30/2025 PMN count is over 3400, on admission it was over 700, consistent with SBP, total protein 4.5, total albumin 2.1, triglycerides 222, serum albumin 3.0; with a SAG of 0.9 showing non-portal hypertension related ascites
which is consistent with chylous ascites versus peritonitis. Her amylase is not significantly elevated and therefore highly unlikely any type of ruptured viscus. This could be TB and therefore adenosine deaminase was sent. It is not pancreatitis
as her amylase is low.
-- Patient has culture-negative neutrocytic ascites
--Usually with secondary peritonitis is polymicrobial. Her glucose was over 50 and her LDH was less than 200. These also are evidence against secondary peritonitis.
--So far no growth in the Gram stain
-CT imaging along with contrast in PEG - no evidence of leak
- -Evaluated by ID. ID notes reviewed. Meropenem was started. awaiting ADA on ascitic fluid
- unfortunately no identifiable etiology to correct her recurrent ascites ( not secondary to liver disease ) . discussed with family . will recommend follow up with [place] or [facility] after completing treatment for SBP.
follow up with hepatology as outpatient
Medical team - discussing palliative versus hospice options
Total Time Spent with Patient (in minutes): 35
Subjective
Subjective
Date of Service: August 01, 2025
no acute events
Objective
Data Reviewed
Laboratory Data:
Laboratory Results
Magnesium 3.0 mg/dl (1.6-2.3) H 07/29/25 04:25
Total Bilirubin 0.3 mg/dl (0.2-1.3) 07/31/25 04:39
AST 16 U/L (14-36) 07/31/25 04:39
ALT 20 U/L (0-35) 07/31/25 04:39
Alkaline Phosphatase 55 U/L (38-126) 07/31/25 04:39
Vital Signs and I&O:
Vital Signs
Temp Pulse Resp BP Pulse Ox
98.8 F 109 29 80/57 95
08/01/25 19:47 08/01/25 20:06 08/01/25 20:00 08/01/25 20:06 08/01/25 20:47
I&O
07/31/25 08/01/25 08/02/25
06:59 06:59 06:59
Intake Total 2630 / 2630 980 / 1000 1300 / 1300
Output Total 30 / 30 20
Balance 2600 / 2600 980 / 1000 1280 / 1280
Physical Exam
Physical Exam
GI: Soft, Distended (mildly) and Non Tender
[2025-08-01 21:38] LABS: Blood Urea Nitrogen 110 mg/dl (7-17); Calcium 10.2 mg/dl (8.4-10.2); Carbon Dioxide 18 mmol/L (22-30); Chloride 94 mmol/L (98-107); Estimated Creatinine Clearance 15 ml/min; Glucose 95 mg/dl (70-99); Potassium 4.6 mmol/L (3.5-5.1); Sodium 128 mmol/L (135-145); eGFR 23.00
[2025-08-01 21:40] LABS: Hematocrit 25.4 % (37.0-47.0); Hemoglobin 8.7 g/dL (12.0-16.0); Mean Corp Hgb Conc. 34.3 g/dL (33.0-37.0); Mean Corpuscular Volume 83.0 fL (81.0-99.0); Platelet Count 330 10^3/uL (130-400); Red Cell Dist. Width 16.9 % (11.5-14.5)
--- NOTE | 2025-08-01 22:53 | PTCARENOTE ---
Received pt from previous RN. Pt is nonverbal, moans. Family at bedside. Sinus tach/NSR on them monitor, BP 80/57, PRN Midodrine given (see MAR). Pt on RA O2 sat 95%, lungs diminished, tachypneic. Pt receiving TF Osmolite @ 30ml/hr, 0 water flush
through her PEG tube. Incont of stool. Pt incont of urine, mom straight caths pt through vesicostomy. 1 unit of PRBCs completed at 192. PRN Tylenol given for pain (see MAR). CHG bath and mouth care provided. Safe environment maintained.
[2025-08-02] VITALS (21 sets, daily range): BP systolic 74–114; BP diastolic 49–67; BMI 15.5
[2025-08-02] MEDS: STERILE WATER FOR INJECTION 20 ML IV (03:03)
[2025-08-02] MEDS: MERREM 1000 MG IV (03:03)
[2025-08-02 03:27] LABS: Hematocrit 26.4 % (37.0-47.0); Hemoglobin 9.0 g/dL (12.0-16.0); Mean Corp Hgb Conc. 34.1 g/dL (33.0-37.0); Mean Corpuscular Volume 84.6 fL (81.0-99.0); Platelet Count 306 10^3/uL (130-400); Red Cell Dist. Width 17.3 % (11.5-14.5)
[2025-08-02] MEDS: TYLENOL ORAL SOLUTION 650 MG TUBE ×2 (03:32→08:24)
[2025-08-02 03:59] LABS: Blood Urea Nitrogen 107 mg/dl (7-17); Calcium 9.5 mg/dl (8.4-10.2); Carbon Dioxide 16 mmol/L (22-30); Chloride 96 mmol/L (98-107); Estimated Creatinine Clearance 14 ml/min; Glucose 135 mg/dl (70-99); Potassium 4.7 mmol/L (3.5-5.1); Sodium 129 mmol/L (135-145); eGFR 20.97
[2025-08-02] MEDS: HEPARIN 5000 UNITS SC (08:21)
[2025-08-02] MEDS: PREVACID 30 MG TUBE (08:21)
--- NOTE | 2025-08-02 08:57 | W.PN.ID1 ---
Date of Service
Date of Service: August 02, 2025
Today's Communication
- stop meropenem start ciprofloxacin for 7 more days (10 day total course)
- vaginal yeast infection treated with fluconazole 100 mg PO 07/31
extended discussion with family re response to infection, prognosis, possibility of shunt infection, management of shunt infection, chcf antibiotics etc; they indicate they would like to speak with IM service and then likely transition to
hospice which I would support. This infection is likely to relapse and progress to a worse MDRO than what we have already isolated. Pain control is of high importance to her goals of care.
Assessment / Plan
SBP - suspect MDRO
Colonization with MDRO Enterobacter
Chylous Ascites
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
Vesicostomy
CKD IV, Single Kidney
FTT/cachexia
AMS
- PICC removal before dc
- await T spot, ADA on ascites WNL - my clinical concern for TB is low
- blood cultures in progress
- stop meropenem start ciprofloxacin for 7 more days (10 day total course)
- vaginal yeast infection treated with fluconazole 100 mg PO 07/31
extended discussion with family re response to infection, prognosis, possibility of shunt infection, management of shunt infection, exterminator helper antibiotics etc; they indicate they would like to speak with IM service and then likely transition to
hospice which I would support. This infection is likely to relapse and progress to a worse MDRO than what we have already isolated. Pain control is of high importance to her goals of care.
Chief Complaint
-: Other (SBP, colonization with MDRO)
Subjective / Review of Systems
afebrile
started on midodrine per nephrology, BP remains low
no events overnight
extended discussion with family re response to infection, prognosis, possibility of shunt infection, management of shunt infection, chcf antibiotics etc; they indicate they would like to speak with IM service and then likely transition to
hospice which I would support. This infection is likely to relapse and progress to a worse MDRO than what we have already isolated. Pain control is of high importance to her goals of care.
Vital Signs / Physical Exam
Vital Signs
Vital Signs
Temp Pulse Resp BP Pulse Ox
98.2 F 96 23 90/66 98
08/02/25 08:00 08/02/25 06:00 08/02/25 06:00 08/02/25 06:00 08/02/25 08:00
Physical Exam
Constitutional: No Acute Distress, Chronically Ill and Non-toxic
Cardiovascular: Regular Rate and S1/S2; Negative Murmur or Rub
Pulmonary: Clear and Symmetric; Negative Wheezes or Rales
Gastrointestinal: Soft, Non Tender, Distended (mildly) and Normal Bowel Sounds
Skin: Warm and Dry; Negative Rash or Jaundice
Objective Data
Lab Data
Lab Results
08/02/25 03:07
08/02/25 03:07
Estimated Creat Clear 14 ml/min 08/02/25 03:07
Lactic Acid < 0.5 mmol/L (0.7-2.0) L 07/26/25 16:36
Total Bilirubin 0.3 mg/dl (0.2-1.3) 07/31/25 04:39
AST 16 U/L (14-36) 07/31/25 04:39
ALT 20 U/L (0-35) 07/31/25 04:39
Alkaline Phosphatase 55 U/L (38-126) 07/31/25 04:39
Most recent labs reviewed.
Micro Results:
07/31/25 01:33 Blood Culture - Preliminary
Blood/Venous No Growth in 48 hours- Final report to follow
07/31/25 01:33 Blood Culture - Preliminary
Blood/Venous No Growth in 48 hours- Final report to follow
07/30/25 08:38 Body Fluid Culture - Preliminary
Peritoneal Fluid Gram Stain - Preliminary
07/26/25 17:41 Blood Culture - Final
Blood/Venous No Growth - Final Report
07/26/25 16:35 Blood Culture - Final
Blood/Venous No Growth - Final Report
07/27/25 12:10 Body Fluid Culture - Final
Peritoneal Fluid No Growth After 72 Hours
Gram Stain - Final
07/26/25 23:57 Urine Culture - Final
Urine Enterobacter cloacae
07/27/25 15:08 MRSA Screen - Final
Nose No Methicillin Resistant Staphylococcus aureus isolated.
07/26/25 15:58 Influenza Types A & B (LURDES) - Final
Nasal Swab Negative for Influenza A & B, NAAT
Negative results must be combined with clinical observations
and patient history.
Nucleic Acid Amplification test (NAAT)performed on the
[employer] platform.
Care Review
Plan reviewed with: Physician (Dr Kirby - [facility])
--- NOTE | 2025-08-02 09:10 | W.PN.UPDATE ---
Update Note
Progress Note Update
received text from nursing with increased abdominal distention. Reviewed with Dr. Riley will proceed with repeat para. Per staff family asking about hospice catheter. Will need to reviewed with primary team and IR. I reviewed with IR nursing
for education on catheter if decision is made for hospice and abd cath for home drainage.
--- NOTE | 2025-08-02 10:03 | PTCARENOTE ---
family remains, updates continually throughout encounters. Seen by Dr. Molina, contact with Dr. Kirby re: ongoing pain symptoms, guarding, grimacing, moaning, drawing up legs. warm blanket, pending additional pain regimen. TF continue,
straight cath by mother
--- NOTE | 2025-08-02 10:25 | PTCARENOTE ---
tube feeds held pre cipro dose
--- NOTE | 2025-08-02 10:53 | W.PN.NEPH.PH ---
Today's Communication / Plan
-
supportive care , hospice
Assessment/Plan
-
Impression:
MARLENE
Hyperkalemia
Possible uremia
Non gap met acidosis
mild Hypernatremia
Anemia
Ascites
s/p PEG
CKD 4 with baseline creatinine of 1.3-1.7
Solitary right kidney
h/o Nephrolithiasis
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
Neurogenic bladder
Cognitive dysfunction
Plan:
MARLENE and azotemia persists
hyponatremia no sig change
worsening met acidosis
BP remains labile cont prn midodrine
abx per ID
for repeat para toady
Family decided to move with hospice , d/w family
no further labs
will s/o
d/w primary, GI
-
-
Date of Service: August 02, 2025
CC / HPI / ROS
-
Chief Complaint:
MARLENE, hypernatremia
History of Present Illness:
MARLENE/Cr up at 2.7, BUN 107
BP labile, sodium low 129 off FWF
paracentesis 2.5lit-07/27, 900cc on 07/30
Urine from cystostomy
critically ill
Review of Systems:
pt is non verbal baseline
no fever
family thinks she is uncomfortable from pain
Labs
-
Labs:
WBC 6.2 10^3/uL (4.8-10.8) 08/02/25 03:07
RBC 3.12 10^6/uL (4.20-5.40) L 08/02/25 03:07
Hgb 9.0 g/dL (12.0-16.0) L 08/02/25 03:07
Hct 26.4 % (37.0-47.0) L 08/02/25 03:07
Plt Count 306 10^3/uL (130-400) 08/02/25 03:07
Sodium 129 mmol/L (135-145) L 08/02/25 03:07
Potassium 4.7 mmol/L (3.5-5.1) 08/02/25 03:07
Chloride 96 mmol/L (98-107) L 08/02/25 03:07
Carbon Dioxide 16 mmol/L (22-30) L 08/02/25 03:07
BUN 107 mg/dl (7-17) H* 08/02/25 03:07
Creatinine 2.7 mg/dL (0.6-1.0) H 08/02/25 03:07
eGFR 20.97 08/02/25 03:07
Glucose 135 mg/dl (70-99) H 08/02/25 03:07
Calcium 9.5 mg/dl (8.4-10.2) 08/02/25 03:07
Albumin 3.3 g/dl (3.5-5.0) L 07/31/25 04:39
Physical Exam
-
Vital Signs:
Vital Signs
Temp Pulse Resp BP Pulse Ox
98.0 F 110 23 82/58 98
08/02/25 11:46 08/02/25 11:18 08/02/25 06:00 08/02/25 11:18 08/02/25 08:00
Cardiovascular:: Regular rate and rhythm
Respiratory:: Bilateral: Coarse (decreased)
Lung Excursion:: Normal
Abdomen:: Soft and Tender (mild TTP )
Bowel Sounds:: Normal
Extremity Edema:: None: Bilateral:
Méndez Catheter: No
[2025-08-02] MEDS: CIPRO 500 MG TUBE (11:18)
--- NOTE | 2025-08-02 11:27 | W.PN.GI.CBS2 ---
Addendum entered and electronically signed by Arvin Riley MD 08/02/25 13:06:
IR eval for port placement for home hospice
Original Note:
Today's Communication / Plan
-
GOC discussion .
Assessment / Plan
-
50-year-old female past medical history of spina bifida (followed at [facility]), severe developmental delay, recurrent pneumonia, aspiration pneumonia, chronic iron deficiency anemia, solitary right kidney, chronic kidney disease stage
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
diverticulum at [facility]. In review with family pt was noted with increased abdominal distention after tube feed was placed in April. She had recent admission with abdominal pain and ascites. She completed para 06/27 with + SBP. She
was treated with antibiotics and discharged on oral Cefdinir and repeat tap with improved cell counts but noted with chylous ascites. She as also noted with UTI -enterobacter cloacae and loculated left pleural effusion with questioned related to
ascites. She now returns with hypotension and fatigue with worsening tachycardia and recurrent distention. On admission noted with hbg 9.5, platelets 602, Na up to 146 after admit, K 6,4, cl 113, CO2 16, BUN 155, creat 2.6, bili 0.2, AST 51, ALT,
106, alk phos 215. albumin 3.2. She is also noted with constipation then diarrhea with tube feeds. EGD completed with peg but no colonoscopy in past.
06/27 para 1600m pink Chylous + SBP WBC 947 ,poly 73.5 protein 4.3 albumin 2.1 SAAG 1.2 cx neg
07/02 para 13[address] [place] Chylous WBC 465 , poly 40.4, protein 3.7, albumin 1.7 cx neg
07/04- para 750 pink Chylous WBC 351, poly 19.7, protein 3.4, albumin 1.4 cx neg
06/27 TSH normal
07/26/25 US abdomen normal liver, no lesion, no cholelithiasis, acute cholecystitis, or biliary dilation, right kidney echogenic with med renal disease, mod to large ascites
06/30/25 tube check Contrast instilled through the patient's indwelling PEG tube outlines the stomach, confirming placement.
06/26/25 CT Abd/pel Without Iv Or Oral
Moderate/large volume ascites. Moderate left pleural effusion with associated passive atelectasis Percutaneous gastrostomy tube with tip terminating in the stomach.
There is diffuse urinary bladder wall thickening which extends to the umbilicus. Findings may represent cystitis. Consider correlation with urinalysis.
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
The uterus is mildly prominent and nodular in appearance, possibly secondary to uterine fibroids. Consider further evaluation with dedicated pelvic ultrasound.
-recurrent ascites -with prior chylous ascites on in June
-abdominal distention after peg placement
-recent SBP
-recent PNA with peg placement in April
-prior constipation now diarrhea
-tachycardia
-electrolyte imbalance -hyperkalemia,hypernatremia
-metabolic acidosis
-acute on chronic CKD solitary right kidney, chronic kidney disease stage III/stage IV/nephrolithiasis
-uterus possible fibroid per CT
-recent loculated effusion
-recent UTI
other med problems:
-spina bifida (followed at [facility]), severe developmental delay
-hx chronic iron deficiency anemia
-neurogenic bladder
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
PLAN:
#chylous ascites
--Chylous ascites can be caused by infection, trauma, malignancy or potentially a complication after abdominal surgery. No signs of cirrhosis on labs or imaging
-- Triglycerides are consistent with chylous ascites including color described by IR -however IR at [facility] says the triglycerides should be above 400
-- I have sent fluid for flow cytometry to look for lymphoma, adenosine deaminase to look for TB -this is pending
-- Gram stain currently no growth
--Patient's paracentesis from this morning shows many more PMNs over 3000.
--Patient needs CT scan to look for other causes of peritonitis. Will use oral contrast but no IV contrast due to her renal failure
--Patient's urine culture shows gram-negative bacilli, but she is likely colonized chronically
--ID called
-- I did review her imaging from last admission early June that was done without IV contrast that did not show any overt malignancy.
-- No known cirrhosis, echocardiogram did not show any right-sided heart failure
-- There is potential that it could be traumatic after PEG tube placement -sister and family did notice that the abdominal distention occurred just after discharge from [place] in April
-- also discussed this with hepatology down at [place] who agree that she should be transferred on 07/28/25 (Mary)
-- Our plan was to send down to [place] for the IR procedure however Dr. Romero stated that since the triglycerides were under 400 it was less likely going to be successful and not consistent with chylous
-- Dr. Hernandez agreed to follow-up as outpatient
# SBP -chylous ascites does not typically cause an elevated white blood cell count in the ascitic fluid it is usually lymphocyte predominant rather than neutrophil predominant
-- Ascitic fluid shows: 07/30/2025 PMN count is over 3400, on admission it was over 700, consistent with SBP, total protein 4.5, total albumin 2.1, triglycerides 222, serum albumin 3.0; with a SAG of 0.9 showing non-portal hypertension related ascites
which is consistent with chylous ascites versus peritonitis. Her amylase is not significantly elevated and therefore highly unlikely any type of ruptured viscus. This could be TB and therefore adenosine deaminase was sent. It is not pancreatitis
as her amylase is low.
-- Patient has culture-negative neutrocytic ascites
--Usually with secondary peritonitis is polymicrobial. Her glucose was over 50 and her LDH was less than 200. These also are evidence against secondary peritonitis.
--So far no growth in the Gram stain
-CT imaging along with contrast in PEG - no evidence of leak
- -Evaluated by ID. ID notes reviewed. Meropenem was started. awaiting ADA on ascitic fluid
- unfortunately no identifiable etiology to correct her recurrent ascites ( not secondary to liver disease ) . discussed with family . will recommend follow up with [place] or [facility] after completing treatment for SBP.
follow up with hepatology as outpatient
Family is discussing with medical team about hospice care today . Had a long discussion with hospitalist/ nephrology. Overall poor prognosis . Hospice would be appropriate . Paracentesis was ordered for symptomatic relief.
Total Time Spent with Patient (in minutes): 35
Subjective
Subjective
Date of Service: August 02, 2025
no acute events
Objective
Data Reviewed
Laboratory Data:
Laboratory Results
08/02/25 03:07
08/02/25 03:07
Laboratory Results
Magnesium 3.0 mg/dl (1.6-2.3) H 07/29/25 04:25
Total Bilirubin 0.3 mg/dl (0.2-1.3) 07/31/25 04:39
AST 16 U/L (14-36) 07/31/25 04:39
ALT 20 U/L (0-35) 07/31/25 04:39
Alkaline Phosphatase 55 U/L (38-126) 07/31/25 04:39
Vital Signs and I&O:
Vital Signs
Temp Pulse Resp BP Pulse Ox
98.2 F 110 23 82/58 98
08/02/25 08:00 08/02/25 11:18 08/02/25 06:00 08/02/25 11:18 08/02/25 08:00
I&O
08/01/25 08/02/25 08/03/25
06:59 06:59 06:59
Intake Total 980 / 1000 1720 / 1760 170 / 170
Output Total 40 / 40
Balance 980 / 1000 1680 / 1720 170 / 170
Physical Exam
Physical Exam
GI: Soft and Distended
--- NOTE | 2025-08-02 12:14 | CM ---
Addendum entered by Ritu Nelson 08/02/25 16:12:
Per community relations manager, she met with patient's mother and father. The family has decided to continue to seek treatment; will notify Hospice when they are ready.
Original Note:
CM consult completed; met with patient's mother, Tammie Bond, at the bedside; per her request Home Hospice Referral sent to [facility].
Referral sent via [employer] and [employer]. Text acknowledged by community relations manager Matcher Operator
--- NOTE | 2025-08-02 12:47 | PTCARENOTE ---
tube feeds resumed 1 hr after cipro dose. Seen by Dr. Kirby, spoke with IR, awaiting hospice visit.
--- NOTE | 2025-08-02 12:53 | W.PN.HOSP.TC ---
Today's Communication/Plan
-
Switch to ciprofloxacin
Pain regimen
Paracentesis today, peritoneal port placement
Hospice consult, goal for home hospice
Assessment / Plan
Assessment / Plan
Ms. Petra Bond is a 50 yo woman with hx spina bifida with hydrocephalus, severe developmental delay, PEG tube placement (05/15/25), recurrent aspiration pneumonia, CKD III/IV,recent admission 06/26-07/04 for new ascites and SBP (chylous ascites,
followed at [facility]) brought to the ER for change in mentation, concern for discomfort. She was found to have acute on chronic kidney disease and recurrent ascites with fluid analysis suggestive of SBP.
Abdominal US 07/26/25
IMPRESSION:
No sonographic evidence of cholelithiasis, acute cholecystitis or biliary duct dilation.
The right kidney appears echogenic which can be seen with medical renal disease. No hydronephrosis.
Moderate/large volume intra-abdominal ascites.
Recurrent ascites
SBP, worsening - etiology may be related to translocation from Urine - -Enterobacteria clocae; possibility of shunt infection
-Not clear evidence of Chylous Ascites as per [place] - Triglycerides should be appx 400 if PO intake - and patient has Triglycerides of 222
-Paracentesis 07/30 s/p 900cc drained fluid - worsening WBC
- She has no e/o cirrhosis.
- Given abdominal distention started post PEG placement, concern raised for injury/trauma during procedure. Other work up for etiology on-going with flow cytometry (on ascites fluid) ordered to evaluate for lymphoma and adenosine deaminase to look
for TB
-albumin repletion
--s/p paracentesis 07/27/25 as well; with albumin repletion
- stop meropenem start ciprofloxacin for 7 more days (10 day total course)
-ID consulted
-CT imaging along with contrast in PEG - no evidence of leak atthis time;
-Per discussion with GI - not candidate for IR intranodal lymphangiography with lymphatic embolization. Spoke to Dr. Eliel Addison at [place].
-f/u cultures from 07/30 paracentesis; add on ADA, TB although doubt etology
-midodrine
- IR consulted for peritoneal port, paracentesis can be done for home hospice
MARLENE on CKD IV
Hyperkalemia
Uremia
Metabolic Acidosis
- Cr 2.6 compared to known baseline of 1.5.
- Patient has solitary kidney s/p nephrectomy (for recurrent infection / reflux).
- no hydronephrosis noted in right kidney on US
- s/p insulin in ER, fluids and lasix, s/p 1 dose Lokelma, K now normalized
- continue IVF; IVF PRN - given 1L LR bolus 07/30 and 08/01
- Nephrology consult appreciated
- continue IV albumin PRN
- Monitor renal function
-prognosis poor
#Acute Anemia
-probable due to chronic disease and MARLENE/CKD
-transfuse 1 u prbc
-monitor hgb
#Hypotension
-midodrine as needed
-IVF
-albumin
#?UTI
-Enterobacteria clocae
-resistant to ceftriaxone
-now on meropenem
Vaginal yeast infection
-treat with fluconazole 100 mg PO 07/31
Hypernatremia
-treat as needed
-improved
GOC Discussions
After extensive discussion with family understanding comorbid issues and continued decline patient with unlikely complete resolution of peritonitis, decision was made to transition to goals of comfort. IR consulted for Peritoneal Port to facilitate
drainage at home
Spina Bifida with Hydrocephalus s/p SCALP TREATMENT OPERATOR Shunt
- Recently had PEG placed (April 2025) - prior to that was fed with supplemental feeds via bottle.
- Continue supportive care / repositioning / etc.
- Recent PRACTICING DERMATOLOGIST imaging last admission was unremarkable.
- TF resumed per dietary
DVT Prophylaxis: Subcut Heparin
Code Status: Full
Total time spent on today's encounter was 55 minutes which included time spent in counseling the patient/family regarding diagnosis and treatment plan as listed above, goals of care, and symptom management. Case was discussed with nursing staff,
specialists, and care coordinators/case management. All labs and imaging personally reviewed by me. Remainder the time spent in detailed review of previous records, lab data, imaging, and other medical provider documentation.
Anticipated Discharge: Within 24 hours
Subjective/Interval History
-
Date of Service: August 02, 2025
no acute events overnight
Objective Data
-
Labs:
Laboratory Results
08/02/25
03:07
WBC 6.2
Hgb 9.0 L
Hct 26.4 L
Plt Count 306
Sodium 129 L
Potassium 4.7
Chloride 96 L
Carbon Dioxide 16 L
BUN 107 H*
Creatinine 2.7 H
Glucose 135 H
Calcium 9.5
Vital Signs:
Vital Signs
Temp Pulse Resp BP Pulse Ox
98.0 F 110 23 82/58 98
08/02/25 11:46 08/02/25 11:18 08/02/25 06:00 08/02/25 11:18 08/02/25 08:00
I&O
08/01/25 08/02/25 08/03/25
06:59 06:59 06:59
Intake Total 980 / 1000 1720 / 1760 170 / 170
Output Total 40 / 40
Balance 980 / 1000 1680 / 1720 170 / 170
Review of Systems
-
History Source: Patient
All other systems: Not reviewed unless documented
Physical Exam
-
General: No Apparent Distress and Appears Chronically Ill
HEENT: PERRLA and Other
Respiratory: Clear to Auscultation
Cardiac: Regular Rhythm and S1/S2
GI: Soft, Nontender and Other (PEG Tube)
Musculoskeletal: No Edema and Other (contractures )
Skin: Warm and Dry; Negative Rash
Neuro: Awake
Psych: Calm
Data Reviewed
-
Diagnostic Radiology: Report Reviewed by me
Labs: Labs Reviewed by me
--- NOTE | 2025-08-02 15:30 | PTCARENOTE ---
taken to IR via bed, TF on hold since 1329, family accompanied.
--- NOTE | 2025-08-02 17:02 | CHAP ---
Emotional and spiritual support provided for Ms. Bond and family. Will follow as able. Note: family declined prayer blanket at this time.
--- NOTE | 2025-08-02 18:11 | PTCARENOTE ---
returned to ICU as med/surg pt, sats in IR were 83 range, placed on 2l for transport and post procedure. cheeks and nose flushed. Abd dressing placed by IR staff, close to edge of vesicostomy. VS noted. presently resting in ICU, family bedside.
upon return to ICU, nose was much less red/pink in color
--- NOTE | 2025-08-02 19:00 | PTCARENOTE ---
cheeks and nose much less flushed, tolerating room air, sats 91-94%.
--- NOTE | 2025-08-02 19:10 | PTCARENOTE ---
Patient received lying in bed, HOB up 30 degrees, awake and alert. Nonverbal but moaning and grunting with expiration. CPOT 6. Her Dad is at the bedside. Pain medication offered and Dad says he wants her to have something more than Tylenol. Prn
Dilaudid given per order. See academic specialist charted on worklist flowsheet. Oral care rendered. Vesicostomy noted, diaper in place. Left lower abdomen asept catheter in place capped, dressing CDI. PEG site with dressing intact, PEG currently capped.
Patient's parents do not want tube feeding restarted yet. Patient is currently on comfort care. Sats 93% on RA. Dual lumen PICC noted right arm, both ports flush well. Patient's parents perform most of the cares for Petra per their wishes, assisted
as needed. Afebrile, BP soft. ST on CM. Repositioned as needed. Bed in low and locked position, call grissom within reach.
[2025-08-02] MEDS: DILAUDID 0.25 MG IV ×2 (19:11→21:36)
[2025-08-02 19:15] LABS: Body Fluid Second Tech DW
[2025-08-02] MEDS: HEPARIN SC (21:53)
--- NOTE | 2025-08-02 22:30 | PTCARENOTE ---
Tube feeding started via PEG per order. No H2O flush.
[2025-08-03 00:45] VITALS: BP 80/41
[2025-08-03 02:29] VITALS: BP 100/51
--- NOTE | 2025-08-03 04:30 | PTCARENOTE ---
Patient appears to be sleeping comfortably t/o most of night. Her parents are sleeping at the bedside.
[2025-08-03 04:49] VITALS: BP 83/49
--- NOTE | 2025-08-03 07:18 | PTCARENOTE ---
Report given verbally to oncAlen vallejo RN. Bedside rounds complete. Questions answered.
[2025-08-03] MEDS: HEPARIN SC (07:25)
[2025-08-03] MEDS: PREVACID 30 MG TUBE (07:31)
--- NOTE | 2025-08-03 08:07 | PN.IRAD.UPD ---
Update Note - IRAD
- -
900 ml clear yellow fluid drained via left asept catheter. Patient tolerated procedure well . Mother was taught how to drain at that time. Mother was well informed of the sterile process during active draining. New clean dry dressing was placed over
site.
[2025-08-03] MEDS: DILAUDID 0.25 MG IV ×2 (08:24→09:50)
--- NOTE | 2025-08-03 08:39 | PTCARENOTE ---
Patient received lying in bed, HOB up 30 degrees, awake and alert. Nonverbal but moaning and grunting with expiration. CPOT 5. Her Mom and Dad is at the bedside. Pain medication offered and Dad says he wants her to have something more than Tylenol.
Prn Dilaudid given per order. Oral care provided by Mom. Vesicostomy noted, diaper in place. Left lower abdomen asept catheter in place capped, dressing CDI. PEG site with dressing intact, TF infusing, increased to 20cc/hr. Patient is currently on
comfort care. Sats 95% on RA. Dual lumen PICC noted right arm, both ports flush well. Patient's parents perform most of the cares for Perta per their wishes, assisted as needed. ST on CM, no further VS taken due to comfort care. Repositioned as
needed. Bed in low and locked position, call grissom within reach.
--- NOTE | 2025-08-03 09:08 | W.PN.ID1 ---
Date of Service
Date of Service: August 03, 2025
Today's Communication
transitioning to hospice, could stop antibiotics or continue ciprofloxacin for 6 more days (10 day total course)
Assessment / Plan
SBP - suspect MDRO
Colonization with MDRO Enterobacter
Chylous Ascites
BROADCAST DIRECTOR OPERATIONS shunt
Vesicostomy
CKD IV, Single Kidney
FTT/cachexia
AMS
transitioning to hospice, could stop antibiotics or continue ciprofloxacin for 6 more days (10 day total course)
Chief Complaint
-: Other (SBP, colonization with MDRO)
Subjective / Review of Systems
afebrile
moaning ongoing
had drain placed
Vital Signs / Physical Exam
Vital Signs
Vital Signs
Temp Pulse Resp BP Pulse Ox
98 F 110 35 83/49 95
08/02/25 23:00 08/03/25 08:00 08/03/25 08:00 08/03/25 04:49 08/03/25 08:00
Objective Data
Lab Data
Lab Results
08/02/25 03:07
08/02/25 03:07
Estimated Creat Clear 14 ml/min 08/02/25 03:07
Lactic Acid < 0.5 mmol/L (0.7-2.0) L 07/26/25 16:36
Total Bilirubin 0.3 mg/dl (0.2-1.3) 07/31/25 04:39
AST 16 U/L (14-36) 07/31/25 04:39
ALT 20 U/L (0-35) 07/31/25 04:39
Alkaline Phosphatase 55 U/L (38-126) 07/31/25 04:39
Most recent labs reviewed.
Laboratory Tests
07/30/25 08/02/25
08:38 16:00
Fluid WBC 3948 2028
Fl Polymorphonucl Cell 88.0 86.2
Fluid Total Protein 4.4
Fluid Triglycerides 142
Micro Results:
07/30/25 08:38 Body Fluid Culture - Preliminary
Peritoneal Fluid Gram Stain - Preliminary
07/31/25 01:33 Blood Culture - Preliminary
Blood/Venous No Growth in 72 hours- Final report to follow
07/31/25 01:33 Blood Culture - Preliminary
Blood/Venous No Growth in 72 hours- Final report to follow
08/02/25 16:00 Body Fluid Culture - Pending
Peritoneal Fluid Gram Stain - Preliminary
07/26/25 17:41 Blood Culture - Final
Blood/Venous No Growth - Final Report
07/26/25 16:35 Blood Culture - Final
Blood/Venous No Growth - Final Report
07/27/25 12:10 Body Fluid Culture - Final
Peritoneal Fluid No Growth After 72 Hours
Gram Stain - Final
07/26/25 23:57 Urine Culture - Final
Urine Enterobacter cloacae
07/27/25 15:08 MRSA Screen - Final
Nose No Methicillin Resistant Staphylococcus aureus isolated.
07/26/25 15:58 Influenza Types A & B ([facility]) - Final
Nasal Swab Negative for Influenza A & B, NAAT
Negative results must be combined with clinical observations
and patient history.
Nucleic Acid Amplification test (NAAT)performed on the
[employer] platform.
Care Review
Plan reviewed with: Nurse (immigration lawyer - antibiotics)
--- NOTE | 2025-08-03 09:43 | PTCARENOTE ---
Palliative Care to bedside. Plan of care discussed with parents.
--- NOTE | 2025-08-03 09:54 | HOSPNOTE ---
Patient will be going home today family will be driving patient home. Local fill of pain medications will be picked up by father. Long discussion about Asept drain and that we will order more bottles when needed family sent home with 4 bottles.
Family would like to continue tube feeds for now, and continue all medications via PEG tube. All questions answered and support given. Once patient is home we will admit onto our service. Attending and CM updated.
[2025-08-03] MEDS: CIPRO 500 MG TUBE (10:24)
--- NOTE | 2025-08-03 11:03 | W.PN.HOSP.TC ---
Addendum entered and electronically signed by Domenico Kirby MD 08/03/25 18:19:
Underweight
Addendum entered and electronically signed by Domenico Kirby MD 08/03/25 16:33:
[id number]
Original Note:
Today's Communication/Plan
-
home hospice
continue abx course
Assessment / Plan
Assessment / Plan
Ms. Petra Bond is a 50 yo woman with hx spina bifida with hydrocephalus, severe developmental delay, PEG tube placement (05/15/25), recurrent aspiration pneumonia, CKD III/IV,recent admission 06/26-07/04 for new ascites and SBP (chylous ascites,
followed at [facility]) brought to the ER for change in mentation, concern for discomfort. She was found to have acute on chronic kidney disease and recurrent ascites with fluid analysis suggestive of SBP.
Abdominal US 07/26/25
IMPRESSION:
No sonographic evidence of cholelithiasis, acute cholecystitis or biliary duct dilation.
The right kidney appears echogenic which can be seen with medical renal disease. No hydronephrosis.
Moderate/large volume intra-abdominal ascites.
Recurrent ascites
SBP, worsening - etiology may be related to translocation from Urine - -Enterobacteria clocae; possibility of shunt infection
-Not clear evidence of Chylous Ascites as per [place] - Triglycerides should be appx 400 if PO intake - and patient has Triglycerides of 222
-Paracentesis 07/30 s/p 900cc drained fluid - worsening WBC
- She has no e/o cirrhosis.
- Given abdominal distention started post PEG placement, concern raised for injury/trauma during procedure. Other work up for etiology on-going with flow cytometry (on ascites fluid) ordered to evaluate for lymphoma and adenosine deaminase to look
for TB
-albumin repletion
--s/p paracentesis 07/27/25 as well; with albumin repletion
- stop meropenem start ciprofloxacin for 6 more days (10 day total course)
-ID consulted
-CT imaging along with contrast in PEG - no evidence of leak at this time;
-Per discussion with GI - not candidate for IR intranodal lymphangiography with lymphatic embolization. Spoke to Dr. Eliel Addison at [place].
-f/u cultures from 07/30 paracentesis; add on ADA, TB although doubt etology
-midodrine
- IR placed peritoneal port, paracentesis can be done for home hospice
MARLENE on CKD IV
Hyperkalemia
Uremia
Metabolic Acidosis
- Cr 2.6 compared to known baseline of 1.5.
- Patient has solitary kidney s/p nephrectomy (for recurrent infection / reflux).
- no hydronephrosis noted in right kidney on US
- s/p insulin in ER, fluids and lasix, s/p 1 dose Lokelma, K now normalized
- continue IVF; IVF PRN - given 1L LR bolus 07/30 and 08/01
- Nephrology consult appreciated
- continue IV albumin PRN
- Monitor renal function
-prognosis poor
#Acute Anemia
-probable due to chronic disease and MARLENE/CKD
-transfused 1 u prbc
#Hypotension
-midodrine as needed
-IVF
-albumin
#?UTI
-Enterobacteria clocae
-resistant to ceftriaxone
-now on meropenem
Vaginal yeast infection
-treat with fluconazole 100 mg PO 07/31
Hypernatremia
-treat as needed
-improved
GOC Discussions
After extensive discussion with family understanding comorbid issues and continued decline patient with unlikely complete resolution of peritonitis, decision was made to transition to goals of comfort. IR consulted for Peritoneal Port to facilitate
drainage at home
Spina Bifida with Hydrocephalus s/p INSIDE SALES AGENT Shunt
- Recently had PEG placed (April 2025) - prior to that was fed with supplemental feeds via bottle.
- Continue supportive care / repositioning / etc.
- Recent [employer]YLAND FARM[employer] imaging last admission was unremarkable.
- TF resumed per dietary
DVT Prophylaxis: Subcut Heparin
Code Status: Full
More than 30 minutes spent in discharge including
Final examination of the patient
Summarizing hospital stay
Instructions for continuing care to all relevant caregivers
Preparation of discharge records, prescriptions, and referral forms
Total time spent (in minutes): 36
Anticipated Discharge: Today
Subjective/Interval History
-
Date of Service: August 03, 2025
no acute events
Objective Data
-
Vital Signs:
Vital Signs
Temp Pulse Resp BP Pulse Ox
98 F 98 20 83/49 95
08/02/25 23:00 08/03/25 09:00 08/03/25 09:00 08/03/25 04:49 08/03/25 09:00
I&O
08/02/25 08/03/25 08/04/25
06:59 06:59 06:59
Intake Total 1720 / 1760 310 / 310
Output Total 40 / 40 20 / 20
Balance 1680 / 1720 290 / 290
Review of Systems
-
History Source: Patient
All other systems: Not reviewed unless documented
Physical Exam
-
General: No Apparent Distress and Appears Chronically Ill
HEENT: PERRLA and Other
Respiratory: Clear to Auscultation
Cardiac: Regular Rhythm and S1/S2
GI: Soft, Nontender and Other (PEG Tube)
Musculoskeletal: No Edema and Other (contractures )
Skin: Warm and Dry; Negative Rash
Neuro: Awake
Psych: Calm
Data Reviewed
-
Diagnostic Radiology: Report Reviewed by me
Labs: Labs Reviewed by me
--- NOTE | 2025-08-03 11:07 | W.DS.TRANS ---
Addendum entered and electronically signed by Domenico Kirby MD 08/03/25 12:11:
Rx - new medication midodrine 2.5mg q4hprn
Original Note:
DC Summary - Screenplay Writer
-
Discharge Instructions:
Discharge Diagnosis/Procedures Renal Failure, Chylous Ascites
Diet Other diet
Additional Diets Tube Feeding
Activity As tolerated
Instructions:
Stand-Alone Forms:
Changes to Home Medications: Yes
Discharge Medications:
DC Medications w/original date entered in [facility]
polyethylene glycol 3350 17 gram oral powder packet (Miralax) 17 g feeding tube DAILY@1400 Gastrointestinal Issue 05/18/25
lansoprazole 30 mg delayed release,disintegrating tablet (Prevacid SoluTab) 30 mg feeding tube DAILY #30 tabs 05/22/25
terbinafine HCl 1 % topical cream 1 applic topical BID to groin 07/27/25
ciprofloxacin HCl 500 mg tablet 500 mg feeding tube Q24H 6 days #6 tabs 08/03/25
Home Medication Changes
ciprofloxacin HCl 500 mg tablet 500 mg feeding tube Q24H 6 days #6 tabs 08/03/25
Pending Results: No
[2025-08-03] MEDS: VALIUM INJECTION 2.5 MG IV (11:26)
--- NOTE | 2025-08-03 11:35 | CM ---
Chart reviewed and plan is to home with [facility] today, family to transport, per family they have all the equipment they need for now, they want patient is her own bed.
Plan; Home with [facility].
--- NOTE | 2025-08-03 12:51 | PTCARENOTE ---
Discharge instructions and meds discussed. IV out. pt assisted to wheelchair by mother. Escorted family to vehicle without issue.
== END 2025-08-03 12:51 | disposition hospice, home (50) | DRG 814 ==
LOC: ICU 21:02
PROVIDERS: Nurse Practitioner Adult Health; Nurse Practitioner Family; Physician Assistant; Radiology Diagnostic Radiology; Radiology Vascular & Interventional Radiology; Specialist; Student in an Organized Health Care Education/Training Program; ADMITTING PHYSICIAN Hospitalist; ATTENDING PHYSICIAN Internal Medicine; CONSULT PHYSICIAN Internal Medicine; CONSULT PHYSICIAN Student in an Organized Health Care Education/Training Program; EMERGENCY PHYSICIAN Emergency Medicine; FAMILY PHYSICIAN Family Medicine; OTHER PHYSICIAN Internal Medicine
PROC: 0W9G3ZZ Drainage of Peritoneal Cavity, Percutaneous Approach (ICD-10-PCS; 2025-07-26)
PROC: 06H033Z Insertion of Infusion Device into Inferior Vena Cava, Percutaneous Approach (ICD-10-PCS; 2025-07-29)
PROC: 30243N1 Transfusion of Nonautologous Red Blood Cells into Central Vein, Percutaneous Approach (ICD-10-PCS; 2025-08-01)
PROC: 0W9G30Z Drainage of Peritoneal Cavity with Drainage Device, Percutaneous Approach (ICD-10-PCS; 2025-08-02)
DX: I89.8 Other specified noninfective disorders of lymphatic vessels and lymph nodes (principal); K65.2 Spontaneous bacterial peritonitis; E87.0 Hyperosmolality and hypernatremia; N17.9 Acute kidney failure, unspecified; E87.20 Acidosis, unspecified; Q05.4 Unspecified spina bifida with hydrocephalus; Z51.5 Encounter for palliative care; Z66 Do not resuscitate; E87.1 Hypo-osmolality and hyponatremia; Z16.24 Resistance to multiple antibiotics; Z68.1 Body mass index [BMI] 19.9 or less, adult; N18.4 Chronic kidney disease, stage 4 (severe); R62.7 Adult failure to thrive; Q65.89 Other specified congenital deformities of hip; N31.9 Neuromuscular dysfunction of bladder, unspecified; K59.09 Other constipation; I95.9 Hypotension, unspecified; E87.5 Hyperkalemia; R62.59 Other lack of expected normal physiological development in childhood; D50.9 Iron deficiency anemia, unspecified; B37.32 Chronic candidiasis of vulva and vagina; D63.1 Anemia in chronic kidney disease; R63.6 Underweight; K22.2 Esophageal obstruction; M24.451 Recurrent dislocation, right hip; Z22.39 Carrier of other specified bacterial diseases; Z11.52 Encounter for screening for COVID-19; Z93.1 Gastrostomy status; Z93.51 Cutaneous-vesicostomy status; Z98.2 Presence of cerebrospinal fluid drainage device; Z91.040 Latex allergy status; Z90.5 Acquired absence of kidney; Z90.13 Acquired absence of bilateral breasts and nipples
CPT/HCPCS: 49083; 49418; 71045; 71046; 74176; 76700; 80048; 80053; 81003; 81015; 81099; 82042; 82150; 82248; 82570; 82728; 82945; 82962; 83540; 83550; 83605; 83615; 83735; 84132; 84156; 84157; 84300; 84443; 84478; 84484; 85014; 85018; 85025; 85027; 86480; 86850; 86900; 86901; 86920; 87015; 87040; 87070; 87077; 87086; 87186; 87205; 87502; 87811; 88112; 88305; 89051; 93005; 93971; C1769; J2185; P9016; P9047